=== PATIENT | female | born 1940 | race African-American/Black ===

== ENCOUNTER 2017-06-02 23:14 | Observation (INO) | payer OTHER ==
--- OUTSIDE RECORDS SUMMARY | 2017-06-02 23:17 | XMS REPORT | Clinical Summary ---
:1940 Author Organization [facility] Address [address] [place] [address] Phone Care Team Providers Name Role Phone Unavailable Primary Care Provider Unavailable Allergies Active Allergy Reactions Severity Noted Date Comments Lisinopril 04/15/2017 Penicillins 04/15/2017 Current Medications Prescription Sig. Disp. Refills Start Date End Date Status metFORMIN (GLUCOPHAGE) Take 1,000 mg by Active 1000 MG tablet mouth 2 (two) times daily with breakfast and dinner. ALPRAZolam (XANAX) 0.5 Take 0.5 mg by mouth Active MG tablet every night as needed for Anxiety. amLODIPine (NORVASC) 10 Take 10 mg by mouth Active MG tablet daily. metoprolol (LOPRESSOR) Take 25 mg by mouth. Active 25 MG tablet pantoprazole (PROTONIX) Take 40 mg by mouth Active 40 MG tablet daily. zolpidem (AMBIEN) 10 mg Take 10 mg by mouth Active tablet every night as needed for Insomnia. losartan (COZAAR) 100 MG Take 100 mg by mouth Active tablet daily. latanoprost (XALATAN) Place 1 drop into Active 0.005 % ophthalmic both eyes nightly. solution prednisoLONE acetate Place 1 drop into Active (PRED FORTE) 1 % the right eye 3 ophthalmic suspension (three) times daily. Active Problems Problem Noted Date Right upper quadrant abdominal pain 04/16/2017 Abdominal pain 04/15/2017 Encounters Date Type Specialty Care Team Description 04/17/2017 Procedure Pass Gastroenterology 04/15/[address] [facility] Internal Tony Cee Right upper - Encounter Medicine MD Gustavo quadrant 04/17/2017 Raquel Chester abdominal MD pain;Choledocholi Claireekunique Suárez, thiasis;Atypical Mamta Núñez MD chest pain after 06/01/2016 Social History Tobacco Use Types Packs/Day Years Used Date Never Assessed Sex Assigned at Date Recorded Not on file Last Filed Vital Signs Vital Sign Reading Time Taken Blood Pressure 166/77 04/17/2017 3:35 PM [employer] Pulse 53 04/17/2017 3:35 PM [employer] Temperature 37.1 C (98.8 F) 04/17/2017 3:35 PM [employer] Respiratory Rate 19 04/17/2017 3:35 PM [employer] Oxygen Saturation 100% 04/17/2017 3:35 PM [employer] Inhaled Oxygen Concentration - - Weight 62.8 kg (138 lb 8 oz) 04/15/2017 1:46 AM [employer] Height 162.6 cm (5' 4") 04/15/2017 1:46 AM [employer] Body Mass Index 23.77 04/15/2017 1:46 AM [employer] Plan of Treatment Not on file Results RHYTHM STRIP - SCAN (05/04/2017 3:21 PM)Only the most recent of2 resultswithin the time period is included.EKG-SCANNED (05/02/2017 1:40 PM)Only the most recent of2 resultswithin the time period is included.ECHOCARDIOGRAM REPORT - SCAN (04/17/2017 5:20 PM)2D Echo W/Doppler(CW/PW/Color) (04/17/2017 2:23 PM) Component Value Ref Range Ejection Fraction Specimen Performing Laboratory [facility] ECHO [facility] CPA Narrative Transthoracic Echocardiography Report (TTE) Demographics Patient NameBACKMAN,Date of Study 04/17/2017 SHEREEN Female Visit [id number] Room Number 902 Number Date of 2Referring Mamta Suárez MD Physician Age 77 year(s)Inflatable Buildings Laminator SHAUN Fernandez, RDCS,RVT,RDMS Binding Folder Machine Ana Maria De Oliveira, Elizabeth Fisher MD RDCSPhysician Procedure Type of Study TTE procedure:2DECHO W DOPPLER(CW/PW/COLOR) (Routine) Indications:Shortness of breath. Clinical History HGB 11.3 HCT 35.8 % DM, HTN Height: 64 inches Weight: 62.6 kg (138 lbs) BSA: 1.67 m^2 BMI: 23.69 kg/m^2 HR: 51 bpm BP: 164/75 mmHg Summary The left ventricle is chamber size (by vol index) is normal (female - LVED vol - 29-61ml/m2). No evidence of LV hypertrophy. All of the LV segments contract normally . Global LV systolic function normal . Estimated LVEF by qualitative assessment is normal (55-60%) . Normal diastolic function. The right ventricular chamber size and systolic function are within normal limits. Estimated peak systolic PA pressure is 20-25 mmHg . No pericardial effusion is visualized. Previous Study No prior exam available for comparison. Signature Findings Technical Quality: Technically adequate exam. Left Ventricle The left ventricle is chamber size (by vol index) is normal (female - LVED vol - 29-61ml/m2). No evidence of LV hypertrophy. All of the LV segments contract normally . Global LV systolic function normal . Estimated LVEF by qualitative assessment is normal (55-60%) . Normal diastolic function. Left AtriumLA size is normal (16-34 ml/m2) . Right VentricleThe right ventricular chamber size and systolic function are within normal limits. Right Atrium RA cavity size is normal . Aortic Valve Mild AoV cusp thickening. Mitral Valve Mild mitral annular calcification. Tricuspid ValveTV structure is normal. Mild tricuspid regurgitation. Estimated peak systolic PA pressure is 20-25 mmHg . Pulmonic Valve Normal PV structure and function by limited views and Doppler. AortaAortic root size (SInus of Valsalva diameter) is normal . PericardiumNo pericardial effusion is visualized. IVC/SVC/PA/PV/PleuralThe inferior vena cava is adequately visualized. The inferior vena cava size is normal . The estimated RA pressure by IVC dynamics 0-5mmHg . Chambers/Structures Left Atrium LA Volume: 51.4 mlLA Area: 16.41 cm^2 LA Vol. Index: 31 ml/m^2 Left Ventricle LVIDd: 4.13 cm LV Septum Diastolic: 1.11 cm LV PW Diastolic: 0.9 cm LVEDV Chowdhury's:76.04 ml LVEDVI: 46 ml/m^2 LVOT Diameter: 1.9 cm Aorta Ao Root S of Jane.: 2.92 cm Doppler/Quantitative Measurements Mitral Valve MV Peak E-Wave: 1 m/s MV Peak A-Wave: 0.93 m/s E/A Ratio: 1.07 Peak Gradient: 4 mmHg Deceleration Time: 236 msec MV Willem. Peak: Tissue Doppler E' Lateral Velocity: 0.09 m/s E/E': 11 Aortic Valve Peak Velocity: 1.4 m/s Mean Velocity: 0.88 m/s Peak Gradient: 7.81 mmHg Mean Gradient: 3.74 mmHg AV Area (continuity): 2.29 cm^2 AV VTI: 31.22 cm AV DVI: 0.81 LVOT Peak Velocity: 1.06 m/s Peak Gradient: 4.5 mmHg Mean Velocity: 0.67 m/s Mean Gradient: 2.13 mmHg LVOT Diameter: 1.9 cm LVOT VTI: 25.22 cm LVOT Area: 2.84 cm^2LVOT SV:71.47 ml LVOT CO: 3.64 l/min LVOT CI: 2.18 l/min/m^2 Tricuspid Valve TR Velocity: 2.22 m/s TR Gradient: 19.76 mmHg Procedure Note Interface, External Ris In - 04/17/2017 4:48 PM [employer] Transthoracic Echocardiography Report (TTE) Demographics Patient Name GRETCHEN, Date of Study 04/17/2017 SHEREEN Gender Female Visit Number [id number] Race Black Room Number 902 Number Date of 1940 Referring Mamta Kline MD Physician Age 77 year(s) Inflatable Buildings Laminator SHAUN Fernandez, RDCS,RVT,RDMS Binding Folder Machine Ana Maria De Oliveira, Interpreting Gaudencio Fisher MD RDCS Physician Procedure Type of Study TTE procedure:2DECHO W DOPPLER(CW/PW/COLOR) (Routine) Indications:Shortness of breath. Clinical History HGB 11.3 HCT 35.8 % DM, HTN Height: 64 inches Weight: 62.6 kg (138 lbs) BSA: 1.67 m^2 BMI: 23.69 kg/m^2 HR: 51 bpm BP: 164/75 mmHg Summary The left ventricle is chamber size (by vol index) is normal (female - LVED vol - 29-61ml/m2). No evidence of LV hypertrophy. All of the LV segments contract normally . Global LV systolic function normal . Estimated LVEF by qualitative assessment is normal (55-60%) . Normal diastolic function. The right ventricular chamber size and systolic function are within normal limits. Estimated peak systolic PA pressure is 20-25 mmHg . No pericardial effusion is visualized. Previous Study No prior exam available for comparison. Signature Findings Technical Quality: Technically adequate exam. Left Ventricle The left ventricle is chamber size (by vol index) is normal (female - LVED vol - 29-61ml/m2). No evidence of LV hypertrophy. All of the LV segments contract normally . Global LV systolic function normal . Estimated LVEF by qualitative assessment is normal (55-60%) . Normal diastolic function. Left Atrium LA size is normal (16-34 ml/m2) . Right Ventricle The right ventricular chamber size and systolic function are within normal limits. Right Atrium RA cavity size is normal . Aortic Valve Mild AoV cusp thickening. Mitral Valve Mild mitral annular calcification. Tricuspid Valve TV structure is normal. Mild tricuspid regurgitation. Estimated peak systolic PA pressure is 20-25 mmHg . Pulmonic Valve Normal PV structure and function by limited views and Doppler. Aorta Aortic root size (SInus of Valsalva diameter) is normal . Pericardium No pericardial effusion is visualized. IVC/SVC/PA/PV/Pleural The inferior vena cava is adequately visualized. The inferior vena cava size is normal . The estimated RA pressure by IVC dynamics 0-5mmHg . Chambers/Structures Left Atrium LA Volume: 51.4 ml LA Area: 16.41 cm^2 LA Vol. Index: 31 ml/m^2 Left Ventricle LVIDd: 4.13 cm LV Septum Diastolic: 1.11 cm LV PW Diastolic: 0.9 cm LVEDV Chowdhury's:76.04 ml LVEDVI: 46 ml/m^2 LVOT Diameter: 1.9 cm Aorta Ao Root S of Jane.: 2.92 cm Doppler/Quantitative Measurements Mitral Valve MV Peak E-Wave: 1 m/s MV Peak A-Wave: 0.93 m/s E/A Ratio: 1.07 Peak Gradient: 4 mmHg Deceleration Time: 236 msec MV Willem. Peak: Tissue Doppler E' Lateral Velocity: 0.09 m/s E/E': 11 Aortic Valve Peak Velocity: 1.4 m/s Mean Velocity: 0.88 m/s Peak Gradient: 7.81 mmHg Mean Gradient: 3.74 mmHg AV Area (continuity): 2.29 cm^2 AV VTI: 31.22 cm AV DVI: 0.81 LVOT Peak Velocity: 1.06 m/s Peak Gradient: 4.5 mmHg Mean Velocity: 0.67 m/s Mean Gradient: 2.13 mmHg LVOT Diameter: 1.9 cm LVOT VTI: 25.22 cm LVOT Area: 2.84 cm^2 LVOT SV:71.47 ml LVOT CO: 3.64 l/min LVOT CI: 2.18 l/min/m^2 Tricuspid Valve TR Velocity: 2.22 m/s TR Gradient: 19.76 mmHg POC-Glucose meter (04/17/2017 12:04 PM)Only the most recent of12 resultswithin the time period is included. Component Value Ref Range POC-Glucose Meter 253 (H)Comment: TESTED AT [address] 70 - 110 mg/[place] [address] Specimen Performing Laboratory Blood [facility] [address] [address] Manual Differential (04/17/2017 5:53 AM)Only the most recent of2 resultswithin the time period is included. Specimen Performing Laboratory Blood - Arm, [address] [address] CBC with platelet count + automated diff (04/17/2017 5:53 AM)Only the most recent of3 resultswithin the time period is included. Component Value Ref Range WBC 7.3 3.5 - 10.5 K/L RBC 3.94 3.93 - 5.22 M/L Hemoglobin 11.3 11.2 - 15.7 GM/DL Hematocrit 35.8 34.1 - 44.9 % MCV 90.9 79.4 - 94.8 fL MCH 28.7 25.6 - 32.2 pg MCHC 31.6 (L) 32.2 - 35.5 GM/DL RDW 13.4 11.7 - 14.4 % Platelets 268 150 - 450 K/CU MM MPV 10.0 9.4 - 12.3 fL nRBC 0 0 - 0 /100 WBC % Neutros 41 % % Lymphs 46 % % Monos 8 % % Eos 3 % % Baso 2 % # Neutros 2.99 1.56 - 6.13 K/L # Lymphs 3.34 1.18 - 3.74 K/L # Monos 0.57 (H) 0.24 - 0.36 K/L # Eos 0.22 0.04 - 0.36 K/L # Baso 0.11 (H) 0.01 - 0.08 K/L Immature Granulocytes-Relative 0 0 - 1 % Specimen Performing Laboratory Blood - Arm, [address] [address] CBC with platelet count + automated diff (04/17/2017 5:53 AM)Only the most recent of3 resultswithin the time period is included. Specimen Performing Laboratory Blood Narrative The following orders were created for panel order CBC with platelet count + automated diff. Procedure Abnormality Status --------- ------ CBC with platelet count ...[[id number]]AbnormalFinal result Manual Differential[[id number]] Fi nal result Please view results for these tests on the individual orders. Magnesium (04/17/2017 5:53 AM)Only the most recent of2 resultswithin the time period is included. Component Value Ref Range Magnesium 1.6 1.6 - 2.6 mg/dL Specimen Performing Laboratory Blood - Arm, [address] [address] Basic Metabolic Panel (04/17/2017 5:53 AM) Component Value Ref Range Sodium 140 136 - 145 meq/L Potassium 3.7 3.5 - 5.1 meq/L Chloride 109 (H) 98 - 107 meq/L CO2 23 22 - 29 meq/L BUN 12 7 - 21 mg/dL Creatinine 0.82 0.57 - 1.25 mg/dL Glucose 96 70 - 105 mg/dL Calcium 9.5 8.4 - 10.2 mg/dL EGFR 82Comment: ESTIMATED GFR IS NOT ACCURATE mL/min/1.73 sq m CREATININE CLEARANCE IN PREDICTING GLOMERULAR FILTRATION RATE. ESTIMATED GFR IS NOT APPLICABLE FOR DIALYSIS PATIENTS. Specimen Performing Laboratory Blood - Arm, [address] [address] Troponin I (04/16/2017 5:17 AM)Only the most recent of4 resultswithin the time period is included. Component Value Ref Range Troponin I 0.02 0.00 - 0.03 ng/mL Specimen Performing Laboratory Blood [address] [address] Narrative Troponin I (TnI) levels must be interpreted in the context of the presenting symptoms and the clinical findings. Elevated TnI levels indicate myocardial damage, but are not specific for ischemic heart disease. Elevated TnI levels are seen in patients with other cardiac conditions (including myocarditis and congestive heart failure), and slight TnI elevations occur in patients with other conditions, including sepsis, renal failure, acidosis, acute neurological disease, and persistent tachyarrhythmia. Gamma Glutamyl Transferase (GGT) (04/16/2017 5:17 AM)Only the most recent of2 resultswithin the time period is included. Component Value Ref Range GGT 305 (H) 9 - 64 U/L Specimen Performing Laboratory Blood [address] [address] Creatine Kinase (CK), Total and MB (04/16/2017 5:17 AM)Only the most recent of4 resultswithin the time period is included. Component Value Ref Range Total CK 143 29 - 200 U/L CK-MB 4.1 0.0 - 6.6 ng/mL MB Relative Index 2.9 % Specimen Performing Laboratory Blood [address] [address] Narrative CK-MB Reference Range: <6.7Normal 6.7-10.0Borderline >10.0 Abnormal Bilirubin, direct (04/16/2017 5:17 AM) Component Value Ref Range Bilirubin, Direct 0.2 0.1 - 0.5 mg/dL Specimen Performing Laboratory Blood [address] [address] Comprehensive metabolic panel (04/16/2017 5:17 AM)Only the most recent of2 resultswithin the time period is included. Component Value Ref Range Protein, Total 7.1 6.0 - 8.3 gm/dL Albumin 3.3 (L) 3.5 - 5.0 g/dL Alkaline Phosphatase 186 (H) 40 - 150 U/L Total Bilirubin <0.3 0.2 - 1.2 mg/dL Sodium 141 136 - 145 meq/L Potassium 3.6 3.5 - 5.1 meq/L Chloride 110 (H) 98 - 107 meq/L CO2 24 22 - 29 meq/L BUN 13 7 - 21 mg/dL Creatinine 0.82 0.57 - 1.25 mg/dL Glucose 83 70 - 105 mg/dL Calcium 9.3 8.4 - 10.2 mg/dL AST 30 5 - 34 U/L ALT 88 (H) 6 - 55 U/L EGFR 82Comment: ESTIMATED GFR IS NOT ACCURATE mL/min/1.73 sq m CREATININE CLEARANCE IN PREDICTING GLOMERULAR FILTRATION RATE. ESTIMATED GFR IS NOT APPLICABLE FOR DIALYSIS PATIENTS. Specimen Performing Laboratory [address] [address] MR abdomen without & with IV contrast (04/15/2017 11:10 PM) Specimen Performing Laboratory [facility] Narrative FINAL REPORT MRI OF THE ABDOMEN with MRCP CLINICAL HISTORY: Concern for pancreatic lesion seen on outside imaging TECHNIQUE: Multiplanar and multisequence MR images of the abdomen are obtained before and after intravenous contrast administration. Contrast is administered to evaluate the solid organs COMPARISON: Abdominal ultrasound from 04/15/2017 DISCUSSION: LIVER: No focal liver lesion. Main portal vein is patent. BILIARY: Mild ectasia of the common bile duct measuring up to 7 mm. No discrete filling defects are identified within the biliary tree. No racheal intrahepatic biliary ductal dilation. There are findings of prior cholecystectomy. Metallic susceptibility artifact is seen at the donovan hepatis and lateral to the pancreatic head. PANCREAS: No pancreatic ductal dilation. No definite solid pancreatic lesion within limitations of examination and artifacts. There is a 2.9 cm duodenal diverticulum adjacent to the pancreatic head. SPLEEN: No splenomegaly. ADRENALS: No nodule. KIDNEYS: Bilateral parapelvic cysts. No racheal hydronephrosis. Bilateral subcentimeter T2 hyperintense cysts are incompletely characterized. No definite solid renal lesion. PERITONEUM/RETROPERITONEUM: No free fluid. LYMPH NODES: No upper abdominal lymphadenopathy. VESSELS: Abdominal aorta is normal in caliber. BONES AND SOFT TISSUES: Degenerative changes in the lumbar spine. IMPRESSION: No specific findings of hepatobiliary or pancreatic malignancy. The common bile duct is mildly ectatic. No discrete filling defects are identified in the biliary tree. There is a small amount of metallic susceptibility artifact at the donovan hepatis and adjacent to the pancreatic head, likely from prior cholecystectomy, limiting evaluation. If there remains high clinical suspicion for pancreatic head lesion, a contrast-enhanced CT is recommended. Signed: Kaveh Steve MD Report Verified Date/Time:04/17/2017 12:17:51 Reading Location: [address] Body Reading Room Procedure Note Interface, External Ris In - 04/17/2017 12:20 PM [employer] FINAL REPORT MRI OF THE ABDOMEN with MRCP CLINICAL HISTORY: Concern for pancreatic lesion seen on outside imaging TECHNIQUE: Multiplanar and multisequence MR images of the abdomen are obtained before and after intravenous contrast administration. Contrast is administered to evaluate the solid organs COMPARISON: Abdominal ultrasound from 04/15/2017 DISCUSSION: LIVER: No focal liver lesion. Main portal vein is patent. BILIARY: Mild ectasia of the common bile duct measuring up to 7 mm. No discrete filling defects are identified within the biliary tree. No racheal intrahepatic biliary ductal dilation. There are findings of prior cholecystectomy. Metallic susceptibility artifact is seen at the donovan hepatis and lateral to the pancreatic head. PANCREAS: No pancreatic ductal dilation. No definite solid pancreatic lesion within limitations of examination and artifacts. There is a 2.9 cm duodenal diverticulum adjacent to the pancreatic head. SPLEEN: No splenomegaly. ADRENALS: No nodule. KIDNEYS: Bilateral parapelvic cysts. No racheal hydronephrosis. Bilateral subcentimeter T2 hyperintense cysts are incompletely characterized. No definite solid renal lesion. PERITONEUM/RETROPERITONEUM: No free fluid. LYMPH NODES: No upper abdominal lymphadenopathy. VESSELS: Abdominal aorta is normal in caliber. BONES AND SOFT TISSUES: Degenerative changes in the lumbar spine. IMPRESSION: No specific findings of hepatobiliary or pancreatic malignancy. The common bile duct is mildly ectatic. No discrete filling defects are identified in the biliary tree. There is a small amount of metallic susceptibility artifact at the donovan hepatis and adjacent to the pancreatic head, likely from prior cholecystectomy, limiting evaluation. If there remains high clinical suspicion for pancreatic head lesion, a contrast-enhanced CT is recommended. Signed: Kaveh Steve MD Report Verified Date/Time: 04/17/2017 12:17:51 Reading Location: [facility] [id number] CT Body Reading Room D-dimer (04/15/2017 4:29 PM) Component Value Ref Range D-Dimer, Quant 0.60 (H) <0.50 MG/L FEU Specimen Performing Laboratory Blood - Arm, [place] [address] Narrative Intended Use: The D-Dimer Assay can be used to aid in the diagnosis of Deep Vein Thrombosis (DVT) and Pulmonary Embolism Disease (PED). In patients with low pre-test probability, various studies concerning STA Liatest D-dimer test have reported that with a cutoff value of 0.50 MG/L FEU, the Negative Predictive Value (NPV) regarding the exclusion of thrombosis is within 95-100% range. B-type Natriuretic Factor (BNP) (04/15/2017 11:38 AM) Component Value Ref Range BNP 200 (H) 0 - 100 pg/mL Specimen Performing Laboratory Blood [address] [address] Carbohydrate antigen 19-9 (CA 19-9) (04/15/2017 10:07 AM) Component Value Ref Range CA 19-9 25 <34 U/mL Comment: This test was performed using the Siemens ([employer]) Chemiluminescent method. Values obtained from different assay methods cannot be used interchangeably. CA19-9 levels, regardless of value, should not be interpreted as absolute evidence of the presence or absence of disease. Specimen Performing Laboratory Blood [facility] [address] [place] [address] Narrative Performing Lab [facility] [address] [place] [address] Naomi Soto MD, PhD Carcinoembryonic Antigen (CEA) (04/15/2017 10:07 AM) Component Value Ref Range CEA, SERUM 2.5 0.0 - 5.0 ng/mL Specimen Performing Laboratory Blood [facility] [address] [place] [address] ECG 12 lead (04/15/2017 9:24 AM) Specimen Performing Laboratory GE MUSE Narrative Ventricular Rate 56 BPM Atrial Rate 56 BPM P-R Interval 158 ms QRS Duration 90 ms Q-T Interval 466 ms QTC Calculation(Bazett) 449 ms P Sheffield 67 degrees R Sheffield 36 degrees T Sheffield 42 degrees Sinus bradycardia Nonspecific ST and T wave abnormality Abnormal ECG No previous ECGs available Confirmed by Dayna SONI BASANT ([id number]) on 04/16/2017 8:23:52 AM Procedure Note Interface, External Ris In - 04/16/2017 8:24 AM [employer] Ventricular Rate 56 BPM Atrial Rate 56 BPM P-R Interval 158 ms QRS Duration 90 ms Q-T Interval 466 ms QTC Calculation(Bazett) 449 ms P Sheffield 67 degrees R Sheffield 36 degrees T Sheffield 42 degrees Sinus bradycardia Nonspecific ST and T wave abnormality Abnormal ECG No previous ECGs available Confirmed by Dayna SONI BASANT ([id number]) on 04/16/2017 8:23:52 AM US abdomen limited (04/15/2017 9:03 AM) Specimen Performing Laboratory GE RIS Narrative FINAL REPORT ULTRASOUND RIGHT UPPER QUADRANT OF THE ABDOMEN HISTORY: Abdominal pain, cholelithiasis, epigastric pain COMPARISON: None TECHNIQUE: Real-time ultrasound of the right upper quadrant of the abdomen was performed. FINDINGS: The liver is normal in size and echogenicity. Hepatic length is 12.4 cm. No mass lesion is visualized. The gallbladder is absent. The common bile duct is normal in caliber, measuring 4 mm. The main portal vein is normal in caliber, measuring 12mm. No pancreatic abnormality was visualized.No ascites or pleural effusion. The right kidney is normal in size, contour, and echogenicity. The right kidney measures 8.7 cm in length. Mild right hydronephrosis. No right renal mass. No shadowing calculi are visualized. No abnormalities are seen in the abdominal aorta, inferior vena cava, or hepatic veins. IMPRESSION: 1. Mild right hydronephrosis. Signed: Jenn Crocker MD Report Verified Date/Time:04/15/2017 10:11:28 Reading Location: [facility] [id number] Ortho Consult Reading Room Procedure Note Interface, External Ris In - 04/15/2017 10:13 AM [employer] FINAL REPORT ULTRASOUND RIGHT UPPER QUADRANT OF THE ABDOMEN HISTORY: Abdominal pain, cholelithiasis, epigastric pain COMPARISON: None TECHNIQUE: Real-time ultrasound of the right upper quadrant of the abdomen was performed. FINDINGS: The liver is normal in size and echogenicity. Hepatic length is 12.4 cm. No mass lesion is visualized. The gallbladder is absent. The common bile duct is normal in caliber, measuring 4 mm. The main portal vein is normal in caliber, measuring 12 mm. No pancreatic abnormality was visualized. No ascites or pleural effusion. The right kidney is normal in size, contour, and echogenicity. The right kidney measures 8.7 cm in length. Mild right hydronephrosis. No right renal mass. No shadowing calculi are visualized. No abnormalities are seen in the abdominal aorta, inferior vena cava, or hepatic veins. IMPRESSION: 1. Mild right hydronephrosis. Signed: Jenn Crocker MD Report Verified Date/Time: 04/15/2017 10:11:28 Reading Location: [facility] B1 [id number] Ortho Consult Reading Room Phosphorus (04/15/2017 5:31 AM) Component Value Ref Range Phosphorus 3.9 2.3 - 4.7 mg/dL Specimen Performing [place] [address] Lipase (04/15/2017 5:31 AM) Component Value Ref Range Lipase 29 8 - 78 U/L Specimen Performing Laboratory Blood [address] [address] Hemoglobin A1c (04/15/2017 5:31 AM) Component Value Ref Range Hemoglobin A1C 6.8 (H) 4.3 - 6.1 % Specimen Performing Laboratory Blood [address] [address] Lipid panel (04/15/2017 5:31 AM) Component Value Ref Range Triglycerides 128 mg/dL Cholesterol 162 mg/dL HDL 47 mg/dL LDL Calculated 89 mg/dL Specimen Performing Laboratory Blood [address] [address] Narrative Triglyceride Reference Range: Low Risk <150 [id number] High Risk 200-499 Very High Risk>=500 Cholesterol Reference Range: Low Risk <200 [id number] High Risk>240 HDL Cholesterol Reference Range: Low Risk >=60 High Risk <40 LDL Cholesterol Reference Range: Optimal<100 Near Bdqjlke810-289 Mnntzsaewz883-291 Mcez178-257 Very High >=190 after 06/01/2016
--- OUTSIDE RECORDS SUMMARY | 2017-06-02 23:18 | XMS REPORT ---
:1940 [facility] [address] [place] [address] Care Team Providers Name Role Phone TITUS BREWER Unavailable Unavailable Problems This patient has no known problems. Allergies, Adverse Reactions, Alerts This patient has no known allergies or adverse reactions. Medications This patient has no known medications. 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 Contrast is administered to evaluate the solid organs COMPARISON: Abdominal ultrasound from 04/15/2017 DISCUSSION: LIVER: No focal liver lesion. Main portal vein is patent.BILIARY: Mild ectasia of the common bile duct measuring up to 7 mm. No discrete filling defects are identified within the biliary tree. No racheal intrahepatic biliary ductal dilation. There are findings of prior cholecystectomy. Metallic susceptibility artifact is seen at the donovan hepatis and lateral to the pancreatic head.PANCREAS: No pancreatic ductal dilation. No definite solid pancreatic lesion within limitations of examination and artifacts. There is a 2.9 cm duodenal diverticulum adjacent to the pancreatic head.SPLEEN: No splenomegaly. ADRENALS: No nodule.KIDNEYS: Bilateral parapelvic cysts. No racheal hydronephrosis. Bilateral subcentimeter T2 hyperintense cysts are incompletely characterized. No definite solid renal lesion. PERITONEUM/RETROPERITONEUM: No free fluid.LYMPH NODES: No upper abdominal lymphadenopathy. VESSELS: Abdominal [...] contrast-enhanced CT is recommended. Signed: Kaveh Steve MDReport Verified Date/Time: 04/17/2017 12:17:51 Reading Location: [place] [id number] CT Body Reading Room -GLUCOSE METER 2017-04-17 12:08:00 Test Item Value Reference Range Comments POC-GLUCOSE METER (BEAKER) (test 253 mg/dL 70-110 TESTED AT [facility] [address] tlwf=6962) [facility] [address] CBC W/PLT COUNT & AUTO [id number] 12:08:00 Test Item Value Reference Range Comments WHITE BLOOD CELL COUNT (BEAKER) (test gnmy=002) 7.3 K/ L 3.5-10.5 RED BLOOD CELL COUNT (BEAKER) (test movf=106) 3.94 M/ L 3.93-5.22 HEMOGLOBIN (BEAKER) (test ntiu=794) 11.3 GM/DL 11.2-15.7 HEMATOCRIT (BEAKER) (test fops=418) 35.8 % 34.1-44.9 MEAN CORPUSCULAR VOLUME (BEAKER) (test rign=103) 90.9 fL 79.4-94.8 MEAN CORPUSCULAR HEMOGLOBIN (BEAKER) (test 28.7 pg 25.6-32.2 cbza=568) MEAN CORPUSCULAR HEMOGLOBIN CONC (BEAKER) (test 31.6 GM/DL 32.2-35.5 sapp=615) RED CELL DISTRIBUTION WIDTH (BEAKER) (test 13.4 % 11.7-14.4 erzn=754) PLATELET COUNT (BEAKER) (test kxsk=528) 268 K/CU MM 150-450 MEAN PLATELET VOLUME (BEAKER) (test dbvz=954) 10.0 fL 9.4-12.3 NUCLEATED RED BLOOD CELLS (BEAKER) (test 0 /100 WBC 0-0 cckm=046) NEUTROPHILS RELATIVE PERCENT (BEAKER) (test 41 % acdf=191) LYMPHOCYTES RELATIVE PERCENT (BEAKER) (test 46 % ahgl=680) MONOCYTES RELATIVE PERCENT (BEAKER) (test 8 % mewk=102) EOSINOPHILS RELATIVE PERCENT (BEAKER) (test 3 % cbff=577) BASOPHILS RELATIVE PERCENT (BEAKER) (test 2 % yzqq=267) NEUTROPHILS ABSOLUTE COUNT (BEAKER) (test 2.99 K/ L 1.56-6.13 hsjm=010) LYMPHOCYTES ABSOLUTE COUNT (BEAKER) (test 3.34 K/ L 1.18-3.74 najp=359) MONOCYTES ABSOLUTE COUNT (BEAKER) (test 0.57 K/ L 0.24-0.36 sbtw=366) EOSINOPHILS ABSOLUTE COUNT (BEAKER) (test 0.22 K/ L 0.04-0.36 jjff=621) BASOPHILS ABSOLUTE COUNT (BEAKER) (test 0.11 K/ L 0.01-0.08 nuov=478) IMMATURE GRANULOCYTES-RELATIVE PERCENT (BEAKER) 0 % 0-1 (test ylhh=1992) POCT-GLUCOSE [id number] 08:04:00 Test Item Value Reference Range Comments POC-GLUCOSE METER (BEAKER) 99 mg/dL 70-110 TESTED AT [facility] [address] (test mdji=6134) [facility] [address] [id number] 06:55:00 Test Item Value Reference Range Comments MAGNESIUM (BEAKER) (test iepx=378) 1.6 mg/dL 1.6-2.6 BASIC METABOLIC [id number] 06:55:00 Test Item Value Reference Range Comments SODIUM (BEAKER) (test 140 meq/L 136-145 bedf=906) POTASSIUM (BEAKER) (test 3.7 meq/L 3.5-5.1 xnvy=773) CHLORIDE (BEAKER) (test 109 meq/L 98-107 dfri=411) CO2 (BEAKER) (test 23 meq/L 22-29 ugfm=824) BLOOD UREA NITROGEN 12 mg/dL 7-21 (BEAKER) (test fxvj=488) CREATININE (BEAKER) (test 0.82 mg/dL 0.57-1.25 ekhs=658) GLUCOSE RANDOM (BEAKER) 96 mg/dL 70-105 (test qntf=522) CALCIUM (BEAKER) (test 9.5 mg/dL 8.4-10.2 ynuc=832) EGFR (BEAKER) (test 82 mL/min/1.73 sq m ESTIMATED GFR IS NOT vwdh=9637) ACCURATE CREATININE CLEARANCE IN PREDICTING GLOMERULAR FILTRATION RATE. ESTIMATED GFR IS NOT APPLICABLE FOR DIALYSIS PATIENTS. POCT-GLUCOSE [id number] 21:05:00 Test Item Value Reference Range Comments POC-GLUCOSE METER (BEAKER) 98 mg/dL 70-110 TESTED AT [address] (test ruig=6310) [place] [id number] POCT-GLUCOSE [id number] 17:04:00 Test Item Value Reference Range Comments POC-GLUCOSE METER (BEAKER) 89 mg/dL 70-110 TESTED AT [address] (test zsih=1087) [place] [id number] POCT-GLUCOSE [id number] 12:37:00 Test Item Value Reference Range Comments POC-GLUCOSE METER (BEAKER) 202 mg/dL 70-110 TESTED AT [address] (test icdu=6537) [place] [id number] CBC W/PLT COUNT & AUTO [id number] 09:44:00 Test Item Value Reference Range Comments WHITE BLOOD CELL COUNT (BEAKER) (test shhn=638) 7.1 K/ L 3.5-10.5 RED BLOOD CELL COUNT (BEAKER) (test mkpr=189) 3.76 M/ L 3.93-5.22 HEMOGLOBIN (BEAKER) (test urol=349) 11.0 GM/DL 11.2-15.7 HEMATOCRIT (BEAKER) (test rhug=101) 34.6 % 34.1-44.9 MEAN CORPUSCULAR VOLUME (BEAKER) (test sxvd=489) 92.0 fL 79.4-94.8 MEAN CORPUSCULAR HEMOGLOBIN (BEAKER) (test 29.3 pg 25.6-32.2 jgmd=061) MEAN CORPUSCULAR HEMOGLOBIN CONC (BEAKER) (test 31.8 GM/DL 32.2-35.5 zrul=705) RED CELL DISTRIBUTION WIDTH (BEAKER) (test 13.6 % 11.7-14.4 ynrd=850) PLATELET COUNT (BEAKER) (test zoqu=314) 252 K/CU MM 150-450 MEAN PLATELET VOLUME (BEAKER) (test ajcr=848) 9.9 fL 9.4-12.3 NUCLEATED RED BLOOD CELLS (BEAKER) (test 0 /100 WBC 0-0 nnuf=283) IMMATURE GRANULOCYTES-RELATIVE PERCENT (BEAKER) 0 % 0-1 (test qiym=8983) (MANUAL DIFFERENTIAL)2017-04-16 09:44:00 Test Item Value Reference Range Comments NEUTROPHILS - REL (DIFF) (BEAKER) (test khls=8143) 37 % LYMPHOCYTES - REL (DIFF) (BEAKER) (test zsyq=6451) 51 % MONOCYTES - REL (DIFF) (BEAKER) (test omsn=8350) 9 % EOSINOPHILS - REL (DIFF) (BEAKER) (test jcht=0640) 3 % BASOPHILS - REL (DIFF) (BEAKER) (test leuy=3981) 0 % NEUTROPHILS - ABS (DIFF) (BEAKER) (test vqqi=2171) 2.63 K/ L 1.80-8.00 LYMPHOCYTES - ABS (DIFF) (BEAKER) (test ymmd=7357) 3.62 K/ L 1.48-4.50 MONOCYTES - ABS (DIFF) (BEAKER) (test wkob=7005) 0.64 K/ L 0.00-1.30 EOSINOPHILS - ABS (DIFF) (BEAKER) (test ytzh=6623) 0.21 K/ L 0.00-0.50 BASOPHILS - ABS (DIFF) (BEAKER) (test efxn=1880) 0.00 K/ L 0.00-0.20 TOTAL COUNTED (BEAKER) (test cflt=6118) 100 WBC MORPHOLOGY (BEAKER) (test ezwq=687) Normal PLT MORPHOLOGY (BEAKER) (test kuly=391) Normal RBC MORPHOLOGY (BEAKER) (test cgpi=656) Normal CREATINE KINASE (CK), TOTAL AND [id number] 07:51:00 Test Item Value Reference Range Comments CREATINE KINASE TOTAL (BEAKER) (test miqd=746) 143 U/L 29-200 CREATINE KINASE-MB (BEAKER) (test hxmg=935) 4.1 ng/mL 0.0-6.6 CREATINE KINASE-MB INDEX (BEAKER) (test arqp=501) 2.9 % CK-MB Reference Range:<6.7 Normal6.7-10.0 Borderline>10.0 AbnormalTROPONIN [id number] 07:51:00 Test Item Value Reference Range Comments TROPONIN I (BEAKER) (test fztw=607) 0.02 ng/mL 0.00-0.03 Troponin I (TnI) levels must be interpreted [...] failure, acidosis, acute neurological disease, and persistent tachyarrhythmia.POCT-GLUCOSE [id number] 07:41:00 Test Item Value Reference Range Comments POC-GLUCOSE METER (BEAKER) 85 mg/dL 70-110 TESTED AT [facility] [address] (test thyz=8558) [facility] [address] GAMMA GLUTAMYL TRANSFERASE (GGT)2017-04-16 07:41:00 Test Item Value Reference Range Comments GAMMA GLUTAMYL TRANSFERASE (BEAKER) (test ejto=716) 305 U/L 9-64 BILIRUBIN, [id number] 07:41:00 Test Item Value Reference Range Comments BILIRUBIN DIRECT (BEAKER) (test wkve=824) 0.2 mg/dL 0.1-0.5 COMPREHENSIVE METABOLIC [id number] 07:41:00 Test Item Value Reference Range Comments TOTAL PROTEIN (BEAKER) 7.1 gm/dL 6.0-8.3 (test eqyt=991) ALBUMIN (BEAKER) (test 3.3 g/dL 3.5-5.0 uvdx=3865) ALKALINE PHOSPHATASE 186 U/L 40-150 (BEAKER) (test hxsi=981) BILIRUBIN TOTAL (BEAKER) < mg/dL 0.2-1.2 (test cemg=046) SODIUM (BEAKER) (test 141 meq/L 136-145 gmbw=694) POTASSIUM (BEAKER) (test 3.6 meq/L 3.5-5.1 wkcv=462) CHLORIDE (BEAKER) (test 110 meq/L 98-107 zmye=753) CO2 (BEAKER) (test 24 meq/L 22-29 pagc=990) BLOOD UREA NITROGEN 13 mg/dL 7-21 (BEAKER) (test ssdf=880) CREATININE (BEAKER) (test 0.82 mg/dL 0.57-1.25 krxu=496) GLUCOSE RANDOM (BEAKER) 83 mg/dL 70-105 (test itpz=113) CALCIUM (BEAKER) (test 9.3 mg/dL 8.4-10.2 xsin=573) AST (SGOT) (BEAKER) (test 30 U/L 5-34 vgjx=147) ALT (SGPT) (BEAKER) (test 88 U/L 6-55 jyxw=189) EGFR (BEAKER) (test 82 mL/min/1.73 sq m ESTIMATED GFR IS NOT pwxa=9698) ACCURATE CREATININE CLEARANCE IN PREDICTING GLOMERULAR FILTRATION RATE. ESTIMATED GFR IS NOT APPLICABLE FOR DIALYSIS PATIENTS. POCT-GLUCOSE [id number] 20:46:00 Test Item Value Reference Range Comments POC-GLUCOSE METER (BEAKER) 99 mg/dL 70-110 TESTED AT [address] (test bwvj=0855) [place] [address] POCT-GLUCOSE [id number] 17:37:00 Test Item Value Reference Range Comments POC-GLUCOSE METER (BEAKER) 143 mg/dL 70-110 TESTED AT [address] (test ctrx=2895) [place] [address] CREATINE KINASE (CK), TOTAL AND [id number] 17:27:00 Test Item Value Reference Range Comments CREATINE KINASE TOTAL (BEAKER) (test pukn=940) 196 U/L 29-200 CREATINE KINASE-MB (BEAKER) (test fxnr=635) 5.1 ng/mL 0.0-6.6 CREATINE KINASE-MB INDEX (BEAKER) (test zilo=595) 2.6 % CK-MB Reference Range:<6.7 Normal6.7-10.0 Borderline>10.0 AbnormalTROPONIN [id number] 17:27:00 Test Item Value Reference Range Comments TROPONIN I (BEAKER) (test jlqq=708) 0.02 ng/mL 0.00-0.03 Troponin I (TnI) levels must be interpreted [...] failure, acidosis, acute neurological disease, and persistent tachyarrhythmia.[id number] 16:54:00 Test Item Value Reference Range Comments D-DIMER QUANTITATIVE (BEAKER) (test lzjy=997) 0.60 MG/L FEU <0.50 Intended Use: The D-Dimer Assay can be used to aid in the diagnosis of Deep Vein Thrombosis (DVT) and Pulmonary Embolism Disease (PED).In patients with low pre-test probability, various studies concerning STA Liatest D-dimer test have reported that with a cutoff value of 0.50 MG/L FEU, the Negative Predictive Value (NPV) regarding the exclusion of thrombosis is within 95-100% range.POCT- GLUCOSE [id number] 14:54:00 Test Item Value Reference Range Comments POC-GLUCOSE METER (BEAKER) 113 mg/dL 70-110 TESTED AT [facility] [address] (test hxsa=0802) [facility] [address] CBC W/PLT COUNT & AUTO [id number] 13:06:00 Test Item Value Reference Range Comments WHITE BLOOD CELL COUNT (BEAKER) (test pmbe=599) 7.2 K/ L 3.5-10.5 RED BLOOD CELL COUNT (BEAKER) (test pfex=784) 3.92 M/ L 3.93-5.22 HEMOGLOBIN (BEAKER) (test kduk=584) 11.3 GM/DL 11.2-15.7 HEMATOCRIT (BEAKER) (test arhs=414) 35.6 % 34.1-44.9 MEAN CORPUSCULAR VOLUME (BEAKER) (test xqpx=270) 90.8 fL 79.4-94.8 MEAN CORPUSCULAR HEMOGLOBIN (BEAKER) (test 28.8 pg 25.6-32.2 nqzu=100) MEAN CORPUSCULAR HEMOGLOBIN CONC (BEAKER) (test 31.7 GM/DL 32.2-35.5 nsge=825) RED CELL DISTRIBUTION WIDTH (BEAKER) (test 13.8 % 11.7-14.4 qvwg=623) PLATELET COUNT (BEAKER) (test qmul=886) 254 K/CU MM 150-450 MEAN PLATELET VOLUME (BEAKER) (test yijc=618) 10.2 fL 9.4-12.3 NUCLEATED RED BLOOD CELLS (BEAKER) (test 0 /100 WBC 0-0 medl=219) NEUTROPHILS RELATIVE PERCENT (BEAKER) (test 37 % uthk=995) LYMPHOCYTES RELATIVE PERCENT (BEAKER) (test 50 % ryal=014) MONOCYTES RELATIVE PERCENT (BEAKER) (test 8 % lgee=620) EOSINOPHILS RELATIVE PERCENT (BEAKER) (test 4 % hofy=165) BASOPHILS RELATIVE PERCENT (BEAKER) (test 1 % rbew=841) NEUTROPHILS ABSOLUTE COUNT (BEAKER) (test 2.66 K/ L 1.56-6.13 mvrl=669) LYMPHOCYTES ABSOLUTE COUNT (BEAKER) (test 3.57 K/ L 1.18-3.74 jmpe=623) MONOCYTES ABSOLUTE COUNT (BEAKER) (test 0.55 K/ L 0.24-0.36 odwk=314) EOSINOPHILS ABSOLUTE COUNT (BEAKER) (test 0.26 K/ L 0.04-0.36 lcfq=168) BASOPHILS ABSOLUTE COUNT (BEAKER) (test 0.08 K/ L 0.01-0.08 lrgt=842) IMMATURE GRANULOCYTES-RELATIVE PERCENT (BEAKER) 0 % 0-1 (test kwkx=6386) B-TYPE NATRIURETIC FACTOR (BNP)2017-04-15 12:21:00 Test Item Value Reference Range Comments B-TYPE NATRIURETIC PEPTIDE (BEAKER) (test 200 pg/mL 0-100 drqy=819) GAMMA GLUTAMYL TRANSFERASE (GGT)2017-04-15 12:16:00 Test Item Value Reference Range Comments GAMMA GLUTAMYL TRANSFERASE (BEAKER) (test jfsg=156) 327 U/L 9-64 CARCINOEMBRYONIC ANTIGEN (CEA)2017-04-15 11:33:00 Test Item Value Reference Range Comments CARCINOEMBRYONIC ANTIGEN (BEAKER) (test eyco=958) 2.5 ng/mL 0.0-5.0 POCT-GLUCOSE [id number] 11:26:00 Test Item Value Reference Range Comments POC-GLUCOSE METER (BEAKER) 114 mg/dL 70-110 TESTED AT [facility] [address] (test akjv=9642) [facility] [address] CREATINE KINASE (CK), TOTAL AND [id number] 11:19:00 Test Item Value Reference Range Comments CREATINE KINASE TOTAL (BEAKER) (test kaey=261) 204 U/L 29-200 CREATINE KINASE-MB (BEAKER) (test bxie=335) 5.7 ng/mL 0.0-6.6 CREATINE KINASE-MB INDEX (JAKE) (test gjic=499) 2.8 % CK-MB Reference Range:<6.7 Normal6.7-10.0 Borderline>10.0 AbnormalTROPONIN [id number] 11:19:00 Test Item Value Reference Range Comments TROPONIN I (JAKE) (test ktfq=790) 0.02 ng/mL 0.00-0.03 Troponin I (TnI) levels must be interpreted [...] failure, acidosis, acute neurological disease, and persistent tachyarrhythmia.U/S, ABDOMINAL, [id number] 10:11: 00Abdomen limited area? Add comment if clarification is needed.->Right upper quadrantReason for exam:->Concern for choledocho at OSHFINAL REPORT ULTRASOUND RIGHT UPPER QUADRANT OF THE ABDOMEN HISTORY: Abdominal pain, cholelithiasis, epigastric pain COMPARISON: None TECHNIQUE: Real -time ultrasound of the right upper quadrant of [...] ascites or pleural effusion. The right kidney isnormal in size, contour, and echogenicity. The right kidney measures 8.7 cm in length. Mild right hydronephrosis. No right renal mass. No shadowing calculi are visualized. No abnormalities are seen in the abdominal aorta, inferior vena cava, or hepatic veins. IMPRESSION: 1. Mild right hydronephrosis. Signed: Jenn Crocker MDReport Verified Date/Time: 04/15/2017 10:11:28 Reading Location: [facility] [id number] Consult Reading Room Electronically signed by: JENN CROCKER MD on 2017 10:11 AMPOCT-GLUCOSE [id number] 10:00:00 Test Item Value Reference Range Comments POC-GLUCOSE METER (BEAKER) 107 mg/dL 70-110 TESTED AT [facility] [address] (test ffht=8424) [facility] [address] HEMOGLOBIN [id number] 08:15:00 Test Item Value Reference Range Comments HEMOGLOBIN A1C (BEAKER) (test sdfb=665) 6.8 % 4.3-6.1 [id number] 07:35:00 Test Item Value Reference Range Comments PHOSPHORUS (BEAKER) (test ekuh=353) 3.9 mg/dL 2.3-4.7 [id number] 07:35:00 Test Item Value Reference Range Comments MAGNESIUM (BEAKER) (test lgmu=571) 1.8 mg/dL 1.6-2.6 COMPREHENSIVE METABOLIC [id number] 07:35:00 Test Item Value Reference Range Comments TOTAL PROTEIN (BEAKER) 7.5 gm/dL 6.0-8.3 (test iwws=036) ALBUMIN (BEAKER) (test 3.5 g/dL 3.5-5.0 ydzz=2491) ALKALINE PHOSPHATASE 211 U/L 40-150 (BEAKER) (test uiqs=395) BILIRUBIN TOTAL (BEAKER) < mg/dL 0.2-1.2 (test axrp=924) SODIUM (BEAKER) (test 142 meq/L 136-145 ytxn=121) POTASSIUM (BEAKER) (test 3.6 meq/L 3.5-5.1 evrq=050) CHLORIDE (BEAKER) (test 110 meq/L 98-107 adin=471) CO2 (BEAKER) (test 22 meq/L 22-29 fatg=147) BLOOD UREA NITROGEN 12 mg/dL 7-21 (BEAKER) (test vajv=413) CREATININE (BEAKER) (test 0.84 mg/dL 0.57-1.25 cawj=273) GLUCOSE RANDOM (BEAKER) 107 mg/dL 70-105 (test mejt=202) CALCIUM (BEAKER) (test 9.4 mg/dL 8.4-10.2 eyrw=389) AST (SGOT) (BEAKER) (test 37 U/L 5-34 qlff=987) ALT (SGPT) (BEAKER) (test 119 U/L 6-55 seki=185) EGFR (BEAKER) (test 80 mL/min/1.73 sq m ESTIMATED GFR IS NOT ftfc=9099) ACCURATE CREATININE CLEARANCE IN PREDICTING GLOMERULAR FILTRATION RATE. ESTIMATED GFR IS NOT APPLICABLE FOR DIALYSIS PATIENTS. LIPID [id number] 07:35:00 Test Item Value Reference Range Comments TRIGLYCERIDES (BEAKER) (test rrpo=403) 128 mg/dL CHOLESTEROL (BEAKER) (test ioqa=590) 162 mg/dL HDL CHOLESTEROL (BEAKER) (test nifh=843) 47 mg/dL LDL CHOLESTEROL CALCULATED (BEAKER) (test 89 mg/dL xcfx=299) Triglyceride Reference Range: Low Risk <150 Borderline 150- 199 High Risk 200-499 Very High Risk >=500Cholesterol Reference Range: Low Risk <200 Borderline 200-239 High Risk > 240HDL Cholesterol Reference Range: Low Risk >=60 High Risk <40LDL Cholesterol Reference Range: Optimal <100 Near Optimal 100-129 Borderline 130-159 High 160-189 Very High >=190CREATINE KINASE (CK), TOTAL AND [id number] 07:35:00 Test Item Value Reference Range Comments CREATINE KINASE TOTAL (BEAKER) (test lufp=217) 216 U/L 29-200 CREATINE KINASE-MB (BEAKER) (test jecu=660) 6.0 ng/mL 0.0-6.6 CREATINE KINASE-MB INDEX (BEAKER) (test dkdm=038) 2.8 % CK-MB Reference Range:<6.7 Normal6.7-10.0 Borderline>10.0 [id number] 07:35:00 Test Item Value Reference Range Comments LIPASE (BEAKER) (test aioo=874) 29 U/L 8-78 TROPONIN [id number] 07:32:00 Test Item Value Reference Range Comments TROPONIN I (BEAKER) (test wirw=262) 0.01 ng/mL 0.00-0.03 Troponin I (TnI) levels must be interpreted [...] failure, acidosis, acute neurological disease, and persistent tachyarrhythmia.POCT-GLUCOSE [id number] 05:07:00 Test Item Value Reference Range Comments POC-GLUCOSE METER (JAKE) 113 mg/dL 70-110 TESTED AT [facility] [address] [facility] (test wkcr=7763) [place] [id number]
[2017-06-02] MEDS ORDERED: ASPIRIN 81 MG CHEWABLE TABLET ONE (23:59)
[2017-06-03] MEDS ORDERED: CARVEDILOL 6.25 MG TAB ONE
[2017-06-03] MEDS ORDERED: ENOXAPARIN 60 MG/0.6 ML SQ ONE
[2017-06-03] MEDS ORDERED: NA CHLORIDE 0.9% 1,000 ML ONE
--- NOTE | 2017-06-03 00:01 | ER ---
Nurse's Notes [facility] Name: Shereen Flores Age: 77 yrs Sex: Female : 1940 Arrival Date: 06/02/2017 Time: 23:24 Bed 5 Private MD: Diagnosis: Other chest pain;Type 2 diabetes mellitus;Essential (primary) hypertension;Hypomagnesemia Presentation: 06/02 23:15 Presenting complaint: Patient states: that since 0600 this am she has been having chest fc pain that radiates to neck along with shortness of breath. Denies any nausea or vomiting. Also having high bp which she took her prn Clonidine for. Transition of care: patient was not received from another setting of care. Onset of symptoms was June 02, 2017 at 06:00. Initial Sepsis Screen: Does the patient meet any 2 criteria? No. Patient's initial sepsis screen is negative. Does the patient have a suspected source of infection? No. Patient's initial sepsis screen is negative. Care prior to arrival: Medication(s) given: Clonidine 0.1 mg last at 1900. 23:15 Method Of Arrival: Wheelchair fc 23:15 Acuity: AVERY 2 fc Historical: - Allergies: 23:36 SHARON INHIBITORS; fc 23:36 PENICILLINS; fc 23:36 iodine; fc - Home Meds: 23:36 alprazolam 0.5 mg Oral tab nightly [Active]; clonidine HCl 0.1 mg Oral tab 1 tab tid fc prn high bp [Active]; losartan 50 mg oral tab 1 tab 2 times per day [Active]; amlodipine 10 mg tab 1 tab once daily [Active]; carvedilol 12.5 mg oral tab 1 tab 2 times per day [Active]; pantoprazole 40 mg Oral TbEC 1 tab once daily [Active]; aspirin 81 mg Oral TbEC 1 tab once daily [Active]; metformin 1,000 mg oral tab 1 tab 2 times per day [Active]; gabapentin 300 mg oral cap 1 cap 3 times per day [Active]; Ultracet 37.5-325 mg Oral tab 1 tabs q8hrs prn [Active]; - PMHx: 23:36 Diabetes - NIDDM; Hypertension; Glaucoma; GERD; fc - PSHx: 23:36 right eye; kidney stent; Cholecystectomy; fc - Immunization history:: Last tetanus immunization: unknown. - Social history:: Smoking status: Patient/guardian denies using tobacco. - Family history:: not pertinent. Screenin:32 Abuse screen: Denies threats or abuse. Nutritional screening: No deficits noted. Tuberculosis screening: No symptoms or risk factors identified. Fall Risk Fall in past 12 months (25 points). Secondary diagnosis (15 points) impaired mobility, No IV (0 pts). Ambulatory Aid- None/Bed Rest/Nurse Assist (0 pts). Gait- Weak (10 pts.). Mental Status- Overestimates/Forgets Limitations (15 pts.). Total Monroy Fall Scale indicates High Risk Score (45 or more points). Fall prevention measures have been instituted. Side Rails Up X 2 Placed Close to Nursing Station Frequent Obs/Assessments Occuring Family Present and informed to notify staff if the need to leave the bedside As available patient and family educated on Fall Prevention Program and Strategies. Assessment: 06/03 00:00 General: Appears in no apparent distress. Behavior is calm, cooperative, appropriate tl1 for age. Pain: Denies pain. Neuro: Level of Consciousness is awake, alert, obeys commands, Oriented to person, place, time, situation. Cardiovascular: Reports chest pain, Capillary refill < 3 seconds Rhythm is sinus bradycardia Chest pain quality is pressure, began 1 day ago chest pain resolved during assessment. Respiratory: Airway is patent Trachea midline Respiratory effort is even, unlabored, Breath sounds are clear bilaterally. GI: Abdomen is non-distended, Bowel sounds present X 4 quads. Abd is soft and non tender X 4 quads. : No signs and/or symptoms were reported regarding the genitourinary system. EENT: No signs and/or symptoms were reported regarding the EENT system. 02:35 Reassessment: Family at [phone] notified that pt was being admitted to room 413. 03:01 Reassessment: Patient and/or family updated on plan of care and expected duration. Pain tl1 level reassessed. Patient is alert, oriented x 3, equal unlabored respirations, skin warm/dry/pink. Patient denies pain at this time. Patient states feeling better. Patient states symptoms have improved. Vital Signs: 06/02 23:15 BP 201 / 86; Pulse 77; Resp 18; Temp 98(O); Pulse Ox 99% on R/A; Weight 65.77 kg (R); Height 5 ft. 4 in. (162.56 cm) (R); Pain 8/10; 23:45 BP 179 / 76; Pulse 61; Resp 18; Pulse Ox 100% on R/A; tl2 04 00:13 BP 146 / 81; Pulse 55; Resp 10; Pulse Ox 99% on R/A; tl2 02:25 BP 159 / 68; Pulse 52; Resp 17; Temp 98.1; Pulse Ox 98% on R/A; Pain 0/10; tl1 03:02 BP 147 / 67; Pulse 52; Resp 18; Temp 98.1; Pulse Ox 97% on R/A; Pain 0/10; tl1 06/02 23:15 Body Mass Index 24.89 (65.77 kg, 162.56 cm) ED Course: 06/02 23:15 Arm band placed on Patient placed in an exam room, on a stretcher. 23:24 Patient arrived in ED. tl2 23:30 Triage completed. 23:45 Emmanuel Chang MD is Attending Physician. [facility] 06/03 00:00 Genesis Gutiérrez MD is Hospitalizing Provider. [facility] 00:00 Patient has correct armband on for positive identification. Placed in gown. Bed in low tl1 position. Call light in reach. Side rails up X2. Adult w/ patient. Warm blanket given. Pillow given. 00:00 Initial lab(s) drawn, by me, sent to lab. Inserted 18 gauge 10 cm midline to right upper arm brachial vein on first attempt. Line with good blood return and flushes well. Blood collected. 00:24 X-ray completed. Portable x-ray completed in exam room. Patient tolerated procedure jw2 well. 02:24 No provider procedures requiring assistance completed. Patient admitted, IV remains in tl1 place. Patient maintains SpO2 saturation greater than 95% on room air. 02:25 Elizabeth Ruiz RN is Primary Nurse. tl1 Administered Medications: 00:10 Drug: NS 0.9% 1000 ml Route: IV; Rate: 75 ml/hr; Site: right upper arm; tl1 02:28 Follow up: IV Status: Infusion continued upon admission tl1 00:10 Drug: Aspirin 162 mg Route: PO; tl1 02:26 Follow up: Response: No adverse reaction; No change in condition tl1 00:10 Drug: Lovenox 60 mg Route: Sub-Q; Site: abdomen; tl1 02:26 Follow up: Response: No adverse reaction; No change in condition tl1 01:03 Not Given (Patient Refused): Tylenol 650 mg PO once tl2 01:03 Drug: Magnesium Sulfate 1 grams Route: IVPB; Infused Over: 1 hrs; Site: right upper arm;tl2 02:00 Follow up: IV Status: Completed infusion tl2 02:00 Not Given (Hemodynamic Parameters): Coreg 12.5 mg PO once; administer with food tl2 02:00 Not Given (Hemodynamic Parameters): Nitro-Bid Ointment 2 % 1 inches Transdermal once tl2 Outcome: 00:01 Decision to Hospitalize by Provider. joseline 03:01 Admitted to Tele accompanied by christine, via stretcher, with chart, Report called to Chris lehman DIAGRAMMER 03:01 Condition: stable 03:01 Instructed on the need for admit. 03:12 Patient left the ED. tl1 Signatures: Emmanuel Chang MD MD cha Chretien, Felicia, RN RN Elizabeth Watkins RN RN tl1 Jesenia Remy2 Kia Lomeli RN RN tl2
--- NOTE | 2017-06-03 00:01 | EDPHYS ---
Physician Documentation [facility] Name: Shereen Flores Age: 77 yrs Sex: Female : 1940 Arrival Date: 06/02/2017 Time: 23:24 Bed 5 Private MD: ED Physician Emmanuel Chang HPI: 06/02 23:56 This 77 yrs old Black Female presents to ER via Wheelchair with complaints of chest joseline pain. 23:56 The patient or guardian reports chest pain that is located primarily in the substernal joseline area. Onset: today. The pain radiates to Associated signs and symptoms: The patient has no apparent associated signs or symptoms. The chest pain is described as aching, squeezing. Duration: The patient or guardian reports multiple episodes, with no pattern. Modifying factors: The symptoms are alleviated by nothing. the symptoms are aggravated by nothing. Severity of pain: At its worst the pain was mild moderate in the emergency department the pain is unchanged. The patient has not experienced similar symptoms in the past. Historical: - Allergies: 23:36 SHARON INHIBITORS; fc 23:36 PENICILLINS; fc 23:36 iodine; fc - Home Meds: 23:36 alprazolam 0.5 mg Oral tab nightly [Active]; clonidine HCl 0.1 mg Oral tab 1 tab tid fc prn high bp [Active]; losartan 50 mg oral tab 1 tab 2 times per day [Active]; amlodipine 10 mg tab 1 tab once daily [Active]; carvedilol 12.5 mg oral tab 1 tab 2 times per day [Active]; pantoprazole 40 mg Oral TbEC 1 tab once daily [Active]; aspirin 81 mg Oral TbEC 1 tab once daily [Active]; metformin 1,000 mg oral tab 1 tab 2 times per day [Active]; gabapentin 300 mg oral cap 1 cap 3 times per day [Active]; Ultracet 37.5-325 mg Oral tab 1 tabs q8hrs prn [Active]; - PMHx: 23:36 Diabetes - NIDDM; Hypertension; Glaucoma; GERD; fc - PSHx: 23:36 right eye; kidney stent; Cholecystectomy; fc - Immunization history:: Last tetanus immunization: unknown. - Social history:: Smoking status: Patient/guardian denies using tobacco. - Family history:: not pertinent. ROS: 23:56 Constitutional: Negative for fever, chills, and weight loss, Eyes: Negative for injury, joseline pain, redness, and discharge, ENT: Negative for injury, pain, and discharge, Neck: Negative for injury, pain, and swelling, Respiratory: Negative for shortness of breath, cough, wheezing, and pleuritic chest pain, Abdomen/GI: Negative for abdominal pain, nausea, vomiting, diarrhea, and constipation, Back: Negative for injury and pain, : Negative for injury, bleeding, discharge, and swelling, MS/Extremity: Negative for injury and deformity, Skin: Negative for injury, rash, and discoloration, Neuro: Negative for headache, weakness, numbness, tingling, and seizure, Psych: Negative for depression, anxiety, suicide ideation, homicidal ideation, and hallucinations, Allergy/Immunology: Negative for hives, rash, and allergies, Endocrine: Negative for neck swelling, polydipsia, polyuria, polyphagia, and marked weight changes, Hematologic/Lymphatic: Negative for swollen nodes, abnormal bleeding, and unusual bruising. 23:56 Cardiovascular: Positive for chest pain, of the chest. Exam: 23:56 Constitutional: This is a well developed, well nourished patient who is awake, alert, joseline and in no acute distress. Head/Face: Normocephalic, atraumatic. Eyes: Pupils equal round and reactive to light, extra-ocular motions intact. Lids and lashes normal. Conjunctiva and sclera are non-icteric and not injected. Cornea within normal limits. Periorbital areas with no swelling, redness, or edema. ENT: Nares patent. No nasal discharge, no septal abnormalities noted. Tympanic membranes are normal and external auditory canals are clear. Oropharynx with no redness, swelling, or masses, exudates, or evidence of obstruction, uvula midline. Mucous membranes moist. Neck: Trachea midline, no thyromegaly or masses palpated, and no cervical lymphadenopathy. Supple, full range of motion without nuchal rigidity, or vertebral point tenderness. No Meningismus. Chest/axilla: Normal chest wall appearance and motion. Nontender with no deformity. No lesions are appreciated. Cardiovascular: Regular rate and rhythm with a normal S1 and S2. No gallops, murmurs, or rubs. Normal PMI, no JVD. No pulse deficits. Respiratory: Lungs have equal breath sounds bilaterally, clear to auscultation and percussion. No rales, rhonchi or wheezes noted. No increased work of breathing, no retractions or nasal flaring. Abdomen/GI: Soft, non-tender, with normal bowel sounds. No distension or tympany. No guarding or rebound. No evidence of tenderness throughout. Back: No spinal tenderness. No costovertebral tenderness. Full range of motion. Female : Normal external genitalia. Skin: Warm, dry with normal turgor. Normal color with no rashes, no lesions, and no evidence of cellulitis. MS/ Extremity: Pulses equal, no cyanosis. Neurovascular intact. Full, normal range of motion. Neuro: Awake and alert, GCS 15, oriented to person, place, time, and situation. Cranial nerves II-XII grossly intact. Motor strength 5/5 in all extremities. Sensory grossly intact. Cerebellar exam normal. Normal gait. Psych: Awake, alert, with orientation to person, place and time. Behavior, mood, and affect are within normal limits. 23:56 Musculoskeletal/extremity: DVT Exam: No signs of deep vein thrombosis. no pain, no swelling, no tenderness, negative Homans' sign noted on exam, no appreciated bluish discoloration, no erythema, no increased warmth. Vital Signs: 23:15 BP 201 / 86; Pulse 77; Resp 18; Temp 98(O); Pulse Ox 99% on R/A; Weight 65.77 kg (R); fc Height 5 ft. 4 in. (162.56 cm) (R); Pain 8/10; 23:45 BP 179 / 76; Pulse 61; Resp 18; Pulse Ox 100% on R/A; tl2 06/03 00:13 BP 146 / 81; Pulse 55; Resp 10; Pulse Ox 99% on R/A; tl2 02:25 BP 159 / 68; Pulse 52; Resp 17; Temp 98.1; Pulse Ox 98% on R/A; Pain 0/10; tl1 03:02 BP 147 / 67; Pulse 52; Resp 18; Temp 98.1; Pulse Ox 97% on R/A; Pain 0/10; tl1 06/02 23:15 Body Mass Index 24.89 (65.77 kg, 162.56 cm) [facility]: 06/02 23:45 Patient medically screened. joseline 06/03 00:02 Data reviewed: vital signs, nurses notes, lab test result(s), EKG, radiologic studies, joseline plain films. 06/02 23:55 Order name: Basic Metabolic Panel; Complete Time: 00:50 [facility] [place] 06/02 23:55 Order name: BNP; Complete Time: 00:47 [facility] [place] 06/02 23:55 Order name: CBC with Diff; Complete Time: 00:47 [facility] [place] 06/02 23:55 Order name: Ckmb; Complete Time: 00:50 [facility] [place] 06/02 23:55 Order name: CPK; Complete Time: 00:50 [facility] [place] 06/02 23:55 Order name: LFT's; Complete Time: 00:50 [facility] [place] 06/02 23:55 Order name: Magnesium; Complete Time: 00:50 [facility] [place] 06/02 23:55 Order name: PT-INR; Complete Time: 00:50 [facility] [place] 06/02 23:55 Order name: Ptt, Activated; Complete Time: 00:50 [facility] [place] 06/02 23:55 Order name: Troponin (emerg Dept Use Only); Complete Time: 00:47 [facility] [place] 06/02 23:55 Order name: XRAY Chest (1 view) [facility] [place] 06/02 23:55 Order name: Lipase; Complete Time: 00:50 [facility] [place] 06/02 23:58 Order name: Urine Dipstick--Ancillary (enter results); Complete Time: 00:47 em 06/02 23:55 Order name: EKG; Complete Time: 23:56 [facility] [place] 06/02 23:55 Order name: Cardiac monitoring; Complete Time: 00:15 [facility] [place] 06/02 23:55 Order name: EKG - Nurse/Tech; Complete Time: 00:15 [facility] [place] 06/02 23:55 Order name: IV Saline Lock; Complete Time: 00:15 [facility] [place] 06/02 23:55 Order name: Labs collected and sent; Complete Time: 00:23 [facility] [place] 06/02 23:55 Order name: O2 Per Protocol; Complete Time: 00:15 [facility] [place] 06/02 23:55 Order name: O2 Sat Monitoring; Complete Time: 00:15 [facility] [place] 06/02 23:55 Order name: Urine Dipstick-Ancillary (obtain specimen); Complete Time: 23:57 [facility] [place] 06/03 00:09 Order name: CONS Physician Consult EDMS Administered Medications: 00:10 Drug: NS 0.9% 1000 ml Route: IV; Rate: 75 ml/hr; Site: right upper arm; tl1 02:28 Follow up: IV Status: Infusion continued upon admission tl1 00:10 Drug: Aspirin 162 mg Route: PO; tl1 02:26 Follow up: Response: No adverse reaction; No change in condition tl1 00:10 Drug: Lovenox 60 mg Route: Sub-Q; Site: abdomen; tl1 02:26 Follow up: Response: No adverse reaction; No change in condition tl1 01:03 Not Given (Patient Refused): Tylenol 650 mg PO once tl2 01:03 Drug: Magnesium Sulfate 1 grams Route: IVPB; Infused Over: 1 hrs; Site: right upper arm;tl2 02:00 Follow up: IV Status: Completed infusion tl2 02:00 Not Given (Hemodynamic Parameters): Coreg 12.5 mg PO once; administer with food tl2 02:00 Not Given (Hemodynamic Parameters): Nitro-Bid Ointment 2 % 1 inches Transdermal once tl2 Disposition: 06/03/17 00:01 Hospitalization ordered by Genesis Gutiérrez for Observation. Preliminary diagnosis are Other chest pain, Type 2 diabetes mellitus, Essential (primary) hypertension, Hypomagnesemia. - Bed requested for Telemetry/MedSurg (observation). - Status is Observation. tl1 - Condition is Stable. - Problem is new. - Symptoms have improved. UTI on Admission? No Signatures: Dispatcher [employer] Gisell Nguyen, Emmanuel Pal RN, MD MD cha Chretien, Felicia, RN RN fc Lasagna, Tonya, RN RN tl1 Kia Lomeli RN RN tl2
[2017-06-03 00:25] LABS: Urine Blood TRACE (NEG); Urine Glucose NEGATIVE (NEG); Urine Specific Gravity 1.015 (1.005-1.030)
[2017-06-03 00:26] LABS: Urine Protein 2+ (NEG)
[2017-06-03 00:28] LABS: Absolute Lymphocytes (CBC) 3.9 K/uL (0.7-4.9); Absolute Monocytes 0.7 K/uL (0.1-1.3); Absolute Neutrophil 3.8 K/uL (1.8-8.0); Basophils % 1.4 % (0-1.3); Eosinophils % 2.8 % (0-4.4); Hematocrit 35.4 % (36.0-45.0); Lymphocytes % 44.1 % (15.3-44.8); MCH 29.5 pg (27.0-35.0); MCV 87.8 fL (80-100); MPV 8.2 fL (7.6-11.3); Monocytes % 7.8 % (3.3-12.3); RBC Red Blood Cell Count 4.04 M/uL (3.86-4.86)
[2017-06-03 00:38] LABS: Bicarbonate 25 mEq/L (21-31); Glucose Level 115 mg/dL (65-120); Lipase 17 U/L (22-51); Potassium 3.8 mEq/L (3.6-5.0); Sodium Level 135 mEq/L (135-145)
[2017-06-03 00:45] LABS: ALT/SGPT 17 IU/L (10-60); AST/SGOT 24 IU/L (10-42); Albumin 4.1 g/dL (3.2-5.5); Alkaline Phosphatase 83 IU/L (42-121); BUN Blood Urea Nitrogen 15 mg/dL (6-20); Bilirubin Direct < 0.1 mg/dL (0-0.2); Bilirubin Total 0.3 mg/dL (0.3-1.2); Creatine Phosphokinase 298 IU/L (22-269); Protein, Total 8.5 g/dL (6.0-8.3); Protime INR 1.07
[2017-06-03 00:46] LABS: CKMB Creatine Kinase MB 9.1 ng/ml (0.3-4.0)
[2017-06-03 00:50] LABS: Magnesium 1.1 mg/dL (1.8-2.5)
[2017-06-03] MEDS ORDERED: ACETAMINOPHEN 325 MG TABLET ONE (00:53)
[2017-06-03] MEDS ORDERED: MAGNESIUM SULFATE 1 gm IVPB 1 GM/100 ML BAG IV ONE ×2 (00:53→03:16)
[2017-06-03] MEDS ORDERED: ONDANSETRON 4 MG/2 ML VIAL IV PRN (03:17)
[2017-06-03] MEDS ORDERED: ACETAMINOPHEN 500 MG TAB PO PRN (03:17)
[2017-06-03] MEDS: NA CHLORIDE 0.9% 1,000 ML IV SCH ×3 (04:05→21:32)
[2017-06-03] MEDS ORDERED: HYDRALAZINE HCL 20 MG/ML VIAL IV PRN (04:36)
[2017-06-03 05:22] LABS: Magnesium 1.9 mg/dL (1.8-2.5); Potassium 3.5 mEq/L (3.6-5.0)
[2017-06-03] MEDS: TRAMADOL HCL 50 MG TAB PO PRN ×2 (05:24→21:31)
[2017-06-03 06:07] VITALS: BMI 24.0
[2017-06-03] MEDS ORDERED: NITROGLYCERIN 0.4 MG/TAB SL PRN (06:19)
[2017-06-03] MEDS ORDERED: ALPRAZOLAM 0.5 MG TABLET PO PRN (06:26)
--- NOTE | 2017-06-03 06:33 | P.HP ---
Certification for Inpatient Patient admitted to: Observation With expected LOS: <2 Midnights Practitioner: I am a practitioner with admitting privileges, knowledge of patient current condition, hospital course, and medical plan of care. Services: Services provided to patient in accordance with Admission requirements found in Title 42 Section 412.3 of the Code of Federal Regulations Patient History Date of Service: 06/03/17 Reason for admission: chest pain History of Present Illness: Ms Flores is a 77 years old woman with history of DM II, HTN, paroxysmal A.Fib , who came to ED complaining of chest pain. She describe the pain as tightness sensation on substeranl area, without raidation, intensity 9/10. She denied nausea or vomiting, no diaphoresis or SOB. She has never had this kind of pain before. Initial EKG showed nonspecific ST-T abnormalities, troponin I negative. Once the patient was transferred to the floor, she start complaining of chest pain again. Her BP was elevated 180's/90's, and new EKG showed ST depression on anterolateral leads. Allergies lisinopril Allergy (Severe, Verified 04/18/17 23:41) Anaphylaxis iron Allergy (Intermediate, Verified 04/18/17 23:41) Anaphylaxis Penicillins Allergy (Intermediate, Verified 04/18/17 23:41) Anaphylaxis SHARON Inhibitors Allergy (Verified 06/03/17 04:13) Unknown iodine Allergy (Verified 06/03/17 04:13) Unknown Home Medications: Aspirin [Aspirin EC 81 MG] 1 tab PO DAILY 01/02/14 Metformin HCl [Glucophage] 1,000 mg PO BID PRN 01/02/14 Pantoprazole Sodium [Protonix] 40 mg PO DAILY 01/02/14 Zolpidem Tartrate [Ambien*] 10 mg PO BEDTIME PRN 01/02/14 Docusate Sodium [Stool Softener] 100 mg PO BID PRN 06/29/16 Alprazolam [Xanax*] 0.5 mg PO BEDTIME PRN 04/09/17 Amlodipine [Norvasc*] 10 mg PO DAILY 04/09/17 Latanoprost Ophth [Xalatan 0.005%*] 1 drops RIGHT EYE BEDTIME 04/18/17 Clonidine HCl [Catapres*] 0.1 mg PO TID PRN #30 tab 04/19/17 Carvedilol [Carvedilol] 12.5 mg PO BID 06/03/17 Gabapentin [Neurontin] 300 mg PO TID 06/03/17 Losartan Potassium 100 mg PO BID 06/03/17 Tramadol HCl/Acetaminophen [Ultracet Tablet] 37.5 mg PO Q8H PRN 06/03/17 - Past Medical/Surgical History Has patient received pneumonia vaccine in the past: Yes Diabetic: Yes -: Diabetes mellitus type 2 -: Hypertension -: History DVT -: Glaucoma/cataract -: GERD -: Paroxysmally atrial fibrillation -: PVD -: History of stent to the kidney -: Depression with anxiety -: Renal stent -: Ureter Surgery to remove scar tissue -: Hysterectomy Psychosocial/ Personal History: The patient lives by herself. She is a . She has 8 children. - Family History Father -: Lung disease, Diabetes, Kidney disease Notes: smoker Mother History Unknown: Yes -: Heart disease, Hypertension, GI disease, Stroke - Social History Smoking Status: Former smoker Alcohol use: No CD- Drugs: No Caffeine use: Yes Place of Residence: Home Review of Systems 10-point ROS is otherwise unremarkable Physical Examination - Vital Signs Temperature: 97.4 F Blood Pressure: 180/80 Pulse: 75 Respirations: 15 Pulse Ox (%): 99 - Physical Exam General: Alert, In no apparent distress HEENT: Atraumatic, PERRLA, Mucous membr. moist/pink, EOMI, Sclerae nonicteric Neck: Supple, 2+ carotid pulse no bruit, No LAD, Without JVD or thyroid abnormality Respiratory: Clear to auscultation bilaterally, Normal air movement Cardiovascular: Regular rate/rhythm, Normal S1 S2 Gastrointestinal: Normal bowel sounds, No tenderness Musculoskeletal: No tenderness Integumentary: No rashes Neurological: Normal speech, Normal strength at 5/5 x4 extr, Normal tone, Normal affect Lymphatics: No axilla or inguinal lymphadenopathy - Studies Laboratory Data (last 24 hrs) 06/02/17 23:59: PT 12.6 H, INR 1.07, APTT 29.4 06/02/17 23:59: WBC 8.7, Hgb 11.9 L, Hct 35.4 L, Plt Count 295 06/02/17 23:59: B-Natriuretic Peptide 103 H 06/02/17 23:59: Sodium 135, Potassium 3.8, BUN 15, Creatinine 0.92, Glucose 115 , Magnesium 1.1 L* D, Total Bilirubin 0.3, AST 24, ALT 17, Alkaline Phosphatase 83, Lipase 17 L Assessment and Plan - Problems (Diagnosis) (1) Chest pain Onset Date: 04/10/17 Current Visit: No Status: Acute Qualifiers: Chest pain type: unspecified Qualified Code(s): R07.9 - Chest pain, unspecified (2) Hypomagnesemia Onset Date: 04/10/17 Current Visit: No Status: Acute (3) Diabetes mellitus Onset Date: 04/10/17 Current Visit: No Status: Chronic Qualifiers: Diabetes mellitus type: type 2 Diabetes mellitus terminal worker insulin use: without fpc use Diabetes mellitus complication status: with other specified complication Qualified Code(s): E11.69 - Type 2 diabetes mellitus with other specified complication (4) HTN (hypertension) Onset Date: 04/10/17 Current Visit: No Status: Chronic Qualifiers: Hypertension type: essential hypertension Qualified Code(s): I10 - Essential (primary) hypertension (5) History of atrial fibrillation Current Visit: No Status: Chronic - Plan The patient will be admitted to the hospital due to chest pain. She has ST depression on anterolateral leads, troponin I negative. Will order beta cesar , ASA, full anticoagulation, statins. Consult Cardiology team. ECHO in AM. - Advance Directives Does patient have a Living Will: No Does patient have a Durable POA for Healthcare: No - Code Status/Comfort Care Code Status Assessed: Yes Code Status: Full Code
[2017-06-03] MEDS ORDERED: KETOROLAC 30 MG/ML INJ IV ONE (06:44)
[2017-06-03] MEDS ORDERED: D50W 25 GM/50 ML SYRINGE IV PRN (07:12)
[2017-06-03] MEDS ORDERED: GLUCAGON 1 MG/VIAL IM PRN (07:12)
--- NOTE | 2017-06-03 07:15 | EKG ---
Test Date: 2017-06-02 Test Time: 23:27:46 Professional Bondsman: ELKIN MEASUREMENT RESULTS: Intervals: Rate: 77 [place]: 146 QRSD: 86 QT: 408 QTc: 461 [place]: P: 73 [place]: 146 QRS: 40 T: 56 INTERPRETIVE STATEMENTS: Normal sinus rhythm Septal infarct, age undetermined Abnormal ECG Compared to ECG 04/18/2017 20:49:39 Myocardial infarct finding now present Sinus bradycardia no longer present ST (T wave) deviation no longer present Electronically Signed On 06-03-17 07:14:46 CDT by Gustavo Lee
[2017-06-03] MEDS: INSULIN -REGULAR HUMAN 50 UNIT/0.5 ML ML SQ SCH ×4 (07:30→21:00)
--- NOTE | 2017-06-03 08:39 | RAD REPORT ---
EXAM DESCRIPTION: Natalie Single View06/03/2017 12:25 am CLINICAL HISTORY: Chest pain COMPARISON: April 2014 are FINDINGS: The lungs appear clear of acute infiltrate. The heart is normal size. Aorta is tortuous/e ctatic IMPRESSION: No acute abnormalities displayed
[2017-06-03] MEDS ORDERED: POTASSIUM 25 MEQ EFFERV TAB PO ONE (09:00)
[2017-06-03] MEDS ORDERED: LOSARTAN POTASSIUM 50 MG TABLET PO SCH (09:00)
[2017-06-03] MEDS ORDERED: ENOXAPARIN 40 MG/0.4 ML SQ SCH (09:00)
[2017-06-03] MEDS ORDERED: ENOXAPARIN 80 MG/0.8 ML SQ SCH (09:00)
[2017-06-03] MEDS: CARVEDILOL 12.5 MG TAB PO SCH ×2 (10:04→21:00)
[2017-06-03] MEDS: VALSARTAN 160 MG TAB PO SCH (10:04)
[2017-06-03] MEDS: ASPIRIN EC 81 MG TAB PO SCH (10:04)
[2017-06-03] MEDS: AMLODIPINE 10 MG TAB PO SCH (10:05)
[2017-06-03] MEDS: ENOXAPARIN 40 MG/0.4 ML SQ SCH (10:05)
--- NOTE | 2017-06-03 12:43 | CON ---
Chief Complaint: Chest pain and hypertension. History Of Present Illness: Ms. Flores is 77. She has had diabetes and hypertension for many years . This is her third hospitalization for chest pain in the last several months. The pain is in centr al chest. She has had nuclear stress test and echos that are normal. She of course has numerous ris k factors. OK is ruled out by enzymes. Her EKG is not normal, but it does not show an injury patter n. It shows what is possibly an old septal infarct. The patient is allergic to lisinopril, iron, pe nicillin, SHARON inhibitors, iodine. She had an injection of hydralazine and she thinks that it is what caused her to start having chest pain. Medications: Outpatient medications have been metformin, aspirin, Protonix, zolpidem, docusate, alpr azolam, amlodipine, latanoprost, clonidine, gabapentin, Coreg, tramadol, and losartan 100 b.i.d. Physical Examination: General: She is alert, oriented, pleasant. She appears to be anxious but not in respiratory or hemo dynamic distress. Lungs: Clear. Heart exam: Reveals a regular rate and rhythm. There is a 1/6 ho losystolic murmur. Abdomen: Soft. No bruit. Extremities: Palpable distal pulses mildly diminished. Electrocardiogram shows sinus rhythm with possible septal OK. Laboratory Data: Reveals a creatinine of 0.92, magnesium 1.1. She has an HDL cholesterol of 70. Regarding her chest pain, I have recommended that we do a cardiac cath to make sure we are not dealin g with ischemic heart disease. We Can't be rule this out based on what we have. I think it is an im portant question for her, so even though she is allergic to iodine, I have recommended we do it on Mo nd. We will pretreat her with a steroid between now and then. We should be able to get her blood pressure better using amlodipine, low doses of beta blockers and much stronger angiotensin receptor b lockers and losartan are likely to be useful. Losartan is notoriously weak drug, even doubling the d ose beyond what is recommended does not seem to bring blood pressure down very much, so we use medici maty such as valsartan, amlodipine and Cardura to bring her blood pressure down. YVON/MISSAEL Voice ID: [id number] Report ID: [id number]
[2017-06-03] MEDS: ALPRAZOLAM 0.5 MG TABLET PO PRN (13:11)
[2017-06-03] MEDS: ATORVASTATIN 80 MG TAB PO SCH (21:30)
[2017-06-04] MEDS: ALPRAZOLAM 0.5 MG TABLET PO PRN ×3 (00:22→21:56)
[2017-06-04] MEDS ORDERED: AMLODIPINE 5 MG TAB PO ONE (02:15)
[2017-06-04] MEDS: NA CHLORIDE 0.9% 1,000 ML IV SCH ×2 (06:43→09:17)
[2017-06-04 06:47] LABS: Potassium 3.9 mEq/L (3.6-5.0)
[2017-06-04] MEDS: INSULIN -REGULAR HUMAN 50 UNIT/0.5 ML ML SQ SCH ×4 (07:30→20:54)
[2017-06-04] MEDS: ASPIRIN EC 81 MG TAB PO SCH (09:16)
[2017-06-04] MEDS: ENOXAPARIN 40 MG/0.4 ML SQ SCH (09:16)
[2017-06-04] MEDS: TRAMADOL HCL 50 MG TAB PO PRN (09:17)
[2017-06-04] MEDS: VALSARTAN 160 MG TAB PO SCH (09:17)
[2017-06-04] MEDS: CARVEDILOL 12.5 MG TAB PO SCH ×2 (09:17→20:52)
[2017-06-04] MEDS: AMLODIPINE 10 MG TAB PO SCH (09:18)
--- NOTE | 2017-06-04 12:05 | EKG ---
Test Date: 2017-06-03 Test Time: 04:54:54 Auto Painter: RT-O MEASUREMENT RESULTS: Intervals: Rate: 89 IN: 144 QRSD: 98 QT: 390 QTc: 474 [place]: P: 69 IN: 144 QRS: 33 T: 55 INTERPRETIVE STATEMENTS: Normal sinus rhythm Left ventricular hypertrophy with repolarization abnormality Abnormal ECG Compared to ECG 06/02/2017 23:27:46 Left ventricular hypertrophy now present Early repolarization now present Myocardial infarct finding no longer present Electronically Signed On 06-04-17 12:04:33 CDT by Gustavo Lee
[2017-06-04] MEDS ORDERED: HOME MED 1 EA UNK (Metformin Hcl [Glucophage] 1,000 MG) PO PRN (12:30)
[2017-06-04] MEDS ORDERED: ZOLPIDEM TARTRATE 10 MG TABLET PO PRN (12:30)
[2017-06-04] MEDS ORDERED: DOCUSATE NA 100 MG CAP PO PRN (12:30)
[2017-06-04] MEDS ORDERED: TRAMADOL 37.5mg/APAP 325mg PER TAB PO PRN (12:30)
[2017-06-04] MEDS: GABAPENTIN 300 MG CAP PO SCH ×2 (14:40→20:53)
--- NOTE | 2017-06-04 15:04 | PN ---
Ms. Flores seems to be feeling better. She still has chest pain. Enzymes are normal. EKG not sugg estive of recent or acute CO. Her symptoms remain suggestive of angina. I have recommended a cardia c cath and possible stent to her for diagnostic purposes and if we see a lesion, she can have a stent at the same time. The patient seems to understand the procedure, its potential benefits, indication s, risks, and agrees to proceed. We will plan on doing that on June 05, 2017. EYAL Voice ID: [id number] Report ID: [id number]
[2017-06-04] MEDS ORDERED: METFORMIN HCL 500 MG TAB PO SCH (17:00)
--- NOTE | 2017-06-04 17:28 | PN ---
Subjective: Currently, the patient sitting on the side of the bed. She have chest tightness on the left side. There is no shortness of breath. No cough. No phlegm. No fever or chills overnight. Appetite is good. Physical Examination: Vital Signs: Blood pressure 150/72, pulse nl respiratory rate 18, and temperature 97.6. General: She is fully alert, oriented x3. Does not look in any distress. HEENT: Atraumatic, normocephalic. PERRLA. Oral mucosa is moist. Neck: Supple. No JVD. No carotid bruits. Chest: Clear to auscultation. Good air entry. Heart: Regular rate and rhythm. S1, S2 normal. No gallop or murmur. Abdomen: Soft, nontender. No masses. No hepatosplenomegaly. Positive bowel sounds. Extremities: No clubbing, cyanosis, or edema. No calf tenderness. Neurologic: Grossly intact. Laboratory Data: Labs today showed BMP normal except for GFR of 73, glucose in the nl relatively nl ranger. Cardiac enzymes were negative. Assessment And Plan: 1. Chest pain. Rule out myocardial infarction. Cardiac enzymes were negative. Dr. Lee has seen the patient and she will have a cardiac cath on Monday morning. In the mean time, we will continue the patient on Norvasc, statin, Coreg, p.r.n. nitroglycerin, and Diovan. I will start her on DVT prophylaxis with Lovenox. 2. Hypertension. We will control with amlodipine, Coreg, and Diovan. 3. History of anxiety. Continue p.r.n. Xanax. 4. Constipation. We will continue Colace. 5. Diabetes. We will resume the patient on metformin and insulin sliding scale. Metformin should be held tomorrow as the patient going to get cardiac cath. 6. Anxiety. The patient is on Xanax. MT/ELIUL Voice ID: [id number] Report ID: [id number] MTDD
[2017-06-04] MEDS: ATORVASTATIN 80 MG TAB PO SCH (20:53)
[2017-06-04] MEDS ORDERED: POTASSIUM 25 MEQ EFFERV TAB PO ONE (21:00)
[2017-06-05 05:43] LABS: Absolute Monocytes 0.5 K/uL (0.1-1.3); Absolute Neutrophil 1.8 K/uL (1.8-8.0); Basophils % 1.2 % (0-1.3); Eosinophils % 4.8 % (0-4.4); Hematocrit 32.6 % (36.0-45.0); Lymphocytes % 52.7 % (15.3-44.8); MCV 88.3 fL (80-100); MPV 8.3 fL (7.6-11.3); Monocytes % 9.7 % (3.3-12.3)
[2017-06-05 05:51] LABS: Albumin 3.4 g/dL (3.2-5.5); Bilirubin Total 0.4 mg/dL (0.3-1.2); Protein, Total 7.1 g/dL (6.0-8.3)
[2017-06-05] MEDS ORDERED: NA CHLORIDE 0.9% 1,000 ML ONE (06:01)
[2017-06-05] MEDS: VALSARTAN 160 MG TAB PO SCH (06:07)
[2017-06-05] MEDS: AMLODIPINE 10 MG TAB PO SCH (06:08)
[2017-06-05] MEDS: CARVEDILOL 12.5 MG TAB PO SCH (06:08)
[2017-06-05] MEDS: NA CHLORIDE 0.9% 1,000 ML IV SCH (06:09)
[2017-06-05 06:45] LABS: Blood Morphology Comment NOT SEEN (NOT SEEN); Platelet Estimate ADEQ
[2017-06-05] MEDS ORDERED: PANTOPRAZOLE 40MG TABLET PO SCH (07:30)
[2017-06-05] MEDS: INSULIN -REGULAR HUMAN 50 UNIT/0.5 ML ML SQ SCH ×2 (07:30→11:13)
[2017-06-05] MEDS ORDERED: ATROPINE SULF 1 MG/10 ML SYR IV ONE (08:49)
[2017-06-05] MEDS ORDERED: NICARDIPINE HCL 25 MG/10 ML IV ONE (08:50)
[2017-06-05] MEDS ORDERED: NA CHLORIDE 0.9% 0 ML ONE (08:50)
[2017-06-05] MEDS ORDERED: HEPARIN 5000 UNIT/ML 1 ML VIAL ONE (08:50)
[2017-06-05] MEDS ORDERED: MIDAZOLAM HCL 2 MG/2 ML INJ ONE (08:51)
[2017-06-05] MEDS ORDERED: FENTANYL CITR 100 MCG/2 ML ONE (08:51)
[2017-06-05] MEDS: GABAPENTIN 300 MG CAP PO SCH ×2 (09:00→13:57)
[2017-06-05] MEDS ORDERED: ASPIRIN EC 81 MG TAB PO SCH (09:00)
[2017-06-05] MEDS ORDERED: ENOXAPARIN 40 MG/0.4 ML SQ SCH (09:00)
[2017-06-05] MEDS ORDERED: METHYLPREDNISOLONE 125 MG INJ ONE (09:32)
[2017-06-05] MEDS ORDERED: LIDOCAINE 1% 20 ML MDV ONE (10:34)
[2017-06-05] MEDS ORDERED: HEPA 1000U/500MLS 2,000 UNIT/1,000 ML BAG IV ONE (10:34)
[2017-06-05 12:21] VITALS: O2SAT 98
[2017-06-05 12:48] VITALS: BP 153/60; TEMP 97.3
[2017-06-05] MEDS: ALPRAZOLAM 0.5 MG TABLET PO PRN (14:35)
--- NOTE | 2017-06-05 18:07 | P.DS ---
Admission Date: 06/03/17 Discharge Date: 06/05/17 Disposition: ROUTINE DISCHARGE Discharge Condition: GOOD Reason for Admission: chest pain Consultations: Cardiology Procedures: Cardiac Cath - refer to the report for the results. No stents placed Brief History of Present Illness: Ms Flores is a 77 years old woman with history of DM II, HTN, paroxysmal A.Fib , who came to ED complaining of chest pain. She describe the pain as tightness sensation on substeranl area, without raidation, intensity 9/10. She denied nausea or vomiting, no diaphoresis or SOB. She has never had this kind of pain before. Initial EKG showed nonspecific ST-T abnormalities, troponin I negative. Once the patient was transferred to the floor, she start complaining of chest pain again. Her BP was elevated 180's/90's, and new EKG showed ST depression on anterolateral leads. Hospital Course: Overall during the hospital stay patient remained stable The patient was admitted to the hospital for chest pain, rule out ACS. Cardiology was consulted who recommended the patient get a cardiac catheterization done here in the hospital. Cardiac catheterization was done here in the hospital and patient was found to have 100% occlusion in the small vessel. No stent was required patient tolerated procedure well overall. Patient then was discharged home with new medications. Patient was asked to stop taking the clonidine and was restarted on valsartan at home. Patient was also asked to stop taking her losartan at home as well. Patient was to follow up with cardiology outpatient in about 1 week post discharge and was to continue taking her aspirin Plavix and Lipitor at home. Patient was also asked to follow up with her primary care provider. Vital Signs/Physical Exam: Temp Pulse Resp BP Pulse Ox 97.3 F 64 16 153/60 H 95 06/05/17 12:32 06/05/17 12:32 06/05/17 12:32 06/05/17 12:32 06/05/17 08:00 General: Alert, In no apparent distress HEENT: Atraumatic, PERRLA, EOMI Neck: Supple, JVD not distended Respiratory: Clear to auscultation bilaterally, Normal air movement Cardiovascular: Regular rate/rhythm, Normal S1 S2 Gastrointestinal: Normal bowel sounds, No tenderness Musculoskeletal: No tenderness Integumentary: No rashes Neurological: Normal speech, Normal tone, Normal affect Lymphatics: No axilla or inguinal lymphadenopathy Laboratory Data at Discharge: WBC 5.7 K/uL (4.3-10.9) D 06/05/17 04:55 Hgb 10.7 g/dL (12.0-15.0) L 06/05/17 04:55 Hct 32.6 % (36.0-45.0) L 06/05/17 04:55 Plt Count 250 K/uL (152-406) 06/05/17 04:55 PT 12.6 SECONDS (9.5-12.5) H 06/02/17 23:59 INR 1.07 06/02/17 23:59 APTT 29.4 SECONDS (24.3-36.9) 06/02/17 23:59 Sodium 143 mEq/L (135-145) 06/05/17 04:55 Potassium 4.0 mEq/L (3.6-5.0) 06/05/17 04:55 BUN 16 mg/dL (6-20) 06/05/17 04:55 Creatinine 0.83 mg/dL (0.44-1.00) 06/05/17 04:55 Glucose 92 mg/dL (65-120) 06/05/17 04:55 Magnesium 1.9 mg/dL (1.8-2.5) D 06/03/17 04:00 Total Bilirubin 0.4 mg/dL (0.3-1.2) 06/05/17 04:55 AST 24 IU/L (10-42) 06/05/17 04:55 ALT 17 IU/L (10-60) 06/05/17 04:55 Alkaline Phosphatase 78 IU/L (42-121) 06/05/17 04:55 Troponin I < 0.03 ng/mL (<0.03) 06/03/17 19:19 B-Natriuretic Peptide 103 pg/ml (<=100) H 06/02/17 23:59 Triglycerides 132 mg/dL (35-160) 06/03/17 03:58 Cholesterol 189 mg/dL (<200) 06/03/17 03:58 HDL Cholesterol 70 mg/dL (29-89) 06/03/17 03:58 Cholesterol/HDL Ratio 2.70 06/03/17 03:58 Lipase 17 U/L (22-51) L 06/02/17 23:59 Home Medications: Aspirin [Aspirin EC 81 MG] 1 tab PO DAILY 01/02/14 Metformin HCl [Glucophage] 1,000 mg PO BID PRN 01/02/14 Pantoprazole Sodium [Protonix] 40 mg PO DAILY 01/02/14 Zolpidem Tartrate [Ambien*] 10 mg PO BEDTIME PRN 01/02/14 Docusate Sodium [Stool Softener] 100 mg PO BID PRN 06/29/16 Alprazolam [Xanax*] 0.5 mg PO BEDTIME PRN 04/09/17 Amlodipine [Norvasc*] 10 mg PO DAILY 04/09/17 Latanoprost Ophth [Xalatan 0.005%*] 1 drops RIGHT EYE BEDTIME 04/18/17 Carvedilol 12.5 mg PO BID 06/03/17 Gabapentin [Neurontin*] 300 mg PO TID 06/03/17 Tramadol HCl/Acetaminophen [Ultracet Tablet] 37.5 mg PO Q8H PRN 06/03/17 Atorvastatin Calcium [Lipitor] 80 mg PO BEDTIME #30 tab 06/05/17 Valsartan [Diovan*] 320 mg PO DAILY #60 tab 06/05/17 New Medications: Atorvastatin Calcium [Lipitor] 80 mg PO BEDTIME #30 tab Valsartan [Diovan*] 320 mg PO DAILY #60 tab Patient Discharge Instructions: Please f/u with Dr Lee in the office in 1 to 2 weeks post discharge. New medication. Valsartan. Atorvastain. Stop Taking. Clonidine. You Had a heart Cath done here in the hospital. For records please medical record Diet: Regular Activity: Ad jose miguel Followup: Sharath Pate MD [Primary Care Provider] - Gustavo Lee MD [ACTIVE - CAN ADMIT] - 1 Week (call to schedule an appointment)
--- NOTE | 2017-06-05 20:36 | OP ---
Surgeon: Gustavo Lee MD Procedures Performed: Ms. Flores had a left heart catheterization, coronary left ventricular angiog jose. 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 Her right coronary, obtuse marginal, LAD, and left main are free of any significant st enosis. The occlusion appears to be old, and there was NADIYA grade 2 collateral flow that go to this occluded branch via right coronary circumflex and LAD. Her ejection fraction is normal. Left ventri cular end-diastolic pressure 14, and the recommendation is for medical therapy for angina and hyperte nsion. Procedure In Detail: The patient was brought to the cardiac soap slabber in a fasting state sedated with Versed and fentanyl. She received pretreatment for iodine allergy with 100 mg of Solu-Medrol. We u sed the right radial approach. Lidocaine 1% was used to anesthetize the skin over the right radial a rtery. The artery was entered using a 21-gauge needle a 0.021 inch diameter. Guidewire was used to cannulate the artery. We then used a modified Seldinger technique to place a 6-Welsh radial sheath. It was flushed and we gave a radial cocktail consisting of nicardipine, heparin, and nitroglycerin. We used a TIG catheter and a Glidewire with a short radius J-tip and fluoroscopy to guide the matthew ter tip into the ascending aorta. We were able to guide the catheter into the left coronary, right c oronary, and left ventricle without difficulty. After pictures were taken, decision was made for med ical therapy. The catheter was removed over a J-wire. The sheath was flushed and the arteriotomy cl osed using a TR band. No complications from the procedure. Estimated Blood Loss: 5 cc. Manufacturing Tech: Shabana Davey. YVON/MISSAEL Voice ID: [id number] Report ID: [id number]
[2017-06-05] MEDS ORDERED: CARVEDILOL 25 MG TAB PO SCH (21:00)
== END 2017-06-05 16:14 | disposition home or self-care (01) ==
LOC: ER 23:14 → ERHOLD 06-03 00:04 → 4TH 06-03 02:23
PROVIDERS: ADMIT Internal Medicine; ATTEND Internal Medicine
PROC: 4A023N7 Measurement of Cardiac Sampling and Pressure, Left Heart, Percutaneous Approach (ICD-10-PCS; principal; 2017-06-05)
PROC: B201YZZ Plain Radiography of Multiple Coronary Arteries using Other Contrast (ICD-10-PCS; 2017-06-05)
PROC: B205YZZ Plain Radiography of Left Heart using Other Contrast (ICD-10-PCS; 2017-06-05)
DX: R07.9 Chest pain, unspecified (principal); I25.10 Atherosclerotic heart disease of native coronary artery without angina pectoris; I25.82 Chronic total occlusion of coronary artery; I10 Essential (primary) hypertension; K59.00 Constipation, unspecified; F41.9 Anxiety disorder, unspecified; E11.9 Type 2 diabetes mellitus without complications; I48.0 Paroxysmal atrial fibrillation; E83.42 Hypomagnesemia; Z88.0 Allergy status to penicillin; Z87.891 Personal history of nicotine dependence; Z86.718 Personal history of other venous thrombosis and embolism
CPT/HCPCS: 36415 ×3; 71045; 80048 ×2; 80053; 80061; 80076; 81003; 82550; 82553; 82962 ×11; 83690; 83735 ×2; 83880; 84132; 84484 ×4; 85025 ×2; 85610; 85730; 93005 ×2; 93458; 96361; 96365; 96372; 99285; C1893; G0378 ×2; J0360; J1644; J1650 ×3; J2250; J2930; J3010; J3475 ×2; J7030 ×5; J0583

== ENCOUNTER 2017-07-09 23:18 | Inpatient (IN) | payer OTHER ==
--- OUTSIDE RECORDS SUMMARY | 2017-07-09 23:22 | XMS REPORT | Clinical Summary ---
:1940 Author Organization [facility] Address [address] [place] [address] Phone Care Team Providers Name Role Phone [...] Team Description 04/17/2017 Procedure Pass Gastroenterology 04/15/2017 [facility] Internal Tony Cee Right upper - Encounter Medicine MD Gustavo quadrant 04/17/2017 Raquel Chester abdominal MD pain;Choledocholi Claireekunique Suárez, thiasis;Atypical Mamta Núñez MD chest pain after 07/08/2016 Social History Tobacco Use Types Packs/Day Years Used Date Never Assessed Sex Assigned at Date Recorded Not on file Last Filed Vital Signs Vital Sign Reading Time Taken Blood Pressure 166/77 04/17/2017 3:35 PM [facility] [employer] [facility] [facility] Pulse 53 04/17/2017 3:35 PM [employer] Temperature 37.1 C (98.8 F) 04/17/2017 3:35 PM [employer] Respiratory Rate 19 04/17/2017 3:35 PM [employer] Oxygen Saturation 100% 04/17/2017 3:35 PM [employer] Inhaled Oxygen Concentration - - Weight 62.8 kg (138 lb 8 oz) 04/15/2017 1:46 AM [employer] Height 162.6 cm (5' 4") 04/15/2017 1:46 AM [employer] Body Mass Index 23.77 04/15/2017 1:46 AM [facility] [facility] Plan of Treatment Not on file Results RHYTHM STRIP - SCAN (05/04/2017 3:21 PM)Only the most recent of2 resultswithin the time period is included.EKG-SCANNED (05/02/2017 1:40 PM)Only the most recent of2 resultswithin the time period is included.ECHOCARDIOGRAM REPORT - SCAN (04/17/2017 5:20 PM)2D Echo W/Doppler(CW/PW/Color) (04/17/2017 2:23 PM) Component Value Ref Range Ejection Fraction Specimen Performing Laboratory [facility] ECHO HEART[facility] CPA Narrative Transthoracic Echocardiography Report (TTE) Demographics Patient NameBACKMAN,Date of Study 04/17/2017 SHEREEN Female Visit [id number] Room Number 902 Number Date of 2Referring Mamta Suárez MD Physician Age 77 year(s)Burning 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 SHAUN Fernandez, RDCS,RVT,RDMS Community Facilitator Ana Maria De Oliveira, Elizabeth Fisher MD [...] External Ris In - 04/17/2017 4:48 PM [employer] Transthoracic Echocardiography Report (TTE) Demographics Patient Name GRETCHEN, Date of Study 04/17/2017 SHEREEN Gender Female Visit Number [id number] Race Black Room Number 902 Number Date of 1940 Referring Mamta Kline MD Physician Age 77 year(s) 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 Specimen Performing Laboratory Blood - Arm, [address] [address] CBC with platelet count + automated diff [...] % Specimen Performing Laboratory Blood - Arm, [address] [address] CBC with platelet count + automated diff (04/17/2017 5:53 AM)Only the most recent of3 resultswithin the time period is included. Specimen Performing Laboratory Blood Narrative The following orders were created for panel order CBC with platelet count + automated diff. Procedure Abnormality Status --------- ------ CBC with platelet count ...[[id number]]AbnormalFinal result Manual Differential[[id number]] Fi nal result Please view results for these tests on the individual orders. Magnesium (04/17/2017 5:53 AM)Only the most recent of2 resultswithin the time period is included. Component Value Ref Range Magnesium 1.6 1.6 - 2.6 mg/dL Specimen Performing Laboratory Blood - Arm, [address] [address] Basic Metabolic Panel (04/17/2017 5:53 AM) Component [...] PATIENTS. Specimen Performing Laboratory Blood - Arm, [address] [address] Troponin I (04/16/2017 5:17 AM)Only the most recent of4 resultswithin the time period is included. Component Value Ref Range Troponin I 0.02 0.00 - 0.03 ng/mL Specimen Performing Laboratory Blood [address] [address] Narrative Troponin I (TnI) levels must be [...] - 64 U/L Specimen Performing Laboratory Blood [address] [address] Creatine Kinase (CK), Total and MB (04/16/2017 5:17 AM)Only the most recent of4 resultswithin the time period is included. Component Value Ref Range Total CK 143 29 - 200 U/L CK-MB 4.1 0.0 - 6.6 ng/mL MB Relative Index 2.9 % Specimen Performing Laboratory Blood [address] [address] Narrative CK-MB Reference Range: <6.7Normal 6.7-10.0Borderline >10.0 Abnormal Bilirubin, direct (04/16/2017 5:17 AM) Component Value Ref Range Bilirubin, Direct 0.2 0.1 - 0.5 mg/dL Specimen Performing Laboratory Blood [address] [address] Comprehensive metabolic panel (04/16/2017 5:17 AM)Only the [...] FOR DIALYSIS PATIENTS. Specimen Performing Laboratory Blood [address] [address] MR abdomen without & with IV contrast (04/15/2017 11:10 PM) Specimen Performing Laboratory [facility] RIS Narrative FINAL REPORT MRI OF THE ABDOMEN [...] MD Report Verified Date/Time:04/17/2017 12:17:51 Reading Location: [facility] B1 C013Y CT Body Reading Room Procedure Note Interface, External Ris In - 04/17/2017 12:20 PM LEAN S[employer]MA BLACK BELT FINAL REPORT MRI OF THE ABDOMEN with [...] Report Verified Date/Time: 04/17/2017 12:17:51 Reading Location: [facility] C013Y CT Body Reading Room D-dimer (04/15/2017 4:29 PM) Component Value Ref Range D-Dimer, Quant 0.60 (H) <0.50 MG/L FEU Specimen Performing Laboratory Blood - Arm, Left [address] [address] Narrative Intended Use: The D-Dimer Assay can [...] - 100 pg/mL Specimen Performing Laboratory Blood [address] [address] Carbohydrate antigen 19-9 (CA 19-9) (04/15/2017 10:07 AM) Component Value Ref Range CA 19-9 25 <34 U/mL Comment: This test was performed using the Siemens (ShelfFlip) Chemiluminescent method. Values obtained from different assay methods cannot be used interchangeably. CA19-9 levels, regardless of value, should not be interpreted as absolute evidence of the presence or absence of disease. Specimen Performing Laboratory Blood [facility] [address] [place] [address] Narrative Performing Lab E[facility] [address] [place] [address] Naomi Soto MD, PhD Carcinoembryonic Antigen (CEA) (04/15/2017 10:07 AM) Component Value Ref Range CEA, SERUM 2.5 0.0 - 5.0 ng/mL Specimen Performing Laboratory Blood [facility] [address] [address] ECG 12 lead (04/15/2017 9:24 AM) Specimen Performing Laboratory [facility] Narrative Ventricular Rate 56 BPM Atrial Rate 56 BPM P-R Interval 158 ms QRS Duration 90 ms Q-T Interval 466 ms QTC Calculation(Bazett) 449 ms P Brigantine 67 degrees R Brigantine 36 degrees T Brigantine 42 degrees Sinus bradycardia Nonspecific ST and T wave abnormality Abnormal ECG No previous ECGs available Confirmed by Dayna SONI BASANT ([id number]) on 04/16/2017 8:23:52 AM Procedure Note Interface, External Ris In - 04/16/2017 8:24 AM LEAN S[employer]MA BLACK BELT Ventricular Rate 56 BPM Atrial Rate 56 BPM P-R Interval 158 ms QRS Duration 90 ms Q-T Interval 466 ms QTC Calculation(Bazett) 449 ms P Brigantine 67 degrees R Brigantine 36 degrees T Brigantine 42 degrees Sinus bradycardia Nonspecific ST and T wave abnormality Abnormal ECG No previous ECGs available Confirmed by Dayna SONI BASANT ([id number]) on 04/16/2017 8:23:52 AM US abdomen limited (04/15/2017 9:03 AM) Specimen Performing Laboratory [employer] Narrative FINAL REPORT ULTRASOUND RIGHT UPPER QUADRANT [...] MD Report Verified Date/Time:04/15/2017 10:11:28 Reading Location: [address] Ortho Consult Reading Room Procedure Note Interface, External Ris In - 04/15/2017 10:13 AM LE[employer]MA BLACK BELT FINAL REPORT ULTRASOUND RIGHT UPPER QUADRANT OF [...] Report Verified Date/Time: 04/15/2017 10:11:28 Reading Location: [facility] C013X Ortho Consult Reading Room Phosphorus (04/15/2017 5:31 AM) Component Value Ref Range Phosphorus 3.9 2.3 - 4.7 mg/dL Specimen Performing Laboratory Blood [facility] [address] [address] Lipase (04/15/2017 5:31 AM) Component Value Ref Range Lipase 29 8 - 78 U/L Specimen Performing Laboratory Blood [address] [address] Hemoglobin A1c (04/15/2017 5:31 AM) Component Value Ref Range Hemoglobin A1C 6.8 (H) 4.3 - 6.1 % Specimen Performing Laboratory Blood [address] [address] Lipid panel (04/15/2017 5:31 AM) Component Value Ref Range Triglycerides 128 mg/dL Cholesterol 162 mg/dL HDL 47 mg/dL LDL Calculated 89 mg/dL Specimen Performing Laboratory Blood [address] [address] Narrative Triglyceride Reference Range: Low Risk <150 [id number] High Risk 200-499 Very High Risk>=500 Cholesterol Reference Range: Low Risk <200 [id number] High Risk>240 HDL Cholesterol Reference Range: Low Risk >=60 High Risk <40 LDL Cholesterol Reference Range: Optimal<100 Near [id number] [id number] Wfig101-175 Very High >=190 after 07/08/2016
--- OUTSIDE RECORDS SUMMARY | 2017-07-09 23:22 | XMS REPORT ---
:1940 [facility] Address [address] [place] [address] Care Team Providers Name Role Phone KERRY BREWER Unavailable Unavailable Problems This patient has no known problems. Allergies, Adverse Reactions, Alerts This patient has no known allergies or adverse reactions. Medications This patient has no known medications. Results Test Description Test Time Test Comments Text Results Atomic Results Result Comments MR, ABDOMEN, 2017-04-17 MRI with contrast AND FINAL REPORT PATIENT ID: WITH 12:17:00 MRCP for evaluation of [id number] MRI OF THE ABDOMEN biliary system; concern [...] MDReport Verified Date/Time: 04/17/2017 12:17:51 Reading Location: [place] [id number] CT Body Reading Room -GLUCOSE METER 2017-04-17 12:08:00 Test Item Value Reference Range Comments POC-GLUCOSE METER (BEAKER) (test 253 mg/dL 70-110 TESTED AT [facility] [address] xbza=2605) [facility] [address] CBC W/PLT COUNT & AUTO [id number] 12:08:00 Test Item Value Reference Range Comments WHITE BLOOD CELL COUNT (BEAKER) (test imdz=187) 7.3 K/ L 3.5-10.5 RED BLOOD CELL COUNT (BEAKER) (test rcuy=579) 3.94 M/ L 3.93-5.22 HEMOGLOBIN (BEAKER) (test wlah=886) 11.3 GM/DL 11.2-15.7 HEMATOCRIT (BEAKER) (test gbek=933) 35.8 % 34.1-44.9 MEAN CORPUSCULAR VOLUME (BEAKER) (test jmht=723) 90.9 fL 79.4-94.8 MEAN CORPUSCULAR HEMOGLOBIN (BEAKER) (test 28.7 pg 25.6-32.2 wgff=167) MEAN CORPUSCULAR HEMOGLOBIN CONC (BEAKER) (test 31.6 GM/DL 32.2-35.5 mchv=036) RED CELL DISTRIBUTION WIDTH (BEAKER) (test 13.4 % 11.7-14.4 sudd=435) PLATELET COUNT (BEAKER) (test mslm=552) 268 K/CU MM 150-450 MEAN PLATELET VOLUME (BEAKER) (test hvie=489) 10.0 fL 9.4-12.3 NUCLEATED RED BLOOD CELLS (BEAKER) (test 0 /100 WBC 0-0 vvww=200) NEUTROPHILS RELATIVE PERCENT (BEAKER) (test 41 % mgsa=721) LYMPHOCYTES RELATIVE PERCENT (BEAKER) (test 46 % cqvh=139) MONOCYTES RELATIVE PERCENT (BEAKER) (test 8 % tuee=310) EOSINOPHILS RELATIVE PERCENT (BEAKER) (test 3 % bmyp=243) BASOPHILS RELATIVE PERCENT (BEAKER) (test 2 % cpwp=457) NEUTROPHILS ABSOLUTE COUNT (BEAKER) (test 2.99 K/ L 1.56-6.13 yffr=356) LYMPHOCYTES ABSOLUTE COUNT (BEAKER) (test 3.34 K/ L 1.18-3.74 yowa=037) MONOCYTES ABSOLUTE COUNT (BEAKER) (test 0.57 K/ L 0.24-0.36 odvr=747) EOSINOPHILS ABSOLUTE COUNT (BEAKER) (test 0.22 K/ L 0.04-0.36 zhgj=974) BASOPHILS ABSOLUTE COUNT (BEAKER) (test 0.11 K/ L 0.01-0.08 yykt=263) IMMATURE GRANULOCYTES-RELATIVE PERCENT (BEAKER) 0 % 0-1 (test zngu=6849) POCT-GLUCOSE [id number] 08:04:00 Test Item Value Reference Range Comments POC-GLUCOSE METER (BEAKER) 99 mg/dL 70-110 TESTED AT [facility] [address] (test kkjl=5400) [facility] [address] [id number] 06:55:00 Test Item Value Reference Range Comments MAGNESIUM (BEAKER) (test iuhq=092) 1.6 mg/dL 1.6-2.6 BASIC METABOLIC [id number] 06:55:00 Test Item Value Reference Range Comments SODIUM (BEAKER) (test 140 meq/L 136-145 iqab=338) POTASSIUM (BEAKER) (test 3.7 meq/L 3.5-5.1 ahkn=719) CHLORIDE (BEAKER) (test 109 meq/L 98-107 lhxm=599) CO2 (BEAKER) (test 23 meq/L 22-29 zius=526) BLOOD UREA NITROGEN 12 mg/dL 7-21 (BEAKER) (test wzga=172) CREATININE (BEAKER) (test 0.82 mg/dL 0.57-1.25 mjfb=584) GLUCOSE RANDOM (BEAKER) 96 mg/dL 70-105 (test vppo=530) CALCIUM (BEAKER) (test 9.5 mg/dL 8.4-10.2 unez=709) EGFR (BEAKER) (test 82 mL/min/1.73 sq m ESTIMATED GFR IS NOT fbcv=1616) ACCURATE CREATININE CLEARANCE IN PREDICTING GLOMERULAR FILTRATION RATE. ESTIMATED GFR IS NOT APPLICABLE FOR DIALYSIS PATIENTS. POCT-GLUCOSE [id number] 21:05:00 Test Item Value Reference Range Comments POC-GLUCOSE METER (BEAKER) 98 mg/dL 70-110 TESTED AT [address] (test ptlw=8383) [place] [id number] POCT-GLUCOSE [id number] 17:04:00 Test Item Value Reference Range Comments POC-GLUCOSE METER (BEAKER) 89 mg/dL 70-110 TESTED AT [address] (test svji=9364) [place] [id number] POCT-GLUCOSE [id number] 12:37:00 Test Item Value Reference Range Comments POC-GLUCOSE METER (BEAKER) 202 mg/dL 70-110 TESTED AT [address] (test husg=4229) [place] [address] CBC W/PLT COUNT & AUTO [id number] 09:44:00 Test Item Value Reference Range Comments WHITE BLOOD CELL COUNT (BEAKER) (test kkay=148) 7.1 K/ L 3.5-10.5 RED BLOOD CELL COUNT (BEAKER) (test ngnl=173) 3.76 M/ L 3.93-5.22 HEMOGLOBIN (BEAKER) (test reuo=018) 11.0 GM/DL 11.2-15.7 HEMATOCRIT (BEAKER) (test xjon=201) 34.6 % 34.1-44.9 MEAN CORPUSCULAR VOLUME (BEAKER) (test qyri=153) 92.0 fL 79.4-94.8 MEAN CORPUSCULAR HEMOGLOBIN (BEAKER) (test 29.3 pg 25.6-32.2 dnhh=502) MEAN CORPUSCULAR HEMOGLOBIN CONC (BEAKER) (test 31.8 GM/DL 32.2-35.5 nwko=109) RED CELL DISTRIBUTION WIDTH (BEAKER) (test 13.6 % 11.7-14.4 bdvk=828) PLATELET COUNT (BEAKER) (test nbvm=232) 252 K/CU MM 150-450 MEAN PLATELET VOLUME (BEAKER) (test kqmv=760) 9.9 fL 9.4-12.3 NUCLEATED RED BLOOD CELLS (BEAKER) (test 0 /100 WBC 0-0 xdns=265) IMMATURE GRANULOCYTES-RELATIVE PERCENT (BEAKER) 0 % 0-1 (test ylpa=9807) (MANUAL DIFFERENTIAL)2017-04-16 09:44:00 Test Item Value Reference Range Comments NEUTROPHILS - REL (DIFF) (BEAKER) (test ahff=7522) 37 % LYMPHOCYTES - REL (DIFF) (BEAKER) (test mskm=5992) 51 % MONOCYTES - REL (DIFF) (BEAKER) (test eclj=3608) 9 % EOSINOPHILS - REL (DIFF) (BEAKER) (test hhfh=0489) 3 % BASOPHILS - REL (DIFF) (BEAKER) (test pvhb=1074) 0 % NEUTROPHILS - ABS (DIFF) (BEAKER) (test kjwe=2787) 2.63 K/ L 1.80-8.00 LYMPHOCYTES - ABS (DIFF) (BEAKER) (test dvtm=8367) 3.62 K/ L 1.48-4.50 MONOCYTES - ABS (DIFF) (BEAKER) (test xuyu=7455) 0.64 K/ L 0.00-1.30 EOSINOPHILS - ABS (DIFF) (BEAKER) (test ctdv=9775) 0.21 K/ L 0.00-0.50 BASOPHILS - ABS (DIFF) (BEAKER) (test cyhk=2315) 0.00 K/ L 0.00-0.20 TOTAL COUNTED (BEAKER) (test otwh=1401) 100 WBC MORPHOLOGY (BEAKER) (test bybr=412) Normal PLT MORPHOLOGY (BEAKER) (test ehyd=748) Normal RBC MORPHOLOGY (BEAKER) (test raaf=895) Normal CREATINE KINASE (CK), TOTAL AND [id number] 07:51:00 Test Item Value Reference Range Comments CREATINE KINASE TOTAL (BEAKER) (test zoyg=724) 143 U/L 29-200 CREATINE KINASE-MB (BEAKER) (test rkvi=706) 4.1 ng/mL 0.0-6.6 CREATINE KINASE-MB INDEX (BEAKER) (test dzhu=166) 2.9 % CK-MB Reference Range:<6.7 Normal6.7-10.0 Borderline>10.0 AbnormalTROPONIN [id number] 07:51:00 Test Item Value Reference Range Comments TROPONIN I (BEAKER) (test uwrq=199) 0.02 ng/mL 0.00-0.03 Troponin I (TnI) levels [...] acidosis, acute neurological disease, and persistent tachyarrhythmia.POCT-GLUCOSE [id number] 07:41:00 Test Item Value Reference Range Comments POC-GLUCOSE METER (BEAKER) 85 mg/dL 70-110 TESTED AT [facility] [address] (test cqek=7010) [facility] [address] GAMMA GLUTAMYL TRANSFERASE (GGT)2017-04-16 07:41:00 Test Item Value Reference Range Comments GAMMA GLUTAMYL TRANSFERASE (BEAKER) (test sskk=411) 305 U/L 9-64 BILIRUBIN, [id number] 07:41:00 Test Item Value Reference Range Comments BILIRUBIN DIRECT (BEAKER) (test omve=771) 0.2 mg/dL 0.1-0.5 COMPREHENSIVE METABOLIC [id number] 07:41:00 Test Item Value Reference Range Comments TOTAL PROTEIN (BEAKER) 7.1 gm/dL 6.0-8.3 (test wtsi=063) ALBUMIN (BEAKER) (test 3.3 g/dL 3.5-5.0 xheg=4132) ALKALINE PHOSPHATASE 186 U/L 40-150 (BEAKER) (test joce=623) BILIRUBIN TOTAL (BEAKER) < mg/dL 0.2-1.2 (test vbmm=717) SODIUM (BEAKER) (test 141 meq/L 136-145 kizz=258) POTASSIUM (BEAKER) (test 3.6 meq/L 3.5-5.1 etzb=918) CHLORIDE (BEAKER) (test 110 meq/L 98-107 qqrt=514) CO2 (BEAKER) (test 24 meq/L 22-29 sqvx=187) BLOOD UREA NITROGEN 13 mg/dL 7-21 (BEAKER) (test gbpw=983) CREATININE (BEAKER) (test 0.82 mg/dL 0.57-1.25 suri=415) GLUCOSE RANDOM (BEAKER) 83 mg/dL 70-105 (test tncx=955) CALCIUM (BEAKER) (test 9.3 mg/dL 8.4-10.2 trfw=248) AST (SGOT) (BEAKER) (test 30 U/L 5-34 zcuv=169) ALT (SGPT) (BEAKER) (test 88 U/L 6-55 sixo=615) EGFR (BEAKER) (test 82 mL/min/1.73 sq m ESTIMATED GFR IS NOT drcg=4692) ACCURATE CREATININE CLEARANCE IN PREDICTING GLOMERULAR FILTRATION RATE. ESTIMATED GFR IS NOT APPLICABLE FOR DIALYSIS PATIENTS. POCT-GLUCOSE [id number] 20:46:00 Test Item Value Reference Range Comments POC-GLUCOSE METER (BEAKER) 99 mg/dL 70-110 TESTED AT [address] (test fmlr=5588) [place] [address] POCT-GLUCOSE [id number] 17:37:00 Test Item Value Reference Range Comments POC-GLUCOSE METER (BEAKER) 143 mg/dL 70-110 TESTED AT [address] (test eyvt=6287) [place] [address] CREATINE KINASE (CK), TOTAL AND [id number] 17:27:00 Test Item Value Reference Range Comments CREATINE KINASE TOTAL (BEAKER) (test dyma=800) 196 U/L 29-200 CREATINE KINASE-MB (BEAKER) (test dguq=887) 5.1 ng/mL 0.0-6.6 CREATINE KINASE-MB INDEX (BEAKER) (test vceb=240) 2.6 % CK-MB Reference Range:<6.7 Normal6.7-10.0 Borderline>10.0 AbnormalTROPONIN [id number] 17:27:00 Test Item Value Reference Range Comments TROPONIN I (BEAKER) (test pgyn=054) 0.02 ng/mL 0.00-0.03 Troponin I (TnI) levels [...] failure, acidosis, acute neurological disease, and persistent tachyarrhythmia.[id number] 16:54:00 Test Item Value Reference Range Comments D-DIMER QUANTITATIVE (BEAKER) (test vhji=738) 0.60 MG/L FEU <0.50 Intended Use: The [...] of thrombosis is within 95-100% range.POCT- GLUCOSE [id number] 14:54:00 Test Item Value Reference Range Comments POC-GLUCOSE METER (BEAKER) 113 mg/dL 70-110 TESTED AT [facility] [address] (test enwd=0458) [facility] [address] CBC W/PLT COUNT & AUTO [id number] 13:06:00 Test Item Value Reference Range Comments WHITE BLOOD CELL COUNT (BEAKER) (test efob=255) 7.2 K/ L 3.5-10.5 RED BLOOD CELL COUNT (BEAKER) (test rmqk=198) 3.92 M/ L 3.93-5.22 HEMOGLOBIN (BEAKER) (test oohv=825) 11.3 GM/DL 11.2-15.7 HEMATOCRIT (BEAKER) (test uklj=842) 35.6 % 34.1-44.9 MEAN CORPUSCULAR VOLUME (BEAKER) (test jgsa=349) 90.8 fL 79.4-94.8 MEAN CORPUSCULAR HEMOGLOBIN (BEAKER) (test 28.8 pg 25.6-32.2 njpo=548) MEAN CORPUSCULAR HEMOGLOBIN CONC (BEAKER) (test 31.7 GM/DL 32.2-35.5 yyyz=827) RED CELL DISTRIBUTION WIDTH (BEAKER) (test 13.8 % 11.7-14.4 wsws=673) PLATELET COUNT (BEAKER) (test eacr=988) 254 K/CU MM 150-450 MEAN PLATELET VOLUME (BEAKER) (test zbhz=971) 10.2 fL 9.4-12.3 NUCLEATED RED BLOOD CELLS (BEAKER) (test 0 /100 WBC 0-0 zpom=166) NEUTROPHILS RELATIVE PERCENT (BEAKER) (test 37 % znma=096) LYMPHOCYTES RELATIVE PERCENT (BEAKER) (test 50 % cnaw=505) MONOCYTES RELATIVE PERCENT (BEAKER) (test 8 % azgk=844) EOSINOPHILS RELATIVE PERCENT (BEAKER) (test 4 % rmyd=243) BASOPHILS RELATIVE PERCENT (BEAKER) (test 1 % ngic=468) NEUTROPHILS ABSOLUTE COUNT (BEAKER) (test 2.66 K/ L 1.56-6.13 srfv=752) LYMPHOCYTES ABSOLUTE COUNT (BEAKER) (test 3.57 K/ L 1.18-3.74 bsin=558) MONOCYTES ABSOLUTE COUNT (BEAKER) (test 0.55 K/ L 0.24-0.36 tjdv=385) EOSINOPHILS ABSOLUTE COUNT (BEAKER) (test 0.26 K/ L 0.04-0.36 dcpf=124) BASOPHILS ABSOLUTE COUNT (BEAKER) (test 0.08 K/ L 0.01-0.08 ibqc=270) IMMATURE GRANULOCYTES-RELATIVE PERCENT (BEAKER) 0 % 0-1 (test fyum=8599) B-TYPE NATRIURETIC FACTOR (BNP)2017-04-15 12:21:00 Test Item Value Reference Range Comments B-TYPE NATRIURETIC PEPTIDE (BEAKER) (test 200 pg/mL 0-100 iyli=526) GAMMA GLUTAMYL TRANSFERASE (GGT)2017-04-15 12:16:00 Test Item Value Reference Range Comments GAMMA GLUTAMYL TRANSFERASE (BEAKER) (test qvzx=972) 327 U/L 9-64 CARCINOEMBRYONIC ANTIGEN (CEA)2017-04-15 11:33:00 Test Item Value Reference Range Comments CARCINOEMBRYONIC ANTIGEN (BEAKER) (test glrb=521) 2.5 ng/mL 0.0-5.0 POCT-GLUCOSE [id number] 11:26:00 Test Item Value Reference Range Comments POC-GLUCOSE METER (BEAKER) 114 mg/dL 70-110 TESTED AT [facility] [address] (test ktzi=6756) [facility] [address] CREATINE KINASE (CK), TOTAL AND [id number] 11:19:00 Test Item Value Reference Range Comments CREATINE KINASE TOTAL (BEAKER) (test htik=873) 204 U/L 29-200 CREATINE KINASE-MB (BEAKER) (test ajfl=865) 5.7 ng/mL 0.0-6.6 CREATINE KINASE-MB INDEX (JAKE) (test miyc=006) 2.8 % CK-MB Reference Range:<6.7 Normal6.7-10.0 Borderline>10.0 AbnormalTROPONIN [id number] 11:19:00 Test Item Value Reference Range Comments TROPONIN I (JAKE) (test kwcb=912) 0.02 ng/mL 0.00-0.03 Troponin I (TnI) levels [...] acute neurological disease, and persistent tachyarrhythmia.U/S, ABDOMINAL, [id number] 10:11: 00Abdomen limited area? Add comment if [...] MDReport Verified Date/Time: 04/15/2017 10:11:28 Reading Location: [address] Reading Room Electronically signed by: JENN CROCKER MD on 2017 10:11 AMPOCT-GLUCOSE [id number] 10:00:00 Test Item Value Reference Range Comments POC-GLUCOSE METER (BEAKER) 107 mg/dL 70-110 TESTED AT [facility] [address] (test deax=5870) [facility] [address] HEMOGLOBIN [id number] 08:15:00 Test Item Value Reference Range Comments HEMOGLOBIN A1C (BEAKER) (test srdb=163) 6.8 % 4.3-6.1 [id number] 07:35:00 Test Item Value Reference Range Comments PHOSPHORUS (BEAKER) (test ujwl=192) 3.9 mg/dL 2.3-4.7 [id number] 07:35:00 Test Item Value Reference Range Comments MAGNESIUM (BEAKER) (test blra=168) 1.8 mg/dL 1.6-2.6 COMPREHENSIVE METABOLIC [id number] 07:35:00 Test Item Value Reference Range Comments TOTAL PROTEIN (BEAKER) 7.5 gm/dL 6.0-8.3 (test orfj=454) ALBUMIN (BEAKER) (test 3.5 g/dL 3.5-5.0 vibx=1173) ALKALINE PHOSPHATASE 211 U/L 40-150 (BEAKER) (test jacg=367) BILIRUBIN TOTAL (BEAKER) < mg/dL 0.2-1.2 (test wngx=862) SODIUM (BEAKER) (test 142 meq/L 136-145 jqiy=006) POTASSIUM (BEAKER) (test 3.6 meq/L 3.5-5.1 fbuq=344) CHLORIDE (BEAKER) (test 110 meq/L 98-107 lnkb=298) CO2 (BEAKER) (test 22 meq/L 22-29 jlrx=425) BLOOD UREA NITROGEN 12 mg/dL 7-21 (BEAKER) (test ozkh=459) CREATININE (BEAKER) (test 0.84 mg/dL 0.57-1.25 lztu=690) GLUCOSE RANDOM (BEAKER) 107 mg/dL 70-105 (test wfvp=946) CALCIUM (BEAKER) (test 9.4 mg/dL 8.4-10.2 tenu=299) AST (SGOT) (BEAKER) (test 37 U/L 5-34 odcz=793) ALT (SGPT) (BEAKER) (test 119 U/L 6-55 tmbk=358) EGFR (BEAKER) (test 80 mL/min/1.73 sq m ESTIMATED GFR IS NOT pzec=0234) ACCURATE CREATININE CLEARANCE IN PREDICTING GLOMERULAR FILTRATION RATE. ESTIMATED GFR IS NOT APPLICABLE FOR DIALYSIS PATIENTS. LIPID [id number] 07:35:00 Test Item Value Reference Range Comments TRIGLYCERIDES (BEAKER) (test gftl=703) 128 mg/dL CHOLESTEROL (BEAKER) (test ieha=685) 162 mg/dL HDL CHOLESTEROL (BEAKER) (test hbxw=692) 47 mg/dL LDL CHOLESTEROL CALCULATED (BEAKER) (test 89 mg/dL rppv=038) Triglyceride Reference Range: Low Risk <150 Borderline 150- 199 High Risk 200-499 Very High Risk >=500Cholesterol Reference Range: Low Risk <200 Borderline 200-239 High Risk > 240HDL Cholesterol Reference Range: Low Risk >=60 High Risk <40LDL Cholesterol Reference Range: Optimal <100 Near Optimal 100-129 Borderline 130-159 High 160-189 Very High >=190CREATINE KINASE (CK), TOTAL AND [id number] 07:35:00 Test Item Value Reference Range Comments CREATINE KINASE TOTAL (BEAKER) (test ffhm=066) 216 U/L 29-200 CREATINE KINASE-MB (BEAKER) (test axfe=253) 6.0 ng/mL 0.0-6.6 CREATINE KINASE-MB INDEX (BEAKER) (test ytcr=737) 2.8 % CK-MB Reference Range:<6.7 Normal6.7-10.0 Borderline>10.0 [id number] 07:35:00 Test Item Value Reference Range Comments LIPASE (BEAKER) (test gzmw=738) 29 U/L 8-78 TROPONIN [id number] 07:32:00 Test Item Value Reference Range Comments TROPONIN I (BEAKER) (test dssg=158) 0.01 ng/mL 0.00-0.03 Troponin I (TnI) levels [...] acidosis, acute neurological disease, and persistent tachyarrhythmia.POCT-GLUCOSE [id number] 05:07:00 Test Item Value Reference Range Comments POC-GLUCOSE METER (JAKE) 113 mg/dL 70-110 TESTED AT [facility] [address] (test diju=4315) [facility] [address]
[2017-07-10] MEDS ORDERED: ASPIRIN 81 MG CHEWABLE TABLET ONE (00:21)
[2017-07-10] MEDS ORDERED: ONDANSETRON 4 MG/2 ML VIAL ONE (00:21)
[2017-07-10] MEDS ORDERED: NITROGLYCERIN 0.4 MG/TAB SL ONE (00:21)
[2017-07-10] MEDS ORDERED: ACETAMINOPHEN 500 MG TAB ONE (00:21)
[2017-07-10] MEDS ORDERED: FAMOTIDINE 20 MG/2 ML VIAL IV ONE (00:22)
[2017-07-10 00:47] LABS: Urine Blood 1+ (NEG); Urine Glucose NEGATIVE (NEG); Urine Protein 2+ (NEG)
[2017-07-10 00:53] LABS: Absolute Lymphocytes (CBC) 2.9 K/uL (0.7-4.9); Absolute Monocytes 0.5 K/uL (0.1-1.3); Basophils % 1.1 % (0-1.3); Eosinophils % 3.8 % (0-4.4); Hematocrit 35.8 % (36.0-45.0); Lymphocytes % 37.3 % (15.3-44.8); MCH 28.7 pg (27.0-35.0); MCV 85.4 fL (80-100); MPV 8.1 fL (7.6-11.3); Monocytes % 6.6 % (3.3-12.3)
[2017-07-10 01:01] LABS: Protime INR 1.13
[2017-07-10 01:11] LABS: Bicarbonate 24 mEq/L (21-31); Glucose Level 142 mg/dL (65-120); Lipase 33 U/L (22-51); Sodium Level 121 mEq/L (135-145)
[2017-07-10 01:18] LABS: ALT/SGPT 26 IU/L (10-60); AST/SGOT 40 IU/L (10-42); Albumin 4.6 g/dL (3.2-5.5); Alkaline Phosphatase 85 IU/L (42-121); BUN Blood Urea Nitrogen 31 mg/dL (6-20); Bilirubin Direct < 0.1 mg/dL (0-0.2); Bilirubin Total 0.7 mg/dL (0.3-1.2); Creatine Phosphokinase 646 IU/L (22-269); Magnesium 1.6 mg/dL (1.8-2.5); Protein, Total 8.5 g/dL (6.0-8.3)
--- NOTE | 2017-07-10 04:38 | ER ---
Nurse's Notes [facility] Name: Shereen Flores Age: 77 yrs Sex: Female : 1940 Arrival Date: 07/09/2017 Time: 23:20 Bed 25 Private MD: Sharath Pate E Diagnosis: Acute Chest Pain;Acute Vomiting Presentation: 07/09 23:56 Presenting complaint: Patient states: Pt. comes from home c/o elevated blood pressure, rk2 cp. Onset around 1900 tonight. Nausea and vomiting. Transition of care: patient was not received from another setting of care. Onset of symptoms was July 09, 2017. Risk Assessment: Do you want to hurt yourself or someone else? Patient reports no desire to harm self or others. Initial Sepsis Screen: Does the patient meet any 2 criteria? No. Patient's initial sepsis screen is negative. Does the patient have a suspected source of infection? No. Patient's initial sepsis screen is negative. Care prior to arrival: None. 23:56 Method Of Arrival: Wheelchair [facility] 23:56 Acuity: AVERY 3 rk2 Triage Assessment: 07/10 00:01 General: Appears uncomfortable, well groomed, well developed, well nourished, Behavior rk2 is calm, cooperative. Pain: Complains of pain in chest. Neuro: Level of Consciousness is alert, obeys commands, Oriented to person, place, time, situation. Cardiovascular: Rhythm is sinus rhythm. Respiratory: Airway is patent Respiratory effort is even, unlabored, Respiratory pattern is regular, symmetrical. GI: Reports nausea, vomiting. Derm: Skin is pink, warm \T\ dry. Historical: - Allergies: 07/09 23:59 SHARON INHIBITORS; rk2 23:59 PENICILLINS; rk2 23:59 Iodine; rk2 - Home Meds: 07/10 03:18 aspirin 81 mg Oral TbEC 1 tab once daily [Active]; carvedilol oral [Active]; Xanax 0.5 rk2 mg Oral tab [Active]; metformin Oral [Active]; carvedilol oral [Active]; metoprolol tartrate Oral [Active]; - PMHx: 07/09 23:59 Hypertension; Diabetes - NIDDM; GERD; Glaucoma; rk2 - Immunization history:: Flu vaccine status is unknown. - Social history:: Smoking status: . - Ebola Screening: : Patient negative for fever greater than or equal to 101.5 degrees Fahrenheit, and additional compatible Ebola Virus Disease symptoms. - Family history:: not pertinent. - Hospitalizations: : No recent hospitalization is reported. Screenin/28 00:00 Abuse screen: Denies threats or abuse. Nutritional screening: No deficits noted. rk2 Tuberculosis screening: No symptoms or risk factors identified. Fall Risk IV access (20 points). Assessment: :22 GI: Reports nausea, vomiting. rk2 01:22 Reassessment: Patient appears in no apparent distress at this time. No changes from rk2 previously documented assessment. Patient and/or family updated on plan of care and expected duration. Pain level reassessed. Family \T\ bedside... no needs voiced \T\ this time. 03:00 Reassessment: Patient is alert, oriented x 3, equal unlabored respirations, skin bb warm/dry/pink. pt resting quietly, IV site intact with no erythema or edema noted awaiting room assignment. 04:10 Reassessment: Patient is alert, oriented x 3, equal unlabored respirations, skin bb warm/dry/pink. pt resting quietly states she is feeling a little nervous and she takes Xanax at home notified Dr Islas new order received pt medicated see APR. Pt assisted to bathroom, linens changed and pt given warm blankets and a pillow. Awaiting room assignment. 06:02 Reassessment: Patient and/or family updated on plan of care and expected duration. Pain bb level reassessed. pt appears to be sleeping, eyes closed, resp unlabored, IV site intact, patent, with fluids infusing report called to Elana RUIZ for bed 228. Vital Signs: 00:00 BP 197 / 85; Pulse 67; Resp 16; Temp 98.2(O); Pulse Ox 99% ; rk2 00:42 BP 121 / 69; Pulse 59; Resp 17; Pulse Ox 99% ; Pain 6/10; rk2 01:30 BP 130 / 62; Pulse 56; Resp 17; Pulse Ox 100% on R/A; rk2 02:00 BP 147 / 82; Pulse 57; Resp 17; Pulse Ox 100% on R/A; rk2 04:05 BP 164 / 67; Pulse 59; Resp 18 S; Temp 97.7(O); Pulse Ox 100% on R/A; bb 06:06 BP 128 / 57; Pulse 51; Resp 16; Pulse Ox 97% on R/A; bb ED Course: 07/09 23:20 Patient arrived in ED. al2 23:20 Sharath Pate MD is Private Physician. al2 23:38 Sarah Hobson RN is Primary Nurse. rk2 23:38 Sharath Islas MD is Attending Physician. wa 23:58 Triage completed. rk2 07/10 00:00 Patient has correct armband on for positive identification. Bed in low position. Call rk2 light in reach. Adult w/ patient. compliance monitor on. Pulse ox on. 00:00 Inserted saline lock: 20 gauge in left forearm, using aseptic technique. rk2 00:17 XRAY Chest (1 view) Sent. rk2 00:22 X-ray completed. Portable x-ray completed in exam room. Patient tolerated procedure kp1 well. 00:30 Initial lab(s) drawn, by me, sent to lab. bb 00:41 XRAY Chest (1 view) In Process Unspecified. EDMS 01:23 Arm band placed on. rk2 04:36 Debi Finney MD is Hospitalizing Provider. wa 04:49 No provider procedures requiring assistance completed. Patient admitted, IV remains in bb place. Administered Medications: 00:30 Drug: Zofran 4 mg Route: IVP; Site: left forearm; rk2 01:21 Follow up: Response: No adverse reaction rk2 00:30 Drug: Pepcid 20 mg Route: IVP; Site: left forearm; rk2 01:21 Follow up: Response: No adverse reaction rk2 00:30 Drug: Nitroglycerin 0.4 mg Route: Sublingual; rk2 01:21 Follow up: Response: No adverse reaction rk2 00:30 Not Given (Patient Refused): Tylenol 1000 mg PO once rk2 00:31 Not Given (Pt. already took asa 325 mg + 81mg today): Aspirin 162 mg PO once rk2 04:42 Drug: XANax Tablet 0.5 mg Route: PO; bb 06:09 Follow up: Response: Marked relief of symptoms bb 04:53 Drug: Magnesium Sulfate 2 grams Route: IVPB; Infused Over: 2 hrs; Site: left forearm; bb 06:09 Follow up: IV Status: Infusion continued upon admission; IV Intake: 50ml bb Intake: 06:09 IV: 50ml; Total: 50ml. bb Outcome: 04:37 Decision to Hospitalize by Provider. bibiana 04:50 Instructed on the need for admit. bb 06:03 Admitted to Tele accompanied by tech, via stretcher, room 228, with chart, Report bb called to Elana RUIZ 06:03 Condition: stable 06:08 Patient left the ED. bb Signatures: Dispatcher [employer] EDDalia Ellison, RN RN Mica Man kp1 Sharath Islas MD MD wa Love, Sarah Junior, RN RN rk2
--- NOTE | 2017-07-10 04:38 | EDPHYS ---
Physician Documentation [facility] Name: Shereen Flores Age: 77 yrs Sex: Female : 1940 Arrival Date: 07/09/2017 Time: 23:20 Bed 25 Private MD: Sharath Pate E ED Physician Sharath Islas HPI: 07/10 05:58 This 77 yrs old Black Female presents to ER via Wheelchair with complaints of High wa Blood Pressure, Vomiting. 05:58 The patient has elevated blood pressure and discovered this at home, with a home wa device. Onset: The symptoms/episode began/occurred today. Modifying factors: The symptoms are aggravated by none. , The symptoms are alleviated by none. Associated signs and symptoms: Pertinent positives: chest pain, vomiting. Severity of symptoms: At its worst the blood pressure was see nursing dcumentation, in the emergency department the blood pressure is unchanged. The patient has experienced similar episodes in the past. The patient has not recently seen a physician. admits to lower chest pressure. denies SOB. denies cough, fever, chills or diarrhea. Historical: - Allergies: 07/09 23:59 SHARON INHIBITORS; rk2 23:59 PENICILLINS; rk2 23:59 Iodine; rk2 - Home Meds: 07/10 03:18 aspirin 81 mg Oral TbEC 1 tab once daily [Active]; carvedilol oral [Active]; Xanax 0.5 rk2 mg Oral tab [Active]; metformin Oral [Active]; carvedilol oral [Active]; metoprolol tartrate Oral [Active]; - PMHx: 07/09 23:59 Hypertension; Diabetes - NIDDM; GERD; Glaucoma; rk2 - Immunization history:: Flu vaccine status is unknown. - Social history:: Smoking status: . - Ebola Screening: : Patient negative for fever greater than or equal to 101.5 degrees Fahrenheit, and additional compatible Ebola Virus Disease symptoms. - Family history:: not pertinent. - Hospitalizations: : No recent hospitalization is reported. ROS: 07/10 06:02 Constitutional: Negative for fever, chills, and weight loss, Eyes: Negative for injury, wa pain, redness, and discharge, ENT: Negative for injury, pain, and discharge, Neck: Negative for injury, pain, and swelling, Back: Negative for injury and pain, : Negative for injury, bleeding, discharge, and swelling, MS/Extremity: Negative for injury and deformity, Skin: Negative for injury, rash, and discoloration, Neuro: Negative for headache, weakness, numbness, tingling, and seizure, Psych: Negative for depression, anxiety, suicide ideation, homicidal ideation, and hallucinations. Cardiovascular: Positive for chest pain, Negative for edema, orthopnea, palpitations, paroxysmal nocturnal dyspnea. Respiratory: Negative for cough, shortness of breath. Abdomen/GI: Positive for nausea, vomiting, Negative for diarrhea. 06:03 All other systems are negative. wa Exam: 06:03 Constitutional: This is a well developed, well nourished patient who is awake, alert, wa and in no acute distress. Head/Face: Normocephalic, atraumatic. Eyes: Pupils equal round and reactive to light, extra-ocular motions intact. Lids and lashes normal. Conjunctiva and sclera are non-icteric and not injected. Cornea within normal limits. Periorbital areas with no swelling, redness, or edema. ENT: Nares patent. No nasal discharge, no septal abnormalities noted. Tympanic membranes are normal and external auditory canals are clear. Oropharynx with no redness, swelling, or masses, exudates, or evidence of obstruction, uvula midline. Mucous membranes moist. Neck: Trachea midline, no thyromegaly or masses palpated, and no cervical lymphadenopathy. Supple, full range of motion without nuchal rigidity, or vertebral point tenderness. No Meningismus. Cardiovascular: Regular rate and rhythm with a normal S1 and S2. No gallops, murmurs, or rubs. Normal PMI, no JVD. No pulse deficits. Respiratory: Lungs have equal breath sounds bilaterally, clear to auscultation and percussion. No rales, rhonchi or wheezes noted. No increased work of breathing, no retractions or nasal flaring. Back: No spinal tenderness. No costovertebral tenderness. Full range of motion. Skin: Warm, dry with normal turgor. Normal color with no rashes, no lesions, and no evidence of cellulitis. MS/ Extremity: Pulses equal, no cyanosis. Neurovascular intact. Full, normal range of motion. Neuro: Awake and alert, GCS 15, oriented to person, place, time, and situation. Cranial nerves II-XII grossly intact. Motor strength 5/5 in all extremities. Sensory grossly intact. Cerebellar exam normal. Normal gait. Psych: Awake, alert, with orientation to person, place and time. Behavior, mood, and affect are within normal limits. 06:03 Abdomen/GI: Inspection: abdomen appears normal, Bowel sounds: normal, in all quadrants, Palpation: abdomen is soft and non-tender, in all quadrants. Vital Signs: 00:00 BP 197 / 85; Pulse 67; Resp 16; Temp 98.2(O); Pulse Ox 99% ; rk2 00:42 BP 121 / 69; Pulse 59; Resp 17; Pulse Ox 99% ; Pain 6/10; rk2 01:30 BP 130 / 62; Pulse 56; Resp 17; Pulse Ox 100% on R/A; rk2 02:00 BP 147 / 82; Pulse 57; Resp 17; Pulse Ox 100% on R/A; rk2 04:05 BP 164 / 67; Pulse 59; Resp 18 S; Temp 97.7(O); Pulse Ox 100% on R/A; bb 06:06 BP 128 / 57; Pulse 51; Resp 16; Pulse Ox 97% on R/A; bb MDM: 07/09 23:38 Patient medically screened. mo 07/10 06:04 Differential diagnosis: check GI/cardiac work up and reassess. r/o ACS. Data reviewed: mo vital signs, nurses notes, lab test result(s), EKG. Test interpretation: by ED physician or midlevel provider: EKG: HR 63. no acute ischemic changes. labs noted for hyponatremia. elevated glucose, elevated BUN/Cr. . Response to treatment: the patient's symptoms have markedly improved after treatment. ED course: spoke with and admitted pt to Dr. Finney. 07/10 00:06 Order name: Basic Metabolic Panel; Complete Time: 03: mo 07/10 04:18 Interpretation: CRE 1.23. mo 07/10 00:06 Order name: BNP; Complete Time: : mo 07/10 00:06 Order name: CBC with Diff; Complete Time: : mo 07/10 00:06 Order name: CPK; Complete Time: : mo 07/10 00:06 Order name: LFT's; Complete Time: 03: mo 07/10 00:06 Order name: Magnesium; Complete Time: 03:54 mo 07/10 00:06 Order name: PT-INR; Complete Time: 03:54 mo 07/10 00:06 Order name: Troponin (emerg Dept Use Only); Complete Time: 03:54 mo 07/10 00:06 Order name: XRAY Chest (1 view) mo 07/10 00:06 Order name: Lipase; Complete Time: 04:18 mo 07/10 00:20 Order name: Urine Dipstick--Ancillary (enter results); Complete Time: 03:53 [facility] 07/10 00:06 Order name: EKG; Complete Time: 00:06 mo 07/10 00:06 Order name: Cardiac monitoring; Complete Time: 00:17 mo 07/10 00:06 Order name: EKG - Nurse/Tech; Complete Time: 00:17 mo 07/10 00:06 Order name: IV Saline Lock; Complete Time: 00:17 mo 07/10 00:06 Order name: Labs collected and sent; Complete Time: 00:41 mo 07/10 00:06 Order name: O2 Per Protocol; Complete Time: 00:17 mo 07/10 00:06 Order name: O2 Sat Monitoring; Complete Time: 00:17 mo 07/10 00:06 Order name: Urine Dipstick-Ancillary (obtain specimen); Complete Time: 00:18 mo Administered Medications: 00:30 Drug: Zofran 4 mg Route: IVP; Site: left forearm; rk2 01:21 Follow up: Response: No adverse reaction rk2 00:30 Drug: Pepcid 20 mg Route: IVP; Site: left forearm; rk2 01:21 Follow up: Response: No adverse reaction rk2 00:30 Drug: Nitroglycerin 0.4 mg Route: Sublingual; rk2 01:21 Follow up: Response: No adverse reaction rk2 00:30 Not Given (Patient Refused): Tylenol 1000 mg PO once rk2 00:31 Not Given (Pt. already took asa 325 mg + 81mg today): Aspirin 162 mg PO once rk2 04:42 Drug: XANax Tablet 0.5 mg Route: PO; bb 06:09 Follow up: Response: Marked relief of symptoms bb 04:53 Drug: Magnesium Sulfate 2 grams Route: IVPB; Infused Over: 2 hrs; Site: left forearm; bb 06:09 Follow up: IV Status: Infusion continued upon admission; IV Intake: 50ml bb Disposition: 07/10/17 04:37 Hospitalization ordered by Debi Finney for Inpatient Admission. Preliminary diagnosis are Acute Chest Pain, Acute Vomiting. - Bed requested for Telemetry/MedSurg (Inpatient). - Status is Inpatient Admission. bb - Condition is Stable. - Problem is new. - Symptoms have improved. UTI on Admission? No Signatures: Dispatcher [employer] EDMS Aminata Echavarria RN RN mw Ballard, Brenda, RN RN bb Appiah, William, MD MD wa Kidder, Rhonda, RN RN rk2 Corrections: (The following items were deleted from the chart) 04:51 04:37 Hospitalization Ordered by Debi Finney MD for Inpatient Admission. Preliminary diagnosis is Acute Chest Pain; Acute Vomiting. Bed requested for Telemetry/MedSurg (Inpatient). Status is Inpatient Admission. Condition is Stable. Problem is new. Symptoms have improved. UTI on Admission? No. mo 06:08 04:51 07/10/2017 04:37 Hospitalization Ordered by Debi Finney MD for Inpatient bb Admission. Preliminary diagnosis is Acute Chest Pain; Acute Vomiting. Bed requested for Telemetry/MedSurg (Inpatient). Status is Inpatient Admission. Condition is Stable. Problem is new. Symptoms have improved. UTI on Admission? No.
[2017-07-10] MEDS ORDERED: ALPRAZOLAM 0.5 MG TABLET ONE (04:44)
[2017-07-10] MEDS ORDERED: Magnesium Sulfate 2gm IVPB 2 G/50 ML BAG IV ONE ×2 (04:58→11:50)
[2017-07-10] MEDS ORDERED: ZOLPIDEM TARTRATE 5 MG TABLET PO PRN (05:48)
[2017-07-10] MEDS ORDERED: ALPRAZOLAM 0.5 MG TABLET PO PRN (05:48)
[2017-07-10] MEDS: NA CHLORIDE 0.9% 1,000 ML IV SCH ×2 (06:26→18:38)
--- NOTE | 2017-07-10 08:26 | P.HP ---
Certification for Inpatient Patient admitted to: Observation With expected LOS: <2 Midnights Patient will require the following post-hospital care: None Practitioner: I am a practitioner with admitting privileges, knowledge of patient current condition, hospital course, and medical plan of care. Services: Services provided to patient in accordance with Admission requirements found in Title 42 Section 412.3 of the Code of Federal Regulations Patient History Date of Service: 07/10/17 Reason for admission: Chest pain; nausea and vomiting; vertigo History of Present Illness: Patient is a 77-year-old female who was admitted to the hospital with intractable nausea and vomiting and hypertension. This resolved in the emergency room; however, patient was having chest pain. When I went to speak in to patient she states that the pain was near the xiphoid process. She has had some intractable nausea and vomiting. She recently had a cardiac catheterization with complete occlusion of the left circumflex but her other Coronary arteries were normal. She is also complaining of her to go. She is having a hard time keeping her eyes open as the room is spinning. 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 She will need normal saline and she is hyponatremia. During her last admission her sodium was normal. I am not really sure what has resulted in her hyponatremia,as she does not have any diuretics that she is taking nor any other medicines that stand out. Will review her diagnostic studies and see if she has a pulmonary pathology. At this time she will be admitted to the hospital for workup of her hyponatremia as well as her vertigo and her nausea and vomiting. Allergies lisinopril Allergy (Severe, Verified 04/18/17 23:41) Anaphylaxis iron Allergy (Intermediate, Verified 04/18/17 23:41) Anaphylaxis Penicillins Allergy (Intermediate, Verified 04/18/17 23:41) Anaphylaxis SHARON Inhibitors Allergy (Verified 06/03/17 04:13) Unknown iodine Allergy (Verified 06/03/17 04:13) Unknown hydralazine [From Apresoline] Adverse Reaction (Verified 06/03/17 10:10) Shortness of breath Home Medications: Aspirin [Aspirin EC 81 MG] 1 tab PO DAILY 01/02/14 Metformin HCl [Glucophage] 1,000 mg PO BID PRN 01/02/14 Pantoprazole Sodium [Protonix] 40 mg PO DAILY 01/02/14 Zolpidem Tartrate [Ambien*] 10 mg PO BEDTIME PRN 01/02/14 Docusate Sodium [Stool Softener] 100 mg PO BID PRN 06/29/16 Alprazolam [Xanax*] 0.5 mg PO BEDTIME PRN 04/09/17 Amlodipine [Norvasc*] 10 mg PO DAILY 04/09/17 Latanoprost Ophth [Xalatan 0.005%*] 1 drops RIGHT EYE BEDTIME 04/18/17 Carvedilol 12.5 mg PO BID 06/03/17 Gabapentin [Neurontin*] 300 mg PO TID 06/03/17 Tramadol HCl/Acetaminophen [Ultracet Tablet] 37.5 mg PO Q8H PRN 06/03/17 Atorvastatin Calcium [Lipitor] 80 mg PO BEDTIME #30 tab 06/05/17 Valsartan [Diovan*] 320 mg PO DAILY #60 tab 06/05/17 - Past Medical/Surgical History Diabetic: Yes -: Diabetes mellitus type 2 -: Hypertension -: History DVT -: Glaucoma/cataract -: GERD -: Paroxysmally atrial fibrillation -: PVD -: History of stent to the kidney -: Depression with anxiety -: Renal stent -: Ureter Surgery to remove scar tissue -: Hysterectomy Psychosocial/ Personal History: The patient lives by herself. She is a . She has 8 children. - Family History Father Medical History: Lung disease, Diabetes, Kidney disease Notes: smoker Mother Medical History: Heart disease, Hypertension, GI disease, Stroke - Social History Smoking Status: Former smoker Alcohol use: No CD- Drugs: No Caffeine use: Yes Review of Systems 10-point ROS is otherwise unremarkable Physical Examination - Vital Signs Temperature: 96.9 F Blood Pressure: 163/72 Pulse: 57 Respirations: 16 Pulse Ox (%): 99 - Physical Exam General: Alert, In no apparent distress, Oriented x3 HEENT: Atraumatic, PERRLA, Mucous membr. moist/pink, EOMI, Sclerae nonicteric Neck: Supple, 2+ carotid pulse no bruit, No LAD, Without JVD or thyroid abnormality Respiratory: Clear to auscultation bilaterally, Normal air movement Cardiovascular: Regular rate/rhythm, Normal S1 S2, Systolic murmur Gastrointestinal: Normal bowel sounds, Soft and benign, Non-distended, No tenderness Musculoskeletal: No clubbing, No swelling, No tenderness Integumentary: No rashes Neurological: Normal speech, Normal tone, Sensation intact, Cranial nerves 3-12 intact, Normal affect, Abnormal gait, Abnormal strength Lymphatics: No axilla or inguinal lymphadenopathy - Studies Laboratory Data (last 24 hrs) 07/10/17 00:30: PT 13.3 H, INR 1.13 07/10/17 00:30: WBC 7.8, Hgb 12.0, Hct 35.8 L, Plt Count 284 07/10/17 00:30: B-Natriuretic Peptide 84 07/10/17 00:30: Sodium 121 L, Potassium 4.0, BUN 31 H, Creatinine 1.23 H, Glucose 142 H, Magnesium 1.6 L, Total Bilirubin 0.7, AST 40, ALT 26, Alkaline Phosphatase 85, Lipase 33 Assessment & Plan - Problems (Diagnosis) (1) Vertigo Current Visit: Yes Status: Acute (2) Chest pain, rule out acute myocardial infarction Current Visit: Yes Status: Acute (3) Atrial fibrillation with rapid ventricular response Onset Date: 06/29/16 Current Visit: No Status: Acute (4) Hyponatremia Onset Date: 04/10/17 Current Visit: No Status: Acute (5) Syncope Onset Date: 01/02/14 Current Visit: No Status: Acute (6) Diabetes mellitus Onset Date: 04/10/17 Current Visit: No Status: Chronic Qualifiers: Diabetes mellitus type: type 2 Diabetes mellitus group home insulin use: without group home use Diabetes mellitus complication status: with other specified complication Qualified Code(s): E11.69 - Type 2 diabetes mellitus with other specified complication (7) HTN (hypertension) Onset Date: 04/10/17 Current Visit: No Status: Chronic Qualifiers: Hypertension type: essential hypertension Qualified Code(s): I10 - Essential (primary) hypertension (8) History of atrial fibrillation Current Visit: No Status: Chronic (9) Acute kidney injury Current Visit: Yes Status: Acute - Plan Plan: 1. Gentle hydration 2. Fractional excretion of sodium 3. Renal ultrasound and monitor renal function after hydration 4. Antivert as well as MRI of the brain 5. Anti emetics 6. Strict blood pressure and blood sugar control 7. GI and DVT prophylaxis Discharge Plan: Home Plan to discharge in: Greater than 2 days - Advance Directives Does patient have a Living Will: No Does patient have a Durable POA for Healthcare: No - Code Status/Comfort Care Code Status Assessed: Yes Code Status: Full Code Critical Care: No Time Spent Managing PTS Care (In Minutes): 50
--- NOTE | 2017-07-10 08:59 | RAD REPORT ---
EXAM DESCRIPTION: RAD - Chest Single View - 07/10/2017 12:40 am CLINICAL HISTORY: Chest pain COMPARISON: May 2017 TECHNIQUE: AP portable chest image was obtained 0022 hours . FINDINGS: Lungs are clear. Heart and vasculature are normal. No measurable pleural effusion and no p neumothorax. No acute bony abnormality seen. No acute aortic findings suspected. IMPRESSION: No acute cardiopulmonary process. No significant interval change.
[2017-07-10] MEDS ORDERED: MECLIZINE HCL 12.5 MG TAB PO SCH (09:00)
[2017-07-10] MEDS: VALSARTAN 160 MG TAB PO SCH (09:39)
[2017-07-10] MEDS: GABAPENTIN 100 MG CAP PO SCH ×3 (09:40→20:56)
[2017-07-10] MEDS: ASPIRIN EC 81 MG TAB PO SCH (09:40)
[2017-07-10] MEDS: PANTOPRAZOLE 40MG TABLET PO SCH (09:40)
[2017-07-10] MEDS: CARVEDILOL 12.5 MG TAB PO SCH ×2 (09:41→20:57)
[2017-07-10 10:38] LABS: Absolute Lymphocytes (CBC) 2.3 K/uL (0.7-4.9); Absolute Monocytes 0.4 K/uL (0.1-1.3); Absolute Neutrophil 2.2 K/uL (1.8-8.0); Basophils % 1.1 % (0-1.3); Eosinophils % 3.2 % (0-4.4); Hematocrit 29.2 % (36.0-45.0); Lymphocytes % 44.9 % (15.3-44.8); MCH 28.8 pg (27.0-35.0); MCV 86.5 fL (80-100); MPV 8.2 fL (7.6-11.3); Monocytes % 8.3 % (3.3-12.3); RBC Red Blood Cell Count 3.37 M/uL (3.86-4.86)
[2017-07-10] MEDS: CEFTRIAXONE/SWI 1gm 1 GM/10 ML SYR IV SCH (10:51)
[2017-07-10 11:02] LABS: Albumin 2.9 g/dL (3.2-5.5); Bilirubin Total 0.6 mg/dL (0.3-1.2); Phosphorus 2.9 mg/dL (2.5-4.3); Protein, Total 5.8 g/dL (6.0-8.3)
[2017-07-10 11:15] LABS: Potassium 2.7 mEq/L (3.6-5.0)
[2017-07-10 11:16] LABS: Magnesium 1.4 mg/dL (1.8-2.5)
[2017-07-10] MEDS: CALCITROL 0.25 MCG CAP PO SCH (12:15)
--- NOTE | 2017-07-10 12:45 | EKG ---
Test Date: 2017-07-09 Test Time: 23:49:31 Monorail Crane Operator: ELKIN MEASUREMENT RESULTS: Intervals: Rate: 63 NM: 168 QRSD: 96 QT: 434 QTc: 444 Ewell: P: 76 NM: 168 QRS: 46 T: 47 INTERPRETIVE STATEMENTS: Normal sinus rhythm Normal ECG Compared to ECG 06/03/2017 04:54:54 Left ventricular hypertrophy no longer present Early repolarization no longer present Electronically Signed On 07-10-17 12:43:33 CDT by Beto Solis
[2017-07-10 12:47] VITALS: BMI 24.3
[2017-07-10] MEDS: KCL 20 MEQ/100 mL IVPB 20 MEQ/100 ML BAG IV SCH ×2 (13:08→14:15)
--- NOTE | 2017-07-10 13:20 | PN ---
Date of Progress Note: 07/10/2017 Subjective: The patient is seen and examined. Chart reviewed and case discussed with RN. The patie nt states she still feels not back to her usual. Denies any specific pain. Review of Systems: Negative except as above. Medications: Reviewed. Objective: Vital Signs: Temperature 96.9, heart rate 57, blood pressure 163/72, respirations 16, O2 99% on room air. General: Awake, alert, oriented x3, elderly female, ill-appearing, somewhat frail. CV: S1 and S2. No murmurs. Peripheral pulses present. Respiratory: Moving air well bilaterally. No wheezing. No stridor. No use of accessory muscles. Gastrointestinal: Abdomen is soft, nontender, nondistended. Positive bowel sounds. Extremities: No clubbing, cyanosis, or edema. Neurologic: Nonfocal. Laboratory Data: Labs pending. Sodium 121, creatinine 1.23. CK is 646. Troponin less than 0.03. Assessment And Plan: A 77-year-old female with: 1.Vertigo. We will continue with Antivert. Continue PT and IV hydration. 2.Chest pain, rule out acute coronary syndrome. Cardiac enzymes negative x1. No further chest pain . No changes on the EKG. 3.Atrial fibrillation with rapid ventricular response, now controlled ventricular rate. 4.Hyponatremia. We will continue to monitor. Continue IV fluids. 5.Near syncopal episode. 6.Diabetes mellitus type 2 with a long-term use of insulin. We will continue with sliding scale ins ulin. Check Accu-Cheks. 7.Essential hypertension, stable. We will resume home medications. 8.Acute kidney injury. Continue with IV fluid hydration. 9.Possible urinary tract infection, acute cystitis with hematuria. We will obtain urine culture. Alyssa saavedra will start her on Rocephin. MRI of brain and renal ultrasound are pending. 10.Gastrointestinal and deep venous thrombosis prophylaxis with proton pump inhibitor and we will ad alanna Lovenox. SA/MODL Voice ID: [id number] Report ID: [id number]
--- NOTE | 2017-07-10 13:35 | CON ---
Date of Consultation: 07/10/2017 The patient was admitted on 07/10/[address] Ornelas's service. I saw the patient on 07/10/2017. Reason For Consultation: Chest pain. History Of Present Illness: Ms. Godinez is a 77-year-old black woman. She was recently in the [facility]. Dr. Gustavo Lee performed a left heart catheterization on her. She was found to have a total occlusion of the distal posterolateral branch of her circumflex artery. Her RCA, OM, LAD, and left m ain were normal. Her blockage appeared to be old with a NADIYA 2 grade flow in the distal posterolater al branch. Medical therapy was recommended for her coronary artery disease. No intervention was don e. She came in basically with nausea, vomiting, high blood pressure, mid epigastric chest pain, and no shortness of breath. Denied any cough, fever, or chills. Denied any diarrhea. Apparently, she i s known to have what sounds like an umbilical hernia and maybe a hiatal hernia. She denied any palpi tations. Denied any syncope. Denied any diaphoresis. By the time, we saw her, all her cardiac enzy mes were negative. Allergies: MS. GODINEZ IS ALLERGIC TO SHARON INHIBITORS, PENICILLIN, AND IODINE. Past Medical History: Includes coronary artery disease as described above, hypertension, anxiety, di abetes, gastroesophageal reflux disease, and glaucoma. Medications: Aspirin, carvedilol, metformin, metoprolol, and Xanax. Review of Systems: Negative. Social History: Negative. Family History: Negative. Physical Examination: Vital Signs: Her blood pressure was 160/70 when she came in. Laboratory Data: Her creatinine was 1.23. Hemoglobin was 9.7. Potassium was 2.7. Her calcium was 6.9. Her magnesium was 1.4. CPK was 348 with a negative MB, negative troponin, and negative BNP. E KG was normal. Chest x-ray was normal. Impression And Plan: Noncardiac chest pain, most likely secondary to gastroesophageal reflux disease , hiatal hernia, or an abdominal process. Her catheterization recently showed a subtotal occlusion o f the posterolateral branch off the circumflex. This is definitely not enough to explain her symptom s. Ms. Godinez may have been dehydrated. She has multiple electrolyte abnormalities including low p otassium and low magnesium, all of which need to be corrected. Her blood pressure is well controlled . I will continue her present regimen. No further cardiac workup is indicated at this point. I cindy l discuss the case further with Dr. Ornelas. SHAUN/MISSAEL Voice ID: [id number] Report ID: [id number]
[2017-07-10] MEDS: ENOXAPARIN 30 MG/0.3 ML SQ SCH (16:20)
--- NOTE | 2017-07-10 18:47 | RAD REPORT ---
EXAM DESCRIPTION: US - Renal Ultrasound-Complete - 07/10/2017 6:24 pm CLINICAL HISTORY: . Abdominal pain COMPARISON: March 2017 FINDINGS: The right kidney measures 9 cm with a normal echotexture. The left kidney measures 9 cm with a normal echotexture. Mild to moderate bilateral hydronephrosis is without significant change from the prior CAT scan IMPRESSION: Mild to moderate bilateral hydronephrosis without significant change from March 2017
[2017-07-10 19:51] LABS: Urine Appearance CLEAR; Urine Bilirubin NEGATIVE (NEG); Urine Blood NEGATIVE (NEG); Urine Color YELLOW; Urine Glucose NEGATIVE (NEG); Urine Protein NEGATIVE (NEG); Urine Specific Gravity <=1.005 (1.005-1.030); Urine Urobilinogen 0.2 mg/dL (0.2-1.0); Urine pH 6.5 (5.0-7.0)
[2017-07-10 19:57] LABS: Urine Microscopic Reflex ORDER UMIC
[2017-07-10 20:33] LABS: Urine Bacteria <20 /HPF (<20); Urine Culture Reflex Order NOT NEEDED; Urine RBC <5 /HPF (NONE SEEN)
[2017-07-10] MEDS: LATANOPROST 0.005% 2.5ML OPTH OPTH SCH (20:55)
[2017-07-10] MEDS: TRAMADOL HCL 50 MG TAB PO PRN (20:56)
[2017-07-10] MEDS: ATORVASTATIN 80 MG TAB PO SCH (20:57)
[2017-07-10 21:14] LABS: Magnesium 2.4 mg/dL (1.8-2.5); Potassium 4.4 mEq/L (3.6-5.0)
[2017-07-11 06:21] LABS: Absolute Lymphocytes (CBC) 3.5 K/uL (0.7-4.9); Absolute Monocytes 0.6 K/uL (0.1-1.3); Absolute Neutrophil 2.2 K/uL (1.8-8.0); Basophils % 1.2 % (0-1.3); Eosinophils % 2.9 % (0-4.4); Lymphocytes % 53.4 % (15.3-44.8); MCH 28.4 pg (27.0-35.0); MCV 86.7 fL (80-100); MPV 8.6 fL (7.6-11.3); Monocytes % 9.8 % (3.3-12.3); RBC Red Blood Cell Count 3.92 M/uL (3.86-4.86)
[2017-07-11] MEDS: NA CHLORIDE 0.9% 1,000 ML IV SCH (06:38)
[2017-07-11 06:41] LABS: Albumin 3.5 g/dL (3.2-5.5); Bilirubin Total 0.2 mg/dL (0.3-1.2); Potassium 4.3 mEq/L (3.6-5.0); Protein, Total 7.2 g/dL (6.0-8.3)
[2017-07-11] MEDS: CARVEDILOL 12.5 MG TAB PO SCH ×2 (10:08→20:52)
[2017-07-11] MEDS: GABAPENTIN 100 MG CAP PO SCH ×3 (10:08→20:27)
[2017-07-11] MEDS: CALCITROL 0.25 MCG CAP PO SCH (10:08)
[2017-07-11] MEDS: ASPIRIN EC 81 MG TAB PO SCH (10:08)
[2017-07-11] MEDS: TRAMADOL HCL 50 MG TAB PO PRN (10:09)
[2017-07-11] MEDS: PANTOPRAZOLE 40MG TABLET PO SCH (10:09)
[2017-07-11] MEDS: VALSARTAN 160 MG TAB PO SCH (10:09)
[2017-07-11] MEDS: CEFTRIAXONE/SWI 1gm 1 GM/10 ML SYR IV SCH (10:10)
[2017-07-11] MEDS: ALPRAZOLAM 0.5 MG TABLET PO PRN ×2 (10:56→20:13)
[2017-07-11] MEDS: ENOXAPARIN 30 MG/0.3 ML SQ SCH (17:45)
--- NOTE | 2017-07-11 18:08 | PN ---
Date of Progress Note: 07/11/2017 Subjective: The patient seen and examined, chart reviewed, and case discussed with RN and Dr. aJxson manriquez. The patient states her chest pain is better, likely having atypical chest pain; however, states t hat she is still not feeling back to her usual self. Review of Systems: Negative except as above. Medications: Reviewed. Physical Examination: Vital Signs: Temperature 97.9, heart rate 58, blood pressure 142/63, respirations 18, O2 99% on room air. General: Awake, alert, oriented x3. Some mild distress. Elderly female, ill appearing. CV: S1, S2. Regular rate and rhythm. No murmurs. Respiratory: Moving air well bilaterally. No wheezing. Gastrointestinal: Abdomen is soft, nontender, nondistended. Positive bowel sounds. Extremities: No clubbing, cyanosis, edema. Neurologic: Nonfocal. Laboratory Data: Sodium 134, potassium 4.3, chloride 104, CO2 24, BUN 22, creatinine 1.08, glucose 9 7, calcium 9.2, albumin 3.5. WBC 6.6, H and H 11.1, 34, platelets 245. Urine culture pending. Assessment And Plan: A 77-year-old female with: 1.Vertigo, improved. We will continue PT and IV fluid hydration. 2.Atypical chest pain. Acute coronary syndrome ruled out. Appreciate Dr. Solis's input. No furt her workup required. The patient did have recent cardiac catheterization, showed subtotal occlusion of the posterior lateral branch off the circumflex, may be related to GI. We will initiate PPI thera py. 3.Atrial fibrillation with rapid ventricular response. Now sinus rhythm. Continue home medications . 4.Hyponatremia, improving. Continue IV fluids. Monitor sodium level. 5.Near syncopal episode, MRI of the brain. 6.Diabetes mellitus type 2 with long-term use of insulin with hyperglycemia. We will continue slidi ng scale insulin and Accu-Cheks. 7.Essential hypertension. Resume home medications. 8.Acute kidney injury. Continue IV fluids. Creatinine is improving. 9.Possible urinary tract infection, acute cystitis with hematuria, urine culture pending. Currently on Rocephin. 10.Gastrointestinal and deep venous thrombosis prophylaxis with PPI and Lovenox renally dosed. Plan: Reconcile home medications. Monitor urine culture. Obtain PT evaluation likely discharge in next 24-48 hours. May need to be set up with home PT. CARMELA Voice ID: [id number] Report ID: [id number]
[2017-07-11] MEDS: cloNIDine HCl 0.1 MG TAB PO PRN (20:09)
[2017-07-11] MEDS: ATORVASTATIN 80 MG TAB PO SCH (20:26)
[2017-07-11] MEDS: LATANOPROST 0.005% 2.5ML OPTH OPTH SCH (22:00)
[2017-07-12] MEDS: NA CHLORIDE 0.9% 1,000 ML IV SCH ×2 (00:55→10:32)
[2017-07-12 03:11] VITALS: O2SAT 100
[2017-07-12 05:55] LABS: Absolute Lymphocytes (CBC) 3.1 K/uL (0.7-4.9); Absolute Monocytes 0.6 K/uL (0.1-1.3); Absolute Neutrophil 2.3 K/uL (1.8-8.0); Basophils % 1.2 % (0-1.3); Eosinophils % 3.6 % (0-4.4); Lymphocytes % 49.3 % (15.3-44.8); MCH 28.7 pg (27.0-35.0); MCV 87.1 fL (80-100); MPV 8.2 fL (7.6-11.3); Monocytes % 9.2 % (3.3-12.3); RBC Red Blood Cell Count 3.78 M/uL (3.86-4.86)
[2017-07-12 06:23] LABS: Albumin 3.3 g/dL (3.2-5.5); Bilirubin Total 0.2 mg/dL (0.3-1.2); Potassium 4.3 mEq/L (3.6-5.0); Protein, Total 6.5 g/dL (6.0-8.3)
[2017-07-12] MEDS: GABAPENTIN 100 MG CAP PO SCH ×2 (09:00→13:41)
[2017-07-12] MEDS ORDERED: AMLODIPINE 10 MG TAB PO SCH (09:00)
[2017-07-12] MEDS ORDERED: hydroCHLOROthiazide 25 MG TAB PO SCH (09:00)
[2017-07-12] MEDS: CARVEDILOL 12.5 MG TAB PO SCH (09:24)
[2017-07-12] MEDS: PANTOPRAZOLE 40MG TABLET PO SCH (09:24)
[2017-07-12] MEDS: ASPIRIN EC 81 MG TAB PO SCH (09:24)
[2017-07-12] MEDS: VALSARTAN 160 MG TAB PO SCH (09:24)
[2017-07-12] MEDS: TRAMADOL HCL 50 MG TAB PO PRN (09:25)
[2017-07-12] MEDS: ALPRAZOLAM 0.5 MG TABLET PO PRN (09:25)
[2017-07-12] MEDS: CALCITROL 0.25 MCG CAP PO SCH (09:25)
[2017-07-12] MEDS: CEFTRIAXONE/SWI 1gm 1 GM/10 ML SYR IV SCH (09:25)
--- NOTE | 2017-07-12 10:25 | EKG ---
Test Date: 2017-07-11 Test Time: 19:59:18 Emergency Department Physician: RT MEASUREMENT RESULTS: Intervals: Rate: 71 [place]: 158 QRSD: 98 QT: 412 QTc: 447 Coram: P: 77 OH: 158 QRS: 33 T: 66 INTERPRETIVE STATEMENTS: Normal sinus rhythm Normal ECG Compared to ECG 07/09/2017 23:49:31 No significant changes Electronically Signed On 07-12-17 10:25:09 CDT by Gustavo Lee
[2017-07-12] MEDS ORDERED: HYDRALAZINE HCL 20 MG/ML VIAL IV PRN (10:27)
[2017-07-12] MEDS ORDERED: DOCUSATE NA 100 MG CAP PO SCH (15:00)
[2017-07-12] MEDS: ENOXAPARIN 30 MG/0.3 ML SQ SCH (16:11)
[2017-07-12] MEDS: cloNIDine HCl 0.1 MG TAB PO PRN (16:40)
[2017-07-12 18:06] VITALS: BP 185/79; TEMP 96.8
--- NOTE | 2017-07-13 04:47 | DS ---
Date of Discharge: 07/12/2017 Consultants: Beto Solis M.D., with Cardiology. Admitting Diagnoses: 1. Vertigo. 2. Chest pain. 3. Atrial fibrillation with rapid ventricular response. 4. Hyponatremia. 5. Syncopal episode. 6. Diabetes mellitus type 2 with long-term use of insulin, with hyperglycemia. 7. Essential hypertension. 8. Acute kidney injury. Discharge Diagnoses: 1. Vertigo, resolved. 2. Atypical chest pain, acute coronary syndrome ruled out. No intervention by Cardiology. 3. Atrial fibrillation with rapid ventricular response, now in sinus rhythm. 4. Hyponatremia, improved. 5. Near-syncopal episode. 6. Diabetes mellitus type 2 with long-term use of insulin, with hyperglycemia. 7. Essential hypertension, stable. 8. Acute kidney injury, with creatinine improving. 9. Acute cystitis with hematuria, treated with Rocephin. Hospital Course: The patient is a 77-year-old female with multiple comorbid conditions, comes in with intractable nausea, vomiting, and uncontrolled blood pressure. The patient was having some associated chest pain. The patient recently had cardiac catheterization with subtotal occlusion of the left circumflex. The patient was started on chest pain guidelines. ACS was ruled out. Troponin levels were negative. The patient was seen by Cardiology, Dr. Solis, who did not recommend any cardiac intervention at this time. The patient did have acute kidney injury with creatinine that normalized with IV fluids. She had some electrolyte abnormalities which were corrected including potassium, calcium, and magnesium. The patient's nausea improved. Her vertical resolved. Her sodium level was corrected. The patient was found to have UTI and some leukocyte esterase. However, urine culture showed mixed jasmyn. The patient was treated with Rocephin. The patient otherwise did well. She did not have any further vertigo. Chest pain resolved. Her blood pressure, however, did require some p.r.n. medications for improvement. The patient was then cleared for discharge and was ambulating well with Physical Therapy who recommended home PT which was set up with home health care. The patient was discharged in a stable condition. Activity: Fall precautions. Diet: Heart healthy. Medications: As per medication reconciliation list. Followup: Follow up with PCP in 2 to 3 days. Follow up with lens inspector, Dr. Solis, in 2 weeks. Return to ER for worsening condition. Time Spent: Total time spent discharging the patient was 41 minutes. Discharge Physical Examination: General: Awake, alert, oriented x3. No acute distress. CV: S1, S2. No murmurs. Respiratory: Moving air well bilaterally. No wheezing. Abdomen: Soft, nontender, and nondistended. Positive bowel sounds. Extremities: No clubbing, cyanosis, or edema. Neurologic: Nonfocal. SA/MODL Voice ID: [id number] Report ID: [id number] [facility]
== END 2017-07-12 17:50 | disposition home or self-care (01) | DRG 313 ==
LOC: ER 23:18 → ERHOLD 07-10 05:01 → 2ND 07-10 05:55
PROVIDERS: ADMIT Hospitalist; ATTEND Hospitalist
DX: R07.89 Other chest pain (principal); E87.1 Hypo-osmolality and hyponatremia; N17.9 Acute kidney failure, unspecified; N30.01 Acute cystitis with hematuria; R42 Dizziness and giddiness; I48.91 Unspecified atrial fibrillation; R55 Syncope and collapse; E11.65 Type 2 diabetes mellitus with hyperglycemia; I10 Essential (primary) hypertension; Z88.0 Allergy status to penicillin; Z79.4 Long term (current) use of insulin
CPT/HCPCS: 36415; 71045; 76770; 80048; 80053; 80076; 81003; 81015; 82550; 82962; 83690; 83735; 83880; 83930; 83935; 84100; 84132; 84300; 84484; 85025; 85610; 87086; 87088; 93005; 96365; 96375; 97163; 99285; J0360; J0696; J1650; J2405; J3475; J7030

== ENCOUNTER 2017-07-16 23:36 | Emergency (ER) | payer OTHER ==
--- OUTSIDE RECORDS SUMMARY | 2017-07-16 23:38 | XMS REPORT | Clinical Summary ---
:1940 Author Organization [facility] Address [address] [place] [address] Phone Care Team Providers Name Role Phone [...] Team Description 04/17/2017 Procedure Pass Gastroenterology 04/15/2017 [facility] Internal Tony Cee Right upper - Encounter Medicine MD Gustavo quadrant 04/17/2017 Raquel Chester abdominal MD pain;Choledocholi Claireekunique Suárez, thiasis;Atypical Mamta Núñez MD chest pain after 07/15/2016 Social History Tobacco Use Types Packs/Day Years Used Date Never Assessed Sex Assigned at Date Recorded Not on file Last Filed Vital Signs Vital Sign Reading Time Taken Blood Pressure 166/77 04/17/2017 3:35 PM OUTPATIENT FACILITY PHYSICAL THERAPIST Pulse 53 04/17/2017 3:35 PM OUTPATIENT FACILITY PHYSICAL THERAPIST Temperature 37.1 C (98.8 F) 04/17/2017 3:35 PM OUTPATIENT FACILITY PHYSICAL THERAPIST Respiratory Rate 19 04/17/2017 3:35 PM OUTPATIENT FACILITY PHYSICAL THERAPIST Oxygen Saturation 100% 04/17/2017 3:35 PM OUTPATIENT FACILITY PHYSICAL THERAPIST Inhaled Oxygen Concentration - - Weight 62.8 kg (138 lb 8 oz) 04/15/2017 1:46 AM OUTPATIENT FACILITY PHYSICAL THERAPIST Height 162.6 cm (5' 4") 04/15/2017 1:46 AM OUTPATIENT FACILITY PHYSICAL THERAPIST Body Mass Index 23.77 04/15/2017 1:46 AM OUTPATIENT FACILITY PHYSICAL THERAPIST Plan of Treatment Not on file Results RHYTHM STRIP - SCAN (05/04/2017 3:21 PM)Only the most recent of2 resultswithin the time period is included.EKG-SCANNED (05/02/2017 1:40 PM)Only the most recent of2 resultswithin the time period is included.ECHOCARDIOGRAM REPORT - SCAN (04/17/2017 5:20 PM)2D Echo W/Doppler(CW/PW/Color) (04/17/2017 2:23 PM) Component Value Ref Range Ejection Fraction Specimen Performing Laboratory [facility] ECHO [facility]ART[facility] CPA Narrative Transthoracic Echocardiography Report (TTE) Demographics Patient NameBACKMAN,Date of Study 04/17/2017 SHEREEN Female Visit [id number] Room Number 902 Number Date of 2Referring Mamta Suárez MD Physician Age 77 year(s)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 SHAUN Fernandez, RDCS,RVT,RDMS Seo Specialist Ana Maria De Oliveira, Elizabeth Fisher MD [...] External Ris In - 04/17/2017 4:48 PM OUTPATIENT FACILITY PHYSICAL THERAPIST Transthoracic Echocardiography Report (TTE) Demographics Patient Name GRETCHEN, Date of Study 04/17/2017 SHEREEN Gender Female Visit Number [id number] Race Black Room Number 902 Number Date of 1940 Referring Mamta Kline MD Physician Age 77 year(s) 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 Specimen Performing Laboratory Blood - Arm, [address] [address] CBC with platelet count + automated diff [...] % Specimen Performing Laboratory Blood - Arm, [address] [address] CBC with platelet count + automated diff (04/17/2017 5:53 AM)Only the most recent of3 resultswithin the time period is included. Specimen Performing Laboratory Blood Narrative The following orders were created for panel order CBC with platelet count + automated diff. Procedure Abnormality Status --------- ------ CBC with platelet count ...[[id number]]AbnormalFinal result Manual Differential[[id number]] Fi nal result Please view results for these tests on the individual orders. Magnesium (04/17/2017 5:53 AM)Only the most recent of2 resultswithin the time period is included. Component Value Ref Range Magnesium 1.6 1.6 - 2.6 mg/dL Specimen Performing Laboratory Blood - Arm, [address] [address] Basic Metabolic Panel (04/17/2017 5:53 AM) Component [...] PATIENTS. Specimen Performing Laboratory Blood - Arm, [address] [address] Troponin I (04/16/2017 5:17 AM)Only the most recent of4 resultswithin the time period is included. Component Value Ref Range Troponin I 0.02 0.00 - 0.03 ng/mL Specimen Performing Laboratory Blood [address] [address] Narrative Troponin I (TnI) levels must be [...] - 64 U/L Specimen Performing Laboratory Blood [address] [address] Creatine Kinase (CK), Total and MB (04/16/2017 5:17 AM)Only the most recent of4 resultswithin the time period is included. Component Value Ref Range Total CK 143 29 - 200 U/L CK-MB 4.1 0.0 - 6.6 ng/mL MB Relative Index 2.9 % Specimen Performing Laboratory Blood [address] [address] Narrative CK-MB Reference Range: <6.7Normal 6.7-10.0Borderline >10.0 Abnormal Bilirubin, direct (04/16/2017 5:17 AM) Component Value Ref Range Bilirubin, Direct 0.2 0.1 - 0.5 mg/dL Specimen Performing Laboratory Blood [address] [address] Comprehensive metabolic panel (04/16/2017 5:17 AM)Only the [...] FOR DIALYSIS PATIENTS. Specimen Performing Laboratory Blood [address] [address] MR abdomen without & with IV contrast (04/15/2017 11:10 PM) Specimen Performing Laboratory [facility] RIS Narrative FINAL REPORT MRI OF THE [...] External Ris In - 04/17/2017 12:20 PM OUTPATIENT FACILITY PHYSICAL THERAPIST FINAL REPORT MRI OF THE ABDOMEN with [...] Report Verified Date/Time: 04/17/2017 12:17:51 Reading Location: [facility] C013Y CT Body Reading Room D-dimer (04/15/2017 4:29 PM) Component Value Ref Range D-Dimer, Quant 0.60 (H) <0.50 MG/L FEU Specimen Performing Laboratory Blood - Arm, Left [address] [address] Narrative Intended Use: The D-Dimer Assay can [...] - 100 pg/mL Specimen Performing Laboratory Blood [address] [address] Carbohydrate antigen 19-9 (CA 19-9) (04/15/2017 10:07 AM) Component Value Ref Range CA 19-9 25 <34 U/mL Comment: This test was performed using the Siemens (Mamba) Chemiluminescent method. Values obtained from different assay methods cannot be used interchangeably. CA19-9 levels, regardless of value, should not be interpreted as absolute evidence of the presence or absence of disease. Specimen Performing Laboratory Blood [facility] [address] [place] [address] Narrative Performing Lab [facility] [address] [place] [address] Naomi Soto MD, PhD Carcinoembryonic Antigen (CEA) (04/15/2017 10:07 AM) Component Value Ref Range CEA, SERUM 2.5 0.0 - 5.0 ng/mL Specimen Performing Laboratory Blood [facility] [address] [address] ECG 12 lead (04/15/2017 9:24 AM) Specimen Performing Laboratory [facility] MUSE Narrative Ventricular Rate 56 BPM Atrial Rate 56 BPM P-R Interval 158 ms QRS Duration 90 ms Q-T Interval 466 ms QTC Calculation(Bazett) 449 ms P Brandon 67 degrees R Brandon 36 degrees T Brandon 42 degrees Sinus bradycardia Nonspecific ST and T wave abnormality Abnormal ECG No previous ECGs available Confirmed by Dayna SONI BASANT ([id number]) on 04/16/2017 8:23:52 AM Procedure Note Interface, External Ris In - 04/16/2017 8:24 AM OUTPATIENT FACILITY PHYSICAL THERAPIST Ventricular Rate 56 BPM Atrial Rate 56 BPM P-R Interval 158 ms QRS Duration 90 ms Q-T Interval 466 ms QTC Calculation(Bazett) 449 ms P Brandon 67 degrees R Brandon 36 degrees T Brandon 42 degrees Sinus bradycardia Nonspecific ST and T wave abnormality Abnormal ECG No previous ECGs available Confirmed by Dayna SONI BASANT ([id number]) on 04/16/2017 8:23:52 AM US abdomen limited (04/15/2017 9:03 AM) Specimen Performing Laboratory [facility] Narrative FINAL REPORT ULTRASOUND RIGHT UPPER QUADRANT [...] MD Report Verified Date/Time:04/15/2017 10:11:28 Reading Location: [address] Ortho Consult Reading Room Procedure Note Interface, External Ris In - 04/15/2017 10:13 AM OUTPATIENT FACILITY PHYSICAL THERAPIST FINAL REPORT ULTRASOUND RIGHT UPPER QUADRANT OF [...] Report Verified Date/Time: 04/15/2017 10:11:28 Reading Location: [facility] C013X Ortho Consult Reading Room Phosphorus (04/15/2017 5:31 AM) Component Value Ref Range Phosphorus 3.9 2.3 - 4.7 mg/dL Specimen Performing Laboratory Blood [facility] [address] [address] Lipase (04/15/2017 5:31 AM) Component Value Ref Range Lipase 29 8 - 78 U/L Specimen Performing Laboratory Blood [address] [address] Hemoglobin A1c (04/15/2017 5:31 AM) Component Value Ref Range Hemoglobin A1C 6.8 (H) 4.3 - 6.1 % Specimen Performing Laboratory Blood [address] [address] Lipid panel (04/15/2017 5:31 AM) Component Value Ref Range Triglycerides 128 mg/dL Cholesterol 162 mg/dL HDL 47 mg/dL LDL Calculated 89 mg/dL Specimen Performing Laboratory Blood [address] [address] Narrative Triglyceride Reference Range: Low Risk <150 [id number] High Risk 200-499 Very High Risk>=500 Cholesterol Reference Range: Low Risk <200 [id number] High Risk>240 HDL Cholesterol Reference Range: Low Risk >=60 High Risk <40 LDL Cholesterol Reference Range: Optimal<100 Near [id number] [id number] Very High >=190 after 07/15/2016
--- OUTSIDE RECORDS SUMMARY | 2017-07-16 23:38 | XMS REPORT ---
:1940 [facility] Address [address] [place] [address] Care Team Providers Name Role Phone KERRY [...] ID: WITH 12:17:00 MRCP for evaluation of [id number] MRI OF THE ABDOMEN biliary system; concern [...] MDReport Verified Date/Time: 04/17/2017 12:17:51 Reading Location: [place] [id number] CT Body Reading Room -GLUCOSE METER 2017-04-17 12:08:00 Test Item Value Reference Range Comments POC-GLUCOSE METER (BEAKER) (test 253 mg/dL 70-110 TESTED AT [facility] [address] [facility] flnc=6699) [facility] [address] CBC W/PLT COUNT & AUTO [id number] 12:08:00 Test Item Value Reference Range Comments WHITE BLOOD CELL COUNT (BEAKER) (test iiyd=608) 7.3 K/ L 3.5-10.5 RED BLOOD CELL COUNT (BEAKER) (test creg=169) 3.94 M/ L 3.93-5.22 HEMOGLOBIN (BEAKER) (test qccb=672) 11.3 GM/DL 11.2-15.7 HEMATOCRIT (BEAKER) (test mfxp=254) 35.8 % 34.1-44.9 MEAN CORPUSCULAR VOLUME (BEAKER) (test ylkc=392) 90.9 fL 79.4-94.8 MEAN CORPUSCULAR HEMOGLOBIN (BEAKER) (test 28.7 pg 25.6-32.2 suci=672) MEAN CORPUSCULAR HEMOGLOBIN CONC (BEAKER) (test 31.6 GM/DL 32.2-35.5 yvub=172) RED CELL DISTRIBUTION WIDTH (BEAKER) (test 13.4 % 11.7-14.4 dmwo=445) PLATELET COUNT (BEAKER) (test kszy=763) 268 K/CU MM 150-450 MEAN PLATELET VOLUME (BEAKER) (test gzkt=946) 10.0 fL 9.4-12.3 NUCLEATED RED BLOOD CELLS (BEAKER) (test 0 /100 WBC 0-0 nbhb=624) NEUTROPHILS RELATIVE PERCENT (BEAKER) (test 41 % yeao=037) LYMPHOCYTES RELATIVE PERCENT (BEAKER) (test 46 % cleu=879) MONOCYTES RELATIVE PERCENT (BEAKER) (test 8 % gmpk=179) EOSINOPHILS RELATIVE PERCENT (BEAKER) (test 3 % mdoh=978) BASOPHILS RELATIVE PERCENT (BEAKER) (test 2 % kose=581) NEUTROPHILS ABSOLUTE COUNT (BEAKER) (test 2.99 K/ L 1.56-6.13 scuc=102) LYMPHOCYTES ABSOLUTE COUNT (BEAKER) (test 3.34 K/ L 1.18-3.74 zbwl=191) MONOCYTES ABSOLUTE COUNT (BEAKER) (test 0.57 K/ L 0.24-0.36 yskt=291) EOSINOPHILS ABSOLUTE COUNT (BEAKER) (test 0.22 K/ L 0.04-0.36 vyzy=636) BASOPHILS ABSOLUTE COUNT (BEAKER) (test 0.11 K/ L 0.01-0.08 kzhi=953) IMMATURE GRANULOCYTES-RELATIVE PERCENT (BEAKER) 0 % 0-1 (test zmqm=8825) POCT-GLUCOSE [id number] 08:04:00 Test Item Value Reference Range Comments POC-GLUCOSE METER (BEAKER) 99 mg/dL 70-110 TESTED AT [facility] [address] [facility] (test uxak=2031) [facility] [address] [id number] 06:55:00 Test Item Value Reference Range Comments MAGNESIUM (BEAKER) (test clmx=536) 1.6 mg/dL 1.6-2.6 BASIC METABOLIC [id number] 06:55:00 Test Item Value Reference Range Comments SODIUM (BEAKER) (test 140 meq/L 136-145 sukk=361) POTASSIUM (BEAKER) (test 3.7 meq/L 3.5-5.1 dszb=594) CHLORIDE (BEAKER) (test 109 meq/L 98-107 fkrd=250) CO2 (BEAKER) (test 23 meq/L 22-29 iyji=494) BLOOD UREA NITROGEN 12 mg/dL 7-21 (BEAKER) (test uklh=055) CREATININE (BEAKER) (test 0.82 mg/dL 0.57-1.25 egou=010) GLUCOSE RANDOM (BEAKER) 96 mg/dL 70-105 (test ugeo=418) CALCIUM (BEAKER) (test 9.5 mg/dL 8.4-10.2 rzxb=688) EGFR (BEAKER) (test 82 mL/min/1.73 sq m ESTIMATED GFR IS NOT exfv=3794) ACCURATE CREATININE CLEARANCE IN PREDICTING GLOMERULAR FILTRATION RATE. ESTIMATED GFR IS NOT APPLICABLE FOR DIALYSIS PATIENTS. POCT-GLUCOSE [id number] 21:05:00 Test Item Value Reference Range Comments POC-GLUCOSE METER (BEAKER) 98 mg/dL 70-110 TESTED AT [address] (test snok=0450) [place] [id number] POCT-GLUCOSE [id number] 17:04:00 Test Item Value Reference Range Comments POC-GLUCOSE METER (BEAKER) 89 mg/dL 70-110 TESTED AT [address] (test tcft=7236) [place] [id number] POCT-GLUCOSE [id number] 12:37:00 Test Item Value Reference Range Comments POC-GLUCOSE METER (BEAKER) 202 mg/dL 70-110 TESTED AT [address] (test phyr=7530) [place] [id number] CBC W/PLT COUNT & AUTO [id number] 09:44:00 Test Item Value Reference Range Comments WHITE BLOOD CELL COUNT (BEAKER) (test rcin=126) 7.1 K/ L 3.5-10.5 RED BLOOD CELL COUNT (BEAKER) (test hyup=954) 3.76 M/ L 3.93-5.22 HEMOGLOBIN (BEAKER) (test kjpc=317) 11.0 GM/DL 11.2-15.7 HEMATOCRIT (BEAKER) (test yapb=055) 34.6 % 34.1-44.9 MEAN CORPUSCULAR VOLUME (BEAKER) (test jobo=986) 92.0 fL 79.4-94.8 MEAN CORPUSCULAR HEMOGLOBIN (BEAKER) (test 29.3 pg 25.6-32.2 xdcb=035) MEAN CORPUSCULAR HEMOGLOBIN CONC (BEAKER) (test 31.8 GM/DL 32.2-35.5 bkah=939) RED CELL DISTRIBUTION WIDTH (BEAKER) (test 13.6 % 11.7-14.4 fqsg=179) PLATELET COUNT (BEAKER) (test gyxv=553) 252 K/CU MM 150-450 MEAN PLATELET VOLUME (BEAKER) (test bcbz=924) 9.9 fL 9.4-12.3 NUCLEATED RED BLOOD CELLS (BEAKER) (test 0 /100 WBC 0-0 lfle=378) IMMATURE GRANULOCYTES-RELATIVE PERCENT (BEAKER) 0 % 0-1 (test lsdq=3063) (MANUAL DIFFERENTIAL)2017-04-16 09:44:00 Test Item Value Reference Range Comments NEUTROPHILS - REL (DIFF) (BEAKER) (test utua=0630) 37 % LYMPHOCYTES - REL (DIFF) (BEAKER) (test fghg=9372) 51 % MONOCYTES - REL (DIFF) (BEAKER) (test cfhr=8851) 9 % EOSINOPHILS - REL (DIFF) (BEAKER) (test qisu=5579) 3 % BASOPHILS - REL (DIFF) (BEAKER) (test kuzi=9742) 0 % NEUTROPHILS - ABS (DIFF) (BEAKER) (test rkol=7907) 2.63 K/ L 1.80-8.00 LYMPHOCYTES - ABS (DIFF) (BEAKER) (test amyx=1182) 3.62 K/ L 1.48-4.50 MONOCYTES - ABS (DIFF) (BEAKER) (test zpfd=5415) 0.64 K/ L 0.00-1.30 EOSINOPHILS - ABS (DIFF) (BEAKER) (test khlo=4011) 0.21 K/ L 0.00-0.50 BASOPHILS - ABS (DIFF) (BEAKER) (test pchi=3642) 0.00 K/ L 0.00-0.20 TOTAL COUNTED (BEAKER) (test kjkp=7126) 100 WBC MORPHOLOGY (BEAKER) (test yfzn=839) Normal PLT MORPHOLOGY (BEAKER) (test hoho=888) Normal RBC MORPHOLOGY (BEAKER) (test jmks=756) Normal CREATINE KINASE (CK), TOTAL AND [id number] 07:51:00 Test Item Value Reference Range Comments CREATINE KINASE TOTAL (BEAKER) (test azyn=410) 143 U/L 29-200 CREATINE KINASE-MB (BEAKER) (test tinx=827) 4.1 ng/mL 0.0-6.6 CREATINE KINASE-MB INDEX (BEAKER) (test fbbw=261) 2.9 % CK-MB Reference Range:<6.7 Normal6.7-10.0 Borderline>10.0 AbnormalTROPONIN [id number] 07:51:00 Test Item Value Reference Range Comments TROPONIN I (BEAKER) (test mqbl=269) 0.02 ng/mL 0.00-0.03 Troponin I (TnI) levels [...] acidosis, acute neurological disease, and persistent tachyarrhythmia.POCT-GLUCOSE [id number] 07:41:00 Test Item Value Reference Range Comments POC-GLUCOSE METER (BEAKER) 85 mg/dL 70-110 TESTED AT [facility] [address] [facility] (test pdra=7773) [facility] [address] GAMMA GLUTAMYL TRANSFERASE (GGT)2017-04-16 07:41:00 Test Item Value Reference Range Comments GAMMA GLUTAMYL TRANSFERASE (BEAKER) (test gopj=724) 305 U/L 9-64 BILIRUBIN, [id number] 07:41:00 Test Item Value Reference Range Comments BILIRUBIN DIRECT (BEAKER) (test mvys=805) 0.2 mg/dL 0.1-0.5 COMPREHENSIVE METABOLIC [id number] 07:41:00 Test Item Value Reference Range Comments TOTAL PROTEIN (BEAKER) 7.1 gm/dL 6.0-8.3 (test cibf=307) ALBUMIN (BEAKER) (test 3.3 g/dL 3.5-5.0 tkwy=0987) ALKALINE PHOSPHATASE 186 U/L 40-150 (BEAKER) (test chhy=327) BILIRUBIN TOTAL (BEAKER) < mg/dL 0.2-1.2 (test rqkn=601) SODIUM (BEAKER) (test 141 meq/L 136-145 brgw=860) POTASSIUM (BEAKER) (test 3.6 meq/L 3.5-5.1 cchb=184) CHLORIDE (BEAKER) (test 110 meq/L 98-107 vxfj=683) CO2 (BEAKER) (test 24 meq/L 22-29 jkbk=630) BLOOD UREA NITROGEN 13 mg/dL 7-21 (BEAKER) (test vshk=120) CREATININE (BEAKER) (test 0.82 mg/dL 0.57-1.25 qouq=647) GLUCOSE RANDOM (BEAKER) 83 mg/dL 70-105 (test ahca=389) CALCIUM (BEAKER) (test 9.3 mg/dL 8.4-10.2 tygs=794) AST (SGOT) (BEAKER) (test 30 U/L 5-34 vowx=987) ALT (SGPT) (BEAKER) (test 88 U/L 6-55 czkd=615) EGFR (BEAKER) (test 82 mL/min/1.73 sq m ESTIMATED GFR IS NOT pqym=8720) ACCURATE CREATININE CLEARANCE IN PREDICTING GLOMERULAR FILTRATION RATE. ESTIMATED GFR IS NOT APPLICABLE FOR DIALYSIS PATIENTS. POCT-GLUCOSE [id number] 20:46:00 Test Item Value Reference Range Comments POC-GLUCOSE METER (BEAKER) 99 mg/dL 70-110 TESTED AT [address] (test ciio=4004) [place] [address] POCT-GLUCOSE [id number] 17:37:00 Test Item Value Reference Range Comments POC-GLUCOSE METER (BEAKER) 143 mg/dL 70-110 TESTED AT [address] (test inza=9265) [place] [address] CREATINE KINASE (CK), TOTAL AND [id number] 17:27:00 Test Item Value Reference Range Comments CREATINE KINASE TOTAL (BEAKER) (test mnru=672) 196 U/L 29-200 CREATINE KINASE-MB (BEAKER) (test hbjg=531) 5.1 ng/mL 0.0-6.6 CREATINE KINASE-MB INDEX (BEAKER) (test oxyb=124) 2.6 % CK-MB Reference Range:<6.7 Normal6.7-10.0 Borderline>10.0 AbnormalTROPONIN [id number] 17:27:00 Test Item Value Reference Range Comments TROPONIN I (BEAKER) (test xbtc=839) 0.02 ng/mL 0.00-0.03 Troponin I (TnI) levels [...] failure, acidosis, acute neurological disease, and persistent tachyarrhythmia.[id number] 16:54:00 Test Item Value Reference Range Comments D-DIMER QUANTITATIVE (BEAKER) (test sxrd=299) 0.60 MG/L FEU <0.50 Intended Use: The [...] of thrombosis is within 95-100% range.POCT- GLUCOSE [id number] 14:54:00 Test Item Value Reference Range Comments POC-GLUCOSE METER (BEAKER) 113 mg/dL 70-110 TESTED AT [facility] [address] [facility] (test rfef=2301) [facility] [address] CBC W/PLT COUNT & AUTO [id number] 13:06:00 Test Item Value Reference Range Comments WHITE BLOOD CELL COUNT (BEAKER) (test tafp=067) 7.2 K/ L 3.5-10.5 RED BLOOD CELL COUNT (BEAKER) (test kgey=669) 3.92 M/ L 3.93-5.22 HEMOGLOBIN (BEAKER) (test qhom=493) 11.3 GM/DL 11.2-15.7 HEMATOCRIT (BEAKER) (test mltk=652) 35.6 % 34.1-44.9 MEAN CORPUSCULAR VOLUME (BEAKER) (test lfqe=481) 90.8 fL 79.4-94.8 MEAN CORPUSCULAR HEMOGLOBIN (BEAKER) (test 28.8 pg 25.6-32.2 fbpw=657) MEAN CORPUSCULAR HEMOGLOBIN CONC (BEAKER) (test 31.7 GM/DL 32.2-35.5 xncv=958) RED CELL DISTRIBUTION WIDTH (BEAKER) (test 13.8 % 11.7-14.4 xbrj=973) PLATELET COUNT (BEAKER) (test ejsg=142) 254 K/CU MM 150-450 MEAN PLATELET VOLUME (BEAKER) (test eqli=102) 10.2 fL 9.4-12.3 NUCLEATED RED BLOOD CELLS (BEAKER) (test 0 /100 WBC 0-0 gnvq=045) NEUTROPHILS RELATIVE PERCENT (BEAKER) (test 37 % qedf=576) LYMPHOCYTES RELATIVE PERCENT (BEAKER) (test 50 % hnrz=258) MONOCYTES RELATIVE PERCENT (BEAKER) (test 8 % nxso=204) EOSINOPHILS RELATIVE PERCENT (BEAKER) (test 4 % yxbr=053) BASOPHILS RELATIVE PERCENT (BEAKER) (test 1 % iphc=114) NEUTROPHILS ABSOLUTE COUNT (BEAKER) (test 2.66 K/ L 1.56-6.13 wvaj=494) LYMPHOCYTES ABSOLUTE COUNT (BEAKER) (test 3.57 K/ L 1.18-3.74 vtsm=210) MONOCYTES ABSOLUTE COUNT (BEAKER) (test 0.55 K/ L 0.24-0.36 xfji=665) EOSINOPHILS ABSOLUTE COUNT (BEAKER) (test 0.26 K/ L 0.04-0.36 bmbq=324) BASOPHILS ABSOLUTE COUNT (BEAKER) (test 0.08 K/ L 0.01-0.08 pejh=753) IMMATURE GRANULOCYTES-RELATIVE PERCENT (BEAKER) 0 % 0-1 (test czqv=7033) B-TYPE NATRIURETIC FACTOR (BNP)2017-04-15 12:21:00 Test Item Value Reference Range Comments B-TYPE NATRIURETIC PEPTIDE (BEAKER) (test 200 pg/mL 0-100 tstp=671) GAMMA GLUTAMYL TRANSFERASE (GGT)2017-04-15 12:16:00 Test Item Value Reference Range Comments GAMMA GLUTAMYL TRANSFERASE (BEAKER) (test kymi=990) 327 U/L 9-64 CARCINOEMBRYONIC ANTIGEN (CEA)2017-04-15 11:33:00 Test Item Value Reference Range Comments CARCINOEMBRYONIC ANTIGEN (BEAKER) (test ziwp=569) 2.5 ng/mL 0.0-5.0 POCT-GLUCOSE [id number] 11:26:00 Test Item Value Reference Range Comments POC-GLUCOSE METER (BEAKER) 114 mg/dL 70-110 TESTED AT [facility] [address] [facility] (test ujxk=0225) [facility] [address] CREATINE KINASE (CK), TOTAL AND [id number] 11:19:00 Test Item Value Reference Range Comments CREATINE KINASE TOTAL (BEAKER) (test kmnj=734) 204 U/L 29-200 CREATINE KINASE-MB (BEAKER) (test ibin=461) 5.7 ng/mL 0.0-6.6 CREATINE KINASE-MB INDEX (JAKE) (test cmjn=092) 2.8 % CK-MB Reference Range:<6.7 Normal6.7-10.0 Borderline>10.0 AbnormalTROPONIN [id number] 11:19:00 Test Item Value Reference Range Comments TROPONIN I (JAKE) (test fwei=257) 0.02 ng/mL 0.00-0.03 Troponin I (TnI) levels [...] acute neurological disease, and persistent tachyarrhythmia.U/S, ABDOMINAL, [id number] 10:11: 00Abdomen limited area? Add comment if [...] MDReport Verified Date/Time: 04/15/2017 10:11:28 Reading Location: [address] Reading Room Electronically signed by: JENN CROCKER MD on 2017 10:11 AMPOCT-GLUCOSE [id number] 10:00:00 Test Item Value Reference Range Comments POC-GLUCOSE METER (BEAKER) 107 mg/dL 70-110 TESTED AT [facility] [address] (test tkpi=2523) [facility] [address] HEMOGLOBIN [id number] 08:15:00 Test Item Value Reference Range Comments HEMOGLOBIN A1C (BEAKER) (test cxxv=912) 6.8 % 4.3-6.1 [id number] 07:35:00 Test Item Value Reference Range Comments PHOSPHORUS (BEAKER) (test icsu=504) 3.9 mg/dL 2.3-4.7 [id number] 07:35:00 Test Item Value Reference Range Comments MAGNESIUM (BEAKER) (test rjtm=930) 1.8 mg/dL 1.6-2.6 COMPREHENSIVE METABOLIC [id number] 07:35:00 Test Item Value Reference Range Comments TOTAL PROTEIN (BEAKER) 7.5 gm/dL 6.0-8.3 (test pyrx=988) ALBUMIN (BEAKER) (test 3.5 g/dL 3.5-5.0 sdfd=7955) ALKALINE PHOSPHATASE 211 U/L 40-150 (BEAKER) (test dwhg=608) BILIRUBIN TOTAL (BEAKER) < mg/dL 0.2-1.2 (test jdoe=456) SODIUM (BEAKER) (test 142 meq/L 136-145 wisa=531) POTASSIUM (BEAKER) (test 3.6 meq/L 3.5-5.1 yels=872) CHLORIDE (BEAKER) (test 110 meq/L 98-107 zdds=575) CO2 (BEAKER) (test 22 meq/L 22-29 znin=154) BLOOD UREA NITROGEN 12 mg/dL 7-21 (BEAKER) (test tvie=236) CREATININE (BEAKER) (test 0.84 mg/dL 0.57-1.25 vwuk=940) GLUCOSE RANDOM (BEAKER) 107 mg/dL 70-105 (test lwwz=765) CALCIUM (BEAKER) (test 9.4 mg/dL 8.4-10.2 xtcq=059) AST (SGOT) (BEAKER) (test 37 U/L 5-34 zfdo=863) ALT (SGPT) (BEAKER) (test 119 U/L 6-55 spub=208) EGFR (BEAKER) (test 80 mL/min/1.73 sq m ESTIMATED GFR IS NOT czcv=3450) ACCURATE CREATININE CLEARANCE IN PREDICTING GLOMERULAR FILTRATION RATE. ESTIMATED GFR IS NOT APPLICABLE FOR DIALYSIS PATIENTS. LIPID [id number] 07:35:00 Test Item Value Reference Range Comments TRIGLYCERIDES (BEAKER) (test gjxi=801) 128 mg/dL CHOLESTEROL (BEAKER) (test tysh=102) 162 mg/dL HDL CHOLESTEROL (BEAKER) (test jhjx=108) 47 mg/dL LDL CHOLESTEROL CALCULATED (BEAKER) (test 89 mg/dL ijwf=446) Triglyceride Reference Range: Low Risk <150 Borderline 150- 199 High Risk 200-499 Very High Risk >=500Cholesterol Reference Range: Low Risk <200 Borderline 200-239 High Risk > 240HDL Cholesterol Reference Range: Low Risk >=60 High Risk <40LDL Cholesterol Reference Range: Optimal <100 Near Optimal 100-129 Borderline 130-159 High 160-189 Very High >=190CREATINE KINASE (CK), TOTAL AND [id number] 07:35:00 Test Item Value Reference Range Comments CREATINE KINASE TOTAL (BEAKER) (test uruv=666) 216 U/L 29-200 CREATINE KINASE-MB (BEAKER) (test hqmb=166) 6.0 ng/mL 0.0-6.6 CREATINE KINASE-MB INDEX (BEAKER) (test hgng=304) 2.8 % CK-MB Reference Range:<6.7 Normal6.7-10.0 Borderline>10.0 [id number] 07:35:00 Test Item Value Reference Range Comments LIPASE (BEAKER) (test uhys=087) 29 U/L 8-78 TROPONIN [id number] 07:32:00 Test Item Value Reference Range Comments TROPONIN I (BEAKER) (test tdnb=974) 0.01 ng/mL 0.00-0.03 Troponin I (TnI) levels [...] acidosis, acute neurological disease, and persistent tachyarrhythmia.POCT-GLUCOSE [id number] 05:07:00 Test Item Value Reference Range Comments POC-GLUCOSE METER (JAKE) 113 mg/dL 70-110 TESTED AT [facility] [address] [facility] (test lqjr=0454) [facility] [address]
[2017-07-17] MEDS ORDERED: cloNIDine HCl 0.1 MG TAB ONE (00:34)
[2017-07-17] MEDS ORDERED: HYDRALAZINE HCL 20 MG/ML VIAL ONE (00:34)
[2017-07-17 00:41] LABS: Protime INR 1.07
[2017-07-17 01:03] LABS: Absolute Monocytes 0.7 K/uL (0.1-1.3); Absolute Neutrophil 3.1 K/uL (1.8-8.0); Basophils % 1.2 % (0-1.3); Eosinophils % 3.9 % (0-4.4); Lymphocytes % 48.3 % (15.3-44.8); MCH 28.6 pg (27.0-35.0); MCV 88.1 fL (80-100); MPV 8.9 fL (7.6-11.3); Monocytes % 8.9 % (3.3-12.3); RBC Red Blood Cell Count 3.97 M/uL (3.86-4.86)
[2017-07-17 01:05] LABS: Bicarbonate 25 mEq/L (21-31); Glucose Level 130 mg/dL (65-120); Potassium 3.9 mEq/L (3.6-5.0); Sodium Level 134 mEq/L (135-145)
[2017-07-17 01:07] LABS: CKMB Creatine Kinase MB 5.8 ng/ml (0.3-4.0)
[2017-07-17 01:23] LABS: ALT/SGPT 177 IU/L (10-60); AST/SGOT 81 IU/L (10-42); Alkaline Phosphatase 193 IU/L (42-121); BUN Blood Urea Nitrogen 31 mg/dL (6-20); Bilirubin Direct < 0.1 mg/dL (0-0.2); Bilirubin Total 0.3 mg/dL (0.3-1.2); Creatine Phosphokinase 200 IU/L (22-269); Magnesium 1.9 mg/dL (1.8-2.5); Protein, Total 7.9 g/dL (6.0-8.3)
--- NOTE | 2017-07-17 01:57 | ER ---
Nurse's Notes [facility] Name: Shreeen Flores Age: 77 yrs Sex: Female : 1940 Arrival Date: 07/16/2017 Time: 23:37 Bed 6 Private MD: Sharath Pate E Diagnosis: Hypertensive heart disease Presentation: 07/16 23:49 Presenting complaint: Patient states: Chest tightness and pressure that started about ao 1830. Patient report being discharge from the hospital yesterday. Patient negative for nausea and vomiting. Transition of care: patient was not received from another setting of care. Onset of symptoms was July 16, 2017 at 18:30. Risk Assessment: Do you want to hurt yourself or someone else? Patient reports no desire to harm self or others. Initial Sepsis Screen: Does the patient meet any 2 criteria? No. Patient's initial sepsis screen is negative. Does the patient have a suspected source of infection? No. Patient's initial sepsis screen is negative. Care prior to arrival: None. 23:49 Method Of Arrival: Wheelchair ao 23:49 Acuity: AVERY 3 ao Historical: - Allergies: 23:52 SHARON INHIBITORS; ao 23:52 Iodine; ao 23:52 PENICILLINS; ao 07/17 00:55 HYDRALAZINE; tl3 00:55 iron; tl3 00:55 Lisinopril; tl3 - Home Meds: 07/16 23:52 aspirin 81 mg Oral TbEC 1 tab once daily [Active]; carvedilol Oral [Active]; carvedilol ao Oral [Active]; Metformin Oral [Active]; Metoprolol Tartrate Oral [Active]; Xanax 0.5 mg Oral tab [Active]; - PMHx: 23:52 Diabetes - NIDDM; GERD; Glaucoma; Hypertension; ao - PSHx: 23:52 None; ao - Immunization history:: Adult Immunizations up to date. - Social history:: Smoking status: Patient/guardian denies using tobacco, Patient/guardian denies using alcohol, street drugs. - Ebola Screening: : Patient negative for fever greater than or equal to 101.5 degrees Fahrenheit, and additional compatible Ebola Virus Disease symptoms Patient denies exposure to infectious person Patient denies travel to an Ebola-affected area in the 21 days before illness onset. Screenin:53 Abuse screen: Denies threats or abuse. Denies injuries from another. Nutritional ao screening: No deficits noted. Tuberculosis screening: No symptoms or risk factors identified. Fall Risk None identified. Assessment: 07/17 00:00 General: Appears in no apparent distress. slender, well groomed, well developed, well tl3 nourished, Behavior is calm, cooperative, appropriate for age. Pain: Denies pain. Neuro: No deficits noted. Level of Consciousness is awake, alert, obeys commands, Oriented to person, place, time, situation, Appropriate for age. Cardiovascular: No deficits noted. Heart tones S1 S2 present Patient's skin is warm and dry. Respiratory: Airway is patent Respiratory effort is even, unlabored, Respiratory pattern is regular, symmetrical, Breath sounds are clear bilaterally. GI: No deficits noted. No signs and/or symptoms were reported involving the gastrointestinal system. : No deficits noted. No signs and/or symptoms were reported regarding the genitourinary system. EENT: No deficits noted. No signs and/or symptoms were reported regarding the EENT system. Derm: No deficits noted. No signs and/or symptoms reported regarding the dermatologic system. Musculoskeletal: No deficits noted. No signs and/or symptoms reported regarding the musculoskeletal system. 00:44 Reassessment: attempted ultra sound IV placement, pt did not tolerate procedure well tl3 blood drawn and sent to lab, but IV was DC'd due to pt complaints of pain. 01:25 Reassessment: Patient appears in no apparent distress at this time. Patient and/or ao family updated on plan of care and expected duration. Pain level reassessed. Patient is alert, oriented x 3, equal unlabored respirations, skin warm/dry/pink. 02:13 Pain: Pain does not radiate. Pain began suddenly. ao Vital Signs: 07/16 23:51 BP 193 / 90; Pulse 61; Resp 16; Temp 98.0(O); Pulse Ox 99% on R/A; Weight 72.57 kg (R); ao Height 5 ft. 4 in. (162.56 cm) (R); Pain 6/10; 07/17 00:00 BP 182 / 73; Pulse 55; Resp 16; Temp 98.7; Pulse Ox 98% ; tl3 01:24 BP 147 / 64; Pulse 50; Resp 13; Pulse Ox 100% ; Pain 0/10; ao 01:44 BP 143 / 70; Pulse 44; Resp 19; Pulse Ox 99% ; ao 02:13 BP 134 / 58; Pulse 53; Resp 14; Pulse Ox 100% on R/A; Pain 0/10; ao 0603 23:51 Body Mass Index 27.46 (72.57 kg, 162.56 cm) ao ED Course: 07/16 23:37 Patient arrived in ED. am2 23:37 Sharath Pate MD is Private Physician. am2 23:47 Yusuf Wagner MD is Attending Physician. tw4 23:51 Triage completed. ao 23:53 Arm band placed on right wrist. Patient placed in an exam room, on a stretcher, on ao surveillance system monitor, on pulse oximetry. 23:53 Patient maintains SpO2 saturation greater than 95% on room air. ao 06/04 00:00 Patient has correct armband on for positive identification. Bed in low position. Call tl3 light in reach. Side rails up X2. Adult w/ patient. compliance monitor on. Pulse ox on. NIBP on. Warm blanket given. 00:00 No provider procedures requiring assistance completed. Missed attempt(s): 24 gauge in tl3 left forearm. Bleeding controlled, band aid applied, catheter tip intact. IV discontinued, intact, bleeding controlled, No redness/swelling at site. Pressure dressing applied. 00:07 XRAY Chest (1 view) In Process Unspecified. EDMS 00:20 Inserted saline lock: 20 gauge in right antecubital area, using aseptic technique. ao ,using aseptic technique. Guided ultrasound IV. Patient didn't tolerated well and IV was pulled out Blood collected. 00:26 Rebeca Duong, SARA is Primary Nurse. tl3 01:55 Sharath Pate MD is Referral Physician. tw4 Administered Medications: 00:47 Not Given (Patient Refused): hydrALAZINE 10 mg IV at bolus once tl3 00:48 Drug: cloNIDine 0.1 mg Route: PO; tl3 00:48 Follow up: Response: No adverse reaction tl3 Outcome: 01:57 Discharge ordered by . tw4 02:12 Discharged to home via wheelchair. ao 02:12 Condition: stable 02:12 Discharge instructions given to patient, Instructed on discharge instructions, follow up and referral plans. the need for admit, Demonstrated understanding of instructions, follow-up care, medications. 02:13 Patient left the ED. ao Signatures: Dispatcher [employer] Sohail Whitley, RN RN ao Liliane Kulkarni am2 Yusuf Wagner MD MD tw4 Rebeca Duong RN RN tl3 Corrections: (The following items were deleted from the chart) 07/16 23:52 23:49 Acuity: AVERY 2 ao ao
--- NOTE | 2017-07-17 01:57 | EDPHYS ---
Physician Documentation [facility] Name: Shereen Flores Age: 77 yrs Sex: Female : 1940 Arrival Date: 07/16/2017 Time: 23:37 Bed 6 Private MD: Sharath Pate E ED Physician Yusuf Wagner HPI: 07/17 00:46 This 77 yrs old Black Female presents to ER via Wheelchair with complaints of Chest tw4 Pain. 00:46 This 77 yrs old Black Female presents to ER via Wheelchair with complaints of high tw4 blood pressure. 00:46 The patient has elevated blood pressure and discovered this at home. Onset: The tw4 symptoms/episode began/occurred today. Modifying factors: The symptoms are aggravated by activity, The symptoms are alleviated by remaining still. Severity of symptoms: At its worst the blood pressure was moderate, in the emergency department the blood pressure is unchanged. Pertinent positives: chest pain, Pertinent negatives: dizziness, headache, dyspnea, The patient has not experienced similar symptoms in the past. Historical: - Allergies: 07/16 23:52 SHARON INHIBITORS; ao 23:52 Iodine; ao 23:52 PENICILLINS; ao 07/17 00:55 HYDRALAZINE; tl3 00:55 iron; tl3 00:55 Lisinopril; tl3 - Home Meds: 07/16 23:52 aspirin 81 mg Oral TbEC 1 tab once daily [Active]; carvedilol Oral [Active]; carvedilol ao Oral [Active]; Metformin Oral [Active]; Metoprolol Tartrate Oral [Active]; Xanax 0.5 mg Oral tab [Active]; - PMHx: 23:52 Diabetes - NIDDM; GERD; Glaucoma; Hypertension; ao - PSHx: 23:52 None; ao - Immunization history:: Adult Immunizations up to date. - Social history:: Smoking status: Patient/guardian denies using tobacco, Patient/guardian denies using alcohol, street drugs. - Ebola Screening: : Patient negative for fever greater than or equal to 101.5 degrees Fahrenheit, and additional compatible Ebola Virus Disease symptoms Patient denies exposure to infectious person Patient denies travel to an Ebola-affected area in the 21 days before illness onset. ROS: 07/17 00:46 Constitutional: Negative for fever, chills, and weight loss, Cardiovascular: Negative tw4 for chest pain, palpitations, and edema, Respiratory: Negative for shortness of breath, cough, wheezing, and pleuritic chest pain, Abdomen/GI: Negative for abdominal pain, nausea, vomiting, diarrhea, and constipation, Back: Negative for injury and pain, Skin: Negative for injury, rash, and discoloration, Neuro: Negative for headache, weakness, numbness, tingling, and seizure. Exam: 00:50 Constitutional: This is a well developed, well nourished patient who is awake, alert, tw4 and in no acute distress. Head/Face: Normocephalic, atraumatic. Eyes: Pupils equal round and reactive to light, extra-ocular motions intact. Lids and lashes normal. Conjunctiva and sclera are non-icteric and not injected. Cornea within normal limits. Periorbital areas with no swelling, redness, or edema. Chest/axilla: Normal chest wall appearance and motion. Nontender with no deformity. No lesions are appreciated. Cardiovascular: Regular rate and rhythm with a normal S1 and S2. No gallops, murmurs, or rubs. Normal PMI, no JVD. No pulse deficits. Respiratory: Lungs have equal breath sounds bilaterally, clear to auscultation and percussion. No rales, rhonchi or wheezes noted. No increased work of breathing, no retractions or nasal flaring. Abdomen/GI: Soft, non-tender, with normal bowel sounds. No distension or tympany. No guarding or rebound. No evidence of tenderness throughout. Back: No spinal tenderness. No costovertebral tenderness. Full range of motion. MS/ Extremity: Pulses equal, no cyanosis. Neurovascular intact. Full, normal range of motion. Neuro: Awake and alert, GCS 15, oriented to person, place, time, and situation. Cranial nerves II-XII grossly intact. Motor strength 5/5 in all extremities. Sensory grossly intact. Cerebellar exam normal. Normal gait. Vital Signs: 07/16 23:51 BP 193 / 90; Pulse 61; Resp 16; Temp 98.0(O); Pulse Ox 99% on R/A; Weight 72.57 kg (R); ao Height 5 ft. 4 in. (162.56 cm) (R); Pain 6/10; 07/17 00:00 BP 182 / 73; Pulse 55; Resp 16; Temp 98.7; Pulse Ox 98% ; tl3 01:24 BP 147 / 64; Pulse 50; Resp 13; Pulse Ox 100% ; Pain 0/10; ao 01:44 BP 143 / 70; Pulse 44; Resp 19; Pulse Ox 99% ; ao 02:13 BP 134 / 58; Pulse 53; Resp 14; Pulse Ox 100% on R/A; Pain 0/10; ao 07/16 23:51 Body Mass Index 27.46 (72.57 kg, 162.56 cm) ao MDM: 07/16 23:48 Patient medically screened. tw07/17 00:49 Differential diagnosis: hypertensive crisis, Malignant HTN. Data reviewed: vital signs, tw4 nurses notes. Counseling: I had a detailed discussion with the patient and/or guardian regarding: the historical points, exam findings, and any diagnostic results supporting the discharge/admit diagnosis. Special discussion: I discussed with the patient/guardian in detail that at this point there is no indication for admission to the hospital. It is understood, however, that if the symptoms persist or worsen the patient needs to return immediately for re-evaluation. 07/16 23:48 Order name: Basic Metabolic Panel [facility] 07/16 23:48 Order name: BNP 07/16 23:48 Order name: CBC with Diff 07/16 23:48 Order name: Ckmb 07/16 23:48 Order name: CPK 07/16 23:48 Order name: LFT's 07/16 23:48 Order name: Magnesium 07/16 23:48 Order name: PT-INR 07/16 23:48 Order name: Ptt, Activated 07/16 23:48 Order name: Troponin (emerg Dept Use Only) [facility] 07/16 23:48 Order name: XRAY Chest (1 view) 07/16 23:48 Order name: Basic Metabolic Panel [facility] 07/16 23:48 Order name: EKG; Complete Time: 23:48 07/16 23:48 Order name: Cardiac monitoring; Complete Time: 01:16 tw 07/16 23:48 Order name: EKG - Nurse/Tech; Complete Time: 01:16 07/16 23:48 Order name: Labs collected and sent; Complete Time: 01:16 4 07/16 23:48 Order name: O2 Per Protocol; Complete Time: :16 tw4 07/16 23:48 Order name: O2 Sat Monitoring; Complete Time: tw4 Administered Medications: 00:47 Not Given (Patient Refused): hydrALAZINE 10 mg IV at bolus once tl3 00:48 Drug: cloNIDine 0.1 mg Route: PO; tl3 00:48 Follow up: Response: No adverse reaction tl3 Disposition: 07/17/17 01:57 Discharged to Home. Impression: Hypertensive heart disease. - Condition is Stable. - Discharge Instructions: Hypertension. - Medication Reconciliation Form, Thank You Letter, Antibiotic Education, Prescription Opioid Use form. - Follow up: Sharath Pate MD; When: As needed; Reason: Recheck today's complaints, Continuance of care, Re-evaluation by your physician. - Problem is an ongoing problem. - Symptoms have improved. Signatures: Dispatcher [employer] Sohail Whitley, RN RN Yusuf Felton MD MD tw4 Rebeca Duong RN RN tl3 Corrections: (The following items were deleted from the chart) 02:12 07/16 23:48 IV Saline Lock ordered. 4 ao 07/17 02:12 07/16 23:48 Urine Dipstick-Ancillary ordered. [facility] ao 07/17 02:13 01:57 07/17/2017 01:57 Discharged to Home. Impression: Hypertensive heart disease. ao Condition is Stable. Forms are Medication Reconciliation Form, Thank You Letter, Antibiotic Education, Prescription Opioid Use. Follow up: Sharath Pate; When: As needed; Reason: Recheck today's complaints, Continuance of care, Re-evaluation by your physician. Problem is an ongoing problem. Symptoms have improved. tw4
[2017-07-17 02:20] VITALS: TEMP 98.7
[2017-07-17 02:23] VITALS: BP 134/58; O2SAT 100
--- NOTE | 2017-07-17 07:36 | EKG ---
Test Date: 2017-07-16 Test Time: 23:50:19 [employer]iter: BETY MEASUREMENT RESULTS: Intervals: Rate: 59 MN: 160 QRSD: 94 QT: 430 QTc: 425 [place]: P: 71 MN: 160 QRS: 29 T: 50 INTERPRETIVE STATEMENTS: Sinus bradycardia Otherwise normal ECG Compared to ECG 07/11/2017 19:59:18 Sinus rhythm no longer present Electronically Signed On 07-17-17 07:35:42 CDT by Gustavo Lee
--- NOTE | 2017-07-17 07:53 | RAD REPORT ---
EXAM DESCRIPTION: RAD - Chest Single View - 07/17/2017 12:10 am CLINICAL HISTORY: Chest tightness and pressure COMPARISON: July 10 TECHNIQUE: AP portable chest image was obtained 2357 hours . FINDINGS: No focal lung parenchymal process. Lung markings are similar to comparison. No failure or volume overload. Heart and vasculature are normal. No measurable pleural effusion and no pneumothorax . No gross bony abnormality seen. No acute aortic findings suspected. IMPRESSION: No acute cardiopulmonary process. No significant change from comparison.
== END 2017-07-17 02:13 | disposition home or self-care (01) ==
LOC: ER 23:36
DX: I11.9 Hypertensive heart disease without heart failure (principal); E11.9 Type 2 diabetes mellitus without complications; K21.9 Gastro-esophageal reflux disease without esophagitis; Z88.0 Allergy status to penicillin; Z88.8 Allergy status to other drugs, medicaments and biological substances
CPT/HCPCS: 36415; 71045; 80048; 80076; 82550; 82553; 83735; 83880; 84484; 85025; 85610; 85730; 93005; 99285; J0360

== ENCOUNTER 2018-01-05 03:02 | Emergency (ER) | payer OTHER ==
--- OUTSIDE RECORDS SUMMARY | 2018-01-05 03:04 | XMS REPORT | Clinical Summary ---
:1940 Author Organization [facility] Address [address] [place] [address] Care Team Providers Name Role Phone Unavailable Primary Care Provider Unavailable Allergies Active Allergy Reactions Severity Noted Date Comments Lisinopril 04/15/2017 Penicillins 04/15/2017 Medications Medication Sig Dispensed Refills Start Date End Date Status metFORMIN (GLUCOPHAGE) Take 1,000 mg by 0 Active 1000 MG tablet mouth 2 (two) times daily with breakfast and dinner. ALPRAZolam (XANAX) 0.5 Take 0.5 mg by 0 Active MG tablet mouth every night as needed for Anxiety. amLODIPine (NORVASC) Take 10 mg by 0 Active 10 MG tablet mouth daily. metoprolol (LOPRESSOR) Take 25 mg by 0 Active 25 MG tablet mouth. pantoprazole Take 40 mg by 0 Active (PROTONIX) 40 MG mouth daily. tablet zolpidem (AMBIEN) 10 Take 10 mg by 0 Active mg tablet mouth every night as needed for Insomnia. losartan (COZAAR) 100 Take 100 mg by 0 Active MG tablet mouth daily. latanoprost (XALATAN) Place 1 drop into 0 Active 0.005 % ophthalmic both eyes nightly. solution prednisoLONE acetate Place 1 drop into 0 Active (PRED FORTE) 1 % the right eye 3 ophthalmic suspension (three) times daily. Active Problems Problem Noted Date Right upper quadrant abdominal pain 04/16/2017 Abdominal pain 04/15/2017 Encounters Date Type Specialty Care Team Description 04/15/2017 - Hospital General Internal Tony Cee Right upper quadrant abdominal pain; 04/17/2017 Encounter Medicine MD Gustavo Choledocholithiasis; Nemo, Raquel Lillian, Atypical chest pain MD Georges Suárez, Mamta Núñez MD after 01/04/2017 Social History Tobacco Use Types Packs/Day Years Used Date Never Assessed Sex Assigned at Date Recorded Not on file Job Start Date Occupation Industry Not on file Not on file Not on file Travel History Travel Start Travel End No recent travel history available. Last Filed Vital Signs Vital Sign Reading Time Taken Blood Pressure 166/77 04/17/2017 3:35 PM [employer] Pulse 53 04/17/2017 3:35 PM [employer] Temperature 37.1 C (98.8 F) 04/17/2017 3:35 PM [employer] Respiratory Rate 19 04/17/2017 3:35 PM [employer] Oxygen Saturation 100% 04/17/2017 3:35 PM [employer] Inhaled Oxygen Concentration - - Weight 62.8 kg (138 lb 8 oz) 04/15/2017 1:46 AM [employer] Height 162.6 cm (5' 4") 04/15/2017 1:46 AM [employer] Body Mass Index 23.77 04/15/2017 1:46 AM [employer] Plan of Treatment Not on file Procedures Procedure Name Priority Date/Time Associated Comments Diagnosis RHYTHM STRIP - SCAN 05/04/2017 3:21 PM CDT REPORT OF PROCEDURE - 05/02/2017 1:40 ENDOSCOPY SCAN PM CDT REPORT OF PROCEDURE - 04/19/2017 10:10 ENDOSCOPY SCAN AM [employer] RHYTHM STRIP - SCAN 04/19/2017 10:10 AM [employer] ECHOCARDIOGRAM REPORT - 04/17/2017 5:20 SCAN PM [employer] 2D ECHO W/ DOPPLER LU 04/17/2017 2:23 Results for this (CW/PW/COLOR) PM [employer] procedure are in the results section. POCT-GLUCOSE METER Routine 04/17/2017 12:04 Results for this PM [employer] procedure are in the results section. POCT-GLUCOSE METER Routine 04/17/2017 6:53 Results for this AM [employer] procedure are in the results section. (MANUAL DIFFERENTIAL) Routine 04/17/2017 5:53 AM [employer] CBC W/PLT COUNT & AUTO Routine 04/17/2017 5:53 Results for this DIFFERENTIAL AM [employer] procedure are in the results section. MAGNESIUM Routine 04/17/2017 5:53 Results for this AM [employer] procedure are in the results section. BASIC METABOLIC PANEL Routine 04/17/2017 5:53 Results for this (7) AM [employer] procedure are in the results section. CBC W/PLT COUNT & AUTO Routine 04/17/2017 5:53 Results for this DIFFERENTIAL AM [employer] procedure are in the results section. POCT-GLUCOSE METER Routine 04/16/2017 9:03 Results for this PM [employer] procedure are in the results section. POCT-GLUCOSE METER Routine 04/16/2017 4:43 Results for this PM [employer] procedure are in the results section. POCT-GLUCOSE METER Routine 04/16/2017 12:19 Results for this PM [employer] procedure are in the results section. POCT-GLUCOSE METER Routine 04/16/2017 7:37 Results for this AM [employer] procedure are in the results section. (MANUAL DIFFERENTIAL) Routine 04/16/2017 5:17 Results for this AM [employer] procedure are in the results section. CBC W/PLT COUNT & AUTO Routine 04/16/2017 5:17 Results for this DIFFERENTIAL AM [employer] procedure are in the results section. BILIRUBIN, DIRECT Routine 04/16/2017 5:17 Results for this AM [employer] procedure are in the results section. COMPREHENSIVE METABOLIC Routine 04/16/2017 5:17 Results for this PANEL AM [employer] procedure are in the results section. GAMMA GLUTAMYL Routine 04/16/2017 5:17 Results for this TRANSFERASE (GGT) AM [employer] procedure are in the results section. CBC W/PLT COUNT & AUTO Routine 04/16/2017 5:17 Results for this DIFFERENTIAL AM [employer] procedure are in the results section. CREATINE KINASE (CK), Routine 04/16/2017 5:17 Results for this TOTAL AND MB AM [employer] procedure are in the results section. TROPONIN I Routine 04/16/2017 5:17 Results for this AM [employer] procedure are in the results section. MR ABDOMEN WITH/WITHOUT Routine 04/15/2017 11:10 Results for this IV CONTRAST PM [employer] procedure are in the results section. POCT-GLUCOSE METER Routine 04/15/2017 8:15 Results for this PM [employer] procedure are in the results section. POCT-GLUCOSE METER Routine 04/15/2017 5:26 Results for this PM [employer] procedure are in the results section. D-DIMER STAT 04/15/2017 4:29 Results for this PM [employer] procedure are in the results section. CREATINE KINASE (CK), Routine 04/15/2017 4:29 Results for this TOTAL AND MB PM [employer] procedure are in the results section. TROPONIN I Routine 04/15/2017 4:29 Results for this PM [employer] procedure are in the results section. POCT-GLUCOSE METER Routine 04/15/2017 2:28 Results for this PM [employer] procedure are in the results section. GAMMA GLUTAMYL STAT 04/15/2017 11:38 Results for this TRANSFERASE (GGT) AM [employer] procedure are in the results section. B-TYPE NATRIURETIC Routine 04/15/2017 11:38 Results for this FACTOR (BNP) AM [employer] procedure are in the results section. POCT-GLUCOSE METER Routine 04/15/2017 11:24 Results for this AM [employer] procedure are in the results section. CARBOHYDRATE ANTIGEN Routine 04/15/2017 10:07 Results for this 19-9 (CA 19-9) AM [employer] procedure are in the results section. CARCINOEMBRYONIC ANTIGEN Routine 04/15/2017 10:07 Results for this (CEA) AM [employer] procedure are in the results section. CREATINE KINASE (CK), Routine 04/15/2017 10:07 Results for this TOTAL AND MB AM [employer] procedure are in the results section. TROPONIN I Routine 04/15/2017 10:07 Results for this AM [employer] procedure are in the results section. POCT-GLUCOSE METER Routine 04/15/2017 9:58 Results for this AM [employer] procedure are in the results section. ECG 12-LEAD Routine 04/15/2017 9:24 Results for this AM [employer] procedure are in the results section. US ABDOMEN LIMITED Routine 04/15/2017 9:03 Results for this AM [employer] procedure are in the results section. CBC W/PLT COUNT & AUTO Routine 04/15/2017 5:31 Results for this DIFFERENTIAL AM [employer] procedure are in the results section. CREATINE KINASE (CK), Routine 04/15/2017 5:31 Results for this TOTAL AND MB AM [employer] procedure are in the results section. TROPONIN I Routine 04/15/2017 5:31 Results for this AM [employer] procedure are in the results section. LIPID PANEL Routine 04/15/2017 5:31 Results for this AM [employer] procedure are in the results section. HEMOGLOBIN A1C Routine 04/15/2017 5:31 Results for this AM [employer] procedure are in the results section. PHOSPHORUS Routine 04/15/2017 5:31 Results for this AM [employer] procedure are in the results section. MAGNESIUM Routine 04/15/2017 5:31 Results for this AM [employer] procedure are in the results section. LIPASE Routine 04/15/2017 5:31 Results for this AM [employer] procedure are in the results section. CBC W/PLT COUNT & AUTO Routine 04/15/2017 5:31 Results for this DIFFERENTIAL AM [employer] procedure are in the results section. COMPREHENSIVE METABOLIC Routine 04/15/2017 5:31 Results for this PANEL AM [employer] procedure are in the results section. POCT-GLUCOSE METER Routine 04/15/2017 5:03 Results for this AM [employer] procedure are in the results section. after 01/04/2017 Results RHYTHM STRIP - SCAN (05/04/2017 3:21 PM CDT)Only the most recent of2 resultswithin the time period is included. Narrative Performed At EKG-SCANNED (05/02/2017 1:40 PM CDT)Only the most recent of2 resultswithin the time period is included. Narrative Performed At ECHOCARDIOGRAM REPORT - SCAN (04/17/2017 5:20 PM [employer]) Narrative Performed At 2D Echo W/Doppler(CW/PW/Color) (04/17/2017 2:23 PM [employer]) Ejection Fraction [facility] MKCK[facility] Narrative Performed At Transthoracic Echocardiography Report (TTE) [facility] BullGuardCKESS[facility] Demographics Patient NameBACKMAN,Date of Study 04/17/2017 SHEREEN Female Visit [id number] Black Room Number 902 Number Date of 2Referring Mamta Kline MD Physician Age 77 year(s)Ruby Engineer SHAUN Fernandez, RDCS,RVT,RDMS [employer] Supervisor Elizabeth Sanders MD RDCSPhysician Procedure Type of Study TTE [...] - 29-61ml/m2). No evidence of LV hypertrophy. Al l of the LV segments contract normally . Gl obal LV systolic function normal . Es timated LVEF by qualitative assessment is normal (5 5-60%) . No rmal diastolic function. Left AtriumLA size is normal (16-34 ml/m2) . Right VentricleThe right ventricular chamber size and systolic fu nction are within normal limits. Right Atrium RA cavity size is normal . Aortic Valve Mild AoV cusp thickening. Mitral Valve Mild mitral annular calcification. Tricuspid ValveTV structure is normal. Mi ld tricuspid regurgitation. Es timated peak systolic PA pressure is 20-25 mmHg . Pulmonic Valve Normal PV structure and function by limited views an d Doppler. AortaAortic root size (SInus of Valsalva diameter) is no rmal . PericardiumNo pericardial effusion is visualized. IVC/SVC/PA/PV/PleuralThe inferior vena cava is adequately visualized. Th e inferior vena cava size is normal . Th e estimated RA pressure by IVC dynamics 0-5mmHg [...] External Ris In - 04/17/2017 4:48 PM [employer] Transthoracic Echocardiography Report (TTE) Demographics Patient Name GRETCHEN, Date of Study 04/17/2017 SHEREEN Gender Female Visit Number [id number] Race Black Room Number 902 Number Date of 1940 Referring Mamta Kline MD Physician Age 77 year(s) Ruby Engineer SHAUN Fernandez, RDCS,RVT,RDMS [employer] Installation Supervisor Ana Maria De Oliveira, Interpreting Gaudencio Fisher [...] Velocity: 2.22 m/s TR Gradient: 19.76 mmHg Performing Organization Address City/[facility]/Zipcode Phone Number [facility] MKCKESSON [facility] POC-Glucose meter (04/17/2017 12:04 PM [employer])Only the most recent of12 resultswithin the time period is included. POC-Glucose Meter 253 (H)Comment: TESTED AT 70 - 110 mg/dL [facility] [address] [facility] [address] Specimen Blood Performing Organization Address City/[facility]/Zipcode Phone Number [address] [address] [phone] CENTER Manual Differential (04/17/2017 5:53 AM [employer])Only the most recent of2 resultswithin the time period is included. Specimen Blood Performing Organization Address City/State/Zipcode Phone Number [facility] [address] [place] [address] CENTER CBC with platelet count + automated diff (04/17/2017 5:53 AM [employer])Only the most recent of3 resultswithin the time period is included. WBC 7.3 3.5 - 10.5 K/L [facility] RBC 3.94 3.93 - 5.22 M/L [facility] Hemoglobin 11.3 11.2 - 15.7 GM/DL [facility] Hematocrit 35.8 34.1 - 44.9 % [facility] MCV 90.9 79.4 - 94.8 fL [facility] MCH 28.7 25.6 - 32.2 pg [facility] MCHC 31.6 (L) 32.2 - 35.5 GM/DL [facility] RDW 13.4 11.7 - 14.4 % [facility] Platelets 268 150 - 450 K/CU MM [facility] MPV 10.0 9.4 - 12.3 fL [facility] nRBC 0 0 - 0 /100 WBC [facility] % Neutros 41 % [facility] % Lymphs 46 % [facility] % Monos 8 % [facility] % Eos 3 % [facility] % Baso 2 % [facility] # Neutros 2.99 1.56 - 6.13 K/L [facility] # Lymphs 3.34 1.18 - 3.74 K/L [facility] # Monos 0.57 (H) 0.24 - 0.36 K/L [facility] # Eos 0.22 0.04 - 0.36 K/L [facility] # Baso 0.11 (H) 0.01 - 0.08 K/L [facility] Immature Granulocytes-Relative 0 0 - 1 % [facility] Specimen Blood - Arm, Left Performing Organization Address City/[facility] Phone Number [address] [address] CENTER Magnesium (04/17/2017 5:53 AM [employer])Only the most recent of2 resultswithin the time period is included. Magnesium 1.6 1.6 - 2.6 mg/dL [facility] Specimen Blood - Arm, Left Performing Organization Address [facility] Phone Number [address] [address] [place] Basic Metabolic Panel (04/17/2017 5:53 AM [employer]) Sodium 140 136 - 145 meq/L [facility] Potassium 3.7 3.5 - 5.1 meq/L [facility] Chloride 109 (H) 98 - 107 meq/L [facility] CO2 23 22 - 29 meq/L [facility] BUN 12 7 - 21 mg/dL [facility] Creatinine 0.82 0.57 - 1.25 mg/dL [facility] Glucose 96 70 - 105 mg/dL [facility] Calcium 9.5 8.4 - 10.2 mg/dL [facility] EGFR 82Comment: ESTIMATED GFR IS mL/min/1.73 sq m [facility] NOT ACCURATE [facility] CLEARANCE IN PREDICTING GLOMERULAR FILTRATION RATE. ESTIMATED GFR IS NOT APPLICABLE FOR DIALYSIS PATIENTS. Specimen Blood - Arm, Left Performing Organization Address [facility] Phone Number [facility] [address] [address] CENTER Troponin I (04/16/2017 5:17 AM [employer])Only the most recent of4 resultswithin the time period is included. Troponin I 0.02 0.00 - 0.03 ng/mL [facility] Specimen Blood Narrative Performed At [facility] Troponin I (TnI) levels must be interpreted [...] acidosis, acute neurological disease, and persistent tachyarrhythmia. Performing Organization Address [facility] Phone Number [address] [address] [place] Gamma Glutamyl Transferase (GGT) (04/16/2017 5:17 AM [employer])Only the most recent of2 resultswithin the time period is included. GGT 305 (H) 9 - 64 U/L [facility] Specimen Blood Performing Organization Address [facility] Phone Number [address] [address] [phone] [place] Creatine Kinase (CK), Total and MB (04/16/2017 5:17 AM [employer])Only the most recent of4 resultswithin the time period is included. Total CK 143 29 - 200 U/L [facility] CK-MB 4.1 0.0 - 6.6 ng/mL [facility] MB Relative Index 2.9 % [facility] Specimen Blood Narrative Performed At CK-MB Reference Range: [facility] <6.7Normal 6.7-10.0Borderline >10.0 Abnormal Performing Organization Address [facility] Phone Number [facility] [address] [address] [place] Bilirubin, direct (04/16/2017 5:17 AM [employer]) Bilirubin, Direct 0.2 0.1 - 0.5 mg/dL [facility] Specimen Blood Performing Organization Address City/State/Zipcode Phone Number [address] [address] [phone] [place] Comprehensive metabolic panel (04/16/2017 5:17 AM [employer])Only the most recent of2 resultswithin the time period is included. Protein, Total 7.1 6.0 - 8.3 gm/dL [facility] Albumin 3.3 (L) 3.5 - 5.0 g/dL [facility] Alkaline Phosphatase 186 (H) 40 - 150 U/L [facility] Total Bilirubin <0.3 0.2 - 1.2 mg/dL [facility] Sodium 141 136 - 145 meq/L [facility] Potassium 3.6 3.5 - 5.1 meq/L [facility] Chloride 110 (H) 98 - 107 meq/L [facility] CO2 24 22 - 29 meq/L [facility] BUN 13 7 - 21 mg/dL [facility] Creatinine 0.82 0.57 - 1.25 mg/dL [facility] Glucose 83 70 - 105 mg/dL [facility] Calcium 9.3 8.4 - 10.2 mg/dL [facility] AST 30 5 - 34 U/L [facility] ALT 88 (H) 6 - 55 U/L [facility] EGFR 82Comment: ESTIMATED GFR mL/min/1.73 sq m [facility] IS NOT ACCURATE [facility] CREATININE CLEARANCE IN PREDICTING GLOMERULAR FILTRATION RATE. ESTIMATED GFR IS NOT APPLICABLE FOR DIALYSIS PATIENTS. Specimen Blood Performing Organization Address City/State/Zipcode Phone Number [facility] [address] [place] [address] CENTER MR abdomen without & with IV contrast (04/15/2017 11:10 PM [employer] HEL[employer]) Narrative Performed At FINAL REPORT [facility] MRI OF THE ABDOMEN with MRCP CLINICAL [...] MD Report Verified Date/Time:04/17/2017 12:17:51 Reading Location: [facility] B1 C013Y CT Body Reading Room Procedure Note Interface, External Ris In - 04/17/2017 12:20 PM [employer] FINAL REPORT MRI OF THE ABDOMEN with [...] Report Verified Date/Time: 04/17/2017 12:17:51 Reading Location: [facility] B1 C013Y CT Body Reading Room Performing Organization Address City/State/Zipcode Phone Number [facility] D-dimer (04/15/2017 4:29 PM [employer] HEL[employer]) D-Dimer, Quant 0.60 (H) <0.50 MG/L FEU [facility] Specimen Blood - Arm, Left Narrative Performed At [facility] Intended Use: The D-Dimer Assay can be used to aid in the diagnosis of Deep Vein Thrombosis (DVT) and Pulmonary Embolism Disease (PED). In patients with low pre-test probability, various studies concerning STA Liatest D-dimer test have reported that with a cutoff value of 0.50 MG/L FEU, the Negative Predictive Value (NPV) regarding the exclusion of thrombosis is within 95-100% range. Performing Organization Address [facility] Phone Number [address] [address] [place] B-type Natriuretic Factor (BNP) (04/15/2017 11:38 AM [employer]ATION HELPER) BNP 200 (H) 0 - 100 pg/mL [facility] Specimen Blood Performing Organization Address [facility] Phone Number [address] [address] [place] Carbohydrate antigen 19-9 (CA 19-9) (04/15/2017 10:07 AM [employer] HEL[employer]) CA 19-9 25 <34 U/mL [facility] Comment: This test was performed using the Siemens ([employer]) Chemiluminescent method. Values obtained from different assay methods cannot be used interchangeably. CA19-9 levels, regardless of value, should not be interpreted as absolute evidence of the presence or absence of disease. Specimen Blood Narrative Performed At Performing Lab [facility] [address] [address] Naomi Soto MD, PhD Performing Organization Address [facility] Number [place] [address] [place] [address] Carcinoembryonic Antigen (CEA) (04/15/2017 10:07 AM G[employer] HEL[employer]) CEA, SERUM 2.5 0.0 - 5.0 ng/mL [facility] Specimen Blood Performing Organization Address [facility] Phone Number [address] [phone] CENTER ECG 12 lead (04/15/2017 9:24 AM G[employer] HEL[employer]) Narrative Performed At Ventricular Rate 56 BPM GE MUSE Atrial Rate 56 BPM P-R Interval 158 ms QRS Duration 90 ms Q-T Interval 466 ms QTC Calculation(Bazett) 449 ms P Del[place] 67 degrees R Delmar 36 degrees T Delmar 42 degrees Sinus bradycardia Nonspecific ST and T wave abnormality Abnormal ECG No previous ECGs available Confirmed by Dayna SONI BASANT ([id number]) on 04/16/2017 8:23:52 AM Procedure Note Interface, External Ris In - 04/16/2017 8:24 AM [employer] HELPER Ventricular Rate 56 BPM Atrial Rate 56 BPM P-R Interval 158 ms QRS Duration 90 ms Q-T Interval 466 ms QTC Calculation(Bazett) 449 ms P Del[place] 67 degrees R Del[place] 36 degrees T [place] 42 degrees Sinus bradycardia Nonspecific ST and T wave abnormality Abnormal ECG No previous ECGs available Confirmed by Dayna SONI BASANT ([id number]) on 04/16/2017 8:23:52 AM Performing Organization Address City/State/Zipcode Phone Number [facility] abdomen limited (04/15/2017 9:03 AM G[employer]ATION HELPER) Narrative Performed At FINAL REPORT [facility] ULTRASOUND RIGHT UPPER QUADRANT OF THE ABDOMEN [...] MD Report Verified Date/Time:04/15/2017 10:11:28 Reading Location: [facility] C013X [facility] Consult Reading Room Procedure Note Interface, External Ris In - 04/15/2017 10:13 AM [employer]ING [employer]ATION HELPER FINAL REPORT ULTRASOUND RIGHT UPPER QUADRANT OF [...] Report Verified Date/Time: 04/15/2017 10:11:28 Reading Location: [address] Ortho Consult Reading Room Performing Organization Address [facility] Phone Number [facility] Phosphorus (04/15/2017 5:31 AM G[employer]ING [employer]ATION HELPER) Phosphorus 3.9 2.3 - 4.7 mg/dL [facility] Specimen Blood Performing Organization Address [facility] Phone Number [address] [address] [place] Lipase (04/15/2017 5:31 AM G[employer]ATION HELPER) Lipase 29 8 - 78 U/L [facility] Specimen Blood Performing Organization Address [facility] Phone Number [address] [address] [phone] CENTER Hemoglobin A1c (04/15/2017 5:31 AM G[employer]ATION HELPER) Hemoglobin A1C 6.8 (H) 4.3 - 6.1 % [facility] Specimen Blood Performing Organization Address [facility] Phone Number [address] [address] CENTER Lipid panel (04/15/2017 5:31 AM G[employer]ATION HELPER) Triglycerides 128 mg/dL [facility] Cholesterol 162 mg/dL [facility] HDL 47 mg/dL [facility] LDL Calculated 89 mg/dL [facility] Specimen Blood Narrative Performed At [facility] Triglyceride Reference Range: Low Risk <150 Cgmizxxnyi881-637 High Risk 200-499 Very High Risk>=500 Cholesterol Reference Range: Low Risk <200 Majiatxgtj459-570 High Risk>240 HDL Cholesterol Reference Range: Low Risk >=60 High Risk <40 LDL Cholesterol Reference Range: Optimal<100 Near Kubaevb473-036 Agyfuiyyob275-437 Dhlk673-092 Very High >=190 Performing Organization Address City/State/Zipcode Phone Number [facility] [address] [place], [place] [id number] CENTER after 01/04/2017 Insurance Payer Benefit Plan / Group Subscriber ID Type Phone Address MEDICARE MEDICARE A B xxxxxxxxxx Medicare MEDICAID [place] xxxxxxxxx Medicaid Advance Directives For more information, please contact:[address] [phone] Code Status Date Activated Date Inactivated Comments Full Code 04/15/2017 2:43 AM 04/17/2017 10:06 PM This code status was determined by: Patient
--- OUTSIDE RECORDS SUMMARY | 2018-01-05 03:05 | XMS REPORT ---
:1940 [facility] Address [address] [place] [address] Care Team Providers Name Role Phone KERRY [...] ID: WITH 12:17:00 MRCP for evaluation of [id number] MRI OF THE ABDOMEN biliary system; concern [...] MDReport Verified Date/Time: 04/17/2017 12:17:51 Reading Location: [place] [id number] CT Body Reading Room -GLUCOSE METER 2017-04-17 12:08:00 Test Item Value Reference Range Comments POC-GLUCOSE METER (BEAKER) (test 253 mg/dL 70-110 TESTED AT [facility] [address] [facility] zvsg=0024) [facility] [address] CBC W/PLT COUNT & AUTO [id number] 12:08:00 Test Item Value Reference Range Comments WHITE BLOOD CELL COUNT (BEAKER) (test yxhg=640) 7.3 K/ L 3.5-10.5 RED BLOOD CELL COUNT (BEAKER) (test gvgk=624) 3.94 M/ L 3.93-5.22 HEMOGLOBIN (BEAKER) (test meoj=336) 11.3 GM/DL 11.2-15.7 HEMATOCRIT (BEAKER) (test bkvk=159) 35.8 % 34.1-44.9 MEAN CORPUSCULAR VOLUME (BEAKER) (test yral=482) 90.9 fL 79.4-94.8 MEAN CORPUSCULAR HEMOGLOBIN (BEAKER) (test 28.7 pg 25.6-32.2 zejf=011) MEAN CORPUSCULAR HEMOGLOBIN CONC (BEAKER) (test 31.6 GM/DL 32.2-35.5 zaax=920) RED CELL DISTRIBUTION WIDTH (BEAKER) (test 13.4 % 11.7-14.4 culy=694) PLATELET COUNT (BEAKER) (test nqpm=599) 268 K/CU MM 150-450 MEAN PLATELET VOLUME (BEAKER) (test uvwk=899) 10.0 fL 9.4-12.3 NUCLEATED RED BLOOD CELLS (BEAKER) (test 0 /100 WBC 0-0 tubw=490) NEUTROPHILS RELATIVE PERCENT (BEAKER) (test 41 % ryae=228) LYMPHOCYTES RELATIVE PERCENT (BEAKER) (test 46 % artg=951) MONOCYTES RELATIVE PERCENT (BEAKER) (test 8 % wuxt=591) EOSINOPHILS RELATIVE PERCENT (BEAKER) (test 3 % sruj=267) BASOPHILS RELATIVE PERCENT (BEAKER) (test 2 % pull=583) NEUTROPHILS ABSOLUTE COUNT (BEAKER) (test 2.99 K/ L 1.56-6.13 uqmk=815) LYMPHOCYTES ABSOLUTE COUNT (BEAKER) (test 3.34 K/ L 1.18-3.74 mgcf=786) MONOCYTES ABSOLUTE COUNT (BEAKER) (test 0.57 K/ L 0.24-0.36 boyq=914) EOSINOPHILS ABSOLUTE COUNT (BEAKER) (test 0.22 K/ L 0.04-0.36 bmpm=853) BASOPHILS ABSOLUTE COUNT (BEAKER) (test 0.11 K/ L 0.01-0.08 rjun=481) IMMATURE GRANULOCYTES-RELATIVE PERCENT (BEAKER) 0 % 0-1 (test jrqo=4404) POCT-GLUCOSE [id number] 08:04:00 Test Item Value Reference Range Comments POC-GLUCOSE METER (BEAKER) 99 mg/dL 70-110 TESTED AT [facility] [address] [facility] (test jazl=6694) [facility] [address] [id number] 06:55:00 Test Item Value Reference Range Comments MAGNESIUM (BEAKER) (test nstn=104) 1.6 mg/dL 1.6-2.6 BASIC METABOLIC [id number] 06:55:00 Test Item Value Reference Range Comments SODIUM (BEAKER) (test 140 meq/L 136-145 zoao=803) POTASSIUM (BEAKER) (test 3.7 meq/L 3.5-5.1 ljou=430) CHLORIDE (BEAKER) (test 109 meq/L 98-107 xojd=097) CO2 (BEAKER) (test 23 meq/L 22-29 gqzy=389) BLOOD UREA NITROGEN 12 mg/dL 7-21 (BEAKER) (test wafh=788) CREATININE (BEAKER) (test 0.82 mg/dL 0.57-1.25 gdzl=308) GLUCOSE RANDOM (BEAKER) 96 mg/dL 70-105 (test jzoa=502) CALCIUM (BEAKER) (test 9.5 mg/dL 8.4-10.2 tiqp=805) EGFR (BEAKER) (test 82 mL/min/1.73 sq m ESTIMATED GFR IS NOT tqyw=7556) ACCURATE CREATININE CLEARANCE IN PREDICTING GLOMERULAR FILTRATION RATE. ESTIMATED GFR IS NOT APPLICABLE FOR DIALYSIS PATIENTS. POCT-GLUCOSE [id number] 21:05:00 Test Item Value Reference Range Comments POC-GLUCOSE METER (BEAKER) 98 mg/dL 70-110 TESTED AT [address] (test sttt=1225) [place] [id number] POCT-GLUCOSE [id number] 17:04:00 Test Item Value Reference Range Comments POC-GLUCOSE METER (BEAKER) 89 mg/dL 70-110 TESTED AT [address] (test pgrn=4145) [place] [id number] POCT-GLUCOSE [id number] 12:37:00 Test Item Value Reference Range Comments POC-GLUCOSE METER (BEAKER) 202 mg/dL 70-110 TESTED AT [address] (test yqph=2425) [place] [id number] CBC W/PLT COUNT & AUTO [id number] 09:44:00 Test Item Value Reference Range Comments WHITE BLOOD CELL COUNT (BEAKER) (test ammp=062) 7.1 K/ L 3.5-10.5 RED BLOOD CELL COUNT (BEAKER) (test unck=150) 3.76 M/ L 3.93-5.22 HEMOGLOBIN (BEAKER) (test uhyd=946) 11.0 GM/DL 11.2-15.7 HEMATOCRIT (BEAKER) (test gwzz=422) 34.6 % 34.1-44.9 MEAN CORPUSCULAR VOLUME (BEAKER) (test besl=855) 92.0 fL 79.4-94.8 MEAN CORPUSCULAR HEMOGLOBIN (BEAKER) (test 29.3 pg 25.6-32.2 nzun=592) MEAN CORPUSCULAR HEMOGLOBIN CONC (BEAKER) (test 31.8 GM/DL 32.2-35.5 ozdj=853) RED CELL DISTRIBUTION WIDTH (BEAKER) (test 13.6 % 11.7-14.4 zlgv=512) PLATELET COUNT (BEAKER) (test baae=731) 252 K/CU MM 150-450 MEAN PLATELET VOLUME (BEAKER) (test mvqs=933) 9.9 fL 9.4-12.3 NUCLEATED RED BLOOD CELLS (BEAKER) (test 0 /100 WBC 0-0 izpd=922) IMMATURE GRANULOCYTES-RELATIVE PERCENT (BEAKER) 0 % 0-1 (test pdjs=1351) (MANUAL DIFFERENTIAL)2017-04-16 09:44:00 Test Item Value Reference Range Comments NEUTROPHILS - REL (DIFF) (BEAKER) (test vyvg=4386) 37 % LYMPHOCYTES - REL (DIFF) (BEAKER) (test kasg=2779) 51 % MONOCYTES - REL (DIFF) (BEAKER) (test jquo=6167) 9 % EOSINOPHILS - REL (DIFF) (BEAKER) (test wvau=2270) 3 % BASOPHILS - REL (DIFF) (BEAKER) (test quxd=8740) 0 % NEUTROPHILS - ABS (DIFF) (BEAKER) (test lwsm=0232) 2.63 K/ L 1.80-8.00 LYMPHOCYTES - ABS (DIFF) (BEAKER) (test kgii=7629) 3.62 K/ L 1.48-4.50 MONOCYTES - ABS (DIFF) (BEAKER) (test gvrg=0170) 0.64 K/ L 0.00-1.30 EOSINOPHILS - ABS (DIFF) (BEAKER) (test wrif=9720) 0.21 K/ L 0.00-0.50 BASOPHILS - ABS (DIFF) (BEAKER) (test giko=7677) 0.00 K/ L 0.00-0.20 TOTAL COUNTED (BEAKER) (test vuig=3320) 100 WBC MORPHOLOGY (BEAKER) (test jhst=938) Normal PLT MORPHOLOGY (BEAKER) (test lpeh=455) Normal RBC MORPHOLOGY (BEAKER) (test wyqc=667) Normal CREATINE KINASE (CK), TOTAL AND [id number] 07:51:00 Test Item Value Reference Range Comments CREATINE KINASE TOTAL (BEAKER) (test fdaa=878) 143 U/L 29-200 CREATINE KINASE-MB (BEAKER) (test hvzk=580) 4.1 ng/mL 0.0-6.6 CREATINE KINASE-MB INDEX (BEAKER) (test gnem=660) 2.9 % CK-MB Reference Range:<6.7 Normal6.7-10.0 Borderline>10.0 AbnormalTROPONIN [id number] 07:51:00 Test Item Value Reference Range Comments TROPONIN I (BEAKER) (test jfag=869) 0.02 ng/mL 0.00-0.03 Troponin I (TnI) levels [...] acidosis, acute neurological disease, and persistent tachyarrhythmia.POCT-GLUCOSE [id number] 07:41:00 Test Item Value Reference Range Comments POC-GLUCOSE METER (BEAKER) 85 mg/dL 70-110 TESTED AT [facility] [address] [facility] (test lvhj=3505) [facility] [address] GAMMA GLUTAMYL TRANSFERASE (GGT)2017-04-16 07:41:00 Test Item Value Reference Range Comments GAMMA GLUTAMYL TRANSFERASE (BEAKER) (test qwnv=376) 305 U/L 9-64 BILIRUBIN, [id number] 07:41:00 Test Item Value Reference Range Comments BILIRUBIN DIRECT (BEAKER) (test scuo=314) 0.2 mg/dL 0.1-0.5 COMPREHENSIVE METABOLIC [id number] 07:41:00 Test Item Value Reference Range Comments TOTAL PROTEIN (BEAKER) 7.1 gm/dL 6.0-8.3 (test lhrm=562) ALBUMIN (BEAKER) (test 3.3 g/dL 3.5-5.0 abnv=1025) ALKALINE PHOSPHATASE 186 U/L 40-150 (BEAKER) (test witc=878) BILIRUBIN TOTAL (BEAKER) < mg/dL 0.2-1.2 (test vufc=329) SODIUM (BEAKER) (test 141 meq/L 136-145 xjip=768) POTASSIUM (BEAKER) (test 3.6 meq/L 3.5-5.1 ikct=632) CHLORIDE (BEAKER) (test 110 meq/L 98-107 gvqq=698) CO2 (BEAKER) (test 24 meq/L 22-29 nhsd=861) BLOOD UREA NITROGEN 13 mg/dL 7-21 (BEAKER) (test qxma=335) CREATININE (BEAKER) (test 0.82 mg/dL 0.57-1.25 vzbw=051) GLUCOSE RANDOM (BEAKER) 83 mg/dL 70-105 (test guno=558) CALCIUM (BEAKER) (test 9.3 mg/dL 8.4-10.2 cbwk=356) AST (SGOT) (BEAKER) (test 30 U/L 5-34 lgaa=463) ALT (SGPT) (BEAKER) (test 88 U/L 6-55 yyhv=919) EGFR (BEAKER) (test 82 mL/min/1.73 sq m ESTIMATED GFR IS NOT tasq=3912) ACCURATE CREATININE CLEARANCE IN PREDICTING GLOMERULAR FILTRATION RATE. ESTIMATED GFR IS NOT APPLICABLE FOR DIALYSIS PATIENTS. POCT-GLUCOSE [id number] 20:46:00 Test Item Value Reference Range Comments POC-GLUCOSE METER (BEAKER) 99 mg/dL 70-110 TESTED AT [address] (test oqab=4349) [place] [address] POCT-GLUCOSE [id number] 17:37:00 Test Item Value Reference Range Comments POC-GLUCOSE METER (BEAKER) 143 mg/dL 70-110 TESTED AT [address] (test begf=1793) [place] [address] CREATINE KINASE (CK), TOTAL AND [id number] 17:27:00 Test Item Value Reference Range Comments CREATINE KINASE TOTAL (BEAKER) (test udhb=010) 196 U/L 29-200 CREATINE KINASE-MB (BEAKER) (test gpid=828) 5.1 ng/mL 0.0-6.6 CREATINE KINASE-MB INDEX (BEAKER) (test wcio=345) 2.6 % CK-MB Reference Range:<6.7 Normal6.7-10.0 Borderline>10.0 AbnormalTROPONIN [id number] 17:27:00 Test Item Value Reference Range Comments TROPONIN I (BEAKER) (test ndsq=481) 0.02 ng/mL 0.00-0.03 Troponin I (TnI) levels [...] failure, acidosis, acute neurological disease, and persistent tachyarrhythmia.[id number] 16:54:00 Test Item Value Reference Range Comments D-DIMER QUANTITATIVE (BEAKER) (test olei=120) 0.60 MG/L FEU <0.50 Intended Use: The [...] of thrombosis is within 95-100% range.POCT- GLUCOSE [id number] 14:54:00 Test Item Value Reference Range Comments POC-GLUCOSE METER (BEAKER) 113 mg/dL 70-110 TESTED AT [facility] [address] [facility] (test ukmh=7299) [facility] [address] CBC W/PLT COUNT & AUTO [id number] 13:06:00 Test Item Value Reference Range Comments WHITE BLOOD CELL COUNT (BEAKER) (test rhte=099) 7.2 K/ L 3.5-10.5 RED BLOOD CELL COUNT (BEAKER) (test qxxy=526) 3.92 M/ L 3.93-5.22 HEMOGLOBIN (BEAKER) (test adei=365) 11.3 GM/DL 11.2-15.7 HEMATOCRIT (BEAKER) (test ojid=234) 35.6 % 34.1-44.9 MEAN CORPUSCULAR VOLUME (BEAKER) (test rjmk=816) 90.8 fL 79.4-94.8 MEAN CORPUSCULAR HEMOGLOBIN (BEAKER) (test 28.8 pg 25.6-32.2 lwgx=047) MEAN CORPUSCULAR HEMOGLOBIN CONC (BEAKER) (test 31.7 GM/DL 32.2-35.5 xvyf=407) RED CELL DISTRIBUTION WIDTH (BEAKER) (test 13.8 % 11.7-14.4 aiev=448) PLATELET COUNT (BEAKER) (test emvq=231) 254 K/CU MM 150-450 MEAN PLATELET VOLUME (BEAKER) (test nrsk=749) 10.2 fL 9.4-12.3 NUCLEATED RED BLOOD CELLS (BEAKER) (test 0 /100 WBC 0-0 ofvu=192) NEUTROPHILS RELATIVE PERCENT (BEAKER) (test 37 % yfor=245) LYMPHOCYTES RELATIVE PERCENT (BEAKER) (test 50 % tpia=427) MONOCYTES RELATIVE PERCENT (BEAKER) (test 8 % ahin=047) EOSINOPHILS RELATIVE PERCENT (BEAKER) (test 4 % tyqv=045) BASOPHILS RELATIVE PERCENT (BEAKER) (test 1 % piqh=216) NEUTROPHILS ABSOLUTE COUNT (BEAKER) (test 2.66 K/ L 1.56-6.13 tqoh=259) LYMPHOCYTES ABSOLUTE COUNT (BEAKER) (test 3.57 K/ L 1.18-3.74 zgux=598) MONOCYTES ABSOLUTE COUNT (BEAKER) (test 0.55 K/ L 0.24-0.36 sqjx=661) EOSINOPHILS ABSOLUTE COUNT (BEAKER) (test 0.26 K/ L 0.04-0.36 lrdz=746) BASOPHILS ABSOLUTE COUNT (BEAKER) (test 0.08 K/ L 0.01-0.08 ykvd=535) IMMATURE GRANULOCYTES-RELATIVE PERCENT (BEAKER) 0 % 0-1 (test ohqj=7318) B-TYPE NATRIURETIC FACTOR (BNP)2017-04-15 12:21:00 Test Item Value Reference Range Comments B-TYPE NATRIURETIC PEPTIDE (BEAKER) (test 200 pg/mL 0-100 vyug=245) GAMMA GLUTAMYL TRANSFERASE (GGT)2017-04-15 12:16:00 Test Item Value Reference Range Comments GAMMA GLUTAMYL TRANSFERASE (BEAKER) (test ombf=554) 327 U/L 9-64 CARCINOEMBRYONIC ANTIGEN (CEA)2017-04-15 11:33:00 Test Item Value Reference Range Comments CARCINOEMBRYONIC ANTIGEN (BEAKER) (test uohq=869) 2.5 ng/mL 0.0-5.0 POCT-GLUCOSE [id number] 11:26:00 Test Item Value Reference Range Comments POC-GLUCOSE METER (BEAKER) 114 mg/dL 70-110 TESTED AT [facility] [address] [facility] (test mhpx=0670) [facility] [address] CREATINE KINASE (CK), TOTAL AND [id number] 11:19:00 Test Item Value Reference Range Comments CREATINE KINASE TOTAL (BEAKER) (test ssig=441) 204 U/L 29-200 CREATINE KINASE-MB (BEAKER) (test xcii=552) 5.7 ng/mL 0.0-6.6 CREATINE KINASE-MB INDEX (JAKE) (test peho=742) 2.8 % CK-MB Reference Range:<6.7 Normal6.7-10.0 Borderline>10.0 AbnormalTROPONIN [id number] 11:19:00 Test Item Value Reference Range Comments TROPONIN I (JAKE) (test odqj=652) 0.02 ng/mL 0.00-0.03 Troponin I (TnI) levels [...] acute neurological disease, and persistent tachyarrhythmia.U/S, ABDOMINAL, [id number] 10:11: 00Abdomen limited area? Add comment if [...] MDReport Verified Date/Time: 04/15/2017 10:11:28 Reading Location: [address] Reading Room Electronically signed by: JENN CROCKER MD on 2017 10:11 AMPOCT-GLUCOSE [id number] 10:00:00 Test Item Value Reference Range Comments POC-GLUCOSE METER (BEAKER) 107 mg/dL 70-110 TESTED AT [facility] [address] (test dpry=4422) [facility] [address] HEMOGLOBIN [id number] 08:15:00 Test Item Value Reference Range Comments HEMOGLOBIN A1C (BEAKER) (test ksgr=180) 6.8 % 4.3-6.1 [id number] 07:35:00 Test Item Value Reference Range Comments PHOSPHORUS (BEAKER) (test uuqx=567) 3.9 mg/dL 2.3-4.7 [id number] 07:35:00 Test Item Value Reference Range Comments MAGNESIUM (BEAKER) (test rpot=053) 1.8 mg/dL 1.6-2.6 COMPREHENSIVE METABOLIC [id number] 07:35:00 Test Item Value Reference Range Comments TOTAL PROTEIN (BEAKER) 7.5 gm/dL 6.0-8.3 (test xpvp=378) ALBUMIN (BEAKER) (test 3.5 g/dL 3.5-5.0 krca=8093) ALKALINE PHOSPHATASE 211 U/L 40-150 (BEAKER) (test sfhz=023) BILIRUBIN TOTAL (BEAKER) < mg/dL 0.2-1.2 (test jood=823) SODIUM (BEAKER) (test 142 meq/L 136-145 uupl=216) POTASSIUM (BEAKER) (test 3.6 meq/L 3.5-5.1 zhwe=083) CHLORIDE (BEAKER) (test 110 meq/L 98-107 qffe=830) CO2 (BEAKER) (test 22 meq/L 22-29 okwf=563) BLOOD UREA NITROGEN 12 mg/dL 7-21 (BEAKER) (test xqba=010) CREATININE (BEAKER) (test 0.84 mg/dL 0.57-1.25 ejxa=313) GLUCOSE RANDOM (BEAKER) 107 mg/dL 70-105 (test hibc=186) CALCIUM (BEAKER) (test 9.4 mg/dL 8.4-10.2 nikg=054) AST (SGOT) (BEAKER) (test 37 U/L 5-34 sjwb=464) ALT (SGPT) (BEAKER) (test 119 U/L 6-55 xhzd=001) EGFR (BEAKER) (test 80 mL/min/1.73 sq m ESTIMATED GFR IS NOT cujz=5888) ACCURATE CREATININE CLEARANCE IN PREDICTING GLOMERULAR FILTRATION RATE. ESTIMATED GFR IS NOT APPLICABLE FOR DIALYSIS PATIENTS. LIPID [id number] 07:35:00 Test Item Value Reference Range Comments TRIGLYCERIDES (BEAKER) (test ysbu=596) 128 mg/dL CHOLESTEROL (BEAKER) (test adws=240) 162 mg/dL HDL CHOLESTEROL (BEAKER) (test uamp=639) 47 mg/dL LDL CHOLESTEROL CALCULATED (BEAKER) (test 89 mg/dL dlid=361) Triglyceride Reference Range: Low Risk <150 Borderline 150- 199 High Risk 200-499 Very High Risk >=500Cholesterol Reference Range: Low Risk <200 Borderline 200-239 High Risk > 240HDL Cholesterol Reference Range: Low Risk >=60 High Risk <40LDL Cholesterol Reference Range: Optimal <100 Near Optimal 100-129 Borderline 130-159 High 160-189 Very High >=190CREATINE KINASE (CK), TOTAL AND [id number] 07:35:00 Test Item Value Reference Range Comments CREATINE KINASE TOTAL (BEAKER) (test krnn=470) 216 U/L 29-200 CREATINE KINASE-MB (BEAKER) (test oxvd=474) 6.0 ng/mL 0.0-6.6 CREATINE KINASE-MB INDEX (BEAKER) (test muui=691) 2.8 % CK-MB Reference Range:<6.7 Normal6.7-10.0 Borderline>10.0 [id number] 07:35:00 Test Item Value Reference Range Comments LIPASE (BEAKER) (test lhvn=190) 29 U/L 8-78 TROPONIN [id number] 07:32:00 Test Item Value Reference Range Comments TROPONIN I (BEAKER) (test hqys=002) 0.01 ng/mL 0.00-0.03 Troponin I (TnI) levels [...] acidosis, acute neurological disease, and persistent tachyarrhythmia.POCT-GLUCOSE [id number] 05:07:00 Test Item Value Reference Range Comments POC-GLUCOSE METER (JAKE) 113 mg/dL 70-110 TESTED AT [facility] [address] [facility] (test rijs=4989) [facility] [address]
--- NOTE | 2018-01-05 03:56 | ER ---
Nurse's Notes [facility] Name: Shereen Flores Age: 77 yrs Sex: Female : 1940 Arrival Date: 01/05/2018 Time: 03:06 Bed 13 Private MD: Sharath Pate E Diagnosis: Dehydration Presentation: 01/05 03:11 Presenting complaint: Patient states: feeling of lightheadedness last night just before cc3 she goes to sleep, blood sugar was checked at home with a reading of HIGH. Transition of care: patient was not received from another setting of care. Onset of symptoms was January 04, 2018. Risk Assessment: Do you want to hurt yourself or someone else? Patient reports no desire to harm self or others. Initial Sepsis Screen: Does the patient meet any 2 criteria? No. Patient's initial sepsis screen is negative. Does the patient have a suspected source of infection? No. Patient's initial sepsis screen is negative. Care prior to arrival: None. 03:11 Method Of Arrival: Ambulatory cc3 03:11 Acuity: AVERY 3 cc3 Triage Assessment: 03:11 General: Appears in no apparent distress. comfortable, Behavior is calm, cooperative, cc3 appropriate for age. Pain: Denies pain. EENT: No signs and/or symptoms were reported regarding the EENT system. Neuro: Level of Consciousness is awake, alert, obeys commands, Oriented to person, place, time, situation, Appropriate for age. Cardiovascular: Denies chest pain. Respiratory: Airway is patent Respiratory effort is even, unlabored, Respiratory pattern is regular, symmetrical. GI: Abdomen is round non-distended. : No signs and/or symptoms were reported regarding the genitourinary system. Derm: No signs and/or symptoms reported regarding the dermatologic system. Musculoskeletal: Circulation, motion, and sensation intact. Range of motion: intact in all extremities. Historical: - Allergies: 03:11 SHARON INHIBITORS; cc3 03:11 HYDRALAZINE; cc3 03:11 Iodine; cc3 03:11 iron; cc3 03:11 Lisinopril; cc3 03:11 PENICILLINS; cc3 - Home Meds: 03:11 aspirin 81 mg Oral TbEC 1 tab once daily [Active]; carvedilol Oral [Active]; carvedilol cc3 Oral [Active]; Metformin Oral [Active]; Metoprolol Tartrate Oral [Active]; Xanax 0.5 mg Oral tab [Active]; - PMHx: 03:11 Diabetes - NIDDM; GERD; Glaucoma; Hypertension; cc3 - Immunization history:: Adult Immunizations unknown. - Social history:: Smoking status: unknown. - Ebola Screening: : No symptoms or risks identified at this time. - Family history:: not pertinent. - Hospitalizations: : No recent hospitalization is reported. Screenin:11 Abuse screen: Denies threats or abuse. Denies injuries from another. Nutritional cc3 screening: No deficits noted. Tuberculosis screening: No symptoms or risk factors identified. Fall Risk Ambulatory Aid- None/Bed Rest/Nurse Assist (0 pts). Gait- Normal/Bed Rest/Wheelchair (0 pts) Mental Status- Oriented to own ability (0 pts). Assessment: 03:11 General: see triage assessment. cc3 04:00 Reassessment: Patient appears in no apparent distress at this time. Patient and/or cc3 family updated on plan of care and expected duration. Pain level reassessed. Patient is alert, oriented x 3, equal unlabored respirations, skin warm/dry/pink. Dr. Koch discharged the patient home no prescription given. No IV cannula in situ. Patient left ER vitally stable and ambulatory with her daughter. Vital Signs: 03:11 BP 172 / 78; Pulse 73; Resp 19 S; Temp 98.3(O); Pulse Ox 98% on R/A; Weight 63.05 kg cc3 (R); Height 5 ft. 3 in. (160.02 cm) (R); 03:11 Body Mass Index 24.62 (63.05 kg, 160.02 cm) cc3 ED Course: 03:06 Patient arrived in ED. es 03:07 Sharath Pate MD is Private Physician. es 03:11 Chris Koch MD is Attending Physician. rn 03:11 Carline Plunkett is Primary Nurse. cc3 03:11 Arm band placed on left wrist. cc3 03:11 Patient has correct armband on for positive identification. Bed in low position. Call cc3 light in reach. Side rails up X 1. court recording monitor on. Pulse ox on. NIBP on. 03:20 Triage completed. cc3 04:00 No provider procedures requiring assistance completed. Patient did not have IV access cc3 during this emergency room visit. Administered Medications: No medications were administered Point of Care Testing: Blood Glucose: 03:26 Blood Glucose: 97 mg/dL; cc3 Ranges: Outcome: 03:54 Discharge ordered by . rn 04:00 Discharged to home ambulatory, with family. cc3 04:00 Condition: stable 04:00 Discharge instructions given to patient, family, Instructed on discharge instructions, follow up and referral plans. Demonstrated understanding of instructions, follow-up care. 04:07 Patient left the ED. cc3 Signatures: Elizabeth Kelsey Roman, MD MD rn Cordel, Charlene cc3 Corrections: (The following items were deleted from the chart) 03:31 03:11 BP 172 / 78; Pulse 73bpm; Resp 19bpm; Spontaneous; Pulse Ox 98% RA; Temp 98.3F cc3 Oral; cc3
--- NOTE | 2018-01-05 03:56 | EDPHYS ---
Physician Documentation [facility] Name: Shereen Flores Age: 77 yrs Sex: Female : 1940 Arrival Date: 01/05/2018 Time: 03:06 Bed 13 Private MD: Sharath Pate E ED Physician Chris Koch HPI: 01/05 03:50 This 77 yrs old Black Female presents to ER via Ambulatory with complaints of High rn Blood Sugar. 03:50 The patient or guardian reports hyperglycemia. Onset: The symptoms/episode rn began/occurred today. Associated signs and symptoms: Pertinent positives:. The patient has not experienced similar symptoms in the past. Reports woke up today feeling generalized weakness, checked blood sugar to be safe, machine read "high", so came in for eval. Denies headache/chest pain/abd pain/vomiting/diarrhea. Recently finished z pack for cough and no longer coughing. No fever. Takes metformin, is compliant, and has never had her machine read high before. . Historical: - Allergies: 03:11 SHARON INHIBITORS; cc3 03:11 HYDRALAZINE; cc3 03:11 Iodine; cc3 03:11 iron; cc3 03:11 Lisinopril; cc3 03:11 PENICILLINS; cc3 - Home Meds: 03:11 aspirin 81 mg Oral TbEC 1 tab once daily [Active]; carvedilol Oral [Active]; carvedilol cc3 Oral [Active]; Metformin Oral [Active]; Metoprolol Tartrate Oral [Active]; Xanax 0.5 mg Oral tab [Active]; - PMHx: 03:11 Diabetes - NIDDM; GERD; Glaucoma; Hypertension; cc3 - Immunization history:: Adult Immunizations unknown. - Social history:: Smoking status: unknown. - Ebola Screening: : No symptoms or risks identified at this time. - Family history:: not pertinent. - Hospitalizations: : No recent hospitalization is reported. ROS: 03:50 Constitutional: Negative for fever, chills, and weight loss, Eyes: Negative for injury, rn pain, redness, and discharge, Neck: Negative for injury, pain, and swelling, Cardiovascular: Negative for chest pain, palpitations, and edema, Respiratory: Negative for shortness of breath, cough, wheezing, and pleuritic chest pain, Abdomen/GI: Negative for abdominal pain, nausea, vomiting, diarrhea, and constipation, Back: Negative for injury and pain, : Negative for injury, bleeding, discharge, and swelling, MS/Extremity: Negative for injury and deformity, Skin: Negative for injury, rash, and discoloration, Neuro: Negative for headache, numbness, tingling, and seizure. Exam: 03:50 Constitutional: This is a well developed, well nourished patient who is awake, alert, rn and in no acute distress. Head/Face: Normocephalic, atraumatic. Eyes: Pupils equal round and reactive to light, extra-ocular motions intact. Lids and lashes normal. Conjunctiva and sclera are non-icteric and not injected. Cornea within normal limits. Periorbital areas with no swelling, redness, or edema. ENT: dry MM Cardiovascular: Regular rate and rhythm with a normal S1 and S2. No pulse deficits. Respiratory: Lungs have equal breath sounds bilaterally, clear to auscultation. No increased work of breathing, no retractions or nasal flaring. Abdomen/GI: Soft, non-tender MS/ Extremity: Pulses equal, no cyanosis. Neurovascular intact. Full, normal range of motion. Equal circumference. Neuro: Awake and alert, GCS 15, oriented to person, place, time, and situation. Cranial nerves II-XII grossly intact. Motor strength 5/5 in all extremities. Sensory grossly intact. Cerebellar exam normal. Normal gait. Vital Signs: 03:11 BP 172 / 78; Pulse 73; Resp 19 S; Temp 98.3(O); Pulse Ox 98% on R/A; Weight 63.05 kg cc3 (R); Height 5 ft. 3 in. (160.02 cm) (R); 03:11 Body Mass Index 24.62 (63.05 kg, 160.02 cm) cc3 MDM: 03:11 Patient medically screened. rn 03:50 Differential diagnosis: hyperglycemia, machine malfunction. Data reviewed: vital signs, rn nurses notes, lab test result(s), finger stick glucose, and as a result, I will discharge patient. Counseling: I had a detailed discussion with the patient and/or guardian regarding: the historical points, exam findings, and any diagnostic results supporting the discharge/admit diagnosis, lab results, the need for outpatient follow up, to return to the emergency department if symptoms worsen or persist or if there are any questions or concerns that arise at home. Special discussion: I discussed with the patient/guardian in detail that at this point there is no indication for admission to the hospital. It is understood, however, that if the symptoms persist or worsen the patient needs to return immediately for re-evaluation. ED course: GLucose normal here, likely machine malfunction. Urine clean, will dc home with instructions to f/u with pcp for glucose management, and either fix or replace glucometer, only on oral meds, no insulin.. 01/05 03:44 Order name: Urine Dipstick--Ancillary (enter results) [id number] 01/05 03:24 Order name: Glucose Level; Complete Time: 03:28 rn 01/05 03:24 Order name: Urine Dipstick-Ancillary (obtain specimen); Complete Time: 03:43 rn Administered Medications: No medications were administered Point of Care Testing: Blood Glucose: 03:26 Blood Glucose: 97 mg/dL; cc3 Ranges: Critical Glucose Levels:Adult <50 mg/dl or >400 mg/dl <40 mg/dl or >180 mg/dl Disposition: 01/05/18 03:54 Discharged to Home. Impression: Dehydration. - Condition is Stable. - Discharge Instructions: Dehydration, Adult, Form - Daily Diabetes Record, Diabetes and Exercise, Diabetes Mellitus and Food, Diabetes and Standards of Medical Care. - Medication Reconciliation Form, Thank You Letter, Antibiotic Education, Prescription Opioid Use form. - Follow up: Private Physician; When: As needed; Reason: Recheck today's complaints, Re-evaluation by your physician. - Problem is new. - Symptoms have improved. Signatures: Dispatcher [employer] EDChris Cagle MD MD rn Cordel, Charlene cc3 Corrections: (The following items were deleted from the chart) 04:07 03:54 01/05/2018 03:54 Discharged to Home. Impression: Dehydration. Condition is cc3 Stable. Forms are Medication Reconciliation Form, Thank You Letter, Antibiotic Education, Prescription Opioid Use. Follow up: Private Physician; When: As needed; Reason: Recheck today's complaints, Re-evaluation by your physician. Problem is new. Symptoms have improved. rn
[2018-01-05] MEDS ORDERED: TETANUS & DIPHTHERIA TOX,ADULT 0.5 ML VIAL ONE (04:14)
[2018-01-05 04:33] VITALS: BP 172/78; TEMP 98.3; O2SAT 98
[2018-01-05 04:47] LABS: Urine Blood NEGATIVE (NEG); Urine Glucose NEGATIVE (NEG); Urine Protein NEGATIVE (NEG); Urine pH 6.5 (5.0-7.0)
== END 2018-01-05 04:07 | disposition home or self-care (01) ==
LOC: ER 03:02
DX: E86.0 Dehydration (principal); I10 Essential (primary) hypertension; E11.9 Type 2 diabetes mellitus without complications; Z23 Encounter for immunization; Z79.82 Long term (current) use of aspirin; Z88.0 Allergy status to penicillin; Z88.8 Allergy status to other drugs, medicaments and biological substances; Z91.048 Other nonmedicinal substance allergy status
CPT/HCPCS: 81003; 82962; 90714; 99284

== ENCOUNTER 2018-03-24 20:32 | Emergency (ER) | payer OTHER ==
--- OUTSIDE RECORDS SUMMARY | 2018-03-24 20:36 | XMS REPORT | Clinical Summary ---
:1940 Author Organization [facility] Address [address] [place] [address] Care Team Providers Name Role Phone Unavailable [...] MD Georges Suárez, Mamta Núñez MD after 03/23/2017 Social History Tobacco Use Types Packs/Day Years Used Date Never Assessed Sex Assigned at Date Recorded Not on file Job Start Date Occupation Industry Not on file Not on file Not on file Travel History Travel Start Travel End No recent travel history available. Last Filed Vital Signs Vital Sign Reading Time Taken Blood Pressure 166/77 04/17/2017 3:35 PM [facility] Pulse 53 04/17/2017 3:35 PM [facility] Temperature 37.1 C (98.8 F) 04/17/2017 3:35 PM [facility] Respiratory Rate 19 04/17/2017 3:35 PM [facility] Oxygen Saturation 100% 04/17/2017 3:35 PM [facility] Inhaled Oxygen Concentration - - Weight 62.8 kg (138 lb 8 oz) 04/15/2017 1:46 AM [facility] Height 162.6 cm (5' 4") 04/15/2017 1:46 AM [facility] Body Mass Index 23.77 04/15/2017 1:46 AM [facility] Plan of Treatment Not on file Procedures Procedure Name Priority Date/Time Associated Comments Diagnosis RHYTHM STRIP - SCAN 05/04/2017 3:21 PM CDT REPORT OF PROCEDURE - 05/02/2017 1:40 ENDOSCOPY SCAN PM CDT REPORT OF PROCEDURE - 04/19/2017 10:10 ENDOSCOPY SCAN AM [facility] RHYTHM STRIP - SCAN 04/19/2017 10:10 AM [facility] ECHOCARDIOGRAM REPORT - 04/17/2017 5:20 SCAN PM [facility] 2D ECHO W/ DOPPLER LU 04/17/2017 2:23 Results for this (CW/PW/COLOR) PM [facility] procedure are in the results section. POCT-GLUCOSE METER Routine 04/17/2017 12:04 Results for this PM [facility] procedure are in the results section. POCT-GLUCOSE METER Routine 04/17/2017 6:53 Results for this AM [facility] procedure are in the results section. (MANUAL DIFFERENTIAL) Routine 04/17/2017 5:53 AM [facility] CBC W/PLT COUNT & AUTO Routine 04/17/2017 5:53 Results for this DIFFERENTIAL AM [facility] procedure are in the results section. MAGNESIUM Routine 04/17/2017 5:53 Results for this AM [facility] procedure are in the results section. BASIC METABOLIC PANEL Routine 04/17/2017 5:53 Results for this (7) AM [facility] procedure are in the results section. CBC W/PLT COUNT & AUTO Routine 04/17/2017 5:53 Results for this DIFFERENTIAL AM [facility] procedure are in the results section. POCT-GLUCOSE METER Routine 04/16/2017 9:03 Results for this PM [facility] procedure are in the results section. POCT-GLUCOSE METER Routine 04/16/2017 4:43 Results for this PM [facility] procedure are in the results section. POCT-GLUCOSE METER Routine 04/16/2017 12:19 Results for this PM [facility] procedure are in the results section. POCT-GLUCOSE METER Routine 04/16/2017 7:37 Results for this AM [facility] procedure are in the results section. (MANUAL DIFFERENTIAL) Routine 04/16/2017 5:17 Results for this AM [facility] procedure are in the results section. CBC W/PLT COUNT & AUTO Routine 04/16/2017 5:17 Results for this DIFFERENTIAL AM [facility] procedure are in the results section. BILIRUBIN, DIRECT Routine 04/16/2017 5:17 Results for this AM [facility] procedure are in the results section. COMPREHENSIVE METABOLIC Routine 04/16/2017 5:17 Results for this PANEL AM [facility] procedure are in the results section. GAMMA GLUTAMYL Routine 04/16/2017 5:17 Results for this TRANSFERASE (GGT) AM [facility] procedure are in the results section. CBC W/PLT COUNT & AUTO Routine 04/16/2017 5:17 Results for this DIFFERENTIAL AM [facility] procedure are in the results section. CREATINE KINASE (CK), Routine 04/16/2017 5:17 Results for this TOTAL AND MB AM [facility] procedure are in the results section. TROPONIN I Routine 04/16/2017 5:17 Results for this AM [facility] procedure are in the results section. MR ABDOMEN WITH/WITHOUT Routine 04/15/2017 11:10 Results for this IV CONTRAST PM [facility] procedure are in the results section. POCT-GLUCOSE METER Routine 04/15/2017 8:15 Results for this PM [facility] procedure are in the results section. POCT-GLUCOSE METER Routine 04/15/2017 5:26 Results for this PM [facility] procedure are in the results section. D-DIMER STAT 04/15/2017 4:29 Results for this PM [facility] procedure are in the results section. CREATINE KINASE (CK), Routine 04/15/2017 4:29 Results for this TOTAL AND MB PM [facility] procedure are in the results section. TROPONIN I Routine 04/15/2017 4:29 Results for this PM [facility] procedure are in the results section. POCT-GLUCOSE METER Routine 04/15/2017 2:28 Results for this PM [facility] procedure are in the results section. GAMMA GLUTAMYL STAT 04/15/2017 11:38 Results for this TRANSFERASE (GGT) AM [facility] procedure are in the results section. B-TYPE NATRIURETIC Routine 04/15/2017 11:38 Results for this FACTOR (BNP) AM [facility] procedure are in the results section. POCT-GLUCOSE METER Routine 04/15/2017 11:24 Results for this AM [facility] procedure are in the results section. CARBOHYDRATE ANTIGEN Routine 04/15/2017 10:07 Results for this 19-9 (CA 19-9) AM [facility] procedure are in the results section. CARCINOEMBRYONIC ANTIGEN Routine 04/15/2017 10:07 Results for this (CEA) AM [facility] procedure are in the results section. CREATINE KINASE (CK), Routine 04/15/2017 10:07 Results for this TOTAL AND MB AM [facility] procedure are in the results section. TROPONIN I Routine 04/15/2017 10:07 Results for this AM [facility] procedure are in the results section. POCT-GLUCOSE METER Routine 04/15/2017 9:58 Results for this AM [facility] procedure are in the results section. ECG 12-LEAD Routine 04/15/2017 9:24 Results for this AM [facility] procedure are in the results section. US ABDOMEN LIMITED Routine 04/15/2017 9:03 Results for this AM [facility] procedure are in the results section. CBC W/PLT COUNT & AUTO Routine 04/15/2017 5:31 Results for this DIFFERENTIAL AM [facility] procedure are in the results section. CREATINE KINASE (CK), Routine 04/15/2017 5:31 Results for this TOTAL AND MB AM [facility] procedure are in the results section. TROPONIN I Routine 04/15/2017 5:31 Results for this AM [facility] procedure are in the results section. LIPID PANEL Routine 04/15/2017 5:31 Results for this AM [facility] procedure are in the results section. HEMOGLOBIN A1C Routine 04/15/2017 5:31 Results for this AM [facility] procedure are in the results section. PHOSPHORUS Routine 04/15/2017 5:31 Results for this AM [facility] procedure are in the results section. MAGNESIUM Routine 04/15/2017 5:31 Results for this AM [facility] procedure are in the results section. LIPASE Routine 04/15/2017 5:31 Results for this AM [facility] procedure are in the results section. CBC W/PLT COUNT & AUTO Routine 04/15/2017 5:31 Results for this DIFFERENTIAL AM [facility] procedure are in the results section. COMPREHENSIVE METABOLIC Routine 04/15/2017 5:31 Results for this PANEL AM [facility] procedure are in the results section. POCT-GLUCOSE METER Routine 04/15/2017 5:03 Results for this AM [facility] procedure are in the results section. after 03/23/2017 Results RHYTHM STRIP - SCAN (05/04/2017 3:21 PM CDT)Only the most recent of2 resultswithin the time period is included. Narrative Performed At EKG-SCANNED (05/02/2017 1:40 PM CDT)Only the most recent of2 resultswithin the time period is included. Narrative Performed At ECHOCARDIOGRAM REPORT - SCAN (04/17/2017 5:20 PM [facility]) Narrative Performed At 2D Echo W/Doppler(CW/PW/Color) (04/17/2017 2:23 PM [facility]) Ejection Fraction [facility]ART[facility] MKCKESSON [facility] Narrative Performed At Transthoracic Echocardiography Report (TTE) [facility]ART[facility] Tweetwall[facility]ESSON [facility] Demographics Patient NameBACKMAN,Date of Study 04/17/2017 SHEREEN Female Visit [id number] Room Number [id number] Number Date of 2Referring Mamta Kline MD Physician Age 77 year(s)Loss Control Manager SHAUN Fernandez, RDCS,RVT,RDMS Senior Reactor Operator Elizabeth Sanders MD RDCSPhysician Procedure Type of [...] External Ris In - 04/17/2017 4:48 PM [facility] Transthoracic Echocardiography Report (TTE) Demographics Patient Name GRETCHEN, Date of Study 04/17/2017 SHEREEN Gender Female Visit Number [id number] Race Black Room Number 902 Number Date of 1940 Referring Mamta Kline MD Physician Age 77 year(s) Loss Control Manager SHAUN Fernandez, RDCS,RVT,RDMS Senior Reactor Operator Ana Maria De Oliveira, Interpreting Gaudencio Fisher [...] TR Gradient: 19.76 mmHg Performing Organization Address City/[facility]/Zipcode Phone Number [facility]ART[facility] MKCKESSON [facility]ACS POC-Glucose meter (04/17/2017 12:04 PM [facility])Only the most recent of12 resultswithin the time period is included. POC-Glucose Meter 253 (H)Comment: TESTED AT 70 - 110 mg/dL [facility] [address] [facility] [id number] Specimen Blood Performing Organization Address City/[facility]/Zipcode Phone Number [address] [address] [phone] CENTER Manual Differential (04/17/2017 5:53 AM [facility])Only the most recent of2 resultswithin the time period is included. Specimen Blood Performing Organization Address City/State/Zipcode Phone Number [facility] [address] [place] [address] [phone] CENTER CBC with platelet count + automated diff (04/17/2017 5:53 AM [facility])Only the most recent of3 resultswithin the time period is included. WBC 7.3 3.5 - 10.5 K/L [facility] RBC 3.94 3.93 - 5.22 M/L [facility] Hemoglobin 11.3 11.2 - 15.7 GM/DL [facility] Hematocrit 35.8 34.1 - 44.9 % [facility] MCV 90.9 79.4 - 94.8 fL [facility] MCH 28.7 25.6 - 32.2 pg [facility] MCHC 31.6 (L) 32.2 - 35.5 GM/DL [facility] RDW 13.4 11.7 - 14.4 % [facility] Platelets 268 150 - 450 K/CU MM [facility] MPV 10.0 9.4 - 12.3 fL [facility] nRBC 0 0 - 0 /100 WBC [facility] % Neutros 41 % [facility] % Lymphs 46 % [facility] % Monos 8 % [facility] % Eos 3 % [facility] % Baso 2 % [facility] # Neutros 2.99 1.56 - 6.13 K/L [facility] # Lymphs 3.34 1.18 - 3.74 K/L [facility] # Monos 0.57 (H) 0.24 - 0.36 K/L [facility] # Eos 0.22 0.04 - 0.36 K/L [facility] # Baso 0.11 (H) 0.01 - 0.08 K/L [facility] Immature Granulocytes-Relative 0 0 - 1 % [facility] Specimen Blood - Arm, Left Performing Organization Address City/[facility] Phone Number [address] [address] [phone] CENTER Magnesium (04/17/2017 5:53 AM [facility])Only the most recent of2 resultswithin the time period is included. Magnesium 1.6 1.6 - 2.6 mg/dL [facility] Specimen Blood - Arm, Left Performing Organization Address [facility] Phone Number [address] [address] [place] Basic Metabolic Panel (04/17/2017 5:53 AM [facility]) Sodium 140 136 - 145 meq/L [facility] Potassium 3.7 3.5 - 5.1 meq/L [facility] Chloride 109 (H) 98 - 107 meq/L [facility] CO2 23 22 - 29 meq/L [facility] BUN 12 7 - 21 mg/dL [facility] Creatinine 0.82 0.57 - 1.25 mg/dL [facility] Glucose 96 70 - 105 mg/dL [facility] Calcium 9.5 8.4 - 10.2 mg/dL [facility] EGFR 82Comment: ESTIMATED GFR IS mL/min/1.73 sq m [facility] NOT ACCURATE [facility] CLEARANCE IN PREDICTING GLOMERULAR FILTRATION RATE. ESTIMATED GFR IS NOT APPLICABLE FOR DIALYSIS PATIENTS. Specimen Blood - Arm, Left Performing Organization Address [facility] Phone Number [facility] [address] [address] CENTER Troponin I (04/16/2017 5:17 AM [facility])Only the most recent of4 resultswithin the time period is included. Troponin I 0.02 0.00 - 0.03 ng/mL [facility] Specimen Blood Narrative Performed At [facility] Troponin I (TnI) levels must be interpreted [...] disease, and persistent tachyarrhythmia. Performing Organization Address [facility] Phone Number [address] [address] [place] Gamma Glutamyl Transferase (GGT) (04/16/2017 5:17 AM [facility])Only the most recent of2 resultswithin the time period is included. GGT 305 (H) 9 - 64 U/L [facility] Specimen Blood Performing Organization Address [facility] Phone Number [address] [address] [place] Creatine Kinase (CK), Total and MB (04/16/2017 5:17 AM [facility])Only the most recent of4 resultswithin the time period is included. Total CK 143 29 - 200 U/L [facility] CK-MB 4.1 0.0 - 6.6 ng/mL [facility] MB Relative Index 2.9 % [facility] Specimen Blood Narrative Performed At CK-MB Reference Range: [facility] <6.7Normal 6.7-10.0Borderline >10.0 Abnormal Performing Organization Address [facility] Phone Number [facility] [address] [address] [place] Bilirubin, direct (04/16/2017 5:17 AM [facility]) Bilirubin, Direct 0.2 0.1 - 0.5 mg/dL [facility] Specimen Blood Performing Organization Address City/State/Zipcode Phone Number [address] [address] [place] Comprehensive metabolic panel (04/16/2017 5:17 AM [facility])Only the most recent of2 resultswithin the time period is included. Protein, Total 7.1 6.0 - 8.3 gm/dL [facility] Albumin 3.3 (L) 3.5 - 5.0 g/dL [facility] Alkaline Phosphatase 186 (H) 40 - 150 U/L [facility] Total Bilirubin <0.3 0.2 - 1.2 mg/dL [facility] Sodium 141 136 - 145 meq/L [facility] Potassium 3.6 3.5 - 5.1 meq/L [facility] Chloride 110 (H) 98 - 107 meq/L [facility] CO2 24 22 - 29 meq/L [facility] BUN 13 7 - 21 mg/dL [facility] Creatinine 0.82 0.57 - 1.25 mg/dL [facility] Glucose 83 70 - 105 mg/dL [facility] Calcium 9.3 8.4 - 10.2 mg/dL [facility] AST 30 5 - 34 U/L [facility] ALT 88 (H) 6 - 55 U/L [facility] EGFR 82Comment: ESTIMATED GFR mL/min/1.73 sq m [facility] IS NOT ACCURATE [facility] CREATININE CLEARANCE IN PREDICTING GLOMERULAR FILTRATION RATE. ESTIMATED GFR IS NOT APPLICABLE FOR DIALYSIS PATIENTS. Specimen Blood Performing Organization Address City/State/Zipcode Phone Number [facility] [address] [place] [address] CENTER MR abdomen without & with IV contrast (04/15/2017 11:10 PM [facility]) Narrative Performed At FINAL REPORT [facility] MRI OF THE ABDOMEN with MRCP CLINICAL [...] MD Report Verified Date/Time:04/17/2017 12:17:51 Reading Location: [facility] B1 C013Y CT Body Reading Room Procedure Note Interface, External Ris In - 04/17/2017 12:20 PM [facility] FINAL REPORT MRI OF THE ABDOMEN with [...] Report Verified Date/Time: 04/17/2017 12:17:51 Reading Location: [facility] B1 C013Y CT Body Reading Room Performing Organization Address City/State/Zipcode Phone Number [facility] D-dimer (04/15/2017 4:29 PM [facility]) D-Dimer, Quant 0.60 (H) <0.50 MG/L FEU [facility] Specimen Blood - Arm, Left Narrative Performed At [facility] Intended Use: The D-Dimer Assay can be [...] is within 95-100% range. Performing Organization Address [facility] Phone Number [address] [address] [phone] [place] B-type Natriuretic Factor (BNP) (04/15/2017 11:38 AM [facility]) BNP 200 (H) 0 - 100 pg/mL [facility] Specimen Blood Performing Organization Address [facility] Phone Number [address] [address] [place] Carbohydrate antigen 19-9 (CA 19-9) (04/15/2017 10:07 AM [facility]) CA 19-9 25 <34 U/mL [facility] Comment: This test was performed using the Siemens (DealCircle) Chemiluminescent method. Values obtained from different assay methods cannot be used interchangeably. CA19-9 levels, regardless of value, should not be interpreted as absolute evidence of the presence or absence of disease. Specimen Blood Narrative Performed At Performing Lab [facility] [address] [address] Naomi Soto MD, PhD Performing Organization Address [facility] Number [facility] [address] [place] [address] Carcinoembryonic Antigen (CEA) (04/15/2017 10:07 AM [facility]) CEA, SERUM 2.5 0.0 - 5.0 ng/mL [facility] Specimen Blood Performing Organization Address [facility] Phone Number [address] [phone] CENTER ECG 12 lead (04/15/2017 9:24 AM [facility]) Narrative Performed At Ventricular Rate 56 BPM GE MUSE Atrial Rate 56 BPM P-R Interval 158 ms QRS Duration 90 ms Q-T Interval 466 ms QTC Calculation(Bazett) 449 ms P [place] 67 degrees R [place] 36 degrees T [place] 42 degrees Sinus bradycardia Nonspecific ST and T wave abnormality Abnormal ECG No previous ECGs available Confirmed by Dayna SONI BASANT ([id number]) on 04/16/2017 8:23:52 AM Procedure Note Interface, External Ris In - 04/16/2017 8:24 AM [facility] Ventricular Rate 56 BPM Atrial Rate 56 BPM P-R Interval 158 ms QRS Duration 90 ms Q-T Interval 466 ms QTC Calculation(Bazett) 449 ms P [place] 67 degrees R [place] 36 degrees T [place] 42 degrees Sinus bradycardia Nonspecific ST and T wave abnormality Abnormal ECG No previous ECGs available Confirmed by Dayna SONI BASANT ([id number]) on 04/16/2017 8:23:52 AM Performing Organization Address City/State/Zipcode Phone Number [facility] abdomen limited (04/15/2017 9:03 AM [facility]) Narrative Performed At FINAL REPORT [facility] ULTRASOUND RIGHT UPPER QUADRANT OF THE ABDOMEN [...] MD Report Verified Date/Time:04/15/2017 10:11:28 Reading Location: [facility] C013X [facility] Consult Reading Room Procedure Note Interface, External Ris In - 04/15/2017 10:13 AM [facility] FINAL REPORT ULTRASOUND RIGHT UPPER QUADRANT OF [...] Report Verified Date/Time: 04/15/2017 10:11:28 Reading Location: [address] Ortho Consult Reading Room Performing Organization Address [facility] Phone Number [facility] Phosphorus (04/15/2017 5:31 AM MEDICAL [facility]LECTIONS) Phosphorus 3.9 2.3 - 4.7 mg/dL [facility] Specimen Blood Performing Organization Address [facility] Phone Number [address] [address] [place] Lipase (04/15/2017 5:31 AM MEDICAL [facility]LECTIONS) Lipase 29 8 - 78 U/L [facility] Specimen Blood Performing Organization Address [facility] Phone Number [address] [address] CENTER Hemoglobin A1c (04/15/2017 5:31 AM [facility]LE[facility]) Hemoglobin A1C 6.8 (H) 4.3 - 6.1 % [facility] Specimen Blood Performing Organization Address [facility] Phone Number [address] [address] CENTER Lipid panel (04/15/2017 5:31 AM [facility]) Triglycerides 128 mg/dL [facility] Cholesterol 162 mg/dL [facility] HDL 47 mg/dL [facility] LDL Calculated 89 mg/dL [facility] Specimen Blood Narrative Performed At [facility] Triglyceride Reference Range: Low Risk <150 [id number] High Risk 200-499 Very High Risk>=500 Cholesterol Reference Range: Low Risk <200 [id number] High Risk>240 HDL Cholesterol Reference Range: Low Risk >=60 High Risk <40 LDL Cholesterol Reference Range: Optimal<100 Near [id number] Very High >=190 Performing Organization Address City/State/Zipcode Phone Number [facility] [address] [place], [place] [phone] CENTER after 03/23/2017 Insurance Payer Benefit Plan / Group Subscriber ID Type Phone Address MEDICARE MEDICARE A B xxxxxxxxxx Medicare MEDICAID [place] xxxxxxxxx Medicaid Advance Directives For more information, please contact:[address] [phone] Code Status Date Activated Date Inactivated Comments Full Code 04/15/2017 2:43 AM 04/17/2017 10:06 PM This code status was determined by: Patient
--- OUTSIDE RECORDS SUMMARY | 2018-03-24 20:37 | XMS REPORT ---
:1940 [facility] Address [address] [place] [address] Care Team Providers Name Role Phone KERRY [...] ID: WITH 12:17:00 MRCP for evaluation of [id number] MRI OF THE ABDOMEN biliary system; concern [...] MDReport Verified Date/Time: 04/17/2017 12:17:51 Reading Location: [place] [id number] CT Body Reading Room -GLUCOSE METER 2017-04-17 12:08:00 Test Item Value Reference Range Comments POC-GLUCOSE METER (BEAKER) (test 253 mg/dL 70-110 TESTED AT [facility] [address] [facility] ntjv=[id number]) [facility] [address] CBC W/PLT COUNT & AUTO [id number] 12:08:00 Test Item Value Reference Range Comments WHITE BLOOD CELL COUNT (BEAKER) (test esad=001) 7.3 K/ L 3.5-10.5 RED BLOOD CELL COUNT (BEAKER) (test bhfa=914) 3.94 M/ L 3.93-5.22 HEMOGLOBIN (BEAKER) (test gmwb=072) 11.3 GM/DL 11.2-15.7 HEMATOCRIT (BEAKER) (test ksdc=343) 35.8 % 34.1-44.9 MEAN CORPUSCULAR VOLUME (BEAKER) (test upvw=971) 90.9 fL 79.4-94.8 MEAN CORPUSCULAR HEMOGLOBIN (BEAKER) (test 28.7 pg 25.6-32.2 veoi=541) MEAN CORPUSCULAR HEMOGLOBIN CONC (BEAKER) (test 31.6 GM/DL 32.2-35.5 bojs=844) RED CELL DISTRIBUTION WIDTH (BEAKER) (test 13.4 % 11.7-14.4 jcsw=692) PLATELET COUNT (BEAKER) (test tufi=017) 268 K/CU MM 150-450 MEAN PLATELET VOLUME (BEAKER) (test tabt=600) 10.0 fL 9.4-12.3 NUCLEATED RED BLOOD CELLS (BEAKER) (test 0 /100 WBC 0-0 zxmb=499) NEUTROPHILS RELATIVE PERCENT (BEAKER) (test 41 % pnmg=931) LYMPHOCYTES RELATIVE PERCENT (BEAKER) (test 46 % nxwr=691) MONOCYTES RELATIVE PERCENT (BEAKER) (test 8 % joum=227) EOSINOPHILS RELATIVE PERCENT (BEAKER) (test 3 % chfy=859) BASOPHILS RELATIVE PERCENT (BEAKER) (test 2 % dcvn=893) NEUTROPHILS ABSOLUTE COUNT (BEAKER) (test 2.99 K/ L 1.56-6.13 aroq=052) LYMPHOCYTES ABSOLUTE COUNT (BEAKER) (test 3.34 K/ L 1.18-3.74 uydn=025) MONOCYTES ABSOLUTE COUNT (BEAKER) (test 0.57 K/ L 0.24-0.36 kvnu=018) EOSINOPHILS ABSOLUTE COUNT (BEAKER) (test 0.22 K/ L 0.04-0.36 olzw=844) BASOPHILS ABSOLUTE COUNT (BEAKER) (test 0.11 K/ L 0.01-0.08 szlt=158) IMMATURE GRANULOCYTES-RELATIVE PERCENT (BEAKER) 0 % 0-1 (test ulgq=3944) POCT-GLUCOSE [id number] 08:04:00 Test Item Value Reference Range Comments POC-GLUCOSE METER (BEAKER) 99 mg/dL 70-110 TESTED AT [facility] [address] [facility] (test zplc=7638) [facility] [address] [id number] 06:55:00 Test Item Value Reference Range Comments MAGNESIUM (BEAKER) (test nkfj=607) 1.6 mg/dL 1.6-2.6 BASIC METABOLIC [id number] 06:55:00 Test Item Value Reference Range Comments SODIUM (BEAKER) (test 140 meq/L 136-145 fkkl=491) POTASSIUM (BEAKER) (test 3.7 meq/L 3.5-5.1 hauc=740) CHLORIDE (BEAKER) (test 109 meq/L 98-107 gtvn=274) CO2 (BEAKER) (test 23 meq/L 22-29 ruin=183) BLOOD UREA NITROGEN 12 mg/dL 7-21 (BEAKER) (test pkys=326) CREATININE (BEAKER) (test 0.82 mg/dL 0.57-1.25 nwlt=474) GLUCOSE RANDOM (BEAKER) 96 mg/dL 70-105 (test owny=182) CALCIUM (BEAKER) (test 9.5 mg/dL 8.4-10.2 vkzc=554) EGFR (BEAKER) (test 82 mL/min/1.73 sq m ESTIMATED GFR IS NOT duwl=2677) ACCURATE CREATININE CLEARANCE IN PREDICTING GLOMERULAR FILTRATION RATE. ESTIMATED GFR IS NOT APPLICABLE FOR DIALYSIS PATIENTS. POCT-GLUCOSE [id number] 21:05:00 Test Item Value Reference Range Comments POC-GLUCOSE METER (BEAKER) 98 mg/dL 70-110 TESTED AT [address] (test emom=7701) [place] [id number] POCT-GLUCOSE [id number] 17:04:00 Test Item Value Reference Range Comments POC-GLUCOSE METER (BEAKER) 89 mg/dL 70-110 TESTED AT [address] (test mmhw=8928) [place] [id number] POCT-GLUCOSE [id number] 12:37:00 Test Item Value Reference Range Comments POC-GLUCOSE METER (BEAKER) 202 mg/dL 70-110 TESTED AT [address] (test vtak=1302) [place] [id number] CBC W/PLT COUNT & AUTO [id number] 09:44:00 Test Item Value Reference Range Comments WHITE BLOOD CELL COUNT (BEAKER) (test jfxn=019) 7.1 K/ L 3.5-10.5 RED BLOOD CELL COUNT (BEAKER) (test wkec=434) 3.76 M/ L 3.93-5.22 HEMOGLOBIN (BEAKER) (test clts=059) 11.0 GM/DL 11.2-15.7 HEMATOCRIT (BEAKER) (test sbey=300) 34.6 % 34.1-44.9 MEAN CORPUSCULAR VOLUME (BEAKER) (test dbsm=399) 92.0 fL 79.4-94.8 MEAN CORPUSCULAR HEMOGLOBIN (BEAKER) (test 29.3 pg 25.6-32.2 vawp=068) MEAN CORPUSCULAR HEMOGLOBIN CONC (BEAKER) (test 31.8 GM/DL 32.2-35.5 kxvm=034) RED CELL DISTRIBUTION WIDTH (BEAKER) (test 13.6 % 11.7-14.4 imda=975) PLATELET COUNT (BEAKER) (test kjsc=941) 252 K/CU MM 150-450 MEAN PLATELET VOLUME (BEAKER) (test rkyc=538) 9.9 fL 9.4-12.3 NUCLEATED RED BLOOD CELLS (BEAKER) (test 0 /100 WBC 0-0 fxuj=478) IMMATURE GRANULOCYTES-RELATIVE PERCENT (BEAKER) 0 % 0-1 (test mlgs=3292) (MANUAL DIFFERENTIAL)2017-04-16 09:44:00 Test Item Value Reference Range Comments NEUTROPHILS - REL (DIFF) (BEAKER) (test lbox=5236) 37 % LYMPHOCYTES - REL (DIFF) (BEAKER) (test dmzu=5604) 51 % MONOCYTES - REL (DIFF) (BEAKER) (test unbs=8531) 9 % EOSINOPHILS - REL (DIFF) (BEAKER) (test ubsj=2480) 3 % BASOPHILS - REL (DIFF) (BEAKER) (test oten=3798) 0 % NEUTROPHILS - ABS (DIFF) (BEAKER) (test ylwt=0171) 2.63 K/ L 1.80-8.00 LYMPHOCYTES - ABS (DIFF) (BEAKER) (test oqku=9954) 3.62 K/ L 1.48-4.50 MONOCYTES - ABS (DIFF) (BEAKER) (test nzyc=3574) 0.64 K/ L 0.00-1.30 EOSINOPHILS - ABS (DIFF) (BEAKER) (test oyjv=4836) 0.21 K/ L 0.00-0.50 BASOPHILS - ABS (DIFF) (BEAKER) (test guti=4196) 0.00 K/ L 0.00-0.20 TOTAL COUNTED (BEAKER) (test kvgu=0730) 100 WBC MORPHOLOGY (BEAKER) (test bckz=810) Normal PLT MORPHOLOGY (BEAKER) (test qjuq=610) Normal RBC MORPHOLOGY (BEAKER) (test uzie=836) Normal CREATINE KINASE (CK), TOTAL AND [id number] 07:51:00 Test Item Value Reference Range Comments CREATINE KINASE TOTAL (BEAKER) (test ychr=998) 143 U/L 29-200 CREATINE KINASE-MB (BEAKER) (test ckql=899) 4.1 ng/mL 0.0-6.6 CREATINE KINASE-MB INDEX (BEAKER) (test xdpf=720) 2.9 % CK-MB Reference Range:<6.7 Normal6.7-10.0 Borderline>10.0 AbnormalTROPONIN [id number] 07:51:00 Test Item Value Reference Range Comments TROPONIN I (BEAKER) (test xoui=407) 0.02 ng/mL 0.00-0.03 Troponin I (TnI) levels [...] acidosis, acute neurological disease, and persistent tachyarrhythmia.POCT-GLUCOSE [id number] 07:41:00 Test Item Value Reference Range Comments POC-GLUCOSE METER (BEAKER) 85 mg/dL 70-110 TESTED AT [facility] [address] [facility] (test mkhy=5548) [place] [address] GAMMA GLUTAMYL TRANSFERASE (GGT)2017-04-16 07:41:00 Test Item Value Reference Range Comments GAMMA GLUTAMYL TRANSFERASE (BEAKER) (test gczy=127) 305 U/L 9-64 BILIRUBIN, [id number] 07:41:00 Test Item Value Reference Range Comments BILIRUBIN DIRECT (BEAKER) (test kehs=298) 0.2 mg/dL 0.1-0.5 COMPREHENSIVE METABOLIC [id number] 07:41:00 Test Item Value Reference Range Comments TOTAL PROTEIN (BEAKER) 7.1 gm/dL 6.0-8.3 (test wozw=951) ALBUMIN (BEAKER) (test 3.3 g/dL 3.5-5.0 tjmg=6520) ALKALINE PHOSPHATASE 186 U/L 40-150 (BEAKER) (test arkt=663) BILIRUBIN TOTAL (BEAKER) < mg/dL 0.2-1.2 (test kndt=871) SODIUM (BEAKER) (test 141 meq/L 136-145 xank=845) POTASSIUM (BEAKER) (test 3.6 meq/L 3.5-5.1 sezj=069) CHLORIDE (BEAKER) (test 110 meq/L 98-107 tgqu=945) CO2 (BEAKER) (test 24 meq/L 22-29 kkaj=291) BLOOD UREA NITROGEN 13 mg/dL 7-21 (BEAKER) (test rilg=321) CREATININE (BEAKER) (test 0.82 mg/dL 0.57-1.25 xbxx=706) GLUCOSE RANDOM (BEAKER) 83 mg/dL 70-105 (test xtdw=320) CALCIUM (BEAKER) (test 9.3 mg/dL 8.4-10.2 eckb=153) AST (SGOT) (BEAKER) (test 30 U/L 5-34 czjz=948) ALT (SGPT) (BEAKER) (test 88 U/L 6-55 dvoc=776) EGFR (BEAKER) (test 82 mL/min/1.73 sq m ESTIMATED GFR IS NOT osug=0232) ACCURATE CREATININE CLEARANCE IN PREDICTING GLOMERULAR FILTRATION RATE. ESTIMATED GFR IS NOT APPLICABLE FOR DIALYSIS PATIENTS. POCT-GLUCOSE [id number] 20:46:00 Test Item Value Reference Range Comments POC-GLUCOSE METER (BEAKER) 99 mg/dL 70-110 TESTED AT [address] (test fjlv=9883) [place] [address] POCT-GLUCOSE [id number] 17:37:00 Test Item Value Reference Range Comments POC-GLUCOSE METER (BEAKER) 143 mg/dL 70-110 TESTED AT [address] (test lqsu=5897) [place] [address] CREATINE KINASE (CK), TOTAL AND [id number] 17:27:00 Test Item Value Reference Range Comments CREATINE KINASE TOTAL (BEAKER) (test khtn=825) 196 U/L 29-200 CREATINE KINASE-MB (BEAKER) (test eqbi=621) 5.1 ng/mL 0.0-6.6 CREATINE KINASE-MB INDEX (BEAKER) (test cypv=502) 2.6 % CK-MB Reference Range:<6.7 Normal6.7-10.0 Borderline>10.0 AbnormalTROPONIN [id number] 17:27:00 Test Item Value Reference Range Comments TROPONIN I (BEAKER) (test aobu=857) 0.02 ng/mL 0.00-0.03 Troponin I (TnI) levels [...] failure, acidosis, acute neurological disease, and persistent tachyarrhythmia.[id number] 16:54:00 Test Item Value Reference Range Comments D-DIMER QUANTITATIVE (BEAKER) (test intg=503) 0.60 MG/L FEU <0.50 Intended Use: The [...] of thrombosis is within 95-100% range.POCT- GLUCOSE [id number] 14:54:00 Test Item Value Reference Range Comments POC-GLUCOSE METER (BEAKER) 113 mg/dL 70-110 TESTED AT [facility] [address] [facility] (test kwlm=8976) [facility] [address] CBC W/PLT COUNT & AUTO [id number] 13:06:00 Test Item Value Reference Range Comments WHITE BLOOD CELL COUNT (BEAKER) (test diop=506) 7.2 K/ L 3.5-10.5 RED BLOOD CELL COUNT (BEAKER) (test ofci=010) 3.92 M/ L 3.93-5.22 HEMOGLOBIN (BEAKER) (test mkgh=841) 11.3 GM/DL 11.2-15.7 HEMATOCRIT (BEAKER) (test lspk=541) 35.6 % 34.1-44.9 MEAN CORPUSCULAR VOLUME (BEAKER) (test swhb=666) 90.8 fL 79.4-94.8 MEAN CORPUSCULAR HEMOGLOBIN (BEAKER) (test 28.8 pg 25.6-32.2 roqv=597) MEAN CORPUSCULAR HEMOGLOBIN CONC (BEAKER) (test 31.7 GM/DL 32.2-35.5 hsvq=819) RED CELL DISTRIBUTION WIDTH (BEAKER) (test 13.8 % 11.7-14.4 odun=733) PLATELET COUNT (BEAKER) (test eaft=924) 254 K/CU MM 150-450 MEAN PLATELET VOLUME (BEAKER) (test sngo=990) 10.2 fL 9.4-12.3 NUCLEATED RED BLOOD CELLS (BEAKER) (test 0 /100 WBC 0-0 asqx=914) NEUTROPHILS RELATIVE PERCENT (BEAKER) (test 37 % cofa=650) LYMPHOCYTES RELATIVE PERCENT (BEAKER) (test 50 % gusg=739) MONOCYTES RELATIVE PERCENT (BEAKER) (test 8 % zegi=313) EOSINOPHILS RELATIVE PERCENT (BEAKER) (test 4 % jjec=135) BASOPHILS RELATIVE PERCENT (BEAKER) (test 1 % baqo=009) NEUTROPHILS ABSOLUTE COUNT (BEAKER) (test 2.66 K/ L 1.56-6.13 wjbk=162) LYMPHOCYTES ABSOLUTE COUNT (BEAKER) (test 3.57 K/ L 1.18-3.74 bari=069) MONOCYTES ABSOLUTE COUNT (BEAKER) (test 0.55 K/ L 0.24-0.36 kngv=802) EOSINOPHILS ABSOLUTE COUNT (BEAKER) (test 0.26 K/ L 0.04-0.36 zdii=506) BASOPHILS ABSOLUTE COUNT (BEAKER) (test 0.08 K/ L 0.01-0.08 uumo=213) IMMATURE GRANULOCYTES-RELATIVE PERCENT (BEAKER) 0 % 0-1 (test qflk=1607) B-TYPE NATRIURETIC FACTOR (BNP)2017-04-15 12:21:00 Test Item Value Reference Range Comments B-TYPE NATRIURETIC PEPTIDE (BEAKER) (test 200 pg/mL 0-100 ovpt=428) GAMMA GLUTAMYL TRANSFERASE (GGT)2017-04-15 12:16:00 Test Item Value Reference Range Comments GAMMA GLUTAMYL TRANSFERASE (BEAKER) (test srpb=577) 327 U/L 9-64 CARCINOEMBRYONIC ANTIGEN (CEA)2017-04-15 11:33:00 Test Item Value Reference Range Comments CARCINOEMBRYONIC ANTIGEN (BEAKER) (test dpfl=827) 2.5 ng/mL 0.0-5.0 POCT-GLUCOSE [id number] 11:26:00 Test Item Value Reference Range Comments POC-GLUCOSE METER (BEAKER) 114 mg/dL 70-110 TESTED AT [facility] [address] [facility] (test rrmo=5240) [place] [address] CREATINE KINASE (CK), TOTAL AND [id number] 11:19:00 Test Item Value Reference Range Comments CREATINE KINASE TOTAL (BEAKER) (test floj=592) 204 U/L 29-200 CREATINE KINASE-MB (BEAKER) (test zlix=398) 5.7 ng/mL 0.0-6.6 CREATINE KINASE-MB INDEX (JAKE) (test kxka=661) 2.8 % CK-MB Reference Range:<6.7 Normal6.7-10.0 Borderline>10.0 AbnormalTROPONIN [id number] 11:19:00 Test Item Value Reference Range Comments TROPONIN I (JAKE) (test xapn=651) 0.02 ng/mL 0.00-0.03 Troponin I (TnI) levels [...] acute neurological disease, and persistent tachyarrhythmia.U/S, ABDOMINAL, [id number] 10:11: 00Abdomen limited area? Add comment if [...] Verified Date/Time: 04/15/2017 10:11:28 Reading Location: [address] Reading Room Electronically signed by: JENN CROCKER MD on 2017 10:11 AMPOCT-GLUCOSE [id number] 10:00:00 Test Item Value Reference Range Comments POC-GLUCOSE METER (BEAKER) 107 mg/dL 70-110 TESTED AT [facility] [address] (test nzmg=5765) [place] [address] HEMOGLOBIN [id number] 08:15:00 Test Item Value Reference Range Comments HEMOGLOBIN A1C (BEAKER) (test jlcj=309) 6.8 % 4.3-6.1 [id number] 07:35:00 Test Item Value Reference Range Comments PHOSPHORUS (BEAKER) (test fymk=762) 3.9 mg/dL 2.3-4.7 [id number] 07:35:00 Test Item Value Reference Range Comments MAGNESIUM (BEAKER) (test wzyt=624) 1.8 mg/dL 1.6-2.6 COMPREHENSIVE METABOLIC [id number] 07:35:00 Test Item Value Reference Range Comments TOTAL PROTEIN (BEAKER) 7.5 gm/dL 6.0-8.3 (test qesr=985) ALBUMIN (BEAKER) (test 3.5 g/dL 3.5-5.0 dbuf=5777) ALKALINE PHOSPHATASE 211 U/L 40-150 (BEAKER) (test gppr=974) BILIRUBIN TOTAL (BEAKER) < mg/dL 0.2-1.2 (test cisr=800) SODIUM (BEAKER) (test 142 meq/L 136-145 uyjo=632) POTASSIUM (BEAKER) (test 3.6 meq/L 3.5-5.1 cdqz=945) CHLORIDE (BEAKER) (test 110 meq/L 98-107 sfsb=850) CO2 (BEAKER) (test 22 meq/L 22-29 kzmp=442) BLOOD UREA NITROGEN 12 mg/dL 7-21 (BEAKER) (test txva=851) CREATININE (BEAKER) (test 0.84 mg/dL 0.57-1.25 ijnj=262) GLUCOSE RANDOM (BEAKER) 107 mg/dL 70-105 (test lpxl=481) CALCIUM (BEAKER) (test 9.4 mg/dL 8.4-10.2 qlke=108) AST (SGOT) (BEAKER) (test 37 U/L 5-34 nzuh=818) ALT (SGPT) (BEAKER) (test 119 U/L 6-55 wval=398) EGFR (BEAKER) (test 80 mL/min/1.73 sq m ESTIMATED GFR IS NOT njfl=1239) ACCURATE CREATININE CLEARANCE IN PREDICTING GLOMERULAR FILTRATION RATE. ESTIMATED GFR IS NOT APPLICABLE FOR DIALYSIS PATIENTS. LIPID [id number] 07:35:00 Test Item Value Reference Range Comments TRIGLYCERIDES (BEAKER) (test okym=267) 128 mg/dL CHOLESTEROL (BEAKER) (test uqqw=037) 162 mg/dL HDL CHOLESTEROL (BEAKER) (test eygf=312) 47 mg/dL LDL CHOLESTEROL CALCULATED (BEAKER) (test 89 mg/dL bfni=059) Triglyceride Reference Range: Low Risk <150 Borderline 150- 199 High Risk 200-499 Very High Risk >=500Cholesterol Reference Range: Low Risk <200 Borderline 200-239 High Risk > 240HDL Cholesterol Reference Range: Low Risk >=60 High Risk <40LDL Cholesterol Reference Range: Optimal <100 Near Optimal 100-129 Borderline 130-159 High 160-189 Very High >=190CREATINE KINASE (CK), TOTAL AND [id number] 07:35:00 Test Item Value Reference Range Comments CREATINE KINASE TOTAL (BEAKER) (test zpes=129) 216 U/L 29-200 CREATINE KINASE-MB (BEAKER) (test yyje=358) 6.0 ng/mL 0.0-6.6 CREATINE KINASE-MB INDEX (BEAKER) (test ezbh=247) 2.8 % CK-MB Reference Range:<6.7 Normal6.7-10.0 Borderline>10.0 [id number] 07:35:00 Test Item Value Reference Range Comments LIPASE (BEAKER) (test xujr=349) 29 U/L 8-78 TROPONIN [id number] 07:32:00 Test Item Value Reference Range Comments TROPONIN I (BEAKER) (test egtn=913) 0.01 ng/mL 0.00-0.03 Troponin I (TnI) levels [...] acidosis, acute neurological disease, and persistent tachyarrhythmia.POCT-GLUCOSE [id number] 05:07:00 Test Item Value Reference Range Comments POC-GLUCOSE METER (JAKE) 113 mg/dL 70-110 TESTED AT [facility] [address] [facility] (test eqiv=4036) [place] [address]
[2018-03-24 21:54] LABS: Absolute Monocytes 0.6 K/uL (0.1-1.3); Absolute Neutrophil 3.4 K/uL (1.8-8.0); Basophils % 1.3 % (0-1.3); Eosinophils % 3.3 % (0-4.4); Hematocrit 32.1 % (36.0-45.0); Lymphocytes % 40.6 % (15.3-44.8); MPV 8.5 fL (7.6-11.3); Monocytes % 8.7 % (3.3-12.3); RBC Red Blood Cell Count 3.74 M/uL (3.86-4.86)
[2018-03-24] MEDS ORDERED: HYDROCODONE/APAP 7.5/325 MG TAB ONE (22:02)
[2018-03-24 22:03] LABS: Potassium 4.3 mmol/L (3.5-5.1)
[2018-03-24 22:06] LABS: Urine Blood NEGATIVE (NEG); Urine Glucose NEGATIVE (NEG); Urine Protein NEGATIVE (NEG); Urine Specific Gravity 1.005 (1.005-1.030); Urine pH 5.5 (5.0-7.0)
[2018-03-24 22:22] LABS: Urine Bacteria 20-50 /HPF (<20); Urine Culture Reflex Order NOT NEEDED; Urine RBC NONE SEEN /HPF (NONE SEEN)
[2018-03-24 23:21] LABS: Barbiturates NEGATIVE (NEGATIVE); Benzodiazepines NEGATIVE (NEGATIVE); Cocaine NEGATIVE (NEGATIVE); METHAMPHETAM NEGATIVE (NEGATIVE); Methadone NEGATIVE (NEGATIVE); Opiates NEGATIVE (NEGATIVE); Phencyclidine NEGATIVE (NEGATIVE); THC Cannibis NEGATIVE (NEGATIVE)
[2018-03-24 23:28] LABS: Magnesium 1.8 mg/dL (1.8-2.4)
[2018-03-24 23:56] LABS: ALT/SGPT 15 U/L (12-78); AST/SGOT 22 U/L (15-37); Albumin 3.7 g/dL (3.4-5.0); Alkaline Phosphatase 110 U/L (45-117); Bilirubin Direct < 0.1 mg/dL (0-0.2); Bilirubin Total 0.2 mg/dL (0.2-1.0); Protein, Total 8.1 g/dL (6.4-8.2)
--- NOTE | 2018-03-25 00:24 | ER ---
Nurse's Notes [facility] Name: Shereen Flores Age: 78 yrs Sex: Female : 1940 Arrival Date: 03/24/2018 Time: 20:34 Bed 24 Private MD: Sharath Pate E Diagnosis: Left flank pain. Urinary tract infection. Marked bilateral hydronephrosis. Chronic renal disease Presentation: 03/24 20:40 Presenting complaint: Patient states: For 2 days I have been having left flank/back la1 pain. Pt denies V/D. Transition of care: patient was not received from another setting of care. Onset of symptoms was March 24, 2018. Risk Assessment: Do you want to hurt yourself or someone else? Patient reports no desire to harm self or others. Initial Sepsis Screen: Does the patient meet any 2 criteria? No. Patient's initial sepsis screen is negative. Does the patient have a suspected source of infection? No. Patient's initial sepsis screen is negative. Care prior to arrival: None. 20:40 Method Of Arrival: Ambulatory la1 20:40 Acuity: AVERY 3 la1 Historical: - Allergies: 20:40 SHARON INHIBITORS; la1 20:40 HYDRALAZINE; la1 20:40 Iodine; la1 20:40 iron; la1 20:40 Lisinopril; la1 20:40 PENICILLINS; la1 - Home Meds: 20:52 aspirin 81 mg Oral TbEC 1 tab once daily [Active]; carvedilol Oral [Active]; Metformin rv Oral [Active]; Metoprolol Tartrate Oral [Active]; Xanax 0.5 mg Oral tab [Active]; - PMHx: 20:40 Diabetes - NIDDM; GERD; Glaucoma; Hypertension; la1 - PSHx: 20:52 Unable to obtain; rv - Immunization history:: Adult Immunizations up to date. - Social history:: Smoking status: Patient/guardian denies using tobacco. - Ebola Screening: : No symptoms or risks identified at this time. Screenin:50 Abuse screen: Denies threats or abuse. Denies injuries from another. Nutritional rv screening: No deficits noted. Tuberculosis screening: No symptoms or risk factors identified. Fall Risk None identified. Assessment: 20:50 General: Appears in no apparent distress. comfortable, Behavior is calm, cooperative. rv Pain: Complains of pain in FLANK. Neuro: Level of Consciousness is awake, alert, obeys commands, Oriented to person, place, time, situation. Cardiovascular: Capillary refill < 3 seconds. Respiratory: Airway is patent. GI: No signs and/or symptoms were reported involving the gastrointestinal system. : No signs and/or symptoms were reported regarding the genitourinary system. EENT: No signs and/or symptoms were reported regarding the EENT system. Derm: Skin is intact. Musculoskeletal: No signs and/or symptoms reported regarding the musculoskeletal system. 23:44 Reassessment: Patient appears in no apparent distress at this time. Patient and/or rv family updated on plan of care and expected duration. Pain level reassessed. Patient is alert, oriented x 3, equal unlabored respirations, skin warm/dry/pink. pain is decreased. 03/25 00:14 Reassessment: DR BOSS WENT INSIDE AND TALKED TO PATIENT, HE DISCUSSED LAB RESULTS AND rv RADIOLOGY REPORTS. PATIENT IS AWARE OF HER CONDITION AND CASE AND WAS ADVISED TO SEE A KIDNEY SPECIALIST AFTER DISCHARGE. Vital Signs: 02 20:41 Pulse 59; Resp 18; Temp 97.5; Pulse Ox 99% on R/A; Weight 63.05 kg; Height 5 ft. 4 in. la1 (162.56 cm); 20:42 BP 171 / 73; la1 21:00 BP 133 / 66; Pulse 54; Resp 16 S; Pulse Ox 99% on R/A; rv 23:36 BP 141 / 71; Pulse 58; Resp 18 S; Pulse Ox 99% on R/A; rv 20:41 Body Mass Index 23.86 (63.05 kg, 162.56 cm) la1 ED Course: 20:34 Patient arrived in ED. es 20:34 Sharath Pate MD is Private Physician. es 20:40 Triage completed. la1 20:40 Arm band placed on left wrist. la1 20:52 Patient has correct armband on for positive identification. Placed in gown. Bed in low rv position. Call light in reach. Side rails up X 1. Pulse ox on. NIBP on. 21:24 Isaac Boss MD is Attending Physician. pkl 22:16 Urine Culture Sent. rv 22:21 CT completed. Patient tolerated procedure well. Patient moved to CT via stretcher. Patient moved back from CT. 22:57 CT Stone Protocol In Process Unspecified. EDMS 02 00:32 No provider procedures requiring assistance completed. Patient did not have IV access rv during this emergency room visit. Administered Medications: 03/24 21:45 Drug: [place] (7.5 mg-325 mg) 1 tabs Route: PO; rv 02 00:15 Follow up: Response: Pain is decreased rv 00:32 Drug: Cipro 500 mg Route: PO; rv 00:32 Follow up: Response: Medication administered at discharge. rv Outcome: 00:23 Discharge ordered by . pkl 00:33 Discharged to home ambulatory. rv 00:33 Condition: good 00:33 Discharge instructions given to patient, Instructed on discharge instructions, follow up and referral plans. medication usage, Demonstrated understanding of instructions, follow-up care, medications, Prescriptions given X 1. 00:34 Patient left the ED. rv Signatures: Dispatcher [employer] EDMS Isaac Boss MD MD pkElizabeth Lance Ervin eh Attema, Lee, RN RN laJasson Chatman, SARA RN rv Corrections: (The following items were deleted from the chart) 03/24 22:16 22:16 UA MICROSCOPIC+U.LAB.BRZ drawn and sent. rv EDMS
--- NOTE | 2018-03-25 00:25 | EDPHYS ---
Physician Documentation [facility] Name: Shereen Flores Age: 78 yrs Sex: Female : 1940 Arrival Date: 03/24/2018 Time: 20:34 Bed 24 Private MD: Sharath Pate E ED Physician Isaac Reyes HPI: 03/24 21:58 This 78 yrs old Black Female presents to ER via Ambulatory with complaints of Flank pkl Pain, Back Pain. 21:58 The patient complains of pain in the left flank. The pain does not radiate. Onset: The pkl symptoms/episode began/occurred 2 day(s) ago. Associated signs and symptoms: The patient has no apparent associated signs or symptoms. Historical: - Allergies: 20:40 SHARON INHIBITORS; la1 20:40 HYDRALAZINE; la1 20:40 Iodine; la1 20:40 iron; la1 20:40 Lisinopril; la1 20:40 PENICILLINS; la1 - Home Meds: 20:52 aspirin 81 mg Oral TbEC 1 tab once daily [Active]; carvedilol Oral [Active]; Metformin rv Oral [Active]; Metoprolol Tartrate Oral [Active]; Xanax 0.5 mg Oral tab [Active]; - PMHx: 20:40 Diabetes - NIDDM; GERD; Glaucoma; Hypertension; la1 - PSHx: 20:52 Unable to obtain; rv - Immunization history:: Adult Immunizations up to date. - Social history:: Smoking status: Patient/guardian denies using tobacco. - Ebola Screening: : No symptoms or risks identified at this time. ROS: 21:58 Eyes: Negative for injury, pain, redness, and discharge, ENT: Negative for injury, pkl pain, and discharge, Neck: Negative for injury, pain, and swelling, Cardiovascular: Negative for chest pain, palpitations, and edema, Respiratory: Negative for shortness of breath, cough, wheezing, and pleuritic chest pain, Abdomen/GI: Negative for abdominal pain, nausea, vomiting, diarrhea, and constipation. 21:58 Back: Positive for flank pain, on the left. 21:58 : Negative for urinary symptoms. 21:58 MS/extremity: Negative for acute changes. 21:58 Skin: Negative for rash. 21:58 Neuro: Negative for altered mental status. Exam: 21:58 Head/Face: Normocephalic, atraumatic. Eyes: Pupils equal round and reactive to light, pkl extra-ocular motions intact. Lids and lashes normal. Conjunctiva and sclera are non-icteric and not injected. Cornea within normal limits. Periorbital areas with no swelling, redness, or edema. ENT: Nares patent. No nasal discharge, no septal abnormalities noted. Tympanic membranes are normal and external auditory canals are clear. Oropharynx with no redness, swelling, or masses, exudates, or evidence of obstruction, uvula midline. Mucous membranes moist. Neck: Trachea midline, no thyromegaly or masses palpated, and no cervical lymphadenopathy. Supple, full range of motion without nuchal rigidity, or vertebral point tenderness. No Meningismus. Chest/axilla: Normal chest wall appearance and motion. Nontender with no deformity. No lesions are appreciated. Cardiovascular: Regular rate and rhythm with a normal S1 and S2. No gallops, murmurs, or rubs. Normal PMI, no JVD. No pulse deficits. Respiratory: Lungs have equal breath sounds bilaterally, clear to auscultation and percussion. No rales, rhonchi or wheezes noted. No increased work of breathing, no retractions or nasal flaring. Abdomen/GI: Soft, non-tender, with normal bowel sounds. No distension or tympany. No guarding or rebound. No evidence of tenderness throughout. Back: No spinal tenderness. No costovertebral tenderness. Full range of motion. Skin: Warm, dry with normal turgor. Normal color with no rashes, no lesions, and no evidence of cellulitis. MS/ Extremity: Pulses equal, no cyanosis. Neurovascular intact. Full, normal range of motion. Neuro: Awake and alert, GCS 15, oriented to person, place, time, and situation. Cranial nerves II-XII grossly intact. Motor strength 5/5 in all extremities. Sensory grossly intact. Cerebellar exam normal. Normal gait. Vital Signs: 20:41 Pulse 59; Resp 18; Temp 97.5; Pulse Ox 99% on R/A; Weight 63.05 kg; Height 5 ft. 4 in. la1 (162.56 cm); 20:42 BP 171 / 73; la1 21:00 BP 133 / 66; Pulse 54; Resp 16 S; Pulse Ox 99% on R/A; rv 23:36 BP 141 / 71; Pulse 58; Resp 18 S; Pulse Ox 99% on R/A; rv 20:41 Body Mass Index 23.86 (63.05 kg, 162.56 cm) la1 MDM: 22:56 Patient medically screened. snw 03/25 00:16 Data reviewed: vital signs, nurses notes, lab test result(s), radiologic studies, CT pkl scan. ED course: Patient feeling better. Discussed lab. and CT Scan results with patient. Advised to follow up with her Urologist ( at [facility] ) in a few days. Patient understood instructions.. 03/24 21:29 Order name: CBC with Diff; Complete Time: 23:08 pkl 03/24 21:29 Order name: Chem 7; Complete Time: 23:39 pkl 03/24 22:00 Order name: Urine Drug Screen; Complete Time: 23:26 ag4 03/24 22:00 Order name: Urine Dipstick--Ancillary (enter results); Complete Time: 23:08 ag4 03/24 22:00 Order name: Urine Microscopic Only; Complete Time: 23:08 rv 03/24 22:00 Order name: Urine Culture rv 03/24 21:56 Order name: CT Stone Protocol pkl 03/24 23:22 Order name: Magnesium; Complete Time: 23:39 EDMS 03/24 23:22 Order name: Lipase; Complete Time: 23:39 EDMS 03/24 23:40 Order name: LFT's; Complete Time: 00:08 fc Administered Medications: 03/24 21:45 Drug: Herculaneum (7.5 mg-325 mg) 1 tabs Route: PO; rv 03/25 00:15 Follow up: Response: Pain is decreased rv 00:32 Drug: Cipro 500 mg Route: PO; rv 00:32 Follow up: Response: Medication administered at discharge. rv Disposition: 03/25/18 00:23 Discharged to Home. Impression: Left flank pain. Urinary tract infection. Marked bilateral hydronephrosis. Chronic renal disease. - Condition is Stable. - Prescriptions for Cipro 250 mg Oral Tablet - take 1 tablet by ORAL route every 12 hours; 14 tablet. Tylenol- Codeine #3 300-30 mg Oral Tablet - take 1 tablet by ORAL route every 8 hours As needed; 20 tablet. - Medication Reconciliation Form, Thank You Letter, Antibiotic Education, Prescription Opioid Use form. - Follow up: Private Physician; When: 2 - 3 days; Reason: Re-evaluation by your physician. - Problem is new. - Symptoms have improved. Signatures: Dispatcher [employer] [facility] Isaac Reyes MD MD pkl Tonya Khanna, DESIGN QUALITY ENGINEER-C DESIGN QUALITY ENGINEER-[employer] Sharma RN RN la1 Jasson Drake RN RN rv Corrections: (The following items were deleted from the chart) 03/24 22:16 22:01 UA MICROSCOPIC+U.LAB.BRZ ordered. [facility] 03/25 00:34 00:23 03/25/2018 00:23 Discharged to Home. Impression: Left flank pain. Urinary tract rv infection. Marked bilateral hydronephrosis. Chronic renal disease. Condition is Stable. Forms are Medication Reconciliation Form, Thank You Letter, Antibiotic Education, Prescription Opioid Use. Follow up: Private Physician; When: 2 - 3 days; Reason: Re-evaluation by your physician. Problem is new. Symptoms have improved. pkl
[2018-03-25] MEDS ORDERED: CIPROFLOXACIN HCL 500 MG TAB ONE (00:30)
[2018-03-25 00:44] VITALS: TEMP 97.5; O2SAT 99
[2018-03-25 00:48] VITALS: BP 141/71
--- NOTE | 2018-03-26 15:23 | RAD REPORT ---
EXAM DESCRIPTION: CT - Stone Protocol - 03/25/2018 1:57 am CLINICAL HISTORY: The patient is 78 years old and is Female; left flank pain. COMPARISON: CT abdomen and pelvis without contrast dated April 09, 2017 (report not available) TECHNIQUE: Axial computed tomography images of the abdomen and pelvis without intravenous contrast. Sagittal and coronal reformatted images were created and reviewed. This CT exam was performed using one or more o f the following dose reduction techniques: Automated exposure control, adjustment of the mA and/or kV according to patient size, and/or use of iterative reconstruction technique. FINDINGS: LUNG BASES: Unremarkable. No mass. No consolidation. ABDOMEN: LIVER: Unremarkable. GALLBLADDER AND BILE DUCTS: Prior cholecystectomy. No ductal dilation. PANCREAS: Unremarkable. No ductal dilation SPLEEN: Multiple splenic calcifications, likely granulomas. ADRENALS: No mass. KIDNEYS AND URETERS: Severe bilateral hydronephrosis. STOMACH AND BOWEL: Large bowel containing periumbilical hernia No mucosal thickening. PELVIS: APPENDIX: The appendix is seen and is within normal limits. BLADDER: Unremarkable. No stones. REPRODUCTIVE: Prior hysterectomy. ABDOMEN and PELVIS: INTRAPERITONEAL SPACE: Unremarkable. No free air. No significant fluid collection. BONE/JOINTS: Diffuse osteopenia. Schmorl's node deformity over the superior endplate of T12 with T12-L1 vacuum phenomena. No acute fracture. No dislocation. SOFT TISSUES: See above. VASCULATURE:Atherosclerotic calcification of the abdominal aorta and iliac vasculature. No abdominal aortic aneurysm LYMPH NODES: Unremarkable. No enlarged lymph nodes. OTHER FINDINGS: There is multiple heterogenous calcifications in the region of the UVJs bilaterally m easuring 1.4 cm in length bilaterally (series 201, image 100 on the right and image 105 on the left). IMPRESSION: 1. Marked bilateral hydronephrosis and diffuse hydroureter/tortuosity with heterogenous calcification in the region of the bilateral UVJ. Finding is relatively unchanged when compared to the prior exam. 2. Large bowel containing periumbilical hernia. Findings improved from prior exam. 3. Evidence of prior granulomatous disease. 4. Prior cholecystectomy. 5. Diffuse osteopenia. Electronically signed by Satinder Marie DO 03/24/2018 11:07 PM FLARER Due to temporary technical issues with the PACS/Fluency reporting system, reports are being signed by the in house radiologist as a courtesy to ensure prompt reporting. The interpreting radiologist is shannen ully responsible for the content of the report.
== END 2018-03-25 00:34 | disposition home or self-care (01) ==
LOC: ER 20:32
DX: N39.0 Urinary tract infection, site not specified (principal); N13.30 Unspecified hydronephrosis; I12.9 Hypertensive chronic kidney disease with stage 1 through stage 4 chronic kidney disease, or unspecified chronic kidney disease; E11.22 Type 2 diabetes mellitus with diabetic chronic kidney disease; N18.9 Chronic kidney disease, unspecified; Z88.0 Allergy status to penicillin; Z88.8 Allergy status to other drugs, medicaments and biological substances; Z88.9 Allergy status to unspecified drugs, medicaments and biological substances
CPT/HCPCS: 36415; 74176; 76377; 80048; 80076; 80307; 81003; 81015; 83690; 83735; 85025; 87077; 87086; 87088; 87186; 99284

== ENCOUNTER 2018-04-03 01:16 | Emergency (ER) | payer OTHER ==
--- OUTSIDE RECORDS SUMMARY | 2018-04-03 01:18 | XMS REPORT | Clinical Summary ---
:1940 Author Organization [facility] Address [address] [place] [address] Care Team Providers Name Role Phone Unavailable [...] MD Georges Suárez, Mamta Núñez MD after 04/02/2017 Social History Tobacco Use Types Packs/Day Years Used Date Never Assessed Sex Assigned at Date Recorded Not on file Job Start Date Occupation Industry Not on file Not on file Not on file Travel History Travel Start Travel End No recent travel history available. Last Filed Vital Signs Vital Sign Reading Time Taken Blood Pressure 166/77 04/17/2017 3:35 PM [employer] Pulse 53 04/17/2017 3:35 PM [employer] Temperature 37.1 C (98.8 F) 04/17/2017 3:35 PM [employer] Respiratory Rate 19 04/17/2017 3:35 PM [employer] Oxygen Saturation 100% 04/17/2017 3:35 PM [employer] Inhaled Oxygen Concentration - - Weight 62.8 kg (138 lb 8 oz) 04/15/2017 1:46 AM [employer] Height 162.6 cm (5' 4") 04/15/2017 1:46 AM [employer] Body Mass Index 23.77 04/15/2017 1:46 AM [employer] Plan of Treatment Not on file Procedures Procedure Name Priority Date/Time Associated Comments Diagnosis RHYTHM STRIP - SCAN 05/04/2017 3:21 PM CDT REPORT OF PROCEDURE - 05/02/2017 1:40 ENDOSCOPY SCAN PM CDT REPORT OF PROCEDURE - 04/19/2017 10:10 ENDOSCOPY SCAN AM [employer] RHYTHM STRIP - SCAN 04/19/2017 10:10 AM [employer] ECHOCARDIOGRAM REPORT - 04/17/2017 5:20 SCAN PM [employer] 2D ECHO W/ DOPPLER LU 04/17/2017 2:23 Results for this (CW/PW/COLOR) PM [employer] procedure are in the results section. POCT-GLUCOSE METER Routine 04/17/2017 12:04 Results for this PM [employer] procedure are in the results section. POCT-GLUCOSE METER Routine 04/17/2017 6:53 Results for this AM [employer] procedure are in the results section. (MANUAL DIFFERENTIAL) Routine 04/17/2017 5:53 AM [employer] CBC W/PLT COUNT & AUTO Routine 04/17/2017 5:53 Results for this DIFFERENTIAL AM [employer] procedure are in the results section. MAGNESIUM Routine 04/17/2017 5:53 Results for this AM [employer] procedure are in the results section. BASIC METABOLIC PANEL Routine 04/17/2017 5:53 Results for this (7) AM [employer] procedure are in the results section. CBC W/PLT COUNT & AUTO Routine 04/17/2017 5:53 Results for this DIFFERENTIAL AM [employer] procedure are in the results section. POCT-GLUCOSE METER Routine 04/16/2017 9:03 Results for this PM [employer] procedure are in the results section. POCT-GLUCOSE METER Routine 04/16/2017 4:43 Results for this PM [employer] procedure are in the results section. POCT-GLUCOSE METER Routine 04/16/2017 12:19 Results for this PM [employer] procedure are in the results section. POCT-GLUCOSE METER Routine 04/16/2017 7:37 Results for this AM [employer] procedure are in the results section. (MANUAL DIFFERENTIAL) Routine 04/16/2017 5:17 Results for this AM [employer] procedure are in the results section. CBC W/PLT COUNT & AUTO Routine 04/16/2017 5:17 Results for this DIFFERENTIAL AM [employer] procedure are in the results section. BILIRUBIN, DIRECT Routine 04/16/2017 5:17 Results for this AM [employer] procedure are in the results section. COMPREHENSIVE METABOLIC Routine 04/16/2017 5:17 Results for this PANEL AM [employer] procedure are in the results section. GAMMA GLUTAMYL Routine 04/16/2017 5:17 Results for this TRANSFERASE (GGT) AM [employer] procedure are in the results section. CBC W/PLT COUNT & AUTO Routine 04/16/2017 5:17 Results for this DIFFERENTIAL AM [employer] procedure are in the results section. CREATINE KINASE (CK), Routine 04/16/2017 5:17 Results for this TOTAL AND MB AM [employer] procedure are in the results section. TROPONIN I Routine 04/16/2017 5:17 Results for this AM [employer] procedure are in the results section. MR ABDOMEN WITH/WITHOUT Routine 04/15/2017 11:10 Results for this IV CONTRAST PM [employer] procedure are in the results section. POCT-GLUCOSE METER Routine 04/15/2017 8:15 Results for this PM [employer] procedure are in the results section. POCT-GLUCOSE METER Routine 04/15/2017 5:26 Results for this PM [employer] procedure are in the results section. D-DIMER STAT 04/15/2017 4:29 Results for this PM [employer] procedure are in the results section. CREATINE KINASE (CK), Routine 04/15/2017 4:29 Results for this TOTAL AND MB PM [employer] procedure are in the results section. TROPONIN I Routine 04/15/2017 4:29 Results for this PM [employer] procedure are in the results section. POCT-GLUCOSE METER Routine 04/15/2017 2:28 Results for this PM [employer] procedure are in the results section. GAMMA GLUTAMYL STAT 04/15/2017 11:38 Results for this TRANSFERASE (GGT) AM [employer] procedure are in the results section. B-TYPE NATRIURETIC Routine 04/15/2017 11:38 Results for this FACTOR (BNP) AM [employer] procedure are in the results section. POCT-GLUCOSE METER Routine 04/15/2017 11:24 Results for this AM [employer] procedure are in the results section. CARBOHYDRATE ANTIGEN Routine 04/15/2017 10:07 Results for this 19-9 (CA 19-9) AM [employer] procedure are in the results section. CARCINOEMBRYONIC ANTIGEN Routine 04/15/2017 10:07 Results for this (CEA) AM [employer] procedure are in the results section. CREATINE KINASE (CK), Routine 04/15/2017 10:07 Results for this TOTAL AND MB AM [employer] procedure are in the results section. TROPONIN I Routine 04/15/2017 10:07 Results for this AM [employer] procedure are in the results section. POCT-GLUCOSE METER Routine 04/15/2017 9:58 Results for this AM [employer] procedure are in the results section. ECG 12-LEAD Routine 04/15/2017 9:24 Results for this AM [employer] procedure are in the results section. US ABDOMEN LIMITED Routine 04/15/2017 9:03 Results for this AM [employer] procedure are in the results section. CBC W/PLT COUNT & AUTO Routine 04/15/2017 5:31 Results for this DIFFERENTIAL AM [employer] procedure are in the results section. CREATINE KINASE (CK), Routine 04/15/2017 5:31 Results for this TOTAL AND MB AM [employer] procedure are in the results section. TROPONIN I Routine 04/15/2017 5:31 Results for this AM [employer] procedure are in the results section. LIPID PANEL Routine 04/15/2017 5:31 Results for this AM [employer] procedure are in the results section. HEMOGLOBIN A1C Routine 04/15/2017 5:31 Results for this AM [employer] procedure are in the results section. PHOSPHORUS Routine 04/15/2017 5:31 Results for this AM [employer] procedure are in the results section. MAGNESIUM Routine 04/15/2017 5:31 Results for this AM [employer] procedure are in the results section. LIPASE Routine 04/15/2017 5:31 Results for this AM [employer] procedure are in the results section. CBC W/PLT COUNT & AUTO Routine 04/15/2017 5:31 Results for this DIFFERENTIAL AM [employer] procedure are in the results section. COMPREHENSIVE METABOLIC Routine 04/15/2017 5:31 Results for this PANEL AM [employer] procedure are in the results section. POCT-GLUCOSE METER Routine 04/15/2017 5:03 Results for this AM [employer] procedure are in the results section. after 04/02/2017 Results RHYTHM STRIP - SCAN (05/04/2017 3:21 PM CDT)Only the most recent of2 resultswithin the time period is included. Narrative Performed At EKG-SCANNED (05/02/2017 1:40 PM CDT)Only the most recent of2 resultswithin the time period is included. Narrative Performed At ECHOCARDIOGRAM REPORT - SCAN (04/17/2017 5:20 PM [employer]) Narrative Performed At 2D Echo W/Doppler(CW/PW/Color) (04/17/2017 2:23 PM [employer]) Ejection Fraction [facility] Narrative Performed At Transthoracic Echocardiography Report (TTE) [facility] [employer] Demographics Patient NameBACKMAN,Date of Study 04/17/2017 SHEREEN Female Visit [id number] Black Room Number 902 Number Date of 2Referring Mamta Kline MD Physician Age 77 year(s)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 SHAUN Fernandez, RDCS,RVT,RDMS Autism Tutor Elizabeth Sanders MD RDCSPhysician Procedure Type of [...] External Ris In - 04/17/2017 4:48 PM [employer] Transthoracic Echocardiography Report (TTE) Demographics Patient Name GRETCHEN, Date of Study 04/17/2017 SHEREEN Gender Female Visit Number [id number] Race Black Room Number 902 Number Date of 1940 Referring Mamta Kline MD Physician Age 77 year(s) 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 POC-Glucose Meter 253 (H)Comment: TESTED AT 70 - 110 mg/dL [facility] [address] [facility] [address] Specimen Blood Performing Organization Address City/[facility]/Zipcode Phone Number [address] [address] CENTER Manual Differential (04/17/2017 5:53 AM [employer]ER)Only the most recent of2 resultswithin the time period is included. Specimen Blood Performing Organization Address City/State/Zipcode Phone Number [facility] [address] [place] [address] CENTER CBC with platelet count + automated diff (04/17/2017 5:53 AM [employer]ER)Only the most recent of3 resultswithin the time period is included. WBC 7.3 3.5 - 10.5 K/L [facility] RBC 3.94 3.93 - 5.22 M/L [facility] Hemoglobin 11.3 11.2 - 15.7 GM/DL [facility] Hematocrit 35.8 34.1 - 44.9 % [facility] MCV 90.9 79.4 - 94.8 fL [facility] MCH 28.7 25.6 - 32.2 pg [facility] MCHC 31.6 (L) 32.2 - 35.5 GM/DL [facility] RDW 13.4 11.7 - 14.4 % [facility] Platelets 268 150 - 450 K/CU MM [facility] MPV 10.0 9.4 - 12.3 fL [facility] nRBC 0 0 - 0 /100 WBC [facility] % Neutros 41 % [facility] % Lymphs 46 % [facility] % Monos 8 % [facility] % Eos 3 % [facility] % Baso 2 % [facility] # Neutros 2.99 1.56 - 6.13 K/L [facility] # Lymphs 3.34 1.18 - 3.74 K/L [facility] # Monos 0.57 (H) 0.24 - 0.36 K/L [facility] # Eos 0.22 0.04 - 0.36 K/L [facility] # Baso 0.11 (H) 0.01 - 0.08 K/L [facility] Immature Granulocytes-Relative 0 0 - 1 % [facility] Specimen Blood - Arm, Left Performing Organization Address City/[facility] Phone Number [address] [address] CENTER Magnesium (04/17/2017 5:53 AM [employer])Only the most recent of2 resultswithin the time period is included. Magnesium 1.6 1.6 - 2.6 mg/dL [facility] Specimen Blood - Arm, Left Performing Organization Address [facility] Phone Number [address] [address] [place] Basic Metabolic Panel (04/17/2017 5:53 AM [employer]) Sodium 140 136 - 145 meq/L [facility] Potassium 3.7 3.5 - 5.1 meq/L [facility] Chloride 109 (H) 98 - 107 meq/L [facility] CO2 23 22 - 29 meq/L [facility] BUN 12 7 - 21 mg/dL [facility] Creatinine 0.82 0.57 - 1.25 mg/dL [facility] Glucose 96 70 - 105 mg/dL [facility] Calcium 9.5 8.4 - 10.2 mg/dL [facility] EGFR 82Comment: ESTIMATED GFR IS mL/min/1.73 sq m [facility] NOT ACCURATE [facility] CLEARANCE IN PREDICTING GLOMERULAR FILTRATION RATE. ESTIMATED GFR IS NOT APPLICABLE FOR DIALYSIS PATIENTS. Specimen Blood - Arm, Left Performing Organization Address [facility] Phone Number [facility] [address] [address] CENTER Troponin I (04/16/2017 5:17 AM [employer])Only the most recent of4 resultswithin the time period is included. Troponin I 0.02 0.00 - 0.03 ng/mL [facility] Specimen Blood Narrative Performed At [facility] Troponin I (TnI) levels must [...] disease, and persistent tachyarrhythmia. Performing Organization Address [facility] Phone Number [address] [address] [place] Gamma Glutamyl Transferase (GGT) (04/16/2017 5:17 AM [employer]ER)Only the most recent of2 resultswithin the time period is included. GGT 305 (H) 9 - 64 U/L [facility] Specimen Blood Performing Organization Address [facility] Phone Number [address] [address] [place] Creatine Kinase (CK), Total and MB (04/16/2017 5:17 AM [employer])Only the most recent of4 resultswithin the time period is included. Total CK 143 29 - 200 U/L [facility] CK-MB 4.1 0.0 - 6.6 ng/mL [facility] MB Relative Index 2.9 % [facility] Specimen Blood Narrative Performed At CK-MB Reference Range: [facility] <6.7Normal 6.7-10.0Borderline >10.0 Abnormal Performing Organization Address [facility] Phone Number [facility] [address] [address] [place] Bilirubin, direct (04/16/2017 5:17 AM [employer]ER) Bilirubin, Direct 0.2 0.1 - 0.5 mg/dL [facility] Specimen Blood Performing Organization Address City/State/Zipcode Phone Number [address] [address] [phone] [place] Comprehensive metabolic panel (04/16/2017 5:17 AM [employer] OFFICER)Only the most recent of2 resultswithin the time period is included. Protein, Total 7.1 6.0 - 8.3 gm/dL [facility] Albumin 3.3 (L) 3.5 - 5.0 g/dL [facility] Alkaline Phosphatase 186 (H) 40 - 150 U/L [facility] Total Bilirubin <0.3 0.2 - 1.2 mg/dL [facility] Sodium 141 136 - 145 meq/L [facility] Potassium 3.6 3.5 - 5.1 meq/L [facility] Chloride 110 (H) 98 - 107 meq/L [facility] CO2 24 22 - 29 meq/L [facility] BUN 13 7 - 21 mg/dL [facility] Creatinine 0.82 0.57 - 1.25 mg/dL [facility] Glucose 83 70 - 105 mg/dL [facility] Calcium 9.3 8.4 - 10.2 mg/dL [facility] AST 30 5 - 34 U/L [facility] ALT 88 (H) 6 - 55 U/L [facility] EGFR 82Comment: ESTIMATED GFR mL/min/1.73 sq m [facility] IS NOT ACCURATE [facility] CREATININE CLEARANCE IN PREDICTING GLOMERULAR FILTRATION RATE. ESTIMATED GFR IS NOT APPLICABLE FOR DIALYSIS PATIENTS. Specimen Blood Performing Organization Address City/State/Zipcode Phone Number [facility] [address] [place] [address] CENTER MR abdomen without & with IV contrast (04/15/2017 11:10 PM [employer] OFF[employer]ER) Narrative Performed At FINAL REPORT [facility] MRI OF THE ABDOMEN with MRCP CLINICAL [...] MD Report Verified Date/Time:04/17/2017 12:17:51 Reading Location: [facility] B1 C013Y CT Body Reading Room Procedure Note Interface, External Ris In - 04/17/2017 12:20 PM [employer]ER FINAL REPORT MRI OF THE ABDOMEN with [...] Report Verified Date/Time: 04/17/2017 12:17:51 Reading Location: [facility] B1 C013Y CT Body Reading Room Performing Organization Address City/State/Zipcode Phone Number [facility] D-dimer (04/15/2017 4:29 PM [employer]S OFFICER) D-Dimer, Quant 0.60 (H) <0.50 MG/L FEU [facility] Specimen Blood - Arm, Left Narrative Performed At [facility] Intended Use: The D-Dimer Assay [...] is within 95-100% range. Performing Organization Address [facility] Phone Number [address] [address] [phone] [place] B-type Natriuretic Factor (BNP) (04/15/2017 11:38 AM [employer]S [employer]ER) BNP 200 (H) 0 - 100 pg/mL [facility] Specimen Blood Performing Organization Address [facility] Phone Number [address] [address] [place] Carbohydrate antigen 19-9 (CA 19-9) (04/15/2017 10:07 AM [employer]S OFFICER) CA 19-9 25 <34 U/mL [facility] Comment: This test was performed using the Siemens ([employer]) Chemiluminescent method. Values obtained from different assay methods cannot be used interchangeably. CA19-9 levels, regardless of value, should not be interpreted as absolute evidence of the presence or absence of disease. Specimen Blood Narrative Performed At Performing Lab [facility] [address] [address] Naomi Soto MD, PhD Performing Organization Address [facility] Number [place] [address] [facility] [place] [address] Carcinoembryonic Antigen (CEA) (04/15/2017 10:07 AM SH[employer]S OFFICER) CEA, SERUM 2.5 0.0 - 5.0 ng/mL [facility] Specimen Blood Performing Organization Address [facility] Phone Number [address] [id number] [phone] CENTER ECG 12 lead (04/15/2017 9:24 AM SH[employer]'S OFFICER) Narrative Performed At Ventricular Rate 56 BPM GE MUSE Atrial Rate 56 BPM P-R Interval 158 ms QRS Duration 90 ms Q-T Interval 466 ms QTC Calculation(Bazett) 449 ms P [place] 67 degrees R [place] 36 degrees T [place] 42 degrees Sinus bradycardia Nonspecific ST and T wave abnormality Abnormal ECG No previous ECGs available Confirmed by Dayna SONI BASANT ([id number]) on 04/16/2017 8:23:52 AM Procedure Note Interface, External Ris In - 04/16/2017 8:24 AM [employer]S OFFICER Ventricular Rate 56 BPM Atrial Rate 56 BPM P-R Interval 158 ms QRS Duration 90 ms Q-T Interval 466 ms QTC Calculation(Bazett) 449 ms P [place] 67 degrees R [place] 36 degrees T [place] 42 degrees Sinus bradycardia Nonspecific ST and T wave abnormality Abnormal ECG No previous ECGs available Confirmed by Dayna SONI BASANT ([id number]) on 04/16/2017 8:23:52 AM Performing Organization Address City/State/Zipcode Phone Number [employer] abdomen limited (04/15/2017 9:03 AM SHIP'S OFFICER) Narrative Performed At FINAL REPORT [facility] ULTRASOUND RIGHT UPPER QUADRANT OF THE ABDOMEN [...] MD Report Verified Date/Time:04/15/2017 10:11:28 Reading Location: [facility] C013X [facility] Consult Reading Room Procedure Note Interface, External Ris In - 04/15/2017 10:13 AM [employer]'S OFFICER FINAL REPORT ULTRASOUND RIGHT UPPER QUADRANT OF [...] IMPRESSION: 1. Mild right hydronephrosis. Signed: Jenn Crcoker MD Report Verified Date/Time: 04/15/2017 10:11:28 Reading Location: [address] Ortho Consult Reading Room Performing Organization Address [facility] Phone Number [facility] Phosphorus (04/15/2017 5:31 AM SHIP'S OFFICER) Phosphorus 3.9 2.3 - 4.7 mg/dL [facility] Specimen Blood Performing Organization Address [facility] Phone Number [address] [address] [phone] [place] Lipase (04/15/2017 5:31 AM SHIP'S OFFICER) Lipase 29 8 - 78 U/L [facility] Specimen Blood Performing Organization Address [facility] Phone Number [address] [address] CENTER Hemoglobin A1c (04/15/2017 5:31 AM SHIP'S OFFICER) Hemoglobin A1C 6.8 (H) 4.3 - 6.1 % [facility] Specimen Blood Performing Organization Address [facility] Phone Number [address] [address] CENTER Lipid panel (04/15/2017 5:31 AM SHIP'S OFFICER) Triglycerides 128 mg/dL [facility] Cholesterol 162 mg/dL [facility] HDL 47 mg/dL [facility] LDL Calculated 89 mg/dL [facility] Specimen Blood Narrative Performed At [facility] Triglyceride Reference Range: Low Risk <150 [id number] High Risk 200-499 Very High Risk>=500 Cholesterol Reference Range: Low Risk <200 [id number] High Risk>240 HDL Cholesterol Reference Range: Low Risk >=60 High Risk <40 LDL Cholesterol Reference Range: Optimal<100 Near [id number] Very High >=190 Performing Organization Address City/State/Zipcode Phone Number [facility] [address] [place], [place] [id number] CENTER after 04/02/2017 Insurance Payer Benefit Plan / Group Subscriber ID Type Phone Address MEDICARE MEDICARE A B xxxxxxxxxx Medicare MEDICAID [place] xxxxxxxxx Medicaid Advance Directives For more information, please contact:[address] [phone] Code Status Date Activated Date Inactivated Comments Full Code 04/15/2017 2:43 AM 04/17/2017 10:06 PM This code status was determined by: Patient
--- OUTSIDE RECORDS SUMMARY | 2018-04-03 01:19 | XMS REPORT ---
:1940 [facility] [address] [place] [address] Care Team Providers Name Role Phone KERRY [...] ID: WITH 12:17:00 MRCP for evaluation of [id number] MRI OF THE ABDOMEN biliary system; concern [...] MDReport Verified Date/Time: 04/17/2017 12:17:51 Reading Location: [place] [id number] CT Body Reading Room -GLUCOSE METER 2017-04-17 12:08:00 Test Item Value Reference Range Comments POC-GLUCOSE METER (BEAKER) (test 253 mg/dL 70-110 TESTED AT [facility] [address] [facility] [address] xnck=6149) [facility] [address] CBC W/PLT COUNT & AUTO [id number] 12:08:00 Test Item Value Reference Range Comments WHITE BLOOD CELL COUNT (BEAKER) (test jomy=074) 7.3 K/ L 3.5-10.5 RED BLOOD CELL COUNT (BEAKER) (test plrf=555) 3.94 M/ L 3.93-5.22 HEMOGLOBIN (BEAKER) (test ivjw=996) 11.3 GM/DL 11.2-15.7 HEMATOCRIT (BEAKER) (test elds=958) 35.8 % 34.1-44.9 MEAN CORPUSCULAR VOLUME (BEAKER) (test zhoo=345) 90.9 fL 79.4-94.8 MEAN CORPUSCULAR HEMOGLOBIN (BEAKER) (test 28.7 pg 25.6-32.2 lwfz=995) MEAN CORPUSCULAR HEMOGLOBIN CONC (BEAKER) (test 31.6 GM/DL 32.2-35.5 lxbw=433) RED CELL DISTRIBUTION WIDTH (BEAKER) (test 13.4 % 11.7-14.4 mixe=988) PLATELET COUNT (BEAKER) (test mpuo=097) 268 K/CU MM 150-450 MEAN PLATELET VOLUME (BEAKER) (test smza=804) 10.0 fL 9.4-12.3 NUCLEATED RED BLOOD CELLS (BEAKER) (test 0 /100 WBC 0-0 jsje=988) NEUTROPHILS RELATIVE PERCENT (BEAKER) (test 41 % wxmq=319) LYMPHOCYTES RELATIVE PERCENT (BEAKER) (test 46 % ixod=362) MONOCYTES RELATIVE PERCENT (BEAKER) (test 8 % qatl=213) EOSINOPHILS RELATIVE PERCENT (BEAKER) (test 3 % sozx=056) BASOPHILS RELATIVE PERCENT (BEAKER) (test 2 % wjux=153) NEUTROPHILS ABSOLUTE COUNT (BEAKER) (test 2.99 K/ L 1.56-6.13 lxis=149) LYMPHOCYTES ABSOLUTE COUNT (BEAKER) (test 3.34 K/ L 1.18-3.74 iimz=361) MONOCYTES ABSOLUTE COUNT (BEAKER) (test 0.57 K/ L 0.24-0.36 geec=061) EOSINOPHILS ABSOLUTE COUNT (BEAKER) (test 0.22 K/ L 0.04-0.36 rbrw=118) BASOPHILS ABSOLUTE COUNT (BEAKER) (test 0.11 K/ L 0.01-0.08 ceol=897) IMMATURE GRANULOCYTES-RELATIVE PERCENT (BEAKER) 0 % 0-1 (test kaog=8588) POCT-GLUCOSE [id number] 08:04:00 Test Item Value Reference Range Comments POC-GLUCOSE METER (BEAKER) 99 mg/dL 70-110 TESTED AT [facility] [address] [facility] [address] [facility] (test pjly=3402) [facility] [address] [id number] 06:55:00 Test Item Value Reference Range Comments MAGNESIUM (BEAKER) (test jbdt=631) 1.6 mg/dL 1.6-2.6 BASIC METABOLIC [id number] 06:55:00 Test Item Value Reference Range Comments SODIUM (BEAKER) (test 140 meq/L 136-145 qdeh=131) POTASSIUM (BEAKER) (test 3.7 meq/L 3.5-5.1 nivl=078) CHLORIDE (BEAKER) (test 109 meq/L 98-107 feso=422) CO2 (BEAKER) (test 23 meq/L 22-29 elty=469) BLOOD UREA NITROGEN 12 mg/dL 7-21 (BEAKER) (test sifl=220) CREATININE (BEAKER) (test 0.82 mg/dL 0.57-1.25 jilr=817) GLUCOSE RANDOM (BEAKER) 96 mg/dL 70-105 (test kbpq=527) CALCIUM (BEAKER) (test 9.5 mg/dL 8.4-10.2 eovx=901) EGFR (BEAKER) (test 82 mL/min/1.73 sq m ESTIMATED GFR IS NOT ijgp=7502) ACCURATE CREATININE CLEARANCE IN PREDICTING GLOMERULAR FILTRATION RATE. ESTIMATED GFR IS NOT APPLICABLE FOR DIALYSIS PATIENTS. POCT-GLUCOSE [id number] 21:05:00 Test Item Value Reference Range Comments POC-GLUCOSE METER (BEAKER) 98 mg/dL 70-110 TESTED AT [address] (test tomo=3222) [place] [id number] POCT-GLUCOSE [id number] 17:04:00 Test Item Value Reference Range Comments POC-GLUCOSE METER (BEAKER) 89 mg/dL 70-110 TESTED AT [address] (test zvji=5894) [place] [id number] POCT-GLUCOSE [id number] 12:37:00 Test Item Value Reference Range Comments POC-GLUCOSE METER (BEAKER) 202 mg/dL 70-110 TESTED AT [address] (test jyty=9196) [place] [id number] CBC W/PLT COUNT & AUTO [id number] 09:44:00 Test Item Value Reference Range Comments WHITE BLOOD CELL COUNT (BEAKER) (test pyrs=350) 7.1 K/ L 3.5-10.5 RED BLOOD CELL COUNT (BEAKER) (test radh=068) 3.76 M/ L 3.93-5.22 HEMOGLOBIN (BEAKER) (test emqf=928) 11.0 GM/DL 11.2-15.7 HEMATOCRIT (BEAKER) (test mtgp=575) 34.6 % 34.1-44.9 MEAN CORPUSCULAR VOLUME (BEAKER) (test evrl=108) 92.0 fL 79.4-94.8 MEAN CORPUSCULAR HEMOGLOBIN (BEAKER) (test 29.3 pg 25.6-32.2 xtvt=908) MEAN CORPUSCULAR HEMOGLOBIN CONC (BEAKER) (test 31.8 GM/DL 32.2-35.5 fsgg=768) RED CELL DISTRIBUTION WIDTH (BEAKER) (test 13.6 % 11.7-14.4 gjwn=199) PLATELET COUNT (BEAKER) (test jbgm=615) 252 K/CU MM 150-450 MEAN PLATELET VOLUME (BEAKER) (test xwnb=803) 9.9 fL 9.4-12.3 NUCLEATED RED BLOOD CELLS (BEAKER) (test 0 /100 WBC 0-0 nvga=717) IMMATURE GRANULOCYTES-RELATIVE PERCENT (BEAKER) 0 % 0-1 (test ogzs=8884) (MANUAL DIFFERENTIAL)2017-04-16 09:44:00 Test Item Value Reference Range Comments NEUTROPHILS - REL (DIFF) (BEAKER) (test vylv=5273) 37 % LYMPHOCYTES - REL (DIFF) (BEAKER) (test lmez=3604) 51 % MONOCYTES - REL (DIFF) (BEAKER) (test phgv=5137) 9 % EOSINOPHILS - REL (DIFF) (BEAKER) (test oymb=3202) 3 % BASOPHILS - REL (DIFF) (BEAKER) (test jwvl=0837) 0 % NEUTROPHILS - ABS (DIFF) (BEAKER) (test bbwk=9064) 2.63 K/ L 1.80-8.00 LYMPHOCYTES - ABS (DIFF) (BEAKER) (test aorr=2944) 3.62 K/ L 1.48-4.50 MONOCYTES - ABS (DIFF) (BEAKER) (test zdkj=9963) 0.64 K/ L 0.00-1.30 EOSINOPHILS - ABS (DIFF) (BEAKER) (test vnut=7903) 0.21 K/ L 0.00-0.50 BASOPHILS - ABS (DIFF) (BEAKER) (test mora=4876) 0.00 K/ L 0.00-0.20 TOTAL COUNTED (BEAKER) (test llsz=0630) 100 WBC MORPHOLOGY (BEAKER) (test tzjb=961) Normal PLT MORPHOLOGY (BEAKER) (test rpyi=397) Normal RBC MORPHOLOGY (BEAKER) (test hbxh=722) Normal CREATINE KINASE (CK), TOTAL AND [id number] 07:51:00 Test Item Value Reference Range Comments CREATINE KINASE TOTAL (BEAKER) (test duqy=166) 143 U/L 29-200 CREATINE KINASE-MB (BEAKER) (test vntl=919) 4.1 ng/mL 0.0-6.6 CREATINE KINASE-MB INDEX (BEAKER) (test lbsi=649) 2.9 % CK-MB Reference Range:<6.7 Normal6.7-10.0 Borderline>10.0 AbnormalTROPONIN [id number] 07:51:00 Test Item Value Reference Range Comments TROPONIN I (BEAKER) (test hxgy=032) 0.02 ng/mL 0.00-0.03 Troponin I (TnI) levels [...] acidosis, acute neurological disease, and persistent tachyarrhythmia.POCT-GLUCOSE [id number] 07:41:00 Test Item Value Reference Range Comments POC-GLUCOSE METER (BEAKER) 85 mg/dL 70-110 TESTED AT [facility] [address] [facility] [address] [facility] (test zrsg=0718) [facility] [address] GAMMA GLUTAMYL TRANSFERASE (GGT)2017-04-16 07:41:00 Test Item Value Reference Range Comments GAMMA GLUTAMYL TRANSFERASE (BEAKER) (test ozdu=640) 305 U/L 9-64 BILIRUBIN, [id number] 07:41:00 Test Item Value Reference Range Comments BILIRUBIN DIRECT (BEAKER) (test hmnh=227) 0.2 mg/dL 0.1-0.5 COMPREHENSIVE METABOLIC [id number] 07:41:00 Test Item Value Reference Range Comments TOTAL PROTEIN (BEAKER) 7.1 gm/dL 6.0-8.3 (test vyss=340) ALBUMIN (BEAKER) (test 3.3 g/dL 3.5-5.0 mzbb=8468) ALKALINE PHOSPHATASE 186 U/L 40-150 (BEAKER) (test bayv=577) BILIRUBIN TOTAL (BEAKER) < mg/dL 0.2-1.2 (test beyh=524) SODIUM (BEAKER) (test 141 meq/L 136-145 ndzo=851) POTASSIUM (BEAKER) (test 3.6 meq/L 3.5-5.1 zlgp=462) CHLORIDE (BEAKER) (test 110 meq/L 98-107 rtzf=146) CO2 (BEAKER) (test 24 meq/L 22-29 wwbw=507) BLOOD UREA NITROGEN 13 mg/dL 7-21 (BEAKER) (test ujkm=108) CREATININE (BEAKER) (test 0.82 mg/dL 0.57-1.25 nfny=276) GLUCOSE RANDOM (BEAKER) 83 mg/dL 70-105 (test fmtl=544) CALCIUM (BEAKER) (test 9.3 mg/dL 8.4-10.2 gihb=585) AST (SGOT) (BEAKER) (test 30 U/L 5-34 mgew=780) ALT (SGPT) (BEAKER) (test 88 U/L 6-55 sxgl=867) EGFR (BEAKER) (test 82 mL/min/1.73 sq m ESTIMATED GFR IS NOT tzgv=3414) ACCURATE CREATININE CLEARANCE IN PREDICTING GLOMERULAR FILTRATION RATE. ESTIMATED GFR IS NOT APPLICABLE FOR DIALYSIS PATIENTS. POCT-GLUCOSE [id number] 20:46:00 Test Item Value Reference Range Comments POC-GLUCOSE METER (BEAKER) 99 mg/dL 70-110 TESTED AT [address] (test otqz=5775) [place] [address] POCT-GLUCOSE [id number] 17:37:00 Test Item Value Reference Range Comments POC-GLUCOSE METER (BEAKER) 143 mg/dL 70-110 TESTED AT [address] (test anun=5218) [place] [address] CREATINE KINASE (CK), TOTAL AND [id number] 17:27:00 Test Item Value Reference Range Comments CREATINE KINASE TOTAL (BEAKER) (test jinj=944) 196 U/L 29-200 CREATINE KINASE-MB (BEAKER) (test kakw=871) 5.1 ng/mL 0.0-6.6 CREATINE KINASE-MB INDEX (BEAKER) (test rjbf=668) 2.6 % CK-MB Reference Range:<6.7 Normal6.7-10.0 Borderline>10.0 AbnormalTROPONIN [id number] 17:27:00 Test Item Value Reference Range Comments TROPONIN I (BEAKER) (test tovr=909) 0.02 ng/mL 0.00-0.03 Troponin I (TnI) levels [...] failure, acidosis, acute neurological disease, and persistent tachyarrhythmia.[id number] 16:54:00 Test Item Value Reference Range Comments D-DIMER QUANTITATIVE (BEAKER) (test gcjs=399) 0.60 MG/L FEU <0.50 Intended Use: The [...] of thrombosis is within 95-100% range.POCT- GLUCOSE [id number] 14:54:00 Test Item Value Reference Range Comments POC-GLUCOSE METER (BEAKER) 113 mg/dL 70-110 TESTED AT [facility] [address] [facility] [address] [facility] (test sptj=8432) [facility] [address] CBC W/PLT COUNT & AUTO [id number] 13:06:00 Test Item Value Reference Range Comments WHITE BLOOD CELL COUNT (BEAKER) (test sevq=270) 7.2 K/ L 3.5-10.5 RED BLOOD CELL COUNT (BEAKER) (test qlma=931) 3.92 M/ L 3.93-5.22 HEMOGLOBIN (BEAKER) (test snyt=532) 11.3 GM/DL 11.2-15.7 HEMATOCRIT (BEAKER) (test qysw=540) 35.6 % 34.1-44.9 MEAN CORPUSCULAR VOLUME (BEAKER) (test sagu=881) 90.8 fL 79.4-94.8 MEAN CORPUSCULAR HEMOGLOBIN (BEAKER) (test 28.8 pg 25.6-32.2 ovaz=047) MEAN CORPUSCULAR HEMOGLOBIN CONC (BEAKER) (test 31.7 GM/DL 32.2-35.5 igkp=031) RED CELL DISTRIBUTION WIDTH (BEAKER) (test 13.8 % 11.7-14.4 dtyt=143) PLATELET COUNT (BEAKER) (test opja=687) 254 K/CU MM 150-450 MEAN PLATELET VOLUME (BEAKER) (test obcz=097) 10.2 fL 9.4-12.3 NUCLEATED RED BLOOD CELLS (BEAKER) (test 0 /100 WBC 0-0 hrow=638) NEUTROPHILS RELATIVE PERCENT (BEAKER) (test 37 % grty=967) LYMPHOCYTES RELATIVE PERCENT (BEAKER) (test 50 % ymjg=794) MONOCYTES RELATIVE PERCENT (BEAKER) (test 8 % pxps=402) EOSINOPHILS RELATIVE PERCENT (BEAKER) (test 4 % ckip=951) BASOPHILS RELATIVE PERCENT (BEAKER) (test 1 % yukd=943) NEUTROPHILS ABSOLUTE COUNT (BEAKER) (test 2.66 K/ L 1.56-6.13 ppfa=793) LYMPHOCYTES ABSOLUTE COUNT (BEAKER) (test 3.57 K/ L 1.18-3.74 hxjj=340) MONOCYTES ABSOLUTE COUNT (BEAKER) (test 0.55 K/ L 0.24-0.36 dbir=075) EOSINOPHILS ABSOLUTE COUNT (BEAKER) (test 0.26 K/ L 0.04-0.36 fwjx=853) BASOPHILS ABSOLUTE COUNT (BEAKER) (test 0.08 K/ L 0.01-0.08 yfik=358) IMMATURE GRANULOCYTES-RELATIVE PERCENT (BEAKER) 0 % 0-1 (test lrvc=3765) B-TYPE NATRIURETIC FACTOR (BNP)2017-04-15 12:21:00 Test Item Value Reference Range Comments B-TYPE NATRIURETIC PEPTIDE (BEAKER) (test 200 pg/mL 0-100 xaps=240) GAMMA GLUTAMYL TRANSFERASE (GGT)2017-04-15 12:16:00 Test Item Value Reference Range Comments GAMMA GLUTAMYL TRANSFERASE (BEAKER) (test bumv=317) 327 U/L 9-64 CARCINOEMBRYONIC ANTIGEN (CEA)2017-04-15 11:33:00 Test Item Value Reference Range Comments CARCINOEMBRYONIC ANTIGEN (BEAKER) (test sure=458) 2.5 ng/mL 0.0-5.0 POCT-GLUCOSE [id number] 11:26:00 Test Item Value Reference Range Comments POC-GLUCOSE METER (BEAKER) 114 mg/dL 70-110 TESTED AT [facility] [address] [facility] [address] [facility] (test eurr=6646) [facility] [address] CREATINE KINASE (CK), TOTAL AND [id number] 11:19:00 Test Item Value Reference Range Comments CREATINE KINASE TOTAL (BEAKER) (test ilne=649) 204 U/L 29-200 CREATINE KINASE-MB (BEAKER) (test togp=511) 5.7 ng/mL 0.0-6.6 CREATINE KINASE-MB INDEX (JAKE) (test ypqx=073) 2.8 % CK-MB Reference Range:<6.7 Normal6.7-10.0 Borderline>10.0 AbnormalTROPONIN [id number] 11:19:00 Test Item Value Reference Range Comments TROPONIN I (JAKE) (test vuuo=479) 0.02 ng/mL 0.00-0.03 Troponin I (TnI) levels [...] acute neurological disease, and persistent tachyarrhythmia.U/S, ABDOMINAL, [id number] 10:11: 00Abdomen limited area? Add comment if [...] MDReport Verified Date/Time: 04/15/2017 10:11:28 Reading Location: [address] Reading Room Electronically signed by: JENN CROCKER MD on 2017 10:11 AMPOCT-GLUCOSE [id number] 10:00:00 Test Item Value Reference Range Comments POC-GLUCOSE METER (BEAKER) 107 mg/dL 70-110 TESTED AT [facility] [address] (test qqox=9196) [facility] [address] HEMOGLOBIN [id number] 08:15:00 Test Item Value Reference Range Comments HEMOGLOBIN A1C (BEAKER) (test koxz=035) 6.8 % 4.3-6.1 [id number] 07:35:00 Test Item Value Reference Range Comments PHOSPHORUS (BEAKER) (test bknu=601) 3.9 mg/dL 2.3-4.7 [id number] 07:35:00 Test Item Value Reference Range Comments MAGNESIUM (BEAKER) (test tnao=889) 1.8 mg/dL 1.6-2.6 COMPREHENSIVE METABOLIC [id number] 07:35:00 Test Item Value Reference Range Comments TOTAL PROTEIN (BEAKER) 7.5 gm/dL 6.0-8.3 (test fmjf=136) ALBUMIN (BEAKER) (test 3.5 g/dL 3.5-5.0 cxcx=8045) ALKALINE PHOSPHATASE 211 U/L 40-150 (BEAKER) (test lefd=828) BILIRUBIN TOTAL (BEAKER) < mg/dL 0.2-1.2 (test nzjm=730) SODIUM (BEAKER) (test 142 meq/L 136-145 gvne=255) POTASSIUM (BEAKER) (test 3.6 meq/L 3.5-5.1 yssr=436) CHLORIDE (BEAKER) (test 110 meq/L 98-107 zfnm=413) CO2 (BEAKER) (test 22 meq/L 22-29 pgkj=208) BLOOD UREA NITROGEN 12 mg/dL 7-21 (BEAKER) (test lggr=324) CREATININE (BEAKER) (test 0.84 mg/dL 0.57-1.25 ssek=933) GLUCOSE RANDOM (BEAKER) 107 mg/dL 70-105 (test wdxg=868) CALCIUM (BEAKER) (test 9.4 mg/dL 8.4-10.2 swsn=185) AST (SGOT) (BEAKER) (test 37 U/L 5-34 cvop=407) ALT (SGPT) (BEAKER) (test 119 U/L 6-55 nqpd=169) EGFR (BEAKER) (test 80 mL/min/1.73 sq m ESTIMATED GFR IS NOT yuti=9485) ACCURATE CREATININE CLEARANCE IN PREDICTING GLOMERULAR FILTRATION RATE. ESTIMATED GFR IS NOT APPLICABLE FOR DIALYSIS PATIENTS. LIPID [id number] 07:35:00 Test Item Value Reference Range Comments TRIGLYCERIDES (BEAKER) (test vzci=883) 128 mg/dL CHOLESTEROL (BEAKER) (test rusw=313) 162 mg/dL HDL CHOLESTEROL (BEAKER) (test lkiq=673) 47 mg/dL LDL CHOLESTEROL CALCULATED (BEAKER) (test 89 mg/dL rcrw=497) Triglyceride Reference Range: Low Risk <150 Borderline 150- 199 High Risk 200-499 Very High Risk >=500Cholesterol Reference Range: Low Risk <200 Borderline 200-239 High Risk > 240HDL Cholesterol Reference Range: Low Risk >=60 High Risk <40LDL Cholesterol Reference Range: Optimal <100 Near Optimal 100-129 Borderline 130-159 High 160-189 Very High >=190CREATINE KINASE (CK), TOTAL AND [id number] 07:35:00 Test Item Value Reference Range Comments CREATINE KINASE TOTAL (BEAKER) (test znsx=859) 216 U/L 29-200 CREATINE KINASE-MB (BEAKER) (test efiy=352) 6.0 ng/mL 0.0-6.6 CREATINE KINASE-MB INDEX (BEAKER) (test fiob=472) 2.8 % CK-MB Reference Range:<6.7 Normal6.7-10.0 Borderline>10.0 [id number] 07:35:00 Test Item Value Reference Range Comments LIPASE (BEAKER) (test jdzy=431) 29 U/L 8-78 TROPONIN [id number] 07:32:00 Test Item Value Reference Range Comments TROPONIN I (BEAKER) (test xldu=780) 0.01 ng/mL 0.00-0.03 Troponin I (TnI) levels [...] acidosis, acute neurological disease, and persistent tachyarrhythmia.POCT-GLUCOSE [id number] 05:07:00 Test Item Value Reference Range Comments POC-GLUCOSE METER (JAKE) 113 mg/dL 70-110 TESTED AT [facility] [address] [facility] [address] [facility] (test xnjp=7306) [facility] [address]
[2018-04-03 02:18] LABS: Absolute Lymphocytes (CBC) 2.4 K/uL (0.7-4.9); Absolute Monocytes 0.5 K/uL (0.1-1.3); Absolute Neutrophil 2.9 K/uL (1.8-8.0); Basophils % 0.9 % (0-1.3); Eosinophils % 3.5 % (0-4.4); Hematocrit 30.6 % (36.0-45.0); Lymphocytes % 38.8 % (15.3-44.8); MPV 10.1 fL (7.6-11.3); RBC Red Blood Cell Count 3.62 M/uL (3.86-4.86)
[2018-04-03 02:49] LABS: Protime INR 1.03
[2018-04-03] MEDS ORDERED: MORPHINE 4 MG/ML SYR ONE (03:01)
[2018-04-03] MEDS ORDERED: ONDANSETRON 4 MG/2 ML VIAL ONE (03:01)
[2018-04-03] MEDS ORDERED: MAGNE/ALUM HYDROXD 30 ML UCUP ONE (03:01)
[2018-04-03] MEDS ORDERED: LIDOCAINE VISCOUS 2% SOLN 15 ML UDC ONE (03:02)
[2018-04-03] MEDS ORDERED: FAMOTIDINE 20 MG/2 ML VIAL IV ONE (03:02)
[2018-04-03] MEDS ORDERED: NA CHLORIDE 0.9% 1,000 ML ONE (03:02)
[2018-04-03 03:06] LABS: ALT/SGPT 17 U/L (12-78); AST/SGOT 22 U/L (15-37); Albumin 3.6 g/dL (3.4-5.0); Alkaline Phosphatase 104 U/L (45-117); BUN Blood Urea Nitrogen 32 mg/dL (7-18); Bicarbonate 22 mmol/L (21-32); Bilirubin Direct < 0.1 mg/dL (0-0.2); Bilirubin Total 0.2 mg/dL (0.2-1.0); Glucose Level 89 mg/dL (74-106); Magnesium 1.7 mg/dL (1.8-2.4); NT PRO-BNP 636 pg/mL (<450); Potassium 4.6 mmol/L (3.5-5.1); Protein, Total 7.8 g/dL (6.4-8.2); Sodium Level 137 mmol/L (136-145); Troponin (Emerg Dept Use Only) 0.03 ng/mL (0.0-0.045)
--- NOTE | 2018-04-03 06:00 | EDPHYS ---
Physician Documentation [facility] Name: Shereen Flores Age: 78 yrs Sex: Female : 1940 Arrival Date: 04/03/2018 Time: 01:17 Bed 6 Private MD: Sharath Pate E ED Physician Debi Rios HPI: 04/03 02:05 This 78 yrs old Black Female presents to ER via Ambulatory with complaints of High ma2 Blood Sugar, High Blood Pressure. 02:05 Onset: The symptoms/episode began/occurred gradually, 1 day(s) ago. Associated signs ma2 and symptoms: Pertinent negatives: anorexia, diaphoresis, hair loss. Current symptoms: In the emergency department the patient's symptoms are unchanged from the initial presentation. The patient has experienced similar episodes in the past. Historical: - Allergies: 01:44 SHARON INHIBITORS; ed1 01:44 HYDRALAZINE; ed1 01:44 Iodine; ed1 01:44 iron; ed1 01:44 Lisinopril; ed1 01:44 PENICILLINS; ed1 - Home Meds: 01:44 metformin 1,000 mg Oral tr24 2 tabs once daily [Active]; Ambien 10 mg Oral tab 1 tab ed1 once daily [Active]; isosorbide mononitrate 60 mg Oral Tb24 1 tab once daily [Active]; amlodipine 10 mg tab 1 tab once daily [Active]; - PMHx: 01:44 Diabetes - NIDDM; GERD; Glaucoma; Hypertension; ed1 - PSHx: 01:44 abdominal surgery; ed1 - Immunization history:: Adult Immunizations up to date, Flu vaccine is up to date. - Social history:: Smoking status: Patient/guardian denies using tobacco, Patient/guardian denies using alcohol, street drugs, The patient lives with family. - Ebola Screening: : Patient negative for fever greater than or equal to 101.5 degrees Fahrenheit, and additional compatible Ebola Virus Disease symptoms Patient denies exposure to infectious person Patient denies travel to an Ebola-affected area in the 21 days before illness onset No symptoms or risks identified at this time. - Family history:: not pertinent. ROS: 02:05 Constitutional: Negative for fever, chills, and weight loss, Eyes: Negative for injury, ma2 pain, redness, and discharge. 02:05 Neck: Negative for injury, pain, and swelling, Cardiovascular: Negative for chest pain, palpitations, and edema, Respiratory: Negative for shortness of breath, cough, wheezing, and pleuritic chest pain. 02:05 Cardiovascular: Positive for 02:05 Cardiovascular: 02:05 Respiratory: Positive for 02:05 All other systems are negative. Exam: 02:05 Constitutional: This is a well developed, well nourished patient who is awake, alert, ma2 and in no acute distress. Neck: Trachea midline, no thyromegaly or masses palpated, and no cervical lymphadenopathy. Supple, full range of motion without nuchal rigidity, or vertebral point tenderness. No Meningismus. Chest/axilla: Normal chest wall appearance and motion. Nontender with no deformity. No lesions are appreciated. Cardiovascular: Regular rate and rhythm with a normal S1 and S2. No gallops, murmurs, or rubs. Normal PMI, no JVD. No pulse deficits. Respiratory: Lungs have equal breath sounds bilaterally, clear to auscultation and percussion. No rales, rhonchi or wheezes noted. No increased work of breathing, no retractions or nasal flaring. Abdomen/GI: Soft, non-tender, with normal bowel sounds. No distension or tympany. No guarding or rebound. No evidence of tenderness throughout. Neuro: Awake and alert, GCS 15, oriented to person, place, time, and situation. Cranial nerves II-XII grossly intact. Motor strength 5/5 in all extremities. Sensory grossly intact. Cerebellar exam normal. Normal gait. Vital Signs: 01:44 BP 171 / 78; Pulse 74; Resp 17; Temp 98.3; Pulse Ox 99% on R/A; Weight 63.05 kg; Height ed1 5 ft. 4 in. (162.56 cm); Pain 8/10; 02:01 BP 144 / 67; Pulse 66; Resp 22; Pulse Ox 98% on R/A; Pain 8/10; ed1 03:06 BP 138 / 84; Pulse 58; Resp 14; Pulse Ox 99% on R/A; Pain 8/10; ed1 04:00 BP 132 / 79; Pulse 53; Resp 14; Pulse Ox 98% on R/A; Pain 5/10; ed1 06:15 BP 135 / 72; Pulse 65; Resp 19; Pulse Ox 100% on R/A; Pain 0/10; ed1 01:44 Body Mass Index 23.86 (63.05 kg, 162.56 cm) ed1 MDM: 01:23 Patient medically screened. ma2 02:05 Differential diagnosis: DKA, hyperglycemia, new onset diabetes. ma2 05:58 Data reviewed: vital signs, nurses notes. Counseling: I had a detailed discussion with [facility] the patient and/or guardian regarding: the historical points, exam findings, and any diagnostic results supporting the discharge/admit diagnosis, the presence of at least one elevated blood pressure reading (>120/80) during this emergency department visit, the need for outpatient follow up. Response to treatment: the patient's symptoms have resolved after treatment. 04/03 01:23 Order name: Basic Metabolic Panel; Complete Time: 04:11 [facility] 04/03 01:23 Order name: CBC with Diff; Complete Time: 02:27 [facility] 04/03 01:23 Order name: LFT's; Complete Time: 04:11 [facility] 04/03 01:23 Order name: Magnesium; Complete Time: 04:11 [facility] 04/03 01:23 Order name: NT PRO-BNP; Complete Time: 04:11 dc04/03 01:23 Order name: PT-INR [facility] 04/03 01:23 Order name: Troponin (emerg Dept Use Only); Complete Time: 04:11 [facility] 04/03 01:23 Order name: XRAY Chest (1 view) [facility] 04/03 03:24 Order name: Abdomen [facility] 04/03 01:23 Order name: EKG; Complete Time: 01:24 [facility] 04/03 01:23 Order name: Cardiac monitoring; Complete Time: 02:00 [facility] 04/03 01:23 Order name: EKG - Nurse/Tech; Complete Time: 02:09 [facility] 04/03 01:23 Order name: IV Saline Lock; Complete Time: 02:00 [facility] 04/03 01:23 Order name: Labs collected and sent; Complete Time: 02:00 [facility] 04/03 01:23 Order name: O2 Per Protocol; Complete Time: 02:00 [facility] 04/03 01:23 Order name: O2 Sat Monitoring; Complete Time: 02:00 dc2 Administered Medications: 02:04 CANCELLED (na): Norvasc 5 mg PO once ma2 02:04 CANCELLED (Patient Eloped): Benadryl 50 mg IVP once ma2 03:00 Drug: NS 0.9% 1000 ml Route: IV; Rate: 1 bolus; Site: right forearm; ed1 04:30 Follow up: IV Status: Completed infusion; IV Intake: 1000ml ed1 03:00 Drug: Pepcid 20 mg Route: IVP; Site: right forearm; ed1 03:30 Follow up: Response: No adverse reaction ed1 03:01 Drug: GI Cocktail without - (Maalox Suspension 30 ml, Lidocaine Liquid 2 % 15 ed1 ml) Route: PO; 03:30 Follow up: Response: No adverse reaction ed1 03:01 Drug: morphine 4 mg Route: IVP; Site: right forearm; ed1 03:30 Follow up: Response: No adverse reaction; Pain is decreased ed1 03:01 Drug: Zofran 4 mg Route: IVP; Site: right forearm; ed1 03:30 Follow up: Response: No adverse reaction; Nausea is decreased ed1 Point of Care Testing: Blood Glucose: 01:55 Blood Glucose: 79 mg/dL; lp1 Ranges: Critical Glucose Levels:Adult <50 mg/dl or >400 mg/dl <40 mg/dl or >180 mg/dl Disposition: 04/03/18 05:59 Discharged to Home. Impression: Gastritis, unspecified. - Condition is Stable. - Discharge Instructions: Gastritis, Adult. - Prescriptions for Pepcid 20 mg Oral Tablet - take 1 tablet by ORAL route every 12 hours for 10 days; 20 tablet. Tylenol- Codeine #3 300-30 mg Oral Tablet - take 2 tablet by ORAL route every 6 hours As needed; 30 tablet. promethazine 25 mg Oral Tablet - take 1 tablet by ORAL route every 6 hours As needed; 20 tablet. - Medication Reconciliation Form, Thank You Letter, Antibiotic Education, Prescription Opioid Use form. - Follow up: Private Physician; When: Tomorrow; Reason: Continuance of care. Signatures: Dispatcher [employer] Gela Kumar RN RN ed1 Debi Rios MD MD ma2 Corrections: (The following items were deleted from the chart) 02:04 01:53 Norvasc 5 mg PO once ordered. ma2 ma2 02:04 01:53 Benadryl 50 mg IVP once ordered. ma2 ma2 03:19 02:36 Abdomen Pelvis W Con+CT.RAD.BRZ ordered. EDMS EDMS 03:24 03:19 CT ANGIO ABD/PELVIS W CONTRAST ordered. EDMS EDMS 06:15 05:59 04/03/2018 05:59 Discharged to Home. Impression: Gastritis, unspecified. ed1 Condition is Stable. Forms are Medication Reconciliation Form, Thank You Letter, Antibiotic Education, Prescription Opioid Use. Follow up: Private Physician; When: Tomorrow; Reason: Continuance of care. ma2
--- NOTE | 2018-04-03 06:00 | ER ---
Nurse's Notes [facility] Name: Shereen Flores Age: 78 yrs Sex: Female : 1940 Arrival Date: 04/03/2018 Time: 01:17 Bed 6 Private MD: Sharath Pate E Diagnosis: Gastritis, unspecified Presentation: 04/03 01:36 Presenting complaint: Patient states: My blood sugar started going up this evening and ed1 then my blood pressure was going up. I took one of my blood pressure pills before I came here. My blood sugar said it was over 500 something. Transition of care: patient was not received from another setting of care. Onset of symptoms was April 02, 2018. Risk Assessment: Do you want to hurt yourself or someone else? Patient reports no desire to harm self or others. Initial Sepsis Screen: Does the patient meet any 2 criteria? No. Patient's initial sepsis screen is negative. Does the patient have a suspected source of infection? No. Patient's initial sepsis screen is negative. Care prior to arrival: None. 01:36 Method Of Arrival: Ambulatory ed1 01:36 Acuity: AVERY 3 ed1 Triage Assessment: 01:44 General: Appears in no apparent distress. Behavior is calm, cooperative. Pain: ed1 Complains of pain in chest Pain currently is 8 out of 10 on a pain scale. Quality of pain is described as pressure, Pain began 2 hours ago. Is continuous. EENT: No signs and/or symptoms were reported regarding the EENT system. Neuro: Level of Consciousness is awake, alert, obeys commands, Oriented to person, place, time, situation. Cardiovascular: Reports chest pain, Heart tones S1 S2 present. Respiratory: Airway is patent Respiratory effort is even, unlabored, Respiratory pattern is regular, symmetrical, Breath sounds are clear bilaterally. GI: Patient currently denies diarrhea, nausea, vomiting. : No signs and/or symptoms were reported regarding the genitourinary system. Derm: Skin is intact, is healthy with good turgor, Skin is dry, Skin is normal, Skin temperature is warm. Musculoskeletal: Circulation, motion, and sensation intact. Range of motion: intact in all extremities. Historical: - Allergies: 01:44 SHARON INHIBITORS; ed1 01:44 HYDRALAZINE; ed1 01:44 Iodine; ed1 01:44 iron; ed1 01:44 Lisinopril; ed1 01:44 PENICILLINS; ed1 - Home Meds: 01:44 metformin 1,000 mg Oral tr24 2 tabs once daily [Active]; Ambien 10 mg Oral tab 1 tab ed1 once daily [Active]; isosorbide mononitrate 60 mg Oral Tb24 1 tab once daily [Active]; amlodipine 10 mg tab 1 tab once daily [Active]; - PMHx: 01:44 Diabetes - NIDDM; GERD; Glaucoma; Hypertension; ed1 - PSHx: 01:44 abdominal surgery; ed1 - Immunization history:: Adult Immunizations up to date, Flu vaccine is up to date. - Social history:: Smoking status: Patient/guardian denies using tobacco, Patient/guardian denies using alcohol, street drugs, The patient lives with family. - Ebola Screening: : Patient negative for fever greater than or equal to 101.5 degrees Fahrenheit, and additional compatible Ebola Virus Disease symptoms Patient denies exposure to infectious person Patient denies travel to an Ebola-affected area in the 21 days before illness onset No symptoms or risks identified at this time. - Family history:: not pertinent. Screenin:44 Abuse screen: Denies threats or abuse. Denies injuries from another. Nutritional ed1 screening: No deficits noted. Tuberculosis screening: No symptoms or risk factors identified. Fall Risk None identified. Assessment: 01:44 General: See triage assessment. ed1 03:06 Reassessment: Patient appears in no apparent distress at this time. No changes from ed1 previously documented assessment. Patient and/or family updated on plan of care and expected duration. Pain level reassessed. Patient is alert, oriented x 3, equal unlabored respirations, skin warm/dry/pink. Patient states symptoms have not improved. 04:00 Reassessment: Patient appears in no apparent distress at this time. Patient and/or ed1 family updated on plan of care and expected duration. Pain level reassessed. Patient is alert, oriented x 3, equal unlabored respirations, skin warm/dry/pink. Patient states feeling better. Patient states symptoms have improved. 06:13 Reassessment: Patient appears in no apparent distress at this time. Patient and/or ed1 family updated on plan of care and expected duration. Pain level reassessed. Patient is alert, oriented x 3, equal unlabored respirations, skin warm/dry/pink. Patient denies pain at this time. Patient states feeling better. Patient states symptoms have improved. Vital Signs: 01:44 BP 171 / 78; Pulse 74; Resp 17; Temp 98.3; Pulse Ox 99% on R/A; Weight 63.05 kg; Height ed1 5 ft. 4 in. (162.56 cm); Pain 8/10; 02:01 BP 144 / 67; Pulse 66; Resp 22; Pulse Ox 98% on R/A; Pain 8/10; ed1 03:06 BP 138 / 84; Pulse 58; Resp 14; Pulse Ox 99% on R/A; Pain 8/10; ed1 04:00 BP 132 / 79; Pulse 53; Resp 14; Pulse Ox 98% on R/A; Pain 5/10; ed1 06:15 BP 135 / 72; Pulse 65; Resp 19; Pulse Ox 100% on R/A; Pain 0/10; ed1 01:44 Body Mass Index 23.86 (63.05 kg, 162.56 cm) ed1 ED Course: 01:17 Patient arrived in ED. es 01:20 Sharath Pate MD is Private Physician. es 01:22 Debi Rios MD is Attending Physician. ma2 01:36 Gela Álvarez, SARA is Primary Nurse. ed1 01:40 Triage completed. ed1 01:44 Arm band placed on. ed1 01:44 Patient has correct armband on for positive identification. Placed in gown. Bed in low ed1 position. Call light in reach. Side rails up X 1. case monitor on. Pulse ox on. NIBP on. 01:59 Inserted saline lock: 22 gauge in right forearm, using aseptic technique. Blood lp1 collected. 02:05 X-ray completed. Portable x-ray completed in exam room. Patient tolerated procedure kw well. 02:06 XRAY Chest (1 view) In Process Unspecified. EDMS 03:[address] via wheelchair. kw1 03:33 CT completed. Patient tolerated procedure well. Patient moved back from CT. kw1 03:43 Abdomen In Process Unspecified. EDMS 06:13 No provider procedures requiring assistance completed. IV discontinued, intact, ed1 bleeding controlled, No redness/swelling at site. Pressure dressing applied. Administered Medications: 02:04 CANCELLED (na): Norvasc 5 mg PO once ma2 02:04 CANCELLED (Patient Eloped): Benadryl 50 mg IVP once ma2 03:00 Drug: NS 0.9% 1000 ml Route: IV; Rate: 1 bolus; Site: right forearm; ed1 04:30 Follow up: IV Status: Completed infusion; IV Intake: 1000ml ed1 03:00 Drug: Pepcid 20 mg Route: IVP; Site: right forearm; ed1 03:30 Follow up: Response: No adverse reaction ed1 03:01 Drug: GI Cocktail without - (Maalox Suspension 30 ml, Lidocaine Liquid 2 % 15 ed1 ml) Route: PO; 03:30 Follow up: Response: No adverse reaction ed1 03:01 Drug: morphine 4 mg Route: IVP; Site: right forearm; ed1 03:30 Follow up: Response: No adverse reaction; Pain is decreased ed1 03:01 Drug: Zofran 4 mg Route: IVP; Site: right forearm; ed1 03:30 Follow up: Response: No adverse reaction; Nausea is decreased ed1 Point of Care Testing: Blood Glucose: 01:55 Blood Glucose: 79 mg/dL; lp1 Ranges: Intake: 04:30 IV: 1000ml; Total: 1000ml. ed1 Outcome: 05:59 Discharge ordered by . ma2 06:13 Discharged to home ambulatory. ed1 06:13 Condition: good 06:13 Discharge instructions given to patient, Instructed on discharge instructions, follow up and referral plans. medication usage, Demonstrated understanding of instructions, follow-up care, medications, Prescriptions given X 3. 06:15 Patient left the ED. ed1 Signatures: Dispatcher [employer] Elizabeth Gupta Erika, RN RN ed1 Arlyn Lane Laura, RN RN lp1 Gisell Galaviz kw1 Debi Rios MD MD ma2
[2018-04-03 06:20] VITALS: TEMP 98.3
[2018-04-03 06:26] VITALS: BP 135/72; O2SAT 100
--- NOTE | 2018-04-03 08:22 | RAD REPORT ---
EXAM DESCRIPTION: RAD - Chest Single View - 04/03/2018 2:08 am CLINICAL HISTORY: COUGH Chest pain. COMPARISON: Chest Single View dated 07/16/2017; Chest Single View dated 07/10/2017; Chest Single View d ated 06/03/2017; Chest Single View dated 04/18/2017 FINDINGS: Portable technique limits examination quality. The lungs are grossly clear. The heart is normal in size. No displaced fractures.Aortic atheroscleros is with tortuosity. IMPRESSION: No acute intrathoracic process suspected.
--- NOTE | 2018-04-03 08:47 | EKG ---
Test Date: 2018-04-03 Test Time: 02:03:19 Sand Technologist: AYESHA MEASUREMENT RESULTS: Intervals: Rate: 64 MA: 144 QRSD: 96 QT: 442 QTc: 455 [place]: P: 71 MA: 144 QRS: 34 T: 55 INTERPRETIVE STATEMENTS: Normal sinus rhythm Normal ECG Compared to ECG 07/16/2017 23:50:19 Sinus bradycardia no longer present Electronically Signed On 04-03-18 08:45:52 PAYROLL ACCOUNTANT by Beto Solis
--- NOTE | 2018-04-04 11:26 | RAD REPORT ---
EXAM DESCRIPTION: CT Abdomen and Pelvis With Intravenous Contrast CLINICAL HISTORY: The patient is 78 years old and is Female; ABD PAIN. COMPARISON: CT of abdomen and pelvis without contrast dated March 24, 2018. TECHNIQUE: Axial computed tomography images of the abdomen and pelvis without intravenous contrast. Sagittal and coronal reformatted images were created and reviewed. This CT exam was performed using one or more o f the following dose reduction techniques: Automated exposure control, adjustment of the mA and/or kV according to patient size, and/or use of iterative reconstruction technique. FINDINGS: LUNG BASES: Unremarkable. No mass. No consolidation. ABDOMEN: LIVER: Unremarkable. GALLBLADDER AND BILE DUCTS: Prior cholecystectomy. No ductal dilation. PANCREAS: Unremarkable. No ductal dilation. SPLEEN: Subcapsular splenic calcifications, unchanged. ADRENALS: No mass. KIDNEYS AND URETERS: Unchanged marked bilateral hydronephrosis, and diffuse hydroureter. Previously d escribed calcified foci The UVJs are not well seen. STOMACH AND BOWEL: Enteric contrast in the stomach and proximal small bowel. Large bowel containing p eriumbilical hernia relatively unchanged. Mild colonic diverticulosis without CT evidence of acute diverticulitis. PELVIS: APPENDIX: The appendix is seen and is within normal limits. BLADDER: Unremarkable. NO stones. REPRODUCTIVE: Unremarkable as visualized. ABDOMEN and PELVIS: INTRAPERITONEAL SPACE: Unremarkable. No free air. No significant fluid collection. BONE/JOINTS: Unchanged Schmorl's node deformity involving the superior endplate of T12 and diffuse os teopenia. No acute fracture. No dislocation. SOFT TISSUES: See above. VASCULATURE: Atherosclerotic vascular disease. No abdominal aortic aneurysm. LYMPH NODES: Unremarkable. No enlarged lymph nodes. IMPRESSION: 1. Unchanged marked bilateral hydronephrosis and diffuse hydroureter. Previously described calcified foci at the UV J's are not well seen. 2. Large bowel containing periumbilical hernia, relatively unchanged. No obstruction. 3. Mild colonic diverticulosis without CT evidence of acute diverticulitis. 4. Unchanged splenic calcifications. Electronically signed by Satinder Marie DO 04/03/2018 3:53 AM CELL TUBER MACHINE Due to temporary technical issues with the PACS/Fluency reporting system, reports are being signed by the in house radiologist as a courtesy to ensure prompt reporting. The interpreting radiologist is f joely responsible for the content of the report.
== END 2018-04-03 06:15 | disposition home or self-care (01) ==
LOC: ER 01:16
DX: K29.70 Gastritis, unspecified, without bleeding (principal); I10 Essential (primary) hypertension; E11.9 Type 2 diabetes mellitus without complications; Z88.0 Allergy status to penicillin; Z88.8 Allergy status to other drugs, medicaments and biological substances; Z91.048 Other nonmedicinal substance allergy status
CPT/HCPCS: 36415; 71045; 74176; 80048; 80076; 82962; 83735; 83880; 84484; 85025; 85610; 93005; J2405; J7030

== ENCOUNTER 2019-03-13 01:13 | Observation (INO) | payer OTHER ==
--- OUTSIDE RECORDS SUMMARY | 2019-03-13 01:17 | XMS REPORT ---
:1940 [facility] Address [address] [place] [address] Care Team Providers Name Role Phone OSMAN KERRY QURESHI Unavailable Unavailable Problems This patient has no known problems. Allergies, Adverse Reactions, Alerts This patient has no known allergies or adverse reactions. Medications This patient has no known medications. Results Test Description Test Time Test Comments Text Results Atomic Results Result Comments MR, ABDOMEN, 2017-04-17 MRI with contrast AND FINAL REPORT PATIENT ID: WITH 12:17:00 MRCP for evaluation of [id number] MRI OF THE ABDOMEN biliary system; concern [...] a contrast-enhanced CT is recommended. Signed: Kaveh Steveeport Verified Date/Time: 04/17/2017 12:17:51 Reading Location: [facility] C013Y CT Body Reading Room -GLUCOSE METER 2017-04-17 12:08:00 Test Item Value Reference Range Comments POC-GLUCOSE METER (BEAKER) (test 253 mg/dL 70-110 TESTED AT [facility] [address] [facility] miwg=4307) [facility] [address] CBC W/PLT COUNT & AUTO [id number] 12:08:00 Test Item Value Reference Range Comments WHITE BLOOD CELL COUNT (BEAKER) (test fxuv=800) 7.3 K/ L 3.5-10.5 RED BLOOD CELL COUNT (BEAKER) (test rcsa=658) 3.94 M/ L 3.93-5.22 HEMOGLOBIN (BEAKER) (test qcjr=747) 11.3 GM/DL 11.2-15.7 HEMATOCRIT (BEAKER) (test xsyb=853) 35.8 % 34.1-44.9 MEAN CORPUSCULAR VOLUME (BEAKER) (test jkug=629) 90.9 fL 79.4-94.8 MEAN CORPUSCULAR HEMOGLOBIN (BEAKER) (test 28.7 pg 25.6-32.2 kpoh=835) MEAN CORPUSCULAR HEMOGLOBIN CONC (BEAKER) (test 31.6 GM/DL 32.2-35.5 muai=206) RED CELL DISTRIBUTION WIDTH (BEAKER) (test 13.4 % 11.7-14.4 wrnw=103) PLATELET COUNT (BEAKER) (test xpkn=088) 268 K/CU MM 150-450 MEAN PLATELET VOLUME (BEAKER) (test ybqe=223) 10.0 fL 9.4-12.3 NUCLEATED RED BLOOD CELLS (BEAKER) (test 0 /100 WBC 0-0 eaal=626) NEUTROPHILS RELATIVE PERCENT (BEAKER) (test 41 % upkp=499) LYMPHOCYTES RELATIVE PERCENT (BEAKER) (test 46 % lkux=942) MONOCYTES RELATIVE PERCENT (BEAKER) (test 8 % gbyt=927) EOSINOPHILS RELATIVE PERCENT (BEAKER) (test 3 % xrqi=268) BASOPHILS RELATIVE PERCENT (BEAKER) (test 2 % bbtw=781) NEUTROPHILS ABSOLUTE COUNT (BEAKER) (test 2.99 K/ L 1.56-6.13 qfjf=242) LYMPHOCYTES ABSOLUTE COUNT (BEAKER) (test 3.34 K/ L 1.18-3.74 tyyh=946) MONOCYTES ABSOLUTE COUNT (BEAKER) (test 0.57 K/ L 0.24-0.36 xixd=823) EOSINOPHILS ABSOLUTE COUNT (BEAKER) (test 0.22 K/ L 0.04-0.36 bbpq=167) BASOPHILS ABSOLUTE COUNT (BEAKER) (test 0.11 K/ L 0.01-0.08 qgzb=274) IMMATURE GRANULOCYTES-RELATIVE PERCENT (BEAKER) 0 % 0-1 (test mnpy=5530) POCT-GLUCOSE [id number] 08:04:00 Test Item Value Reference Range Comments POC-GLUCOSE METER (BEAKER) 99 mg/dL 70-110 TESTED AT [facility] [address] [facility] (test fani=3196) [facility] [address] [id number] 06:55:00 Test Item Value Reference Range Comments MAGNESIUM (BEAKER) (test jnfo=147) 1.6 mg/dL 1.6-2.6 BASIC METABOLIC [id number] 06:55:00 Test Item Value Reference Range Comments SODIUM (BEAKER) (test 140 meq/L 136-145 kscg=883) POTASSIUM (BEAKER) (test 3.7 meq/L 3.5-5.1 flae=604) CHLORIDE (BEAKER) (test 109 meq/L 98-107 ungm=426) CO2 (BEAKER) (test 23 meq/L 22-29 vvcw=173) BLOOD UREA NITROGEN 12 mg/dL 7-21 (BEAKER) (test qaub=854) CREATININE (BEAKER) (test 0.82 mg/dL 0.57-1.25 qfxj=774) GLUCOSE RANDOM (BEAKER) 96 mg/dL 70-105 (test nups=003) CALCIUM (BEAKER) (test 9.5 mg/dL 8.4-10.2 fylv=803) EGFR (BEAKER) (test 82 mL/min/1.73 sq m ESTIMATED GFR IS NOT rsbe=4763) ACCURATE CREATININE CLEARANCE IN PREDICTING GLOMERULAR FILTRATION RATE. ESTIMATED GFR IS NOT APPLICABLE FOR DIALYSIS PATIENTS. POCT-GLUCOSE [id number] 21:05:00 Test Item Value Reference Range Comments POC-GLUCOSE METER (BEAKER) 98 mg/dL 70-110 TESTED AT [address] (test fxte=3471) [place] [id number] POCT-GLUCOSE [id number] 17:04:00 Test Item Value Reference Range Comments POC-GLUCOSE METER (BEAKER) 89 mg/dL 70-110 TESTED AT [address] (test buqb=2645) [place] [id number] POCT-GLUCOSE [id number] 12:37:00 Test Item Value Reference Range Comments POC-GLUCOSE METER (BEAKER) 202 mg/dL 70-110 TESTED AT [address] (test zmlz=3340) [facility] [address] CBC W/PLT COUNT & AUTO [id number] 09:44:00 Test Item Value Reference Range Comments WHITE BLOOD CELL COUNT (BEAKER) (test vphs=688) 7.1 K/ L 3.5-10.5 RED BLOOD CELL COUNT (BEAKER) (test iqni=753) 3.76 M/ L 3.93-5.22 HEMOGLOBIN (BEAKER) (test tsyq=584) 11.0 GM/DL 11.2-15.7 HEMATOCRIT (BEAKER) (test myse=286) 34.6 % 34.1-44.9 MEAN CORPUSCULAR VOLUME (BEAKER) (test igkn=725) 92.0 fL 79.4-94.8 MEAN CORPUSCULAR HEMOGLOBIN (BEAKER) (test 29.3 pg 25.6-32.2 bspa=658) MEAN CORPUSCULAR HEMOGLOBIN CONC (BEAKER) (test 31.8 GM/DL 32.2-35.5 vfmc=276) RED CELL DISTRIBUTION WIDTH (BEAKER) (test 13.6 % 11.7-14.4 tbqn=770) PLATELET COUNT (BEAKER) (test wyug=228) 252 K/CU MM 150-450 MEAN PLATELET VOLUME (BEAKER) (test cyrv=704) 9.9 fL 9.4-12.3 NUCLEATED RED BLOOD CELLS (BEAKER) (test 0 /100 WBC 0-0 ubpm=142) IMMATURE GRANULOCYTES-RELATIVE PERCENT (BEAKER) 0 % 0-1 (test fbrd=3653) (MANUAL DIFFERENTIAL)2017-04-16 09:44:00 Test Item Value Reference Range Comments NEUTROPHILS - REL (DIFF) (BEAKER) (test czdh=0824) 37 % LYMPHOCYTES - REL (DIFF) (BEAKER) (test viiq=5715) 51 % MONOCYTES - REL (DIFF) (BEAKER) (test phjy=7864) 9 % EOSINOPHILS - REL (DIFF) (BEAKER) (test zumn=0271) 3 % BASOPHILS - REL (DIFF) (BEAKER) (test yone=3566) 0 % NEUTROPHILS - ABS (DIFF) (BEAKER) (test dpzg=3252) 2.63 K/ L 1.80-8.00 LYMPHOCYTES - ABS (DIFF) (BEAKER) (test zyfh=5486) 3.62 K/ L 1.48-4.50 MONOCYTES - ABS (DIFF) (BEAKER) (test zyws=1691) 0.64 K/ L 0.00-1.30 EOSINOPHILS - ABS (DIFF) (BEAKER) (test adtc=6856) 0.21 K/ L 0.00-0.50 BASOPHILS - ABS (DIFF) (BEAKER) (test bcir=7421) 0.00 K/ L 0.00-0.20 TOTAL COUNTED (BEAKER) (test qduh=5935) 100 WBC MORPHOLOGY (BEAKER) (test ahvl=984) Normal PLT MORPHOLOGY (BEAKER) (test jdzr=323) Normal RBC MORPHOLOGY (BEAKER) (test kigj=987) Normal CREATINE KINASE (CK), TOTAL AND [id number] 07:51:00 Test Item Value Reference Range Comments CREATINE KINASE TOTAL (BEAKER) (test qmmh=689) 143 U/L 29-200 CREATINE KINASE-MB (BEAKER) (test xutx=117) 4.1 ng/mL 0.0-6.6 CREATINE KINASE-MB INDEX (BEAKER) (test qbax=619) 2.9 % CK-MB Reference Range:<6.7 Normal6.7-10.0 Borderline>10.0 AbnormalTROPONIN [id number] 07:51:00 Test Item Value Reference Range Comments TROPONIN I (BEAKER) (test hzdc=463) 0.02 ng/mL 0.00-0.03 Troponin I (TnI) levels [...] acidosis, acute neurological disease, and persistent tachyarrhythmia.POCT-GLUCOSE [id number] 07:41:00 Test Item Value Reference Range Comments POC-GLUCOSE METER (BEAKER) 85 mg/dL 70-110 TESTED AT [facility] [address] [facility] (test syrc=7375) [facility] [address] GAMMA GLUTAMYL TRANSFERASE (GGT)2017-04-16 07:41:00 Test Item Value Reference Range Comments GAMMA GLUTAMYL TRANSFERASE (BEAKER) (test gfwh=276) 305 U/L 9-64 BILIRUBIN, [id number] 07:41:00 Test Item Value Reference Range Comments BILIRUBIN DIRECT (BEAKER) (test yoqt=565) 0.2 mg/dL 0.1-0.5 COMPREHENSIVE METABOLIC [id number] 07:41:00 Test Item Value Reference Range Comments TOTAL PROTEIN (BEAKER) 7.1 gm/dL 6.0-8.3 (test actr=834) ALBUMIN (BEAKER) (test 3.3 g/dL 3.5-5.0 cltt=7848) ALKALINE PHOSPHATASE 186 U/L 40-150 (BEAKER) (test quzf=832) BILIRUBIN TOTAL (BEAKER) < mg/dL 0.2-1.2 (test xomu=777) SODIUM (BEAKER) (test 141 meq/L 136-145 yqbj=423) POTASSIUM (BEAKER) (test 3.6 meq/L 3.5-5.1 jlqx=457) CHLORIDE (BEAKER) (test 110 meq/L 98-107 swhu=181) CO2 (BEAKER) (test 24 meq/L 22-29 fdjq=124) BLOOD UREA NITROGEN 13 mg/dL 7-21 (BEAKER) (test ihns=838) CREATININE (BEAKER) (test 0.82 mg/dL 0.57-1.25 mpsc=474) GLUCOSE RANDOM (BEAKER) 83 mg/dL 70-105 (test hvwc=031) CALCIUM (BEAKER) (test 9.3 mg/dL 8.4-10.2 wbhb=196) AST (SGOT) (BEAKER) (test 30 U/L 5-34 ycyd=674) ALT (SGPT) (BEAKER) (test 88 U/L 6-55 nvxn=043) EGFR (BEAKER) (test 82 mL/min/1.73 sq m ESTIMATED GFR IS NOT umnt=5118) ACCURATE CREATININE CLEARANCE IN PREDICTING GLOMERULAR FILTRATION RATE. ESTIMATED GFR IS NOT APPLICABLE FOR DIALYSIS PATIENTS. POCT-GLUCOSE [id number] 20:46:00 Test Item Value Reference Range Comments POC-GLUCOSE METER (BEAKER) 99 mg/dL 70-110 TESTED AT [address] (test ohfa=9985) [place] [address] POCT-GLUCOSE [id number] 17:37:00 Test Item Value Reference Range Comments POC-GLUCOSE METER (BEAKER) 143 mg/dL 70-110 TESTED AT [address] (test ltvb=0122) [place] [address] CREATINE KINASE (CK), TOTAL AND [id number] 17:27:00 Test Item Value Reference Range Comments CREATINE KINASE TOTAL (BEAKER) (test jbzj=474) 196 U/L 29-200 CREATINE KINASE-MB (BEAKER) (test shwl=079) 5.1 ng/mL 0.0-6.6 CREATINE KINASE-MB INDEX (BEAKER) (test oswp=253) 2.6 % CK-MB Reference Range:<6.7 Normal6.7-10.0 Borderline>10.0 AbnormalTROPONIN [id number] 17:27:00 Test Item Value Reference Range Comments TROPONIN I (BEAKER) (test trhq=841) 0.02 ng/mL 0.00-0.03 Troponin I (TnI) levels [...] failure, acidosis, acute neurological disease, and persistent tachyarrhythmia.[id number] 16:54:00 Test Item Value Reference Range Comments D-DIMER QUANTITATIVE (BEAKER) (test zvcm=879) 0.60 MG/L FEU <0.50 Intended Use: The [...] of thrombosis is within 95-100% range.POCT- GLUCOSE [id number] 14:54:00 Test Item Value Reference Range Comments POC-GLUCOSE METER (BEAKER) 113 mg/dL 70-110 TESTED AT [facility] [address] [facility] (test wtfu=4171) [facility] [address] CBC W/PLT COUNT & AUTO [id number] 13:06:00 Test Item Value Reference Range Comments WHITE BLOOD CELL COUNT (BEAKER) (test hvwq=470) 7.2 K/ L 3.5-10.5 RED BLOOD CELL COUNT (BEAKER) (test aznh=458) 3.92 M/ L 3.93-5.22 HEMOGLOBIN (BEAKER) (test bans=573) 11.3 GM/DL 11.2-15.7 HEMATOCRIT (BEAKER) (test hkwo=312) 35.6 % 34.1-44.9 MEAN CORPUSCULAR VOLUME (BEAKER) (test sjgu=256) 90.8 fL 79.4-94.8 MEAN CORPUSCULAR HEMOGLOBIN (BEAKER) (test 28.8 pg 25.6-32.2 sbkh=289) MEAN CORPUSCULAR HEMOGLOBIN CONC (BEAKER) (test 31.7 GM/DL 32.2-35.5 ysxj=913) RED CELL DISTRIBUTION WIDTH (BEAKER) (test 13.8 % 11.7-14.4 cjud=411) PLATELET COUNT (BEAKER) (test dden=805) 254 K/CU MM 150-450 MEAN PLATELET VOLUME (BEAKER) (test bejj=639) 10.2 fL 9.4-12.3 NUCLEATED RED BLOOD CELLS (BEAKER) (test 0 /100 WBC 0-0 qzhd=801) NEUTROPHILS RELATIVE PERCENT (BEAKER) (test 37 % sqyk=961) LYMPHOCYTES RELATIVE PERCENT (BEAKER) (test 50 % xecd=201) MONOCYTES RELATIVE PERCENT (BEAKER) (test 8 % nfcm=374) EOSINOPHILS RELATIVE PERCENT (BEAKER) (test 4 % tdfs=241) BASOPHILS RELATIVE PERCENT (BEAKER) (test 1 % edqv=998) NEUTROPHILS ABSOLUTE COUNT (BEAKER) (test 2.66 K/ L 1.56-6.13 vcus=889) LYMPHOCYTES ABSOLUTE COUNT (BEAKER) (test 3.57 K/ L 1.18-3.74 rfff=967) MONOCYTES ABSOLUTE COUNT (BEAKER) (test 0.55 K/ L 0.24-0.36 txdx=388) EOSINOPHILS ABSOLUTE COUNT (BEAKER) (test 0.26 K/ L 0.04-0.36 jkbb=703) BASOPHILS ABSOLUTE COUNT (BEAKER) (test 0.08 K/ L 0.01-0.08 dbvd=498) IMMATURE GRANULOCYTES-RELATIVE PERCENT (BEAKER) 0 % 0-1 (test llvd=8232) B-TYPE NATRIURETIC FACTOR (BNP)2017-04-15 12:21:00 Test Item Value Reference Range Comments B-TYPE NATRIURETIC PEPTIDE (BEAKER) (test 200 pg/mL 0-100 spok=107) GAMMA GLUTAMYL TRANSFERASE (GGT)2017-04-15 12:16:00 Test Item Value Reference Range Comments GAMMA GLUTAMYL TRANSFERASE (BEAKER) (test rioj=361) 327 U/L 9-64 CARCINOEMBRYONIC ANTIGEN (CEA)2017-04-15 11:33:00 Test Item Value Reference Range Comments CARCINOEMBRYONIC ANTIGEN (BEAKER) (test iyun=677) 2.5 ng/mL 0.0-5.0 POCT-GLUCOSE [id number] 11:26:00 Test Item Value Reference Range Comments POC-GLUCOSE METER (BEAKER) 114 mg/dL 70-110 TESTED AT [facility] [address] [facility] (test mivi=1295) [facility] [address] CREATINE KINASE (CK), TOTAL AND [id number] 11:19:00 Test Item Value Reference Range Comments CREATINE KINASE TOTAL (BEAKER) (test bleo=505) 204 U/L 29-200 CREATINE KINASE-MB (BEAKER) (test dzml=663) 5.7 ng/mL 0.0-6.6 CREATINE KINASE-MB INDEX (JAKE) (test ivya=363) 2.8 % CK-MB Reference Range:<6.7 Normal6.7-10.0 Borderline>10.0 AbnormalTROPONIN [id number] 11:19:00 Test Item Value Reference Range Comments TROPONIN I (JAKE) (test wafz=608) 0.02 ng/mL 0.00-0.03 Troponin I (TnI) levels [...] acute neurological disease, and persistent tachyarrhythmia.U/S, ABDOMINAL, [id number] 10:11: 00Abdomen limited area? Add comment if [...] MDReport Verified Date/Time: 04/15/2017 10:11:28 Reading Location: [place] [address]XOrtho Consult Reading Room Electronically signed by: JENN CROCKER MD on 2017 10:11 AMPOCT-GLUCOSE [id number] 10:00:00 Test Item Value Reference Range Comments POC-GLUCOSE METER (BEAKER) 107 mg/dL 70-110 TESTED AT [facility] [address] (test dghh=9157) [facility] [address] HEMOGLOBIN [id number] 08:15:00 Test Item Value Reference Range Comments HEMOGLOBIN A1C (BEAKER) (test kqkc=626) 6.8 % 4.3-6.1 [id number] 07:35:00 Test Item Value Reference Range Comments PHOSPHORUS (BEAKER) (test kzir=405) 3.9 mg/dL 2.3-4.7 [id number] 07:35:00 Test Item Value Reference Range Comments MAGNESIUM (BEAKER) (test hxyz=547) 1.8 mg/dL 1.6-2.6 COMPREHENSIVE METABOLIC [id number] 07:35:00 Test Item Value Reference Range Comments TOTAL PROTEIN (BEAKER) 7.5 gm/dL 6.0-8.3 (test eyov=392) ALBUMIN (BEAKER) (test 3.5 g/dL 3.5-5.0 ephg=0409) ALKALINE PHOSPHATASE 211 U/L 40-150 (BEAKER) (test bclg=806) BILIRUBIN TOTAL (BEAKER) < mg/dL 0.2-1.2 (test aggv=879) SODIUM (BEAKER) (test 142 meq/L 136-145 inlz=663) POTASSIUM (BEAKER) (test 3.6 meq/L 3.5-5.1 ubbo=941) CHLORIDE (BEAKER) (test 110 meq/L 98-107 vjcu=822) CO2 (BEAKER) (test 22 meq/L 22-29 srkf=008) BLOOD UREA NITROGEN 12 mg/dL 7-21 (BEAKER) (test rrib=585) CREATININE (BEAKER) (test 0.84 mg/dL 0.57-1.25 dphk=095) GLUCOSE RANDOM (BEAKER) 107 mg/dL 70-105 (test twhy=518) CALCIUM (BEAKER) (test 9.4 mg/dL 8.4-10.2 kzkq=595) AST (SGOT) (BEAKER) (test 37 U/L 5-34 ljlt=948) ALT (SGPT) (BEAKER) (test 119 U/L 6-55 eerd=927) EGFR (BEAKER) (test 80 mL/min/1.73 sq m ESTIMATED GFR IS NOT iomm=8871) ACCURATE CREATININE CLEARANCE IN PREDICTING GLOMERULAR FILTRATION RATE. ESTIMATED GFR IS NOT APPLICABLE FOR DIALYSIS PATIENTS. LIPID [id number] 07:35:00 Test Item Value Reference Range Comments TRIGLYCERIDES (BEAKER) (test ojyf=950) 128 mg/dL CHOLESTEROL (BEAKER) (test fmfb=997) 162 mg/dL HDL CHOLESTEROL (BEAKER) (test futb=475) 47 mg/dL LDL CHOLESTEROL CALCULATED (BEAKER) (test 89 mg/dL ieus=625) Triglyceride Reference Range: Low Risk <150 Borderline 150- 199 High Risk 200-499 Very High Risk >=500Cholesterol Reference Range: Low Risk <200 Borderline 200-239 High Risk > 240HDL Cholesterol Reference Range: Low Risk >=60 High Risk <40LDL Cholesterol Reference Range: Optimal <100 Near Optimal 100-129 Borderline 130-159 High 160-189 Very High >=190CREATINE KINASE (CK), TOTAL AND [id number] 07:35:00 Test Item Value Reference Range Comments CREATINE KINASE TOTAL (BEAKER) (test xgzd=663) 216 U/L 29-200 CREATINE KINASE-MB (BEAKER) (test bthc=909) 6.0 ng/mL 0.0-6.6 CREATINE KINASE-MB INDEX (BEAKER) (test hkgt=891) 2.8 % CK-MB Reference Range:<6.7 Normal6.7-10.0 Borderline>10.0 [id number] 07:35:00 Test Item Value Reference Range Comments LIPASE (BEAKER) (test chqg=775) 29 U/L 8-78 TROPONIN [id number] 07:32:00 Test Item Value Reference Range Comments TROPONIN I (BEAKER) (test wegv=958) 0.01 ng/mL 0.00-0.03 Troponin I (TnI) levels [...] acidosis, acute neurological disease, and persistent tachyarrhythmia.POCT-GLUCOSE [id number] 05:07:00 Test Item Value Reference Range Comments POC-GLUCOSE METER (JAKE) 113 mg/dL 70-110 TESTED AT [facility] [address] [facility] (test osjo=6688) [facility] [address]
[2019-03-13] MEDS ORDERED: cloNIDine HCL 0.1 MG TAB ONE (01:44)
[2019-03-13 02:48] LABS: Absolute Lymphocytes (CBC) 2.1 K/uL (0.7-4.9); Basophils % 1.4 % (0-1.3); Hematocrit 35.2 % (36.0-45.0); Lymphocytes % 28.8 % (15.3-44.8); MPV 7.9 fL (7.6-11.3); RBC Red Blood Cell Count 4.09 M/uL (3.86-4.86)
[2019-03-13 03:00] LABS: Bilirubin Direct 0.1 mg/dL (0-0.2); Bilirubin Total 0.3 mg/dL (0.2-1.0); Protein, Total 8.5 g/dL (6.4-8.2)
--- NOTE | 2019-03-13 03:57 | ER ---
Nurse's Notes [facility] Name: Shereen Flores Age: 79 yrs Sex: Female : 1940 Arrival Date: 03/13/2019 Time: 01:14 Bed 6 Private MD: Diagnosis: Hypo-osmolality and hyponatremia;Weakness Presentation: 03/13 01:30 Presenting complaint: Patient states: I WAS HURTING ALL DAY WITH MY BELLY BECAUSE OF rv HERNIA. I CHECKED MY BLOOD PRESSURE AND IT IS 211(SYSTOLIC). Transition of care: patient was not received from another setting of care. Onset of symptoms was March 12, 2019 at 21:00. Risk Assessment: Do you want to hurt yourself or someone else? Patient reports no desire to harm self or others. Initial Sepsis Screen: Does the patient meet any 2 criteria? No. Patient's initial sepsis screen is negative. Does the patient have a suspected source of infection? No. Patient's initial sepsis screen is negative. Care prior to arrival: None. 01:30 Method Of Arrival: Ambulatory rv 01:30 Acuity: AVERY 3 rv Triage Assessment: 02:05 General: Behavior is calm, cooperative. rv Historical: - Allergies: 01:38 SHARON INHIBITORS; rv 01:38 HYDRALAZINE; rv 01:38 Iodine; rv 01:38 iron; rv 01:38 Lisinopril; rv 01:38 PENICILLINS; rv - Home Meds: 01:38 metformin 1,000 mg Oral tr24 1 tab twice a day [Active]; Ambien 10 mg Oral tab 1 tab rv once daily [Active]; amlodipine 10 mg tab 1 tab once daily [Active]; pantoprazole 40 mg oral TbEC 1 tab once daily [Active]; hydrochlorothiazide 12.5 mg Oral tab 1 tab once daily [Active]; alprazolam 0.5 mg Oral tab 0.5 mg twice a day [Active]; carvedilol 12.5 mg oral tab 1 tab 2 times per day [Active]; hydrocodone-acetaminophen 10-325 mg Oral tab 1 tab every 4 hours [Active]; - PMHx: 01:38 Diabetes - NIDDM; GERD; Glaucoma; Hypertension; rv - PSHx: 01:38 Cholecystectomy; rv - Immunization history:: Adult Immunizations up to date. - Coronavirus screen:: The patient has NOT traveled to [place], [place], or [place] in the past 14 days. Proceed with normal triage process as indicated. The patient has NOT had contact with known/suspected case of Coronavirus? Proceed with normal triage procedures. - Social history:: Smoking status: Patient denies any tobacco usage or history of. - Ebola Screening: : No symptoms or risks identified at this time. Screenin:45 Abuse screen: Denies threats or abuse. Denies injuries from another. Nutritional rv screening: No deficits noted. Tuberculosis screening: No symptoms or risk factors identified. Fall Risk None identified. Assessment: 01:45 General: Appears in no apparent distress. Pain: Complains of pain in abdomen. Neuro: rv Level of Consciousness is awake, alert, obeys commands, Oriented to person, place, time, situation. Cardiovascular: Denies chest pain, Patient's skin is warm and dry. Respiratory: Airway is patent. Derm: Skin is intact. 03:08 Reassessment: Patient appears in no apparent distress at this time. Patient and/or rv family updated on plan of care and expected duration. Pain level reassessed. Patient is alert, oriented x 3, equal unlabored respirations, skin warm/dry/pink. AWAITING RESULTS OF CT SCAN. 04:12 Reassessment: PATIENT UPDATED ON THE PLAN OF CARE. WAITING FOR ADMISSION ORDERS. rv Vital Signs: 01:29 BP 211 / 81; Pulse 74; Resp 17; Temp 98.5; Pulse Ox 97% ; Weight 61.23 kg; Height 5 ft. rv 4 in. (162.56 cm); Pain 10/10; 01:45 BP 180 / 71; Pulse 59; Resp 17; Pulse Ox 97% on R/A; rv 02:00 BP 161 / 69; Pulse 54; Resp 15; Pulse Ox 98% on R/A; rv 02:15 BP 123 / 60; Pulse 53; Resp 16; Pulse Ox 98% ; rv 02:30 BP 135 / 66; Pulse 56; Resp 17; Pulse Ox 99% on R/A; rv 02:45 BP 110 / 55; Pulse 48; Resp 16; Pulse Ox 99% on R/A; rv 03:00 BP 129 / 54; Pulse 50; Resp 15; Pulse Ox 98% on R/A; rv 03:30 BP 120 / 57; Pulse 47; Resp 15; Pulse Ox 98% on R/A; rv 04:13 BP 127 / 56; Pulse 54; Resp 15; Pulse Ox 97% on R/A; rv 04:44 BP 144 / 58; Pulse 48; Resp 16; Pulse Ox 100% on R/A; ea 06:15 BP 102 / 64; Pulse 55; Resp 15; Pulse Ox 97% on R/A; rv 01:29 Body Mass Index 23.17 (61.23 kg, 162.56 cm) rv ED Course: 01:14 Patient arrived in ED. ds1 01:16 Jasson Drake, SARA is Primary Nurse. rv 01:20 Yusuf Wagner MD is Attending Physician. tw4 01:31 Triage completed. rv 01:39 Arm band placed on Patient placed in the treatment room, on a stretcher, Patient rv notified of wait time. 01:45 Patient has correct armband on for positive identification. Bed in low position. Call rv light in reach. Side rails up X 1. Pulse ox on. NIBP on. 02:35 Inserted saline lock: 22 gauge in right forearm, using aseptic technique. Blood rv collected. 02:37 Initial lab(s) drawn, by me, sent to lab. rv 03:12 CT completed. Patient tolerated procedure well. Patient moved to CT via stretcher. Patient moved back from CT. 03:22 CT Abd/Pelvis - Without Contrast In Process Unspecified. EDMS 04:06 Debi Finney MD is Hospitalizing Provider. tw4 06:00 Patient admitted, IV remains in place. ea 06:16 No provider procedures requiring assistance completed. ea Administered Medications: 01:43 Drug: cloNIDine 0.2 mg Route: PO; rv 04:14 Follow up: Response: No adverse reaction; Blood pressure is lowered rv 04:17 Drug: NS 0.9% 500 ml Route: IV; Rate: bolus; Site: right forearm; rv 06:16 Follow up: IV Status: Completed infusion; IV Intake: 500ml rv 04:17 Drug: NS 0.9% 1000 ml Route: IV; Rate: 125 ml/hr; Site: right forearm; rv 06:16 Follow up: IV Status: Completed infusion rv 05:03 Not Given (Patient Refused): traMADol 50 mg PO once; RASS on ADMIN: Combtv4, Very ea Agttd3, Agttd2, Rstlss1, AlertClm0, wsy-1, Lt Sdtn-2, Mod Sdtn-3, Dp Sdtn-4, UnArsble-5 Intake: 06:16 IV: 500ml; Total: 500ml. rv Outcome: 03:57 Discharge ordered by . tw4 04:07 Decision to Hospitalize by Provider. 06:15 Patient left the ED. remi Signatures: Dispatcher [employer] EDMS German Grigsby Demi ds1 Chloe Davis, RN RN Yusuf Christine MD MD tw4 Jasson Drake, RN RN rv
--- NOTE | 2019-03-13 03:57 | EDPHYS ---
Physician Documentation [facility] Name: Shereen Flores Age: 79 yrs Sex: Female : 1940 Arrival Date: 03/13/2019 Time: 01:14 Bed 6 Private MD: ED Physician Yusuf Wagner HPI: 03/13 01:48 This 79 yrs old Black Female presents to ER via Ambulatory with complaints of High tw4 Blood Pressure. 01:48 The patient has elevated blood pressure and discovered this at home. Onset: The tw4 symptoms/episode began/occurred today. Modifying factors:. Associated signs and symptoms: The patient has no apparent associated signs or symptoms. The patient has not experienced similar symptoms in the past. Historical: - Allergies: 01:38 SHARON INHIBITORS; rv 01:38 HYDRALAZINE; rv 01:38 Iodine; rv 01:38 iron; rv 01:38 Lisinopril; rv 01:38 PENICILLINS; rv - Home Meds: 01:38 metformin 1,000 mg Oral tr24 1 tab twice a day [Active]; Ambien 10 mg Oral tab 1 tab rv once daily [Active]; amlodipine 10 mg tab 1 tab once daily [Active]; pantoprazole 40 mg oral TbEC 1 tab once daily [Active]; hydrochlorothiazide 12.5 mg Oral tab 1 tab once daily [Active]; alprazolam 0.5 mg Oral tab 0.5 mg twice a day [Active]; carvedilol 12.5 mg oral tab 1 tab 2 times per day [Active]; hydrocodone-acetaminophen 10-325 mg Oral tab 1 tab every 4 hours [Active]; - PMHx: 01:38 Diabetes - NIDDM; GERD; Glaucoma; Hypertension; rv - PSHx: 01:38 Cholecystectomy; rv - Immunization history:: Adult Immunizations up to date. - Coronavirus screen:: The patient has NOT traveled to [place], [place], or [place] in the past 14 days. Proceed with normal triage process as indicated. The patient has NOT had contact with known/suspected case of Coronavirus? Proceed with normal triage procedures. - Social history:: Smoking status: Patient denies any tobacco usage or history of. - Ebola Screening: : No symptoms or risks identified at this time. ROS: 01:48 Constitutional: Negative for fever, chills, and weight loss, Eyes: Negative for injury, tw4 pain, redness, and discharge, ENT: Negative for injury, pain, and discharge, Respiratory: Negative for shortness of breath, cough, wheezing, and pleuritic chest pain, Back: Negative for injury and pain, MS/Extremity: Negative for injury and deformity, Skin: Negative for injury, rash, and discoloration. 01:48 Abdomen/GI: Positive for abdominal pain, nausea and vomiting. 01:48 Neuro: Positive for headache, Negative for altered mental status, dizziness, gait disturbance, hearing loss, loss of consciousness, numbness, seizure activity, speech changes, syncope, near syncope, tingling, tinnitus, tremor. Exam: 01:48 Constitutional: This is a well developed, well nourished patient who is awake, alert, tw4 and in no acute distress. Head/Face: Normocephalic, atraumatic. Chest/axilla: Normal chest wall appearance and motion. Nontender with no deformity. No lesions are appreciated. Cardiovascular: Regular rate and rhythm with a normal S1 and S2. No gallops, murmurs, or rubs. Normal PMI, no JVD. No pulse deficits. Respiratory: Lungs have equal breath sounds bilaterally, clear to auscultation and percussion. No rales, rhonchi or wheezes noted. No increased work of breathing, no retractions or nasal flaring. Abdomen/GI: Soft, non-tender, with normal bowel sounds. No distension or tympany. No guarding or rebound. No evidence of tenderness throughout. Back: No spinal tenderness. No costovertebral tenderness. Full range of motion. MS/ Extremity: Pulses equal, no cyanosis. Neurovascular intact. Full, normal range of motion. Neuro: Awake and alert, GCS 15, oriented to person, place, time, and situation. Cranial nerves II-XII grossly intact. Motor strength 5/5 in all extremities. Sensory grossly intact. Cerebellar exam normal. Normal gait. Vital Signs: 01:29 BP 211 / 81; Pulse 74; Resp 17; Temp 98.5; Pulse Ox 97% ; Weight 61.23 kg; Height 5 ft. rv 4 in. (162.56 cm); Pain 10/10; 01:45 BP 180 / 71; Pulse 59; Resp 17; Pulse Ox 97% on R/A; rv 02:00 BP 161 / 69; Pulse 54; Resp 15; Pulse Ox 98% on R/A; rv 02:15 BP 123 / 60; Pulse 53; Resp 16; Pulse Ox 98% ; rv 02:30 BP 135 / 66; Pulse 56; Resp 17; Pulse Ox 99% on R/A; rv 02:45 BP 110 / 55; Pulse 48; Resp 16; Pulse Ox 99% on R/A; rv 03:00 BP 129 / 54; Pulse 50; Resp 15; Pulse Ox 98% on R/A; rv 03:30 BP 120 / 57; Pulse 47; Resp 15; Pulse Ox 98% on R/A; rv 04:13 BP 127 / 56; Pulse 54; Resp 15; Pulse Ox 97% on R/A; rv 04:44 BP 144 / 58; Pulse 48; Resp 16; Pulse Ox 100% on R/A; ea 06:15 BP 102 / 64; Pulse 55; Resp 15; Pulse Ox 97% on R/A; rv 01:29 Body Mass Index 23.17 (61.23 kg, 162.56 cm) rv MDM: 01:25 Patient medically screened. 03/14 05:33 Differential diagnosis: hypertensive crisis, Malignant HTN. Data reviewed: vital signs, tw4 nurses notes. Data interpreted: Pulse oximetry: Interpretation: normal. Test interpretation: by ED physician or midlevel provider: ECG, plain radiologic studies. Counseling: I had a detailed discussion with the patient and/or guardian regarding: the historical points, exam findings, and any diagnostic results supporting the discharge/admit diagnosis, the presence of at least one elevated blood pressure reading (>120/80) during this emergency department visit, lab results, radiology results. Physician consultation: Debi Finney MD regarding admission, patient's condition, and will see patient in inpatient room. 03/13 02:24 Order name: Basic Metabolic Panel; Complete Time: 04:04 03/13 04:04 Interpretation: Normal except: NA 125; CL 92; GLUC 128; CRE 1.31; GFR 48. 03/13 02:24 Order name: CBC with Diff; Complete Time: 04:04 03/13 04:04 Interpretation: Normal except: HGB 11.7; HCT 35.2. 03/13 02:24 Order name: Creatinine for Radiology; Complete Time: 04:04 03/13 04:04 Interpretation: Normal except: GFR 50. 03/13 02:24 Order name: Hepatic Function; Complete Time: 04:04 4 03/13 04:05 Interpretation: Normal except: GLOB 4.5; A/G 0.9; TP 8.5. 03/13 02:24 Order name: Lipase; Complete Time: 04:04 03/13 04:05 Interpretation: Within normal limits: LIP 187. 4 03/13 04:02 Order name: Glucose, Ancillary Testing; Complete Time: 04:04 [facility] 03/13 05:13 Order name: CBC with Automated Diff [facility] 03/13 05:13 Order name: CBC with Automated Diff [facility] 03/13 05:13 Order name: Comprehensive Metabolic Panel [facility] 03/13 05:14 Order name: Comprehensive Metabolic Panel [facility] 03/13 05:14 Order name: Protime (+INR) [facility] 03/13 05:14 Order name: Protime (+INR) [facility] 03/13 05:14 Order name: PTT, Activated Partial Thromb [facility] 03/13 05:14 Order name: PTT, Activated Partial Thromb [facility] 03/13 02:24 Order name: CT Abd/Pelvis - Without Contrast 4 03/13 02:24 Order name: IV Saline Lock; Complete Time: 02:36 03/13 02:24 Order name: Labs collected and sent; Complete Time: 02:36 03/13 05:13 Order name: CONS Pharmacy Consult [facility] 03/13 05:13 Order name: Heart Healthy [facility] 03/13 05:14 Order name: Troponin I [facility] 03/13 05:14 Order name: Troponin I [facility] 03/13 05:14 Order name: Basic Metabolic Panel [facility] 03/13 05:14 Order name: Cortisol [facility] 03/13 05:14 Order name: T4 Free [facility] 03/13 05:14 Order name: Thyroid Stimulating Hormone [facility] Administered Medications: 03/13 01:43 Drug: cloNIDine 0.2 mg Route: PO; rv 04:14 Follow up: Response: No adverse reaction; Blood pressure is lowered rv 04:17 Drug: NS 0.9% 500 ml Route: IV; Rate: bolus; Site: right forearm; rv 06:16 Follow up: IV Status: Completed infusion; IV Intake: 500ml rv 04:17 Drug: NS 0.9% 1000 ml Route: IV; Rate: 125 ml/hr; Site: right forearm; rv 06:16 Follow up: IV Status: Completed infusion rv 05:03 Not Given (Patient Refused): traMADol 50 mg PO once; RASS on ADMIN: Combtv4, Very ea Agttd3, Agttd2, Rstlss1, AlertClm0, Drwsy-1, Lt Sdtn-2, Mod Sdtn-3, Dp Sdtn-4, UnArsble-5 Disposition: 03/13/19 04:07 Hospitalization ordered by Debi Finney for Inpatient Admission. Preliminary diagnosis are Hypo-osmolality and hyponatremia, Weakness. - Bed requested for Telemetry/MedSurg (Inpatient). - Status is Inpatient Admission. ea - Condition is Stable. - Problem is new. - Symptoms are unchanged. UTI on Admission? No Signatures: Dispatcher [employer] Kirsty Sharp RN RN cg Antunez, Elena, RN RN ea Wadley, Terrence, MD MD tw4 Jasson Drake RN RN rv Corrections: (The following items were deleted from the chart) 04:06 03:57 03/13/2019 03:57 Discharged to Home. Impression: HYPERTENSIVE URGENCY; Ventral tw4 hernia. Condition is Stable. Forms are Medication Reconciliation Form, Thank You Letter, Antibiotic Education, Prescription Opioid Use. Follow up: Private Physician; When: Upon discharge from the Emergency Department; Reason: Recheck today's complaints, Continuance of care. Problem is an ongoing problem. Symptoms have improved. tw4 05:15 04:07 Hospitalization Ordered by Debi Finney MD for Inpatient Admission. Preliminary cg diagnosis is Hypo-osmolality and hyponatremia; Weakness. Bed requested for Telemetry/MedSurg (Inpatient). Status is Inpatient Admission. Condition is Stable. Problem is new. Symptoms are unchanged. UTI on Admission? No. tw4 06:15 05:15 03/13/2019 04:07 Hospitalization Ordered by Debi Finney MD for Inpatient ea Admission. Preliminary diagnosis is Hypo-osmolality and hyponatremia; Weakness. Bed requested for Telemetry/MedSurg (Inpatient). Status is Inpatient Admission. Condition is Stable. Problem is new. Symptoms are unchanged. UTI on Admission? No. cg
[2019-03-13] MEDS ORDERED: NA CHLORIDE 0.9% 1,000 ML ONE (04:12)
[2019-03-13] MEDS ORDERED: TRAMADOL HCL 50 MG TAB ONE (05:03)
[2019-03-13] MEDS ORDERED: ONDANSETRON 4 MG/2 ML VIAL IV PRN (05:10)
[2019-03-13] MEDS ORDERED: ACETAMINOPHEN 500 MG TAB PO PRN (05:10)
[2019-03-13] MEDS ORDERED: MORPHINE 2 MG/ML SYR IV PRN (05:10)
[2019-03-13] MEDS: NA CHLORIDE 0.9% 1,000 ML IV SCH ×2 (06:00→14:12)
[2019-03-13 06:35] VITALS: BMI 22.4
[2019-03-13] MEDS ORDERED: ALPRAZOLAM 0.5 MG TABLET PO PRN (06:54)
[2019-03-13] MEDS ORDERED: HYDROCODONE/APAP 10/325 TAB PO PRN (06:54)
[2019-03-13 07:13] LABS: Thyroid Stimulating Hormone 1.82 uIU/mL (0.360-3.740); Troponin I 0.06 ng/mL (0.0-0.045)
[2019-03-13] MEDS: PANTOPRAZOLE 40MG TABLET PO SCH (09:38)
[2019-03-13] MEDS: AMLODIPINE 10 MG TAB PO SCH (09:38)
[2019-03-13] MEDS: METFORMIN HCL 500 MG TAB PO SCH ×4 (09:38→20:47)
[2019-03-13 10:53] VITALS: O2SAT 100
--- NOTE | 2019-03-13 10:57 | RAD REPORT ---
EXAM DESCRIPTION: CT - Abdomen Pelvis Wo Contrast - 03/13/2019 4:56 am CLINICAL HISTORY: The patient is 79 years old and is Female; ABD PAIN TECHNIQUE: Axial computed tomography images of the abdomen and pelvis without intravenous contrast. Sagittal and coronal reformatted images were created and reviewed. This CT exam was performed usi ng one or more of the following dose reduction techniques: automated exposure control, adjustment o f the mA and/or kV according to patient size, and/or use of iterative reconstruction technique. COMPARISON: CT of the abdomen and pelvis March 25, 2018 FINDINGS: LUNG BASES: There is mild subsegmental atelectasis and/or scarring in bilateral lung bas es. ABDOMEN: LIVER: Homogeneous without focal mass. GALLBLADDER AND BILE DUCTS: Surgical clips are present in the right upper quadrant, consistent w ith previous cholecystectomy. PANCREAS: Pancreas is atrophic. No ductal dilation. SPLEEN: Unremarkable. ADRENALS: Unremarkable. No mass. KIDNEYS AND URETERS: Moderate bilateral hydroureteronephrosis is noted without obstructing calcu vini. The appearance is similar to prior exam. STOMACH AND BOWEL: The stomach is decompressed. The small bowel is relatively normal in caliber. A narrow mouth ventral wall hernia containing a knuckle of colon is present. There is no evidence of strangulation. A moderate amount of stool is present throughout the colon. There is no bowel obstruc tion. PELVIS: APPENDIX: The appendix is normal in caliber without surrounding inflammation. BLADDER: The bladder is well distended. No stones. REPRODUCTIVE: The patient is status post hysterectomy. ABDOMEN and PELVIS: INTRAPERITONEAL SPACE: Unremarkable. No free air. No significant fluid collection. BONES/JOINTS: No acute fracture. Minimal degenerative change of the spine is present. SOFT TISSUES: See above. VASCULATURE: Extensive atherosclerosis of the vasculature is noted. No abdominal aortic aneury sm. LYMPH NODES: Unremarkable. No enlarged lymph nodes. IMPRESSION: 1. Moderate bilateral hydroureteronephrosis, grossly unchanged from prior exam. No obs tructing calculus is seen. 2. Narrow mouthed ventral wall hernia containing a knuckle of colon without evidence of strangulati on or obstruction. This is also stable from prior exam. Electronically signed by: Loli Sagastume MD 03/13/2019 3:31 AM CERAMIC DESIGNER Due to temporary technical issues with the PACS/Fluency reporting system, reports are being signed by the in house radiologist as a courtesy to ensure prompt reporting. The interpreting radiologist is f ully responsible for the content of the report.
[2019-03-13] MEDS ORDERED: HYDRALAZINE HCL 20 MG/ML VIAL IV PRN (13:08)
[2019-03-13] MEDS ORDERED: IPRATROPIUM BROM 0.5MG/2.5ML NEB PRN (13:08)
[2019-03-13] MEDS ORDERED: ALBUTEROL 2.5 MG/3 ML NEB SOL NEB PRN (13:08)
[2019-03-13] MEDS ORDERED: cloNIDine HCL 0.1 MG TAB PO PRN (13:27)
[2019-03-13 13:58] LABS: Potassium 4.1 mmol/L (3.5-5.1)
[2019-03-13] MEDS: ASPIRIN EC 81 MG TAB PO SCH (14:11)
--- NOTE | 2019-03-13 14:11 | P.HP ---
Certification for Inpatient Patient admitted to: Inpatient Patient will require the following post-hospital care: None Practitioner: I am a practitioner with admitting privileges, knowledge of patient current condition, hospital course, and medical plan of care. Services: Services provided to patient in accordance with Admission requirements found in Title 42 Section 412.3 of the Code of Federal Regulations Patient History Date of Service: 03/13/19 Reason for admission: severe abdominal pain/severe hyponatremia/generalized weakness/bradycardia History of Present Illness: Patient is a 79-year-old female who came to the hospital with generalized weakness and abdominal pain. Her abdominal pain was very severe and it was in the bilateral upper quadrants and epigastric region. She had a CT of the abdomen and pelvis performed in the emergency room which revealed the ventral hernias. Patient also had bilateral hydronephroureters. Patient's blood pressure was also significantly elevated and patient was bradycardic and hyponatremic. Because of the numerous medical issues going on with the patient decision was made to admit the patient to an inpatient setting and worker up thoroughly to figure out exactly what is causing all her diffuse medical issues. patient has severe pain and uncontrolled hypertension which will need further evaluation and also the bradyarrhythmia will need to be studied for possible thyroid issues as well. Her urologic concerns may also need to be addressed but these were seen on a prior imaging studies. Not exactly sure what is causing these but this could also be looked at as an outpatient because this is a chronic issue. Allergies lisinopril Allergy (Severe, Verified 04/18/17 23:41) Anaphylaxis iron Allergy (Intermediate, Verified 04/18/17 23:41) Anaphylaxis Penicillins Allergy (Intermediate, Verified 04/18/17 23:41) Anaphylaxis SHARON Inhibitors Allergy (Verified 06/03/17 04:13) Unknown iodine Allergy (Verified 06/03/17 04:13) Unknown hydralazine [From Apresoline] Adverse Reaction (Verified 06/03/17 10:10) Shortness of breath Home Medications: ALPRAZolam [Xanax*] 0.5 mg PO BID PRN 07/11/17 Amlodipine Besylate 10 mg PO DAILY 07/11/17 Metformin HCl 1,000 mg PO BID 07/11/17 Pantoprazole Sodium 40 mg PO DAILY 07/11/17 carvediloL [Carvedilol] 12.5 mg PO BID 07/11/17 Aspirin [Aspirin EC 81 MG] 81 mg PO DAILY 03/13/19 Hydrocodone/Acetaminophen [Hydrocodone-Acetamin 10-325 mg] 1 tab PO BIDP PRN Isosorbide Mononitrate [Isosorbide Mononitrate ER] 60 mg PO DAILY 03/13/19 Latanoprost Ophth [Xalatan 0.005%*] 1 drop EACH EYE BEDTIME 03/13/19 Timolol Maleate 1 drop EACH EYE DAILY 03/13/19 Zolpidem Tartrate 10 mg PO BEDTIME 03/13/19 - Past Medical/Surgical History Has patient received pneumonia vaccine in the past: Yes Diabetic: Yes -: Diabetes mellitus type 2 -: Hypertension -: History DVT -: Glaucoma/cataract -: GERD -: Paroxysmally atrial fibrillation -: PVD -: History of stent to the kidney -: Depression with anxiety -: syncope -: Renal stent -: Ureter Surgery to remove scar tissue -: Hysterectomy -: merlin Psychosocial/ Personal History: The patient lives by herself. She is a . She has 8 children. - Family History Father Medical History: Hypertension, Lung disease, Diabetes, Kidney disease Notes: smoker Mother Medical History: Heart disease, Hypertension, GI disease, Diabetes, Stroke Brother Medical History: Hypertension - Social History Smoking Status: Former smoker Alcohol use: No CD- Drugs: No Caffeine use: Yes Place of Residence: Home Review of Systems 10-point ROS is otherwise unremarkable Physical Examination - Vital Signs Temperature: 97.8 F Blood Pressure: 179/75 Pulse: 53 Respirations: 19 Pulse Ox (%): 93 - Physical Exam General: Alert, In no apparent distress, Oriented x3 HEENT: Atraumatic, PERRLA, Mucous membr. moist/pink, EOMI, Sclerae nonicteric Neck: Supple, 2+ carotid pulse no bruit, No LAD, Without JVD or thyroid abnormality Respiratory: Clear to auscultation bilaterally, Normal air movement Cardiovascular: Regular rate/rhythm, Normal S1 S2, No murmurs Gastrointestinal: Soft and benign, No rebound, No guarding, Distended, Tenderness Musculoskeletal: No clubbing, No swelling, No tenderness Integumentary: No rashes Neurological: Normal gait, Normal speech, Normal strength at 5/5 x4 extr, Normal tone, Sensation intact, Cranial nerves 3-12 intact, Normal affect Lymphatics: No axilla or inguinal lymphadenopathy - Studies Laboratory Data (last 24 hrs) 03/13/19 02:35: Creatinine 1.26 03/13/19 02:35: WBC 7.4, Hgb 11.7 L, Hct 35.2 L, Plt Count 290 03/13/19 02:35: Sodium 125 L, Potassium 4.0, BUN 18, Creatinine 1.31 H, Glucose 128 H, Total Bilirubin 0.3, AST 22, ALT 18, Alkaline Phosphatase 93, Lipase 187 Assessment & Plan - Problems (Diagnosis) (1) Hyponatremia Onset Date: 04/10/17 Current Visit: No Status: Acute (2) Hypertensive urgency Current Visit: Yes Status: Acute (3) Bradycardia Onset Date: 01/02/14 Current Visit: No Status: Acute (4) Syncope Onset Date: 01/02/14 Current Visit: No Status: Acute (5) Diabetes mellitus Onset Date: 04/10/17 Current Visit: No Status: Chronic Qualifiers: Diabetes mellitus type: type 2 (6) History of atrial fibrillation Current Visit: No Status: Chronic (7) Hydronephrosis Current Visit: No Status: Chronic Qualifiers: - Plan Plan: 1. gentle hydration and monitor sodium level 2. Check renal function 3. Strict blood pressure control 4. Monitor hemodynamics as heart rate is low 5. recess abdominal symptoms. This could be related to her hernias or could be related to the bilateral hydronephroureters. This was seen on a prior imaging study so this appears to be chronic will reassess and may refer to General surgery and Urology as an outpatient unless her symptoms worsen. If it does worsen than this she will need urology hand surgery consultation while in hospital 6. GI and DVT prophylaxis Discharge Plan: Home Plan to discharge in: Greater than 2 days - Advance Directives Does patient have a Living Will: No Does patient have a Durable POA for Healthcare: No - Code Status/Comfort Care Code Status Assessed: Yes Code Status: Full Code Critical Care: No Time Spent Managing PTS Care (In Minutes): 45
[2019-03-13] MEDS ORDERED: ENOXAPARIN 40 MG/0.4 ML SQ SCH (17:00)
[2019-03-13] MEDS ORDERED: ZOLPIDEM TARTRATE 10 MG TABLET PO SCH (21:00)
[2019-03-14] MEDS: NA CHLORIDE 0.9% 1,000 ML IV SCH (00:42)
[2019-03-14 05:29] LABS: Protime INR 1.04
[2019-03-14 05:30] LABS: Basophils % 1.3 % (0-1.3); Hematocrit 32.3 % (36.0-45.0); Lymphocytes % 38.6 % (15.3-44.8); MPV 7.6 fL (7.6-11.3); RBC Red Blood Cell Count 3.75 M/uL (3.86-4.86)
[2019-03-14 05:51] LABS: Albumin 3.2 g/dL (3.4-5.0); Bilirubin Total 0.2 mg/dL (0.2-1.0); Protein, Total 6.9 g/dL (6.4-8.2)
[2019-03-14] MEDS: AMLODIPINE 10 MG TAB PO SCH (08:21)
[2019-03-14] MEDS: METFORMIN HCL 500 MG TAB PO SCH (08:21)
[2019-03-14] MEDS: PANTOPRAZOLE 40MG TABLET PO SCH (08:21)
[2019-03-14] MEDS: ASPIRIN EC 81 MG TAB PO SCH (08:22)
[2019-03-14 10:37] VITALS: TEMP 98
--- NOTE | 2019-03-14 11:27 | P.DS ---
Admission Date: 03/13/19 Discharge Date: 03/14/19 Disposition: ROUTINE DISCHARGE Discharge Condition: GOOD Reason for Admission: severe abdominal pain/severe hyponatremia/generalized weakness/bradycardia - Problems (1) Hypertensive urgency Current Visit: Yes Status: Acute (2) Bradycardia Onset Date: 01/02/14 Current Visit: No Status: Acute (3) Dehydration Onset Date: 01/02/14 Current Visit: No Status: Acute (4) Hyponatremia Onset Date: 04/10/17 Current Visit: No Status: Acute Hospital Course: Ms Flores is 79-year-old female who came to the hospital with generalized weakness and abdominal pain. Her abdominal pain was very severe, located in the bilateral upper quadrants and epigastric region. She had a CT of the abdomen and pelvis performed in the emergency room which revealed the ventral hernias and bilateral hydronephroureters, which were stable from prior CT. Patient's blood pressure was also significantly elevated and patient was bradycardic and hyponatremic. She was recently started on HCTZ 1 week ago due to uncontrolled BP. HCTZ was likely contributing to hyponatremia as well as hypovolemia, and has been discontinued. Na improved appropriately with IV hydration with isotonic fluid. Her BP was however very difficult to control as patient had many allergies to multiple classes of antihypertensive. Clonidine was utilized however with limitation due to bradycardia. Coreg has been reduced , could not discontinue completely due to hypertension. Bradycardia was asymptomatic and HR improved to 50's-80's. Patient was reluctant to medication change or introduction and will prefer to follow up outpatient with pcp whom she has known for years. Patient's abdominal pain was resolved. Hernia remained reducible. She is scheduled for elective procedure outpatient next month. She will follow up with pcp & urologist outpatient for further care. Vital Signs/Physical Exam: Temp Pulse Resp BP Pulse Ox 98 F 53 18 119/62 100 03/14/19 08:00 03/14/19 08:21 03/14/19 08:00 03/14/19 08:21 03/14/19 08:00 General: Alert, In no apparent distress HEENT: Atraumatic, PERRLA, EOMI Neck: Supple, JVD not distended Respiratory: Clear to auscultation bilaterally, Normal air movement Cardiovascular: Regular rate/rhythm, Normal S1 S2 Gastrointestinal: Normal bowel sounds, No tenderness Musculoskeletal: No tenderness Integumentary: No rashes Neurological: Normal speech, Normal tone, Normal affect Lymphatics: No axilla or inguinal lymphadenopathy Laboratory Data at Discharge: WBC 5.1 K/uL (4.3-10.9) D 03/14/19 05:00 Hgb 11.0 g/dL (12.0-15.0) L 03/14/19 05:00 Hct 32.3 % (36.0-45.0) L 03/14/19 05:00 Plt Count 224 K/uL (152-406) D 03/14/19 05:00 PT 12.3 SECONDS (9.5-12.5) 03/14/19 05:00 INR 1.04 03/14/19 05:00 APTT 31.4 SECONDS (24.3-36.9) 03/14/19 05:00 Sodium 134 mmol/L (136-145) L 03/14/19 05:00 Potassium 4.0 mmol/L (3.5-5.1) 03/14/19 05:00 BUN 14 mg/dL (7-18) 03/14/19 05:00 Creatinine 1.11 mg/dL (0.55-1.3) 03/14/19 05:00 Glucose 86 mg/dL (74-106) 03/14/19 05:00 Total Bilirubin 0.2 mg/dL (0.2-1.0) 03/14/19 05:00 AST 18 U/L (15-37) 03/14/19 05:00 ALT 16 U/L (12-78) 03/14/19 05:00 Alkaline Phosphatase 68 U/L (45-117) 03/14/19 05:00 Troponin I 0.06 ng/mL (0.0-0.045) H 03/13/19 06:38 Lipase 187 U/L (73-393) 03/13/19 02:35 Home Medications: ALPRAZolam [Xanax*] 0.5 mg PO BID PRN 07/11/17 Amlodipine Besylate 10 mg PO DAILY 07/11/17 Metformin HCl 1,000 mg PO BID 07/11/17 Pantoprazole Sodium 40 mg PO DAILY 07/11/17 carvediloL [Carvedilol] 12.5 mg PO BID 07/11/17 Aspirin [Aspirin EC 81 MG] 81 mg PO DAILY 03/13/19 Hydrocodone/Acetaminophen [Hydrocodone-Acetamin 10-325 mg] 1 tab PO BIDP PRN Isosorbide Mononitrate [Isosorbide Mononitrate ER] 60 mg PO DAILY 03/13/19 Latanoprost Ophth [Xalatan 0.005%*] 1 drop EACH EYE BEDTIME 03/13/19 Timolol Maleate 1 drop EACH EYE DAILY 03/13/19 Zolpidem Tartrate 10 mg PO BEDTIME 03/13/19 Diet: ADA Activity: Fall precautions Followup: Sharath Pate MD [Primary Care Provider] - 2-3 Days
[2019-03-14 14:42] VITALS: BP 121/59
== END 2019-03-14 13:05 | disposition home or self-care (01) ==
LOC: ER 01:13 → 2ND 05:25 → INTOOBSV 05:25
PROVIDERS: ADMIT Hospitalist; ATTEND Hospitalist
DX: I16.0 Hypertensive urgency (principal); R00.1 Bradycardia, unspecified; E87.1 Hypo-osmolality and hyponatremia; E86.0 Dehydration; R10.9 Unspecified abdominal pain; R53.1 Weakness; K43.9 Ventral hernia without obstruction or gangrene; N13.30 Unspecified hydronephrosis; E11.9 Type 2 diabetes mellitus without complications; I48.0 Paroxysmal atrial fibrillation; Z86.718 Personal history of other venous thrombosis and embolism; Z87.891 Personal history of nicotine dependence; Z88.0 Allergy status to penicillin
CPT/HCPCS: 96361; 85025 ×2; 80048 ×3; 36415 ×2; 85610; 82947 ×6; 80076; 85730; 84443; 84484; 84439; 83690; 80053; 82533; 74176; 96360; 99284; J1650; J7030 ×3; J2405; G0378 ×3

== ENCOUNTER 2020-02-17 17:28 | Inpatient (IN) | payer OTHER ==
--- OUTSIDE RECORDS SUMMARY | 2020-02-17 17:31 | XMS REPORT | Clinical Summary ---
:1940 Author Organization [facility] Address [address] [place] [address] Care Team Providers Name Role Phone Unavailable [...] mouth. pantoprazole Take 40 mg by 0 Act vivi (PROTONIX) 40 MG mouth daily. tablet zolpidem [...] quadrant abdominal pain 04/16/2017 Abdominal pain 04/15/2017 Social History Tobacco Use Types Packs/Day Years Used Date Never Assessed Sex Assigned at Date Recorded Not on file Last Filed Vital Signs Not on file Plan of Treatment Health Maintenance Due Date Last Done Comments PNEUMOCOCCAL 65+ YRS (1 of 1 - [id number]) 2007 MEDICARE ANNUAL WELLNESS (YEAR 2 or FIRST YEAR if no 01/15/2008 IPPE) INFLUENZA VACCINE (#1) 2019 Results Not on fileafter 02/16/2019 Advance Directives For more information, please contact: [phone] Code Status Date Activated Date Inactivated Comments Full Code 04/15/2017 2:43 AM 04/17/2017 10:06 PM This code status was determined by: Patient
--- OUTSIDE RECORDS SUMMARY | 2020-02-17 17:31 | XMS REPORT | Clinical Summary ---
:1940 Author Organization [facility] Address [address] [place] [address] Care Team Providers Name Role Phone Rio Oshea MD Primary Care Provider Allergies Active Allergy Reactions Severity Noted Date Comments Iodine And Iodide Containing Products Rash Low 03/2019 Lisinopril Unknown Reaction 04/15/2019 Penicillins Swelling 04/15/2019 Medications Medication Sig Dispensed Refills Start Date End Date Status metFORMIN Take 1,000 mg 0 Active (GLUCOPHAGE) by mouth 2 1,000 mg tablet (two) times a day with meals. pantoprazole Take 40 mg by 0 Act vivi (PROTONIX) 40 MG mouth daily. EC tablet acetaminophen-cod Take 1 tablet 0 Active eine (TYLENOL by mouth every WITH CODEINE #3) 4 (four) hours 300-30 mg per as needed for tabletIndications moderate pain : acute pain .acute pain. isosorbide Take 60 mg by 0 Activ e mononitrate mouth every (IMDUR) 60 MG 24 morning. hr tablet HYDROcodone-aceta Take 1 tablet 0 Active minophen (NORCO) by mouth 2 10-325 mg per (two) times a tabletIndications day as needed : acute pain for moderate pain .acute pain. carvediloL Take 12.5 mg by 0 Act vivi (COREG) 12.5 MG mouth 2 (two) tablet times a day. amLODIPine Take 10 mg by 0 Activ e (NORVASC) 10 mg mouth every tablet morning. aspirin 81 mg Chew 81 mg 0 Activ e chewable tablet daily. latanoprost Administer 1 0 Activ e (XALATAN) 0.005 % drop to both ophthalmic eyes nightly. solution ALPRAZolam Take 0.5 mg by 0 Acti ve (XANAX) 0.5 MG mouth 2 (two) tablet times a day as needed for anxiety. timolol Administer 1 0 Active (TIMOPTIC) 0.5 % drop to both ophthalmic eyes every solution morning. zolpidem (AMBIEN) Take 10 mg by 0 04/19/19 2 Discontinued 10 mg tablet mouth nightly. 0 (R eorder) zolpidem (AMBIEN) Take 0.5 15 tablet 0 04/19/2019 E xpired 10 mg tablet tablets (5 mg 0 total) by mouth nightly as needed for sleep for up to 30 days. atorvastatin Take 1 tablet 30 tablet 0 04/19/2019 Di scontinued (LIPITOR) 40 MG (40 mg total) 0 tablet by mouth nightly for 30 days. clopidogreL Take 1 tablet 30 tablet 0 04/20/2019 Dis continued (PLAVIX) 75 mg (75 mg total) 0 tablet by mouth daily for 30 days. atorvastatin Take 1 tablet 30 tablet 0 04/19/2019 Ex pired (LIPITOR) 40 MG (40 mg total) 0 tablet by mouth nightly for 30 days. clopidogreL Take 1 tablet 30 tablet 0 04/20/2019 Exp ired (PLAVIX) 75 mg (75 mg total) 0 tablet by mouth daily for 30 days. Active Problems Problem Noted Date Chest pain 04/16/2019 Encounters Date Type Specialty Care Team Description 04/22/2019 Patient Outreach Quality Nevin Gaytan, SARA 04/19/2019 Telephone Urology Tacos Maxwell MD 04/18/2019 Surgery Procedural Isreal Dang Left heart c ath w lv Cardiology MD becker cors [[id number] (CPT)] 04/15/2019 - Hospital Encounter General Internal [place], Chest pain, 04/19/2019 Medicine Kevin Camarena, unspecified type DO (Primary Dx) Leroy Lora MD after 02/16/2019 Surgical History Surgery Date Site/Laterality Comments HERNIA REPAIR HYSTERECTOMY CARDIAC CATHETERIZATION 04/18/2019 N/A Procedur e: Left heart cath w raul spence; Surgeon: Isreal Dang MD; Location: [facility] Lab Invasive Location; Servi ce: Cardiology; Laterality: N/A; Medical History Medical History Date Comments Hypertension Diabetes mellitus (HCC) Anxiety Family History Medical History Relation Name Comments Hypertension Father Relation Name Status Comments Father Mother Social History Tobacco Use Types Packs/Day Years Used Date Never Smoker Smokeless Tobacco: Never Used Alcohol Use Drinks/Week oz/Week Comments Never Alcohol Habits Answer Date Recorded How often do you have a drink containing alcohol? Never 04/15/2019 How many drinks containing alcohol do you have on a typical Not asked day when you are drinking? How often do you have six or more drinks on one occasion? No t asked Sex Assigned at Date Recorded Not on file Last Filed Vital Signs Vital Sign Reading Time Taken Comments Blood Pressure 122/59 04/19/2019 3:02 PM [employer] Pulse 50 04/19/2019 3:02 PM [employer] HEAD Temperature 36 C (96.8 F) 04/19/2019 3:02 PM [employer] ASSIST[employer] DEPARTMENT HEAD Respiratory Rate 16 04/19/2019 3:02 PM GROUP [employer] ASSISTANT DEPARTMENT HEAD Oxygen Saturation 100% 04/19/2019 3:02 PM GROUP FITNESS ASSISTANT DEPARTMENT HEAD Inhaled Oxygen Concentration - - Weight 59.9 kg (132 lb) 04/16/2019 1:44 AM GROUP [employer] ASSISTANT DEPARTMENT HEAD Height 162.6 cm (5' 4") 04/16/2019 1:44 AM GROUP FITNESS ASSISTANT DEPARTMENT HEAD Body Mass Index 22.66 04/16/2019 1:44 AM GROUP FITNESS ASSISTANT DEPARTMENT HEAD Plan of Treatment Health Maintenance Due Date Last Done Comments DIABETES: RETINAL EYE EXAM 01/31/1950 DIABETIC FOOT EXAM 01/31/1950 URINE MICROALBUMIN 01/31/1952 COVID-19 VACCINE (#1) 1958 SHINGLES VACCINES (#1) 01/31/1992 65+ PNEUMOCOCCAL VACCINE (1 of 1 - 2007 02/28/2007 PPSV23) INFLUENZA VACCINE 09/14/2019 04/09/2017, 11/22/2013, 12/25/2008, Additional history exists Procedures Procedure Name Priority Date/Time Associated Comments Diagnosis POC GLUCOSE Routine 04/19/2019 4:32 Results for this PM [employer] ASSIST[employer] DEPARTMENT HEAD procedure are i n the results section. POC GLUCOSE Routine 04/19/2019 11:37 Results for this AM GROUP FITNESS ASSISTANT DEPARTMENT HEAD procedure are i n the results section. POC GLUCOSE Routine 04/19/2019 7:25 Results for this AM GROUP FITNESS ASSISTANT DEPARTMENT HEAD procedure are i n the results section. ESTIMATED GFR Routine 04/19/2019 4:15 Results fo r this AM GROUP FITNESS ASSISTANT DEPARTMENT HEAD procedure are i n the results section. LIPID PANEL Routine 04/19/2019 4:15 Results for this AM GROUP FITNESS ASSISTANT DEPARTMENT HEAD procedure are i n the results section. BASIC METABOLIC PANEL Routine 04/19/2019 4:15 Re sults for this AM GROUP FITNESS ASSISTANT DEPARTMENT HEAD procedure are i n the results section. HC COMPLETE BLD COUNT Routine 04/19/2019 4:15 Re sults for this W/AUTO DIFF AM [employer] ASSISTANT DEPARTMENT HEAD procedure are i n the results section. POC GLUCOSE Routine 04/18/2019 10:41 Results for this PM [employer] ASSISTANT DEPARTMENT HEAD procedure are i n the results section. POC GLUCOSE Routine 04/18/2019 8:22 Results for this PM [employer] ASSISTANT DEPARTMENT HEAD procedure are i n the results section. POC GLUCOSE Routine 04/18/2019 4:11 Results for this PM [employer] FITNESS ASSISTANT DEPARTMENT HEAD procedure are i n the results section. NM LUNG VENTILATION Routine 04/18/2019 4:04 Resu lts for this PERFUSION PM [employer] FITNESS ASSISTANT DEPARTMENT HEAD procedure are i n the results section. POC GLUCOSE Routine 04/18/2019 9:56 Results for this AM GROUP FITNESS ASSISTANT DEPARTMENT HEAD procedure are i n the results section. CV LEFT HEART CATH LV Routine 04/18/2019 9:41 Re sults for this GRAM WITH CORS AM [employer] FITNESS ASSISTANT DEPARTMENT HEAD procedure are in the results section. POC GLUCOSE Routine 04/18/2019 7:54 Results for this AM [employer] FITNESS ASSISTANT DEPARTMENT HEAD procedure are i n the results section. PROTHROMBIN TIME WITH Routine 04/18/2019 3:50 Re sults for this INR AM GROUP FITNESS ASSISTANT DEPARTMENT HEAD procedure are i n the results section. ESTIMATED GFR Routine 04/18/2019 3:50 Results fo r this AM GROUP FITNESS ASSISTANT DEPARTMENT HEAD procedure are i n the results section. BASIC METABOLIC PANEL Routine 04/18/2019 3:50 Re sults for this AM GROUP FITNESS ASSISTANT DEPARTMENT HEAD procedure are i n the results section. HC COMPLETE BLD COUNT Routine 04/18/2019 3:50 Re sults for this W/AUTO DIFF AM GROUP FITNESS ASSISTANT DEPARTMENT HEAD procedure are i n the results section. POC GLUCOSE Routine 04/17/2019 8:50 Results for this PM [employer] FITNESS ASSISTANT DEPARTMENT HEAD procedure are i n the results section. POC GLUCOSE Routine 04/17/2019 4:41 Results for this PM [employer] ASSISTANT DEPARTMENT HEAD procedure are i n the results section. POC GLUCOSE Routine 04/17/2019 12:08 Results for this PM [employer] ASSISTANT DEPARTMENT HEAD procedure are i n the results section. ESTIMATED GFR Routine 04/17/2019 12:06 Results fo r this PM [employer] ASSISTANT DEPARTMENT HEAD procedure are i n the results section. BASIC METABOLIC PANEL Routine 04/17/2019 12:06 Re sults for this PM [employer] ASSISTANT DEPARTMENT HEAD procedure are i n the results section. HC COMPLETE BLD COUNT Routine 04/17/2019 12:06 Re sults for this W/AUTO DIFF PM [employer] ASSISTANT DEPARTMENT HEAD procedure are i n the results section. FERRITIN LEVEL Routine 04/17/2019 12:05 Results f or this PM [employer] ASSISTANT DEPARTMENT HEAD procedure are i n the results section. TOTAL IRON BINDING Routine 04/17/2019 12:05 Resul ts for this CAPACITY PM [employer] FITNESS ASSISTANT DEPARTMENT HEAD procedure are i n the results section. URINALYSIS, AUTOMATED Routine 04/17/2019 11:45 Re sults for this WITH MICROSCOPY AM GROUP FITNESS ASSISTANT DEPARTMENT HEAD procedure ar e in the results section. TTE COMPLETE, WO Routine 04/17/2019 11:22 Results for this CONTRAST, W DOPPLER AM GROUP FITNESS ASSISTANT DEPARTMENT HEAD procedur e are in ([id number]) the results section. US DUPLEX VENOUS LOWER Routine 04/17/2019 10:01 R esults for this EXTREMITY BILATERAL AM [employer] FITNESS ASSISTANT DEPARTMENT HEAD procedur e are in the results section. US RENAL Routine 04/17/2019 10:00 Results for this AM [employer] ASSISTANT DEPARTMENT HEAD procedure are i n the results section. POC GLUCOSE Routine 04/17/2019 7:46 Results for this AM [employer] FITNESS ASSISTANT DEPARTMENT HEAD procedure are i n the results section. POC GLUCOSE Routine 04/16/2019 11:04 Results for this PM [employer] ASSISTANT DEPARTMENT HEAD procedure are i n the results section. CT ABDOMEN PELVIS WO Routine 04/16/2019 10:11 Res ults for this CONTRAST PM [employer] ASSISTANT DEPARTMENT HEAD procedure are i n the results section. POC GLUCOSE Routine 04/16/2019 5:01 Results for this PM [employer] ASSISTANT DEPARTMENT HEAD procedure are i n the results section. NM MYOCARDIAL PERFUSION Routine 04/16/2019 4:38 Results for this REST STRESS 1 DAY PM [employer] ASSIST[employer] DEPARTMENT HEAD procedure are in the results section. CV STRESS TEST NUCLEAR Routine 04/16/2019 4:38 R esults for this CARDIO PM [employer] ASSISTANT DEPARTMENT HEAD procedure are i n the results section. POC GLUCOSE Routine 04/16/2019 11:10 Results for this AM [employer] ASSISTANT DEPARTMENT HEAD procedure are i n the results section. TROPONIN Timed 04/16/2019 10:57 Results for this AM [employer] ASSISTANT DEPARTMENT HEAD procedure are i n the results section. D-DIMER Routine 04/16/2019 10:50 Results for this AM [employer] ASSISTANT DEPARTMENT HEAD procedure are i n the results section. TROPONIN Timed 04/16/2019 5:40 Results for this AM [employer] FITNESS ASSISTANT DEPARTMENT HEAD procedure are i n the results section. URINALYSIS SCREEN AND STAT 04/16/2019 4:49 Re sults for this MICROSCOPY, WITH REFLEX AM GROUP FITNESS ASSISTANT DEPARTMENT HEAD proc edure are in TO CULTURE the results section. URINE CULTURE STAT 04/16/2019 4:49 Results fo r this AM GROUP FITNESS ASSISTANT DEPARTMENT HEAD procedure are i n the results section. TROPONIN Timed 04/16/2019 3:21 Results for this AM GROUP FITNESS ASSISTANT DEPARTMENT HEAD procedure are i n the results section. B NATRIURETIC PEPTIDE STAT 04/16/2019 12:25 Re sults for this AM GROUP FITNESS ASSISTANT DEPARTMENT HEAD procedure are i n the results section. PARTIAL THROMBOPLASTIN STAT 04/16/2019 12:25 R esults for this TIME (PTT) AM GROUP FITNESS ASSISTANT DEPARTMENT HEAD procedure are i n the results section. PROTHROMBIN TIME WITH STAT 04/16/2019 12:25 Re sults for this INR AM GROUP FITNESS ASSISTANT DEPARTMENT HEAD procedure are i n the results section. ESTIMATED GFR STAT 04/16/2019 12:25 Results fo r this AM GROUP FITNESS ASSISTANT DEPARTMENT HEAD procedure are i n the results section. LIPASE LEVEL STAT 04/16/2019 12:25 Results for this AM GROUP FITNESS ASSISTANT DEPARTMENT HEAD procedure are i n the results section. COMPREHENSIVE METABOLIC STAT 04/16/2019 12:25 Results for this PANEL AM GROUP FITNESS ASSISTANT DEPARTMENT HEAD procedure are i n the results section. TROPONIN Timed 04/16/2019 12:25 Results for this AM GROUP FITNESS ASSISTANT DEPARTMENT HEAD procedure are i n the results section. XR ABDOMEN ACUTE INC STAT 04/16/2019 12:14 Res ults for this CHEST 1V AM GROUP FITNESS ASSISTANT DEPARTMENT HEAD procedure are i n the results section. HC COMPLETE BLD COUNT STAT 04/15/2019 11:50 Re sults for this W/AUTO DIFF PM [employer] ASSISTANT DEPARTMENT HEAD procedure are i n the results section. ECG 12-LEAD STAT 04/15/2019 11:28 Results for this PM [employer] FITNESS ASSISTANT DEPARTMENT HEAD procedure are i n the results section. ECG ED PRELIMINARY Routine 04/15/2019 11:25 Resul ts for this INTERPRETATION PM [employer] FITNESS ASSISTANT DEPARTMENT HEAD procedure are in the results section. after 02/16/2019 Results POC glucose (04/19/2019 4:32 PM GROUP FITNESS ASSISTANT DEPARTMENT HEAD)Only the most recent of15 resultswithin the time period is included. Pathologist Sig nature POC glucose 101 (H) 65 - 99 mg/dL [facility] [place] Comment: [facility] Desizing Machine Offbearer Name: Russ Davis Device ID: [id number] Chartable: RN Notified Specimen Performing Organization Address City/State/ZIP Code Phon e Number [facility] DEPARTMENT OF PATHOLOGY [address] [facility], [place] [address] AND GENOMIC MEDICINE [facility] [address] [facility] X [address] HOSPITAL Estimated GFR (04/19/2019 4:15 AM GROUP FITNESS ASSISTANT DEPARTMENT HEAD)Only the most recent of4 resultswithin the time period is included. Pathologist [facility] Estimated GFR 54 (A) mL/min/1.73 [facility] Comment: m2 IRVINE Catergory Units Interpretation HOS PITAL G1 >=90 Normal or high G2 60-89 Mildly decreased G3a 45-59 Mildly to moderately decreas ed G3b 30-44 Moderately to severely decre ased G4 15-29 Severely decreased G5 <15 Kidney failure The eGFR was calculated using the Chronic Kidney Disea se Epidemiology Collaboration (CKD-EPI) equation. Interpretation is based on recommendations of the National Kidney Foundation-Kidney Disease Outcomes Javon lity Initiative (NKF-KDOQI) published in 2014. Specimen Plasma specimen Performing Organization Address City/State/ZIP Code Phon e Number [facility] DEPARTMENT OF PATHOLOGY [address] [facility] [place] [address] AND GENOMIC MEDICINE [facility] [address] [facility] X [address] HOSPITAL CBC with platelet and differential (04/19/2019 4:15 AM GROUP FITNESS ASSISTANT DEPARTMENT HEAD)Only the most recent of4 resultswithin the time period is included. WBC 8.3 4.5 - 11.0 k/uL [facility] RBC 3.14 (L) 4.20 - 5.50 [facility] m/uL [facility] HGB 8.8 (L) 12.0 - 16.0 [facility] g/dL [facility] HCT 28.1 (L) 37.0 - 47.0 % [facility] MCV 89.5 82.0 - 100.0 fL [facility] MCH 28.0 27.0 - 34.0 pg [facility] MCHC 31.3 31.0 - 37.0 [facility] g/dL [facility] RDW - SD 43.7 37.0 - 55.0 fL [facility] MPV 9.2 6.9 - 11.0 fL [facility] Platelet count 295 150 - 400 K/uL [facility] Nucleated RBC 0.00 /100 WBC [facility] Neutrophils 69.4 (H) 39.0 - 69.0 % [facility] Lymphocytes 22.8 (L) 25.0 - 45.0 % [facility] Monocytes 7.0 0.0 - 10.0 % [facility] Eosinophils 0.2 0.0 - 5.0 % [facility] Basophils 0.4 0.0 - 1.0 % [facility] Immature granulocytes 0.2 0.0 - 1.0 % [facility] Specimen Blood Performing Organization Address [facility] Phon e Number [facility] DEPARTMENT OF PATHOLOGY [id number] [place] [id number] AND GENOMIC MEDICINE [address] Lipid panel (04/19/2019 4:15 AM GROUP FITNESS ASSISTANT DEPARTMENT HEAD) Cholesterol 151 0 - 199 [place] mg/dL [facility] Triglycerides 58 0 - 149 [place] mg/dL [facility] HDL cholesterol 59 40 - 99,999 [place] mg/dL [facility] LDL cholesterol 84 0 - 99 mg/dL [facility] Lipid panel See below [place] interpretation Comment: [facility] Total Cholesterol (mg/dL) [facility] <200 Desirable 200-239 Borderline-high >=240 High Triglycerides (mg/dL) <150 Normal 150-199 Borderline-high 200-499 High >=500 Very high HDL Cholesterol (mg/dL) <40 Low (male) <50 Low (female) LDL Cholesterol (mg/dL) <100 Optimal 100-129 Near or above optimal 130-159 Borderline-high 160-189 High >=190 Very high Risk Catergories that modify LDL goals. Risk Catergories LDL goal (mg/d L) CHD and CHD risk equivalent <100 (10-year risk >20%) Multiple (2+) risk factors <130 (10-year risk =<20%) 0-1 risk factors <160 (<10-year risk) Defining levels of lipids in metabolic syndrome Triglycerides >=150 mg/dL HDL Cholesterol Men <40 mg /dL Women <50 mg/ dL Non-HDL cholesterol is a second target for therapy in persons with high triglycerides (>=200 mg/dL) Specimen Plasma specimen Performing Organization Address [facility] Phon e Number [facility] DEPARTMENT OF PATHOLOGY [address] [facility] [place] [address] AND [facility] MEDICINE [id number] [place] [address] Basic metabolic panel (04/19/2019 4:15 AM GROUP FITNESS ASSISTANT DEPARTMENT HEAD)Only the most recent of3 results within the time period is included. Pathologist Sig nature Sodium 139 135 - 148 mEq/L [facility] Potassium 4.1 3.5 - 5.0 mEq/L [facility] Chloride 105 98 - 112 mEq/L [facility] CO2 24 24 - 31 mEq/L [facility] Anion gap 10@ANIO 7 - 15 mEq/L [facility] BUN 9 8 - 23 mg/dL [facility] Creatinine 1.14 (H) 0.50 - 0.90 mg/dL [facility] Glucose 116 (H) 65 - 99 mg/dL [facility] Calcium 9.3 8.8 - 10.2 mg/dL [facility] Specimen Plasma specimen Performing Organization Address City/State/ZIP Code Phon e Number [facility] DEPARTMENT OF PATHOLOGY [address] [facility], [place] [address] AND GENOMIC MEDICINE [facility] [address] [place] [address] [facility] Lung Ventilation Perfusion (04/18/2019 4:04 PM GROUP FITNESS ASSISTANT DEPARTMENT HEAD) Specimen Narrative Performed At This result has an attachment that is no t available. CLINICAL HISTORY: PE suspected intermediate prob positive D-dimer, chest pain RADIANT TECHNIQUE: The patient breathed 15-20 mCi of xenon- 133 gas through a closed ventilation system while dynamic imaging of the lungs was performed in the posterior and anterior projections. The patient was then injec nav with 5 mCi of [id number] intravenously, followed by imaging of the lungs in ante rior, posterior, and oblique projections. FINDINGS: Mildly heterogeneous ventilation and perfusion bilater ally. IMPRESSION: Very Low Probability of pulmonary embolism. [facility]-[id number] Procedure Note Hm Interface, Radiology Results Incoming - 04/18/2019 5:03 PM GROUP FITNESS ASSISTANT DEPARTMENT HEAD CLINICAL HISTORY: PE suspected intermediate prob positive D-dimer, chest pain TECHNIQUE: The patient breathed 15-20 mCi of xenon- 133 gas through a closed ventilation system while dynamic imaging of the lungs was performed in the posterior and anterior projections. The patient was then injected with 5 mCi of [id number] intravenously, followed by imaging of the lungs in ante rior, posterior, and oblique projections. FINDINGS: Mildly heterogeneous ventilation and per fusion bilaterally. IMPRESSION: Very Low Probability of pulmonary emboli [facility]-[id number] Performing Organization Address [facility] Code Phon e Number [facility] [address] [place] [address] labor service representative procedure (04/18/2019 9:41 AM GROUP FITNESS ASSISTANT DEPARTMENT HEAD) Specimen Narrative Performed At This result has an attachment that is no t available. Procedure(s): SYNGO Left heart cath w lv gram cors Tolerated procedure well Condition: stable Complications: None; patient tolerated the procedure well. Findings: RCA is large vessel giving rise to PDA and MILA. Mild d iffuse disease seen. Distal RCA gives collaterals to LCX LM is short giving rise to LAD and lCX. LAD is large vessel giving rise to diagonal 1 . Mild d iffuse disease seen LCX is large vessel giving rise to OM 1 and OM 2. 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 Asa/plavix/statins/BB Performing Organization Address [facility] Phon e Number SY[facility] [address] [place] [address], Prothrombin time with INR (04/18/2019 3:50 AM GROUP FITNESS ASSISTANT DEPARTMENT HEAD)Only the most recent of2 resultswithin the time period is included. Pathologist [facility] Prothrombin time 14.3 11.5 - 14.5 [place] sec [facility] INR 1.1 [place] Comment: [facility] International Normalized Ratio (INR) is a therapeu [facility] monitoring tool for patients who are stable on oral anticoagulant therapy. An INR of 2.0-3.0 is suggested for deep vein thrombosis/pulmonary embolism. Specimen Blood Performing Organization Address [facility] Phon e Number [facility] DEPARTMENT OF PATHOLOGY [address] [facility] X [address] AND GENOMIC MEDICINE [facility] [address] [facility] X [address] [facility] Total iron binding capacity (04/17/2019 12:05 PM GROUP FITNESS ASSISTANT DEPARTMENT HEAD) Pathologist Sig nature Iron level 60 37 - 145 ug/dL [facility] Iron binding capacity 206 (L) 260 - 460 ug/dL [facility] % Saturation 29.1 15.0 - 38.0 % [facility] Specimen Plasma specimen Performing Organization Address City/[facility]/ZIP [facility] Phon e Number [facility] DEPARTMENT OF PATHOLOGY [address] [facility] [place] [address] AND GENOMIC [facility] [id number] [place], [place] [id number] [address] [id number] [facility]OSPITAL Ferritin level (04/17/2019 12:05 PM GROUP FITNESS ASSISTANT DEPARTMENT HEAD) Pathologist Sig nature Ferritin level 236 (H) 13 - 150 ng/mL [facility] Specimen Plasma specimen Performing Organization Address [facility] Phon e Number [facility] DEPARTMENT OF PATHOLOGY AND [address] [place], [place] [address] [address] Urinalysis, automated with microscopy (04/17/2019 11:45 AM GROUP FITNESS ASSISTANT DEPARTMENT HEAD) Pathologist Sig nature Color, UA Colorless [facility] Appearance, UA Clear [facility] Specific gravity, UA 1.004 1.001 - 1.030 [facility] pH, UA 9.0 5.0 - 9.0 [facility] Protein, UA Negative Negative [facility] Glucose, UA Negative Negative [facility] Ketones, UA Negative Negative [facility] Bilirubin, UA Negative Negative [facility] Blood, UA Negative Negative [facility] Nitrite, UA Negative Negative [facility] Urobilinogen, UA <2.0 <2.0 E.U./dL [facility] Leukocyte esterase, Negative Negative [facility] Epithelial cells, UA <1 /HPF [facility] WBC, UA <1 0 - 4 /HPF [facility] RBC, UA <1 0 - 5 /HPF [facility] Bacteria, UA None seen None seen [facility] Yeast, UA None seen [facility] Yeast with None seen [facility] pseudohyphae, UA [facility] Specimen Urine Performing Organization Address [facility]/ZIP [facility] Phon e Number [facility] DEPARTMENT OF PATHOLOGY [address] [facility] [address] AND GENOMIC MEDICINE [facility] [address] [facility] [address], [place] [address] [facility] Transthoracic Echocardiogram Complete, (w Contrast, Strain and 3D if needed) (04/17/2019 11:22 AM GROUP FITNESS ASSISTANT DEPARTMENT HEAD) Pathologist Sig nature Velocity Ratio (V1/V2) 1.11 m/s [facility] IVS,d 0.96 cm [facility] EF -11.11 % [facility] LVPWD,d 1.01 cm [facility] AoV Mean PG 3.00 mmHg [facility] AV LVOT peak gradient 6.97 mmHg [facility] MV valve area p 1/2 method 2.83 cm2 [facility] E/A ratio 1.11 [facility] E wave decelartion time 268.00 msec [facility] LVOT Diam,S 1.60 cm [facility] LVOT area 2.01 cm2 [facility] LVOT Vmax 1.32 m/s [facility] LVOT VTI 0.29 m [facility] AoV Peak PG 5.66 mmHg [facility] MV Peak E Willem 1.09 m/s [facility] MV stenosis pressure 1/2 time 77.72 ms [facility] MV Peak A Iwllem 0.98 m/s [facility] AoV Area, Vmax 2.23 cm2 [facility] AoV Area, VTI 2.03 cm2 [facility] AoV Vmax 1.19 m/s [facility] IVS/LVPW,2D 0.95 [facility] LV,d 1.42 cm [facility] LV,s 2.43 cm [facility] TR Vpeak 2.58 mm/s [facility] MV E A ratio 1.11 [facility] TR pk grad 24.40 mmHg [facility] LV SYS VOL 20.80 ml [facility] LV FOWLER VOL 18.72 ml [facility] LV SV Teich 2D -2.08 ml [facility] LV Vol s Teich PSAX 20.80 ml [facility] AoV Vmn 0.90 [facility] LV FS Cube 2D -4.29 [facility] LV FS Teich 2D -4.29 [facility] AoV VTI 0.29 m [facility] LV EF,2D -13.44 % [facility] MV AE ratio 0.90 [facility] LVOT Vmn 0.89 [facility] Aov area Vmn 1.99 cm2 [facility] LVOT mean grad 4.00 mmHg [facility] MAX Pred HR 142.79 [facility] 85 of MPHR 121.37 [facility] Calc MPHR 142.79 bpm [facility] LV SV Cube 2D -1.70 ml [facility] LV vol d cube 2D 12.65 ml [facility] LV vol s cube 2D 14.35 ml [facility] MV Decel slope 4.08 m/s2 [facility] Pred Exer Dur R1 6.04 [facility] Pred METS R1 4.66 [facility] Specimen Narrative Performed At This result has an attachment that is no t available. Left ventricular systolic function is normal. [facility] Left Ventricular ejection fraction is 60 - 65%. Right Ventricle: Normal right ventricular size, wal l thickness and global function. Regional wall motion abnormality not seen but can n ot be completely excluded. No evidence of pulmonary hypertension present. Trace pulmonary valve regurgitation. Diastology: Spectral Doppler shows normal pattern o f LV diastolic filling. Normal LV filling pressure. Pericardium: No pericardial effusion seen. Performing Organization Address City/State/ZIP Code Phon e Number [facility] [address] [place] [address], [place] Us duplex venous lower extremity (04/17/2019 10:01 AM GROUP FITNESS ASSISTANT DEPARTMENT HEAD) Specimen Narrative Performed At EXAMINATION: US DUPLEX VENOUS LOWER EX TREMITY BILATERAL [facility] CLINICAL HISTORY: leg swelling eval fo r dvt COMPARISON: None. TECHNIQUE: Grayscale, color Doppler, and spectral wa veform analysis of the bilateral lower extremity deep venous systems was performed. The bilateral common femoral, superficial femoral, proxima l deep femoral, greater saphenous, and popliteal veins w ere evaluated. The calf vessels were also e valuated. FINDINGS: The bilateral common femoral, superficial femoral, and popliteal veins are compressible. They demonstrate normal venous wavef orms and response to augmentation. There is flow in the vi sualized calf veins. There is no evidence of a popliteal or B taylor's cyst. IMPRESSION: No evidence of deep venous thrombosis in the lower extremities. [facility]-[id number] Procedure Note Interface, Radiology Results Incoming - 04/17/2019 10:32 AM GROUP FITNESS ASSISTANT DEPARTMENT HEAD EXAMINATION: US DUPLEX VENOUS LOWER EXTREMITY BILATERAL CLINICAL HISTORY: leg swelling eval for dvt COMPARISON: None. TECHNIQUE: Grayscale, color Doppler, an d spectral waveform analysis of the bilateral lower extremity deep venous systems was performed. The bilateral common femoral, superficial femoral, proximal deep femoral, greater saphenous, and popliteal veins w ere evaluated. The calf vessels were also e valuated. FINDINGS: The bilateral common femoral, superficia l femoral, and popliteal veins are compressible. They demonstrate normal venous waveforms and response to augmentation. There is flow in the visualized calf veins. There is no evidence of a popliteal or B taylor's cyst. IMPRESSION: No evidence of deep venous thrombosis in the lower extremities. [facility]-[id number] Performing Organization Address [facility] Phon e Number [facility] [address] [place] [address] US Renal (04/17/2019 10:00 AM GROUP FITNESS ASSISTANT DEPARTMENT HEAD) Specimen Narrative Performed At EXAMINATION: US RENAL [facility] CLINICAL HISTORY: Renal failure acut e (kidney injury) COMPARISON: CT abdomen and pelvis 2019 FINDINGS: The right kidney measures 9 x 4.4 x 5.3 cm, parenchy mal thickness 1.3 cm The left kidney measures 8.6 x 4.2 x 3.9 cm, parench ymal thickness 1.3 cm The kidneys are normal in size and echogenicity. There is moderate bilateral hydronephrosis slightly more pronounced on t he left. No renal mass or calculus is seen. The urinary bladder is unremarkable. There is moderate ly distended but not overly distended. IMPRESSION: Ongoing moderate bilateral hydronephrosi s. [facility]-[id number] Procedure Note Interface, Radiology Results Incoming - 04/17/2019 10:13 AM GROUP FITNESS ASSISTANT DEPARTMENT HEAD EXAMINATION: US RENAL CLINICAL HISTORY: Renal failure acute (kidney injury) COMPARISON: CT abdomen and pelvis 020 FINDINGS: The right kidney measures 9 x 4.4 x 5.3 cm, parenchymal thickness 1.3 cm The left kidney measures 8.6 x 4.2 x 3. 9 cm, parenchymal thickness 1.3 cm The kidneys are normal in size and echog enicity. There is moderate bilateral hydronephrosis slightly more pronounced on the left. No renal mass or calculus is seen. The urinary bladder is unremarkable. The re is moderately distended but not overly distended. IMPRESSION: Ongoing moderate bilateral hydronephrosi s. [facility]-[id number] Performing Organization Address [facility] Code Phon e Number [facility] [address] [place] [address] CT Abdomen Pelvis Wo Contrast (04/16/2019 10:11 PM GROUP FITNESS ASSISTANT DEPARTMENT HEAD) Specimen Narrative Performed At Examination: CT ABDOMEN PELVIS WO CONT RAST [facility] Clinical History: Abd pain unspecified, abd pain wit h recent abd hernia repair Comparison: None. Findings: CT scans are performed using radiation dose reduction techniques. Technical factors are evaluated and adjusted to ensu re appropriate moderation of exposure. Automated dose management te chnology is applied to adjust radiation exposure whi le achieving a diagnostic quality image. CT imaging was performed wit h iterative reconstruction techniques and/or automated exposure co ntrol to reduce radiation dose. CT scan of the abdomen and pelvis was performed withou t intravenous contrast. Splenic calcified granulomas are noted. The liver, cornejo creas, and adrenal glands are unremarkable. Gallbladder is not visualized and is surgically removed. Bilateral moderate hydronephrosis and hydroureter is n oted. No urinary calculus is seen. The appendix is unremarkable. No bowel thickening or f at stranding is seen. No bowel dilatation is seen. Anterior abdominal wall hernia repair is noted at midl ine. There is a cystic structure noted deep to the repair mesh within the abdomen measuring 9.1 x 4.0 cm in cross-section and approximat shan 11.4 cm in the craniocaudal direction. This likely represents a seroma. There is a small umbilical subcut aneous cystic structure which may also represent a sma ll seroma. No free air is seen. Urinary bladder is unremarkable. The visualized lung bases are clear. IMPRESSION: 1. Anterior abdominal wall hernia repair with a large cystic collection noted just deep to the repair mesh. This most likely r epresents a seroma. 2. Small cystic structure is also noted within the sub cutaneous soft tissues at the umbilicus may also repres ent a small seroma. 3. Bilateral moderate hydronephrosis and hydroureter o f unknown etiology. [facility]-[id number] Procedure Note Hm Interface, Radiology Results Incoming - 04/16/2019 11:43 PM GROUP FITNESS ASSISTANT DEPARTMENT HEAD Examination: CT ABDOMEN PELVIS WO CONTRAST Clinical History: Abd pain unspecified, abd pain with recent abd hernia repair Comparison: None. Findings: CT scans are performed using radiation d ose reduction techniques. Technical factors are evaluated and adjusted to ensure appropriate moderation of exposure. Automated dose management technology is applied to adjust radiation exposure while achie ving a diagnostic quality image. CT imaging was performed with iterative reconstruction techniques and/or automated exposure control to reduce radiation dose. CT scan of the abdomen and pelvis was pe rformed without intravenous contrast. Splenic calcified granulomas are noted. The liver, pancreas, and adrenal glands are unremarkable. Gallbladder is not visualized and is surgically removed. Bilateral moderate hydronephrosis and hy droureter is noted. No urinary calculus is seen. The appendix is unremarkable. No bowel t hickening or fat stranding is seen. No bowel dilatation is seen. Anterior abdominal wall hernia repair is noted at midline. There is a cystic structure noted deep to the repair mesh within the abdomen measuring 9.1 x 4.0 cm in cross-section and approximately 11.4 cm in the craniocaudal direction. This likely represents a seroma. There is a small um bilical subcutaneous cystic structure which may also represent a small seroma. No free air is seen. Urinary bladder is unremarkable. The visualized lung bases are clear. IMPRESSION: 1. Anterior abdominal wall hernia repair with a large cystic collection noted just deep to the repair mesh. This most likely represents a seroma. 2. Small cystic structure is also noted within the subcutaneous soft tissues at the umbilicus may also represent a small seroma. 3. Bilateral moderate hydronephrosis and hydroureter of unknown etiology. [facility]-[id number] Performing Organization Address City/State/ZIP Code Phon e Number [facility] [address] [place] [address] Cv stress test (04/16/2019 4:38 PM GROUP FITNESS ASSISTANT DEPARTMENT HEAD) Resting HR 60 [facility] Resting BP 159 [facility] Peak MET Achieved 1.0 [facility] Protocol Name Regadenoson [facility] MUSE Time in Exercise 00:01:00 [facility] Phase Max Systolic BP 159 [facility] Max Diastolic BP 73 [facility] Max Heart Rate 75 [facility] Max Predicted Heart 143 [facility] M[facility] Rate Target HR Formula (220 - Age)*85% [facility] Test Indication ANGINA [facility] MUSE Stress Test No change in [facility] MUSE Impression baseline--Waveform interpreted in report associated with image study. 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 Performing Organization Address City/State/ZIP Code Phon e Number [facility] MUSE [address] [place] [address] Nm myocardial perfusion (04/16/2019 4:38 PM GROUP FITNESS ASSISTANT DEPARTMENT HEAD) Pathologist Sig nature Target HR 143.00 bpm [facility] Resting HR 60 BPM [facility] Resting BP 159/73 mmHg [facility] Post Peak HR 75 bpm [facility] Percent HR 52.45 % HM [facility] Post Peak BP 159/73 mmHg HM [facility] Exercise duration (min) 1 min [facility] Specimen Narrative Performed At This result has an attachment that is no t available. Medium sized, moderate reversible defect in the basal inferior wall. [facility] This is consistent with ischemia in the RCA vs LCx. EF 62% This study result indicates an intermediate risk of cardiac , or nonfatal infarction, over the ensuing year. Performing Organization Address [facility] Phon e Number [facility] [address] [place] [id number], Troponin (04/16/2019 10:57 AM GROUP FITNESS ASSISTANT DEPARTMENT HEAD)Only the most recent of4 resultswithin the time period is included. Troponin <0.006 0.000 - 0.040 [facility] Comment: ng/mL [facility] In patients suspected of having a myocardial infarctio n, along with all other appropriate clinical measures and actions includ ing ECG and other diagnostics as appropriate, measure Ultra TnI at 0 hrs and at 3 hrs. Myocardial infarction VERY LIKELY The 0 hr TnI level is > 0.10 ng/mL Myocardial infarction LIKELY The 0 hr TnI level is > 0.04 ng/mL and 3 hr level is i ncreased or decreased by at least 0.020 ng/mL Myocardial infarction VERY UNLIKELY Both the 0 hr and 3 hr TnI levels <= 0.04 ng/mL(within normal limits) OR 0 hr is > 0.04 ng/mL and 3 hr is increased OR decreased by less than 0.020 ng/mL Specimen Plasma specimen Performing Organization Address [facility] Phon e Number [facility] DEPARTMENT OF PATHOLOGY [id number] [place] [address] AND [facility] [id number] [place] [address] D-dimer (04/16/2019 10:50 AM GROUP FITNESS ASSISTANT DEPARTMENT HEAD) D-dimer 1.55 (H) 0.00 - 0.40 [facility] Comment: ug/mL IRVINE Units are ug/ml Fibrinogen Equivalent Unit. HOSPITAL When combined with low clinical probability, D-dimer r esults of less than 0.5 ug/ml FEU have a good negative pred ictive value in excluding PE or DVT. For D-dimer results greater than 0.5 ug/ml FEU furth er testing is indicated if PE or DVT is suspected clini guille. Elevated D-dimer results have been reported in DVT, PE , and DIC cases and may indicate the presence of a clot. D-dimer results may be elevated due to old age, pregna ncy, inflammatory diseases, trauma, post-operative states, sepsis, and malignancies. Specimen Blood Performing Organization Address [facility] Phon e Number [facility] DEPARTMENT OF PATHOLOGY [id number] [place] [address] AND [facility] [id number] [place] [address] Urinalysis screen and microscopy, with reflex to culture (04/16/2019 4:49 AM GROUP FITNESS ASSISTANT DEPARTMENT HEAD) Specimen site Catheterized [facility] Color, UA Colorless [facility] Appearance, UA Clear [facility] Specific gravity, UA 1.004 1.001 - 1.030 [facility] pH, UA 8.0 5.0 - 9.0 [facility] Protein, UA Negative Negative [facility] Glucose, UA Negative Negative [facility] Ketones, UA Negative Negative [facility] Bilirubin, UA Negative Negative [facility] Blood, UA Negative Negative [facility] Nitrite, UA Negative Negative [facility] Urobilinogen, UA <2.0 <2.0 E.U./dL [facility] Leukocyte esterase, Negative Negative [facility] Epithelial cells, UA <1 /HPF [facility] WBC, UA <1 0 - 4 /HPF [facility] RBC, UA 1 0 - 5 /HPF [facility] Bacteria, UA Few None seen [facility] Yeast, UA None seen [facility] Yeast with None seen [facility] pseudohyphae, UA [facility] Specimen Urine Performing Organization Address City/[facility] Phon e Number [facility] DEPARTMENT OF PATHOLOGY [address] [place] [address] Urine culture (04/16/2019 4:49 AM GROUP FITNESS ASSISTANT DEPARTMENT HEAD) Pathologist Sig nature Urine culture SEE COMMENTComment: [facility] Bacteriuria screen [facility] negative. Specimen Performing Organization Address [facility] Phon e Number [facility] DEPARTMENT OF PATHOLOGY [address] [place] [address] Partial thromboplastin time, activated (04/16/2019 12:25 AM GROUP FITNESS ASSISTANT DEPARTMENT HEAD) PTT 31.4 23.0 - 36.0 [facility] Comment: sec IRVINE PTT therapeutic range for unfractionated heparin is HOSPITAL 61.0-112.0 seconds which corresponds to Anti-Xa 0.3-0.7 U/ml. Specimen Blood Performing Organization Address City/[facility]/ZIP Code Phon e Number [facility] DEPARTMENT OF PATHOLOGY [address] [place] [address] B natriuretic peptide (04/16/2019 12:25 AM GROUP FITNESS ASSISTANT DEPARTMENT HEAD) Pathologist Sig nature BNP 217 (H) 0 - 100 pg/mL [facility] Specimen Performing Organization Address City/[facility] Phon e Number [facility] DEPARTMENT OF PATHOLOGY [id number] [place] [address] [address] [facility] Lipase level (04/16/2019 12:25 AM GROUP FITNESS ASSISTANT DEPARTMENT HEAD) Pathologist Sig [facility] Lipase 60 13 - 60 U/L [facility] Specimen Plasma specimen Performing Organization Address [facility] Phon e Number [facility] DEPARTMENT OF PATHOLOGY [id number] [place] [address] Comprehensive metabolic panel (04/16/2019 12:25 AM GROUP FITNESS ASSISTANT DEPARTMENT HEAD) Pathologist Sig [facility] Sodium 133 (L) 135 - 148 mEq/L [facility] Potassium 4.7 3.5 - 5.0 mEq/L [facility] Chloride 95 (L) 98 - 112 mEq/L [facility] CO2 28 24 - 31 mEq/L [facility] Anion gap 10@ANIO 7 - 15 mEq/L [facility] BUN 20 8 - 23 mg/dL [facility] Creatinine 1.80 (H) 0.50 - 0.90 [facility] mg/dL [facility] Glucose 94 65 - 99 mg/dL [facility] Calcium 10.6 (H) 8.8 - 10.2 [facility] mg/dL [facility] Protein 8.4 (H) 6.3 - 8.3 g/dL [facility] Albumin 4.5 3.5 - 5.0 g/dL [facility] A/G ratio 1.2 0.7 - 3.8 [facility] Alkaline phosphatase 110 (H) 35 - 104 U/L [facility] AST 27 10 - 35 U/L [facility] ALT 17 5 - 50 U/L [facility] Total bilirubin <0.2 0.2 - 1.2 mg/dL [facility] Specimen Plasma specimen Performing Organization Address [facility]/State/ZIP Code Phon e Number [facility] DEPARTMENT OF PATHOLOGY [address] [facility] [address] [place] [address] AND GENOMIC MEDICINE [facility] [place] [address] [facility] [address] [place] [address] HOSPITAL XR Abdomen Acute Inc Chest (04/16/2019 12:14 AM GROUP FITNESS ASSISTANT DEPARTMENT HEAD) Specimen Narrative Performed At EXAMINATION: XR ABDOMEN ACUTE INC CHES T 1V [facility] CLINICAL HISTORY: chest pain constip ation COMPARISON: None IMPRESSION: There are postoperative changes seen with surgical cli ps and markers for abdominal mesh. Intestinal gas pattern is nonspecific. There is no free intraperitoneal air. There are no suspic ious calcifications. Upright view the chest demonstrates atherosclerotic ao rta. Heart size is normal. Lungs are clear. [facility]-[id number] Procedure Note Hm Interface, Radiology Results Incoming - 04/16/2019 12:23 AM GROUP FITNESS ASSISTANT DEPARTMENT HEAD EXAMINATION: XR ABDOMEN ACUTE INC CHEST 1V CLINICAL HISTORY: chest pain constipat ion COMPARISON: None IMPRESSION: There are postoperative changes seen wit h surgical clips and markers for abdominal mesh. Intestinal gas pattern is nonspecific. There is no free intraperitoneal air. There are no suspicious calcifications. Upright view the chest demonstrates athe rosclerotic aorta. Heart size is normal. Lungs are clear. [facility]-[id number] Performing Organization Address City/State/ZIP Code Phon e Number [facility] [address] [place] [address] ECG 12 lead (04/15/2019 11:28 PM GROUP FITNESS ASSISTANT DEPARTMENT HEAD) Pathologist Sig nature Ventricular rate 61 [facility] Atrial rate 61 [facility] OR interval 154 [facility] QRSD interval 96 [facility] QT interval 418 [facility] QTC interval 420 [facility] P axis 1 86 [facility] QRS axis 1 56 [facility] T wave axis 77 [facility] EKG impression Sinus rhythm with [facility] premature atrial complexes-Otherwise normal ECG-No previous ECGs available-Electronicall y Signed By Beulah ELIZONDO, Tiffani ([id number]) on 04/16/2019 7:01:23 AM Specimen Narrative Performed At This result has an attachment that is no t available. 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 take out: yes Interpretation: Interpretation: abnormal Rate: ECG rate: 61 ECG rate assessment: normal Rhythm: Rhythm: sinus rhythm QRS: QRS axis: Normal Comments: Sinus rhythm with premature atrial complexes but n o STEMI after 02/16/2019 Insurance Payer Benefit Plan / Subscriber ID Effective Dates Phone Addre ss Type Group MEDICARE MEDICARE PART A [id number] 2007-Present [place], [place] [phone] Advance Directives For more information, please contact: [phone] Type Date Recorded Patient Field Logistics Coordinator Explanati on Advance Directives, Living Will 04/15/2019 11:54 PM and Medical Power of Prizer Hand
--- OUTSIDE RECORDS SUMMARY | 2020-02-17 17:32 | XMS REPORT | Continuity of Care Document ---
:1940 Author Organization [facility] t Address [address] [place] [address] Care Team Providers Name Role Phone Rio Oshea MD Primary Care Physician Doctor Unassigned, Name Attending Clinician Unavailable Jose ELIZONDO Attending Clinician [place]ton Last DPM Attending Clinician Henrry HACKETT Attending Clinician Unavailable Lukas RUIZ Attending Clinician Unavailable [place]igue Emmaunel DO Attending Clinician Guido ELIZONDO Attending Clinician Hans ELIZONDO Attending Clinician Alton ELIZONDO Attending Clinician TITUS BREWER Attending Clinician Unavailable GUIDO Admitting Clinician Unavailable TITUS BREWER Admitting Clinician Unavailable Payers Payer Name Policy Type Policy Effective Date Expiration Date Sour ce Number MEDICAREMEDICARE PART [id number] 2007 Ming Núñez AND 00:00:00 [facility] [id number] 2006 [place], [place] Condition Condition Condition Status Onset Resolution Last Treating Co mments Source Name Details Category Date Date Treatment Clinician Date Chest pain Chest pain Disease Active 2019- H michael 04-15 [place] 00:00: st 00 Right Right Disease Active [address] [facility] quadrant quadrant 00:00: Medica l abdominal abdominal 00 Cent er pain pain Abdominal Abdominal Disease Active [facility] Medical 00 Center Allergies, Adverse Reactions, Alerts Allergy Allergy Status Severity Reaction(s) Onset Inactive Treating Comm ents Source Name Type Date Date Clinician Iodine Propensi Active Rash [place] And ty to 04-14 [facility] Iodide adverse 00:00: st Containi reaction 00 ng s to Products drug Lisinopr Propensi Active Unknown [place] ty to Reaction 04-14 [facility] adverse 00:00: st reaction 00 s to drug Penicill Propensi Active Sw[place] ty to 3 [facility] adverse 00:00: st reaction 00 s to drug Lisinopr Propensi Active [facility] - adverse 00:00: Medical reaction 00 [place] s Penicill Propensi Active [facility] to [facility] - adverse 00:[facility]: Medical reaction 00 Center s Family History Family Member Diagnosis Comments Start Date Stop Date Source Natural father Hypertension [facility] Social History Social Habit Start Date Stop Date Quantity Comments Source History [facility] Meth odist Alcohol Std Drinks History [facility] Meth odist Alcohol Binge Sex Assigned At [facility] ethodist Tobacco use and 2019-05-07 2019-05-07 Never used [facility] ethodist exposure 00:00:00 00:00:00 Alcohol intake 2019-05-07 2019-05-[address] [facility] thodist 00:00:00 00:00:00 non-drinker (finding) History [facility] 2019-04-15 2019-04-15 1 [place] Meth odist Alcohol Frequency 00:00:00 00:00:00 Smoking Status Start Date Stop Date Source Never smoker [facility] t Medications Ordered Filled Start Stop Current Ordering Indication Dosage Frequency Signature Comments Components Source Medication Medication Date Date Medication? Clinician (SIG) Name Name clopidogreL 2020- No 75mg QD Take 1 Nohemy ston (PLAVIX) 75 3- 04-06 tablet (75 M ethodi mg tablet 00:00: 23:59 mg total) st 00 :00 by mouth daily for 30 days. clopidogreL 2020- No 75mg QD Take 1 Nohemy ston (PLAVIX) 75 3-07 03-06 tablet (75 M ethodi mg tablet 00:00: 00:00 mg total) st 00 :00 by mouth daily for 30 days. metFORMIN 2020-0 Yes 1000mg Q.5D Take 1,000 [facility] (GLUCOPHAGE 3-06 mg by Methodi ) 1,000 mg 17:25: mouth 2 st tablet 08 (two) times a day with meals. pantoprazol 2020-0 Yes 40mg QD Take 40 mg [facility] e 3-06 by mouth Methodi (PROTONIX) 17:25: daily. st 40 MG EC 08 tablet acetaminoph 2020-0 Yes acute pain 1{tbl} Q4H Take 1 [facility] en-codeine 3-06 tablet by Meth sofía (TYLENOL 17:25: mouth st WITH 08 every 4 CODEINE #3) (four) 300-30 mg hours as per tablet needed for moderate pain .acute pain. isosorbide 2020-0 Yes 60mg QD Take 60 mg [place] mononitrate 3-06 by mouth Meth sofía (IMDUR) 60 17:25: every st MG 24 hr 08 morning. tablet HYDROcodone 2020-0 Yes acute pain 1{tbl} Q.5D Take 1 [facility] -acetaminop 3-06 tablet by Met horacio gonsalves (NORCO) 17:25: mouth 2 st 10-325 mg 08 (two) per tablet times a day as needed for moderate pain .acute pain. carvediloL 2020-0 Yes 12.5mg Q.5D Take 12.5 [facility] (COREG) 3-06 mg by Methodi 12.5 MG 17:25: mouth 2 st tablet 08 (two) times a day. amLODIPine 2020-0 Yes 10mg QD Take 10 mg [place] (NORVASC) 3-06 by mouth Method i 10 mg 17:25: every st tablet 08 morning. aspirin 81 2020-0 Yes 81mg QD Chew 81 mg [place] mg chewable 3-06 daily. Method i tablet 17:25: st 08 latanoprost 2020-0 Yes 1[drp] QD Administer [facility] (XALATAN) 3-06 1 drop to Metho di 0.005 % 17:25: both eyes st ophthalmic 08 nightly. solution ALPRAZolam 2020-0 Yes .5mg Q.5D Take 0.5 Nohemy ston (XANAX) 0.5 3-06 mg by Methodi MG tablet 17:25: mouth 2 st 08 (two) times a day as needed for anxiety. timolol Yes 1[drp] QD Administer [place] (TIMOPTIC) 04-18 1 drop to Meth sofía 0.5 % 17:25: both eyes st ophthalmic 08 every solution morning. zolpidem 2020- No 10mg QD Take 10 mg [place] (AMBIEN) 10 04-18- by mouth Met hodi mg tablet 12:09: 00:[address] 28 :00 zolpidem 2019- 2020- No 5mg QD Take 0.5 [place] (AMBIEN) 10 04-18-05 tablets (5 M ethodi mg tablet 00:00: 23:59 mg total) st 00 :00 by mouth nightly as needed for sleep for up to 30 days. atorvastati 2020- No 40mg QD Take 1 Nohemy ston n (LIPITOR) 04-18-05 tablet (40 M ethodi 40 MG 00:00: 23:59 mg total) st tablet 00 :00 by mouth nightly for 30 days. atorvastati 2020- No 40mg QD Take 1 Nohemy ston n (LIPITOR) 04-18-06 tablet (40 M ethodi 40 MG 00:00: 00:00 mg total) st tablet 00 :00 by mouth nightly for 30 days. metFORMIN 2018-0 Yes 1000mg Take 1,[address] [facility] [address] (GLUCOPHAGE 3-05 mg by [facility] - ) 1000 MG 20:06: mouth 2 Medic al tablet 24 (two) Center times daily with breakfast and dinner. ALPRAZolam 2018 Yes .5mg Take 0.[address] [facility] [facility] (XANAX) 0.5 3-05 mg by [facility] - MG tablet 20:06: mouth Medical 24 every Center night as needed for Anxiety. amLODIPine Yes 10mg QD Take [address] (NORVASC) 3-05 by mouth [facility] - 10 MG 20:06: daily. Medical tablet 24 Center metoprolol Yes 25mg Take [address] (LOPRESSOR) 3-05 by mouth. Sim es - 25 MG 20:06: Medical tablet 24 Center pantoprazol Yes 40mg QD Take [address] [facility] e 3-05 by mouth [facility] - (PROTONIX) 20:06: daily. Medic al 40 MG 24 Center tablet zolpidem Yes 10mg Take [address] (AMBIEN) 10 3-05 by mouth Luke s - mg tablet 20:06: every Medical 24 night as Center needed for Insomnia. losartan Yes 100mg QD Take [address] (COZAAR) 3-05 mg by [facility] - 100 MG 20:06: mouth Medical tablet 24 daily. Center latanoprost 2017- Yes 1[drp] QD Place [address] (XALATAN) 3-05 drop into [facility] - 0.005 % 20:06: both eyes Medic al ophthalmic 24 nightly. Cente r solution prednisoLON Yes 1[drp] Q.[id number] Place [address] E acetate 3-05 [id number] drop into [facility] - (PRED 20:06: 3D the right Medical FORTE) 1 % 24 eye 3 Center ophthalmic (three) suspension times daily. Vital Signs Vital Name Observation Time Observation Value Comments Source Systolic blood 2019-04-19 15:02:56 122 mm[Hg] Davidto n [facility] pressure Diastolic blood 2019-04-19 15:02:56 59 mm[Hg] [place] on [facility] pressure Heart rate 2019-04-19 15:02:56 50 /min Sam Cherry Body temperature 2019-04-19 15:02:56 36 Mildred [place] [facility] Respiratory rate 2019-04-19 15:02:56 16 /min David Cherry Oxygen saturation in 2019-04-19 15:02:56 100 /min Sam Cherry Arterial blood by Pulse oximetry Body height 2019-04-16 01:44:00 162.6 cm Sam Cherry Body weight 2019-04-16 01:44:00 59.875 kg Sam Cherry BMI 2019-04-16 01:44:00 22.66 kg/m2 Sam Cherry Procedures Procedure Date / Time Performing Clinician Source Performed POC GLUCOSE 2019-04-19 16:32:00 Nati Lora [facility] POC GLUCOSE 2019-04-19 11:37:00 Nati Lora [facility] [place] POC GLUCOSE 2019-04-19 07:25:00 Nati Lora [place] Met hodist HC COMPLETE BLD COUNT 2019-04-19 04:15:00 Carlos Zambrano [facility] W/AUTO DIFF BASIC METABOLIC PANEL 2019-04-19 04:15:00 Lashawn Otto [facility] LIPID PANEL 2019-04-19 04:15:00 Gretchen Beckwith Sam [facility] ESTIMATED GFR 2019-04-19 04:15:00 Carlos Zambrano Ca thodist POC GLUCOSE 2019-04-18 22:41:00 Nati Lora [place] [facility] POC GLUCOSE 2019-04-18 20:22[facility] 2019-04-18 16:11:00 [facility] NM LUNG VENTILATION 2019-04-18 16:04:17 Carlos Zambrano [facility] PERFUSION POC GLUCOSE 2019-04-18 09:56:00 [facility] CV LEFT HEART CATH LV 2019-04-18 09:41:31 Isreal Dang [facility] GRAM WITH CORS POC GLUCOSE 2019-04-18 07:54:00 [facility] HC COMPLETE BLD COUNT 2019-04-18 03:50:00 Carlos Zambrano [facility] W/AUTO DIFF BASIC METABOLIC PANEL 2019-04-18 03:50:00 Lashawn Otto [facility] ESTIMATED GFR 2019-04-18 03:50:00 Lashawn Otto Meth odist PROTHROMBIN TIME WITH INR 2019-04-18 03:50:00 Isreal Dang [facility] POC GLUCOSE 2019-04-17 20:50:00 [facility] POC GLUCOSE 2019-04-17 16:41:00 [facility] POC GLUCOSE 2019-04-17 12:08:00 Nati Lora [place] Met hodist HC COMPLETE BLD COUNT 2019-04-17 12:06:00 Carlos Zambrano [facility] W/AUTO DIFF BASIC METABOLIC PANEL 2019-04-17 12:06:00 Gandhir, Lashawn [place] [facility] ESTIMATED GFR 2019-04-17 12:06:00 Lashawn Otto [facility]ist TOTAL IRON BINDING 2019-04-17 12:05:00 MellisajoseLashawn zeng [facility] M ethodist CAPACITY FERRITIN LEVEL 2019-04-17 12:05:00 MellisajoseLashawn zeng Meth odist URINALYSIS, AUTOMATED 2019-04-17 11:45:00 MellisaLashawn evans n [facility] WITH MICROSCOPY TTE COMPLETE, WO 2019-04-17 11:22:22 Isreal Dang Met hodist CONTRAST, W DOPPLER ([id number]) US DUPLEX VENOUS LOWER 2019-04-17 10:01:00 Carlos Zambrano ston [facility] EXTREMITY BILATERAL US RENAL 2019-04-17 10:00:00 Fam Lashawngrayson [facility] Meth odist POC GLUCOSE 2019-04-17 07:46:00 Nati Lora Met hodist POC GLUCOSE 2019-04-16 23:04:00 Nati Lora Met hodist CT ABDOMEN PELVIS WO 2019-04-16 22:11:07 Carlos Zambrano on [facility] CONTRAST POC GLUCOSE 2019-04-16 17:01:00 Nati Lora Met hodist CV STRESS TEST NUCLEAR 2019-04-16 16:38:11 Isreal Dang on [facility] CARDIO NM MYOCARDIAL PERFUSION 2019-04-16 16:38:11 Isreal Dang [facility] REST STRESS 1 DAY POC GLUCOSE 2019-04-16 11:10:00 Nati Lora Met hodist TROPONIN 2019-04-16 10:57:00 Kevin Emmanuel Me thodist [place] D-DIMER 2019-04-16 10:50:00 Carlos Zambrano Me thodist TROPONIN 2019-04-16 05:40:00 Kevin Emmanuel Me [facility]ist [place] URINE CULTURE 2019-04-16 04:49:00 Kevin Emmanuel Ca thodist [place] URINALYSIS SCREEN AND 2019-04-16 04:49:00 Kevin Emmanuel [facility] MICROSCOPY, WITH REFLEX [place] TO CULTURE TROPONIN 2019-04-16 03:21:00 Kevin Emmanuel Me [facility]ist [place] TROPONIN 2019-04-16 00:25:00 Kevin Emmanuel Me thodist [place] COMPREHENSIVE METABOLIC 2019-04-16 00:25:00 Kevin Emmanuel [facility] PANEL [place] LIPASE LEVEL 2019-04-16 00:25:00 Kevin Emmanuel Me thodist [place] ESTIMATED GFR 2019-04-16 00:25:00 Kevin Emmanuel Me thodist [place] PROTHROMBIN TIME WITH INR 2019-04-16 00:25:00 Kevin Emmanuel [facility] [place] PARTIAL THROMBOPLASTIN 2019-04-16 00:25:00 Kevin Emmanuel stoingrid [facility] TIME (PTT) [place] B NATRIURETIC PEPTIDE 2019-04-16 00:25:00 Kevin Emmanuel [facility] [place] XR ABDOMEN ACUTE INC 2019-04-16 00:14:03 Kevin Emmanuel on [facility] CHEST 1V [place] HC COMPLETE BLD COUNT 2019-04-15 23:50:00 Kevin Emmanuel [facility] W/AUTO DIFF [place] ECG 12-LEAD 2019-04-15 23:28:00 Kevin Emmanuel Me thodist [place] ECG ED PRELIMINARY 2019-04-15 23:25:17 Kevin Emmanuel INTERPRETATION [place] Plan of Care Planned Activity Planned Date Details Comments Source Future Scheduled 2019-10-15 INFLUENZA VACCINE (#1) [facility] 00:[facility]:00 [code = INFLUENZA Medical Ce nter VACCINE (#1)] Future Scheduled 2019-09-14 INFLUENZA VACCINE [place] [facility] Test 00:00:00 [code = INFLUENZA VACCINE] Future Scheduled 2008-01-[address] [facility] - Test 00:00:00 WELLNESS (YEAR 2 or Medical Center FIRST YEAR if no IPPE) [code = MEDICARE ANNUAL WELLNESS (YEAR 2 or FIRST YEAR if no IPPE)] Future Scheduled 2007 PNEUMOCOCCAL 65+ [facility] - Test 00:00:00 (1 of 1 - Medical Center [id number] PCV13) [code = PNEUMOCOCCAL 65+ YRS (1 of 1 - [id number] PCV13)] Future Scheduled 2007 65+ PNEUMOCOCCAL [facility] Test 00:00:00 VACCINE (1 of 1 - PPSV23) [code = 65+ PNEUMOCOCCAL VACCINE (1 of 1 - PPSV23)] Future Scheduled 1992-01-31 SHINGLES VACCINES (#1) [facility] [place] [facility] Test 00:00:00 [code = SHINGLES VACCINES (#1)] Future Scheduled 1958 COVID-19 VACCINE (#1) [place] [facility] Test 00:00:00 [code = COVID-19 VACCINE (#1)] Future Scheduled 1952-01-31 DIABETES: RETINAL EYE [place] [facility] Test 00:00:00 EXAM [code = DIABETES: RETINAL EYE EXAM] Future Scheduled 1950-01-31 DIABETIC FOOT EXAM [place] [facility] Test 00:00:00 [code = DIABETIC FOOT EXAM] Future Scheduled 1950-01-31 URINE MICROALBUMIN [place] [facility] Test 00:00:00 [code = URINE MICROALBUMIN] Encounters Start End Encounter Admission Attending Care Care Encounter Source Date/Time Date/Time Type Type Clinicians Facility Department ID 2019-12-12 2019-12-12 Orders Doctor HERRERA [id number] 00:00:00 00:00:00 Only Unassigned, DAVINA [id number] [place] [facility] [id number] [id number] 2019-12-12 2019-12-12 Telephone FANTA Garcia [id number] 00:00:00 00:00:00 Feliciano Y [id number] [facility] 4.2.7.2.686 BANK [id number] BLDG. [id number] 2019-10-15 2019-10-15 Telephone PETER Last [id number] 00:00:00 00:00:00 Antonia PRIMARY [id number] A CARE 4.2.7.2.686 PAVILLION [id number] 2019-10-15 2019-10-15 Orders Doctor HERRERA [id number] 00:00:00 00:00:00 Only Unassigned, DAVINA [id number] [facility] 4.2.7.2.686 [id number] 2019-09-26 2019-09-26 Office [place] [id number] 14:59:25 15:14:25 Visit Antonia SPECIALTY [id number] [facility] 42.7.2.686 CENTER AT [id number] ANGELITO [place] [facility] 2019-09-26 2019-09-26 Orders Doctor JAVIER [id number] 00:00:00 00:00:00 Only Unassigned, DAVINA [id number] [place] [id number] 2019-08-20 2019-08-20 Outpatient [facility] [id number] Access 00:00:00 00:00:00 [facility] 2019-04-15 2019-04-19 [id number] [place] 00:00:00 00:00:00 NATI [address] Results Test Description Test Time Test Comments Results Result [facility]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 Mild diffuse disease seen. Distal RCA gives collaterals to LCX LM is short giving rise to LAD and lCX. LAD is large vessel giving rise to diagonal 1 . Mild diffuse disease seen LCX is large vessel giving rise to OM 1 and OM 2. 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 Asa/plavix/statin s/BB POC glucose 2019-04-19 16:34:03 Test Item Value Reference Range Interpretation Comme nts POC glucose (test code = 101 mg/dL 65-99 H Ope rator Name: Russ CazaresLyudmilakeri 17007-2) ID: [id number] clint: RN Notified Lab Interpretation (test code = Abnormal 40028-3) [facility] [id number] 04:55:31 Test Item Value Reference Range Interpretation Comments Sodium (test code = 2951-2) 139 135- 148 mEq/L Potassium (test code = 2823-3) 4.1 3.5- 5.0 mEq/L Chloride (test code = 5-0) 105 98- 112 mEq/L CO2 (test code = 2027-9) 24 24- 31 mEq/L Anion gap (test code = 29357-6) 10@ANIO 7- 15 mEq/L BUN (test code = 3094-0) 9 mg/dL 8-23 Creatinine (test code = 2160-0) 1.14 mg/dL 0.5-0.9 H Glucose (test code = 2345-7) 116 mg/dL 65-99 H Calcium (test code = 14297-1) 9.3 mg/dL 8.8-10.2 Lab Interpretation (test code = Abnormal 52089-6) [place] MethodistLipid [id number] 04:55:31 Test Item Value Reference Interpretation Comments Range Cholesterol (test 151 mg/dL 0-199 code = 2093-3) Triglycerides (test 58 mg/dL 0-149 code = 2571-8) HDL cholesterol 59 mg/dL 40-52493 (test code = 5-9) LDL cholesterol 84 mg/dL 0-99 (test code = 9-1) Lipid panel See below Total Cholester ol (mg/dL) interpretation (test < 200 code = 12741-6) Desirable 200-239 Borderline -high >=240 Hi gh Triglyceri lydia (mg/dL) <150 No rmal 150-199 Borderline-high 200-499 High >=500 Very high HDL Choles terol (mg/dL) <40 Low (male) < 50 Low (female) L DL Cholesterol (mg /dL) <100 Optimal 1 00-129 Near or above o ptimal 130-159 Borderline-high 160-189 High >=190 Very high Risk Cat ergories that modify LDL goals.Risk Catergories LDL goal (mg/dL )CHD and CHD risk equiva lent <100 (10-year risk >20%)Multiple ( 2+) risk factors < 130 (10-year risk = <20%)0-1 risk factors <160 (<10-ye ar risk) Defining levels of lipids in metabolic syndromeTriglyc erides > =150 mg/dLHDL Choles terol Men <40 mg/dL Women <50 mg/dL Non-HDL cholest geovani is a second target f or therapy in personswith high triglycerides ( >=200 mg/dL) [facility] MethodistEstimated [id number] 04:55:31 Test Item Value Reference Range Interpretation Comments Estimated GFR (test 54 mL/min/1.73 m2 [place] Kaela matute Units code = 5488) InterpretationG 1 >=90 [place] or highG2 60-89 Mildly decrease dG3a 45-59 Mil dly to moderately decr hnvrrD6i 30-44 Moderately to s everely decreasedG4 15-29 Severe ly decreasedG5 <15 Kidney moshe lureThe eGFR was calcul ated using the Chron Kidney Disease Epidemiology Collaboration ( CKD-EPI) equation. Interpretation is based on recommendati ons of the National Ki dney Foundation-Kidn ey Disease Outcome s Quality Initiat vivi (NKF-KDOQI) pub lished in 2013. Lab Interpretation Abnormal (test code = 45477-7) [facility] MethodistCBC with platelet and [id number] 04:38:02 Test Item Value Reference Range Interpretation Comments WBC (test code = 91514-7) 8.3 4.5- 11.0 k/uL RBC (test code = 33198-2) 3.14 m/uL 4.2-5.5 L HGB (test code = 718-7) 8.8 g/dL 12-16 L HCT (test code = 4544-3) 28.1 % 37-47 L MCV (test code = 787-2) 89.5 fL 82-100 MCH (test code = 785-6) 28.0 pg 27-34 MCHC (test code = 786-4) 31.3 g/dL 31-37 RDW - SD (test code = 78334-6) 43.7 fL 37-55 MPV (test code = 69087-7) 9.2 fL 6.9-11 Platelet count (test code = 295 K/uL 150-400 46617-4) Nucleated RBC (test code = 53441-2) 0.00 /100 WBC Neutrophils (test code = 75389-5) 69.4 % 39-69 H Lymphocytes (test code = 85955-5) 22.8 % 25-45 L Monocytes (test code = 39081-2) 7.0 % 0-10 Eosinophils (test code = 45259-8) 0.2 % 0-5 Basophils (test code = 05491-0) 0.4 % 0-1 Immature granulocytes (test code = 0.2 % 0-1 68731-0) Lab Interpretation (test code = Abnormal 73606-4) [facility] [id number] 17:00:33Hm Interface, Radiology Results 04/18/2019 5:03 PM CSTCLINICAL HISTORY: PE suspected intermediate prob positive D-dimer, chest painTECHNIQUE:The patient breathed 15-20 mCi of xenon-133 gas through a closed ventilation system while dynamic imaging of the lungs was performed in the posterior and anterior projections. The patient was then injected with 5 mCi of [id number] intravenously, followed by imaging of the lungs in anterior, posterior, and oblique projections. FINDINGS: Mildly heterogeneous ventilation and perfusion bilaterally.IMPRESSION: Very Low Probability of pulmonaryembolism.[id number] [facility] CenterProthrombin time with [id number] 04:09:22 Test Item Value Reference Range Interpretation Comments Prothrombin time (test 14.3 11.5- 14.5 sec code = 5902-2) INR (test code = 1.1 [facility] Normalized Rati o (INR) is a therapeutic m onitoring tool for patien ts who are stable on oral anticoagulant t herapy. An INR of 2.0-3.0 is suggested for d eep vein thrombosis/pulm onary embolism. [facility] CenterTransthoracic Echocardiogram Complete, (w Contrast, Strain and 3D if needed)2019-04-17 22:51:23 Test Item Value Reference Range Interpretation Comments Velocity Ratio (V1/V2) 1.11 m/s (test code = 4689) IVS,d (test code = 0.96 cm 8521955836) EF (test code = -11.11 % 4771405131) LVPWD,d (test code = 1.01 cm 6932961043) AoV Mean PG (test code 3.00 mmHg = 8220921735) AV LVOT peak gradient 6.97 mmHg (test code = 1875569910) MV valve area p 1/2 2.83 cm2 method (test code = 7793023427) E/A ratio (test code = 1.11 8853074301) E wave decelartion 268.00 msec time (test code = 0973139371) LVOT Diam,S (test code 1.60 cm = 2449660396) LVOT area (test code = 2.01 cm2 7837716601) LVOT Vmax (test code = 1.32 m/s 6083701087) LVOT VTI (test code = 0.29 m 8389381960) AoV Peak PG (test code 5.66 mmHg = 3344274654) MV Peak E Willem (test 1.09 m/s code = 6135712206) MV stenosis pressure 77.72 ms 1/2 time (test code = 3726334004) MV Peak A Willem (test 0.98 m/s code = 9911288649) AoV Area, Vmax (test 2.23 cm2 code = 1864952730) AoV Area, VTI (test 2.03 cm2 code = 0470567921) AoV Vmax (test code = 1.19 m/s 4371463373) IVS/LVPW,2D (test code 0.95 = 4530078018) LV,d (test code = 1.42 cm 5439934032) LV,s (test code = 2.43 cm 7580450147) TR Vpeak (test code = 2.58 mm/s 9426403646) MV E A ratio (test 1.11 code = 4963634488) TR pk grad (test code 24.40 mmHg = 2551915786) LV SYS VOL (test code 20.80 ml = 9617137408) LV FOWLER VOL (test code 18.72 ml = 4033993764) LV SV Teich 2D (test -2.08 ml code = 5917422034) LV Vol s Teich PSAX 20.80 ml (test code = 0133894904) AoV Vmn (test code = 0.90 8271182613) LV FS Cube 2D (test -4.29 code = 9552265971) LV FS Teich 2D (test -4.29 code = 4953349454) AoV VTI (test code = 0.29 m 8394298931) LV EF,2D (test code = -13.44 % 8423462071) MV AE ratio (test code 0.90 = 2704848721) LVOT Vmn (test code = 0.89 8843815521) Aov area Vmn (test 1.99 cm2 code = 5957389895) LVOT mean grad (test 4.00 mmHg code = 1197752268) MAX Pred HR (test code 142.79 = 2018801293) 85 of MPHR (test code 121.37 = 2969495660) Calc MPHR (test code = 142.79 bpm 2022514249) LV SV Cube 2D (test -1.70 ml code = 7929234258) LV vol d cube 2D (test 12.65 ml code = 8962612717) LV vol s cube 2D (test 14.35 ml code = 0139445352) MV Decel slope (test 4.08 m/s2 code = 9778813637) Pred Exer Dur R1 (test 6.04 code = 6943732150) Pred METS R1 (test 4.66 code = 3288036601) ZARA (test code = ZARA) Left ventricular systolic function is normal. Left Ventricular ejection fraction is 60 - 65%. Right Ventricle: Normal right ventricular size, wall thickness and global function. Regional wall motion abnormality not seen but can not be completely excluded. No evidence of pulmonary hypertension present. Trace pulmonary valve regurgitation. Diastology: Spectral Doppler shows normal pattern of LV diastolic filling. Normal LV filling pressure. Pericardium: No pericardial effusion seen. [place] MethodistFerritin [id number] 18:55:09 Test Item Value Reference Range Interpretation Comments Ferritin level (test code = 2276-4) 236 ng/mL 13-150 H Lab Interpretation (test code = Abnormal 53311-3) [place] MethodistTotal iron binding [id number] 14:27:59 Test Item Value Reference Range Interpretation Comments Iron level (test code = 2498-4) 60 ug/dL 37-145 Iron binding capacity (test code = 206 ug/dL 260-460 L 2500-7) % Saturation (test code = 2502-3) 29.1 % 15-38 Lab Interpretation (test code = Abnormal 80397-0) [facility] MethodistUrinalysis, automated with [id number] 12:35:49 Test Item Value Reference Range Interpretation Comments Color, UA (test code = 5778-6) Colorless Appearance, UA (test code = 5767-9) Clear Specific gravity, UA (test code = 1.004 1.001-1.030 5811-5) pH, UA (test code = 5803-2) 9.0 5.0-9.0 Protein, UA (test code = 84206-2) Negative Negative Glucose, UA (test code = 61263-9) Negative Negative Ketones, UA (test code = 2514-8) Negative Negative Bilirubin, UA (test code = 5770-3) Negative Negative Blood, UA (test code = 5794-3) Negative Negative Nitrite, UA (test code = 5802-4) Negative Negative Urobilinogen, UA (test code = <2.0 <2.0 E.U./dL 53798-2) Leukocyte esterase, UA (test code = Negative Negative 5799-2) Epithelial cells, UA (test code = <1 /HPF 5787-7) WBC, UA (test code = 5821-4) <1 0- 4 /HPF RBC, UA (test code = 19917-4) <1 0- 5 /HPF Bacteria, UA (test code = 42967-2) None seen None seen Yeast, UA (test code = 43238-6) None seen Yeast with pseudohyphae, UA (test None seen code = 06193-8) [place] [facility] duplex venous lower iztlttvvz1294-01-58 10:29:37Hm Interface, Radiology Results - 04/17/2019 10:32 AM CSTEXAMINATION: US DUPLEX VENOUS LOWER EXTREMITY BILATERALCLINICAL HISTORY: leg swelling eval for dvtCOMPARISON: None.TECHNIQUE: Grayscale, color Doppler, and spectral waveform analysis of the bilateral lower extremity deep venous systems was performed. The bilateral common femoral, superficial femoral, proximal deep femoral, greater s aphenous, and popliteal veins were evaluated. The calf vessels were also evaluated.FINDINGS:The bilateral common femoral, superficial femoral, and popliteal veins are compressible. They demonstrate normal venous waveforms and response to augmentation. There is flow in the visualized calf veins.There is no evidence of a popliteal or Pena's cyst.IMPRESSION:No evidence of deep venous thrombosis in the lower extremities.[facility]-[id number] MethodistUS Renal 2019-04-17 10:10:45Hm Interface, Radiology Results 04/17/2019 10:13 AM CSTEXAMINATION: US RENALCLINICAL HISTORY: Renal failure acute (kidney injury)COMPARISON: CT abdomen and pelvis 04/16/2019FINDINGS: The right kidney measures 9 x 4.4 x 5.3 cm, parenchymal thickness 1.3 cm The left kidney measures 8.6 x4.2 x 3.9 cm, parenchymal thickness 1.3 cm The kidneys are normal in size and echogenicity. There is moderate bilateral hydronephrosis slightly more pronounced on the left. No renal mass or calculus is seen.The urinary bladder is unremarkable. There is moderately distended but not overly distended.IMPRESSION:Ongoing moderate bilateral hydronephrosis.[facility]-[id number] [place] [facility] Abdomen Pelvis Wo [id number] 23:39:58Hm Interface, Radiology Results - 04/16/2019 11:43 PM CSTExamination: CT ABDOMEN PELVIS WOCONTRASTClinical History: Abd pain unspecified, abd pain with recent abd hernia repairComparison: None.Findings:CT scans are performed using radiation dose reduction techniques. Technical factors areevaluated and adjusted to ensure appropriate moderation of exposure. Automated dose management technology is applied to adjust radiation exposure while achieving a diagnostic quality image. CT imagingwas performed with iterative reconstruction techniques and/or automated exposure control to reduce radiation dose.CT scan of the abdomen and pelvis was performed without intravenous contrast.Splenic dilan cified granulomas are noted. The liver, pancreas, and adrenal glands are unremarkable. Gallbladder is not visualized and is surgically removed.Bilateral moderate hydronephrosis and hydroureter is noted. No urinary calculus is seen.The appendix is unremarkable. No bowel thickening or fat stranding is seen. No bowel dilatation is seen.Anterior abdominal wall hernia repair is noted at midline. There is a cystic structure noted deep to the repair mesh within the abdomen measuring 9.1 x 4.0 cm in cross-section and approximately 11.4 cm in the craniocaudal direction. This likely represents a seroma. There is a small umbilical subcutaneous cystic structure which may also represent a small seroma.No free air is seen. Urinary bladder is unremarkable.The visualized lung bases are clear.IMPRESSION:1. Anterior abdominal wall hernia repair with a large cystic collection noted just deep to the repair mesh. This most likely represents a seroma.2. Small cystic structure is also noted within the subcutaneous soft tissues at the umbilicus may also represent a small seroma.3. Bilateral moderate hydronephrosis and hydroureter of unknown etiology.[facility]-[id number] [facility] myocardial [id number] 17:17:49 Test Item Value Reference Range Interpretation Comments Target HR (test code 143.00 bpm = 2361012765) Resting HR (test code 60 BPM = 4762164815) Resting BP (test code 159/73 mmHg = 9020074309) Post Peak HR (test 75 bpm code = 6355511507) Percent HR (test code 52.45 % = 0914026571) Post Peak BP (test 159/73 mmHg code = 9469294105) Exercise duration 1 min (min) (test code = 0506479161) ZARA (test code = ZARA) Medium sized, moderate reversible defect in the basal inferior wall. This is consistent with ischemia in the RCA vs LCx. EF 62% This study result indicates an intermediate risk of cardiac , or nonfatal infarction, over the ensuing year. [facility] stress [id number] 15:30:34 Test Item Value Reference Range Interpretation Comments Resting HR (test code 60 = 1125425072) Resting BP (test code 159 = 2484099700) Peak MET Achieved 1.0 (test code = 2955236873) Protocol Name (test Regadenoson code = 5026781744) Time in Exercise 00:01:00 Phase (test code = 6641377758) Max Systolic BP (test 159 code = 7882024240) Max Diastolic BP 73 (test code = 7774084887) Max Heart Rate (test 75 code = 4766040041) Max Predicted Heart 143 Rate (test code = 3389465131) Target HR Formula (220 - Age)*85% (test code = 2520019988) Test Indication (test ANGINA code = 3310296254) Stress Test No change in Impression (test code baseline--Waveform = 7101038867) interpreted in report associated with image study. No interpretation is provided as part of this Stress ECG report.- Target HR (test code 143.00 bpm = 4661656439) Sam CherryKfobemfssExvmfgnr5040-20-45 11:54:08 Test Item Value Reference Range Interpretation Comments Troponin (test code = <0.006 0-0.04 [place] [address]-9) having a myocar dial infarction, tristian ng with all other appro priate clinical measur es and actions includi ng ECG and other diagnosti cs as appropriate, me asure Ultra TnI at 0 hrs and at 3 hrs.Myocardia l infarction VERY LIKELYThe 0 hr TnI level is > 0.10 ng/mL --Myocardial in farction LIKELYThe 0 hr TnI level is > 0.04 ng/mL and 3 hr level is increa sed or decreased by at least 0.020 ng/mL -------Sixto cardial infarct ion VERY UNLIKELYBoth th e 0 hr and 3 hr TnI levels <= 0.04 ng/mL(within no rmal limits) OR 0 hr is > 0.04 ng/mL and 3 hr is increased OR de creased by less than 0.020 ng/mL Sam CherryQkraykhzaL-vyajk9898-32-03 11:39:22 Test Item Value Reference Range Interpretation Comments D-dimer (test code = 1.55 ug/mL 0-0.4 H Units a re ug/ml 47256-6) Fibrinogen Equivalent Unit .When combined with l ow clinical probability, D- dimer results of less than 0.5 ug/ml FEU h ave a good negative predictive valu e in excluding PE or DVT. For D-dimer re sults greater than 0. 5 ug/ml FEU furth er testing is rosario cated if PE or DVT is suspected clinically.Elev ated D-dimer results have been reported i n DVT, PE, and DI C cases and may indicate the presence of a c lot. D-dimer results may be elevated due to old age, pregna ncy, inflammatory diseases, traum a, post-operative states, sepsis, and malignancies. Lab Interpretation Abnormal (test code = 15054-4) Sam SharifG 12 [id number] 07:01:34 Test Item Value Reference Range Interpretation Comments Ventricular rate (test 61 code = 253) Atrial rate (test code = 61 255) SC interval (test code = 154 266) QRSD interval (test code 96 = 260) QT interval (test code = 418 264) QTC interval (test code 420 = 265) P axis 1 (test code = 86 267) QRS axis 1 (test code = 56 268) T wave axis (test code = 77 270) EKG impression (test Sinus rhythm with code = 273) premature atrial complexes-Otherwise normal ECG-No previous ECGs available-Electronica lly Signed By Beulah ELIZONDO, Quocdadeclan ([id number]) on 04/16/2019 7:01:23 AM Sam Villalba nycjaww5800-53-26 05:19:35 Test Item Value Reference Range Interpretation Comments Urine culture (test SEE COMMENT Bacteriu kylah screen code = 3132347) negative. Sam MethodistUrinalysis screen and microscopy, with reflex to culture 2019-04-16 05:19:34 Test Item Value Reference Range Interpretation Comments Specimen site (test code = Catheterized 6796772) Color, UA (test code = 5778-6) Colorless Appearance, UA (test code = Clear 5767-9) Specific gravity, UA (test code 1.004 1.001-1.030 = 5811-5) pH, UA (test code = 5803-2) 8.0 5.0-9.0 Protein, UA (test code = Negative Negative 54885-3) Glucose, UA (test code = Negative Negative 20202-2) Ketones, UA (test code = 2514-8) Negative Negative Bilirubin, UA (test code = Negative Negative 5770-3) Blood, UA (test code = 5794-3) Negative Negative Nitrite, UA (test code = 5802-4) Negative Negative Urobilinogen, UA (test code = <2.0 <2.0 E.U./dL 58720-5) Leukocyte esterase, UA (test Negative Negative code = 5799-2) Epithelial cells, UA (test code <1 /HPF = 5787-7) WBC, UA (test code = 5821-4) <1 0- 4 /HPF RBC, UA (test code = 35406-2) 1 0- 5 /HPF Bacteria, UA (test code = Few None seen 86883-2) Yeast, UA (test code = 16216-3) None seen Yeast with pseudohyphae, UA None seen (test code = 51814-7) Sam CherryB natriuretic qynzqbx9920-93-15 01:27:12 Test Item Value Reference Range Interpretation Comments BNP (test code = 55816-1) 217 pg/mL 0-100 H Lab Interpretation (test code = Abnormal 24786-8) Sam CherryComprehensive metabolic [id number] 00:57:18 Test Item Value Reference Range Interpretation Comments Sodium (test code = 2951-2) 133 135- 148 mEq/L L Potassium (test code = 2823-3) 4.7 3.5- 5.0 mEq/L Chloride (test code = 2075-0) 95 98- 112 mEq/L L CO2 (test code = 8-9) 28 24- 31 mEq/L Anion gap (test code = 96614-9) 10@ANIO 7- 15 mEq/L BUN (test code = 3094-0) 20 mg/dL 8-23 Creatinine (test code = 2160-0) 1.80 mg/dL 0.5-0.9 H Glucose (test code = 2345-7) 94 mg/dL 65-99 Calcium (test code = 61784-1) 10.6 mg/dL 8.8-10.2 H Protein (test code = 2885-2) 8.4 g/dL 6.3-8.3 H Albumin (test code = 1751-7) 4.5 g/dL 3.5-5 A/G ratio (test code = 1759-0) 1.2 0.7-3.8 Alkaline phosphatase (test code = 110 U/L 35-104 H 6768-6) AST (test code = 1920-8) 27 U/L 10-35 ALT (test code = 1742-6) 17 U/L 5-50 Total bilirubin (test code = <0.2 0.2-1.2 1975-2) Lab Interpretation (test code = Abnormal 22221-2) [place] MethodistLipase dsish7273-26-07 00:57:17 Test Item Value Reference Range Interpretation Comments Lipase (test code = 3040-3) 60 U/L 13-60 [place] MethodistPartial thromboplastin time, lbrdwcgej0009-56-41 00:48:41 Test Item Value Reference Range Interpretation Comments PTT (test code = 31.4 23.0- 36.0 sec PTT thera peutic range for 3173-2) unfractionated heparin is61.0-112.0 se conds which corresponds to Anti-Xa0.3-0.7 U/ml. [place] MethodistXR Abdomen Acute Inc Adzom7213-35-24 00:20:33 Interface, Radiology Results Incoming - 04/16/2019 12:23 AM CSTEXAMINATION: XR ABDOMEN ACUTE INCCHEST 1VCLINICAL HISTORY: chest pain constipationCOMPARISON: NoneIMPRESSION:There are postoperative changes seen with surgical clips and markers for abdominal mesh. Intestinal gas pattern is nonspecific. There is no free intraperitoneal air. There are no suspicious calcifications.Upright view the chest demonstrates atherosclerotic aorta. Heart size is normal. Lungs are clear.[facility]-TS28VRRSMqqefyu [facility]ALL[facility] Preliminary Interpretation - Not an [id number] 23:25:17 Test Item Value Reference Range Interpretation Comments ZARA (test code = ZARA) Kevin Emmanuel DO 04/16/2019 8:35 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 No discrete filling defects are identified within [...] cysts. No racheal hydronephrosis. Bilateral subcentimeter T2 hyperintensecysts are incompletely characterized. No definite solid renal [...] There is a small amount of metallic susceptibilityartifact at the donovan hepatis and adjacent to the pancreatic head, likely from prior cholecystectomy, limiting evaluation. If there remains high clinical suspicion for pancreatic head lesion, a contrast-enhanced CT is recommended. Signed: Kaveh Martin MDRepmichael Verified Date/Time: 04/17/2017 12:17:51 Reading Location: [facility] [id number] CT Body Reading Room POCT-GLUCOSE METER 2017-04-17 12:08:00 Test Item Value Reference Range Interpretation Comments POC-GLUCOSE METER 253 mg/dL 70-[address] [facility] [address] (BEAKER) (test code = [place] 1538) [address] CBC W/PLT COUNT & AUTO [id number] 12:08:00 Test Item Value Reference Range Interpretation Comments WHITE BLOOD CELL COUNT (BEAKER) 7.3 K/ L 3.5-10.5 (test code = 775) RED BLOOD CELL COUNT (BEAKER) 3.94 M/ L 3.93-5.22 (test code = 761) HEMOGLOBIN (BEAKER) (test code = 11.3 GM/DL 11.2-15.7 410) HEMATOCRIT (BEAKER) (test code = 35.8 % 34.1-44.9 411) MEAN CORPUSCULAR VOLUME (BEAKER) 90.9 fL 79.4-94.8 (test code = 753) MEAN CORPUSCULAR HEMOGLOBIN 28.7 pg 25.6-32.2 (BEAKER) (test code = 751) MEAN CORPUSCULAR HEMOGLOBIN CONC 31.6 GM/DL 32.2-35.5 L (BEAKER) (test code = 752) RED CELL DISTRIBUTION WIDTH 13.4 % 11.7-14.4 (BEAKER) (test code = 412) PLATELET COUNT (BEAKER) (test 268 K/CU MM 150-450 code = 756) MEAN PLATELET VOLUME (BEAKER) 10.0 fL 9.4-12.3 (test code = 754) NUCLEATED RED BLOOD CELLS 0 /100 WBC 0-0 (BEAKER) (test code = 413) NEUTROPHILS RELATIVE PERCENT 41 % (BEAKER) (test code = 429) LYMPHOCYTES RELATIVE PERCENT 46 % (BEAKER) (test code = 430) MONOCYTES RELATIVE PERCENT 8 % (BEAKER) (test code = 431) EOSINOPHILS RELATIVE PERCENT 3 % (BEAKER) (test code = 432) BASOPHILS RELATIVE PERCENT 2 % (BEAKER) (test code = 437) NEUTROPHILS ABSOLUTE COUNT 2.99 K/ L 1.56-6.13 (BEAKER) (test code = 670) LYMPHOCYTES ABSOLUTE COUNT 3.34 K/ L 1.18-3.74 (BEAKER) (test code = 414) MONOCYTES ABSOLUTE COUNT (BEAKER) 0.57 K/ L 0.24-0.36 H (test code = 415) EOSINOPHILS ABSOLUTE COUNT 0.22 K/ L 0.04-0.36 (BEAKER) (test code = 416) BASOPHILS ABSOLUTE COUNT (BEAKER) 0.11 K/ L 0.01-0.08 H (test code = 417) IMMATURE GRANULOCYTES-RELATIVE 0 % 0-1 PERCENT (BEAKER) (test code = 2801) POCT-GLUCOSE [id number] 08:04:00 Test Item Value Reference Range Interpretation Comments POC-GLUCOSE METER 99 mg/dL 70-[address] [facility] [address] (BEAKER) (test code = [facility] [address] 1538) [id number] 06:55:00 Test Item Value Reference Range Interpretation Comments MAGNESIUM (BEAKER) (test code = 1.6 mg/dL 1.6-2.6 627) BASIC METABOLIC [id number] 06:55:00 Test Item Value Reference Range Interpretation Comments SODIUM (BEAKER) 140 meq/L 136-145 (test code = 381) POTASSIUM (BEAKER) 3.7 meq/L 3.5-5.1 (test code = 379) CHLORIDE (BEAKER) 109 meq/L 98-107 H (test code = 382) CO2 (BEAKER) (test 23 meq/L 22-29 code = 355) BLOOD UREA NITROGEN 12 mg/dL 7-21 (BEAKER) (test code = 354) CREATININE (BEAKER) 0.82 mg/dL 0.57-1.25 (test code = 358) GLUCOSE RANDOM 96 mg/dL 70-105 (BEAKER) (test code = 652) CALCIUM (BEAKER) 9.5 mg/dL 8.4-10.2 (test code = 697) EGFR (BEAKER) (test 82 mL/min/1.73 ESTIMA ASHTYN GFR IS code = 1092) sq m NOT ACCURATE CREATININE CLEARANCE IN PREDICTING GLOMERULAR FILTRATION RATE . ESTIMATED GFR I S NOT APPLICABLE FOR DIALYSIS PATIEN TS. POCT-GLUCOSE [id number] 21:05:00 Test Item Value Reference Range Interpretation Comments POC-GLUCOSE METER 98 mg/dL 70-[address] [facility] [address] (BEAKER) (test code = [facility] [address]38) POCT-GLUCOSE [id number] 17:04:00 Test Item Value Reference Range Interpretation Comments POC-GLUCOSE METER 89 mg/dL 70-110 TESTED AT [place] [address] (BEAKER) (test code = [place] [facility] [address]38) POCT-GLUCOSE [id number] 12:37:00 Test Item Value Reference Range Interpretation Comments POC-GLUCOSE METER 202 mg/dL 70-[address] [facility] [address] (BEAKER) (test code = [place] [facility] 1538) [address] CBC W/PLT COUNT & AUTO [id number] 09:44:00 Test Item Value Reference Range Interpretation Comments WHITE BLOOD CELL COUNT (BEAKER) 7.1 K/ L 3.5-10.5 (test code = 775) RED BLOOD CELL COUNT (BEAKER) 3.76 M/ L 3.93-5.22 L (test code = 761) HEMOGLOBIN (BEAKER) (test code = 11.0 GM/DL 11.2-15.7 L 410) HEMATOCRIT (BEAKER) (test code = 34.6 % 34.1-44.9 411) MEAN CORPUSCULAR VOLUME (BEAKER) 92.0 fL 79.4-94.8 (test code = 753) MEAN CORPUSCULAR HEMOGLOBIN 29.3 pg 25.6-32.2 (BEAKER) (test code = 751) MEAN CORPUSCULAR HEMOGLOBIN CONC 31.8 GM/DL 32.2-35.5 L (BEAKER) (test code = 752) RED CELL DISTRIBUTION WIDTH 13.6 % 11.7-14.4 (BEAKER) (test code = 412) PLATELET COUNT (BEAKER) (test 252 K/CU MM 150-450 code = 756) MEAN PLATELET VOLUME (BEAKER) 9.9 fL 9.4-12.3 (test code = 754) NUCLEATED RED BLOOD CELLS 0 /100 WBC 0-0 (BEAKER) (test code = 413) IMMATURE GRANULOCYTES-RELATIVE 0 % 0-1 PERCENT (BEAKER) (test code = 2801) (MANUAL DIFFERENTIAL)2017-04-16 09:44:00 Test Item Value Reference Range Interpretation Comments NEUTROPHILS - REL (DIFF) (BEAKER) 37 % (test code = 1359) LYMPHOCYTES - REL (DIFF) (BEAKER) 51 % (test code = 1360) MONOCYTES - REL (DIFF) (BEAKER) 9 % (test code = 1361) EOSINOPHILS - REL (DIFF) (BEAKER) 3 % (test code = 1362) BASOPHILS - REL (DIFF) (BEAKER) 0 % (test code = 1363) NEUTROPHILS - ABS (DIFF) (BEAKER) 2.63 K/ L 1.80-8.00 (test code = 1365) LYMPHOCYTES - ABS (DIFF) (BEAKER) 3.62 K/ L 1.48-4.50 (test code = 1366) MONOCYTES - ABS (DIFF) (BEAKER) 0.64 K/ L 0.00-1.30 (test code = 1367) EOSINOPHILS - ABS (DIFF) (BEAKER) 0.21 K/ L 0.00-0.50 (test code = 1368) BASOPHILS - ABS (DIFF) (BEAKER) 0.00 K/ L 0.00-0.20 (test code = 1369) TOTAL COUNTED (BEAKER) (test code = 100 1351) WBC MORPHOLOGY (BEAKER) (test code Normal = 487) PLT MORPHOLOGY (BEAKER) (test code Normal = 486) RBC MORPHOLOGY (BEAKER) (test code Normal = 762) CREATINE KINASE (CK), TOTAL AND [id number] 07:51:00 Test Item Value Reference Range Interpretation Comments CREATINE KINASE TOTAL (BEAKER) 143 U/L 29-200 (test code = 380) CREATINE KINASE-MB (BEAKER) (test 4.1 ng/mL 0.0-6.6 code = 750) CREATINE KINASE-MB INDEX (BEAKER) 2.9 % (test code = 395) CK-MB Reference Range:<6.7 Normal6.7-10.0 Borderline>10.0 AbnormalTROPONIN [id number] 07:51:00 Test Item Value Reference Range Interpretation Comments TROPONIN I (BEAKER) (test code = 0.02 ng/mL 0.00-0.03 397) Troponin I (TnI) levels must be interpreted [...] acidosis, acute neurological disease, and persistent tachyarrhythmia.POCT-GLUCOSE [id number] 07:41:00 Test Item Value Reference Range Interpretation Comments POC-GLUCOSE METER 85 mg/dL 70-[address] [facility] [address] (BEAKER) (test code = [place] [address] 15[address]) GAMMA GLUTAMYL TRANSFERASE (GGT)2017-04-16 07:41:00 Test Item Value Reference Range Interpretation Comments GAMMA GLUTAMYL TRANSFERASE (BEAKER) 305 U/L 9-64 H (test code = 364) BILIRUBIN, [id number] 07:41:00 Test Item Value Reference Range Interpretation Comments BILIRUBIN DIRECT (BEAKER) (test 0.2 mg/dL 0.1-0.5 code = 706) COMPREHENSIVE METABOLIC [id number] 07:41:00 Test Item Value Reference Range Interpretation Comments TOTAL PROTEIN 7.1 gm/dL 6.0-8.3 (BEAKER) (test code = 770) ALBUMIN (BEAKER) 3.3 g/dL 3.5-5.0 L (test code = 1145) ALKALINE PHOSPHATASE 186 U/L 40-150 H (BEAKER) (test code = 346) BILIRUBIN TOTAL < mg/dL 0.2-1.2 (BEAKER) (test code = 377) SODIUM (BEAKER) (test 141 meq/L 136-145 code = 381) POTASSIUM (BEAKER) 3.6 meq/L 3.5-5.1 (test code = 379) CHLORIDE (BEAKER) 110 meq/L 98-107 H (test code = 382) CO2 (BEAKER) (test 24 meq/L 22-29 code = 355) BLOOD UREA NITROGEN 13 mg/dL 7-21 (BEAKER) (test code = 354) CREATININE (BEAKER) 0.82 mg/dL 0.57-1.25 (test code = 358) GLUCOSE RANDOM 83 mg/dL 70-105 (BEAKER) (test code = 652) CALCIUM (BEAKER) 9.3 mg/dL 8.4-10.2 (test code = 697) AST (SGOT) (BEAKER) 30 U/L 5-34 (test code = 353) ALT (SGPT) (BEAKER) 88 U/L 6-55 H (test code = 347) EGFR (BEAKER) (test 82 mL/min/1.73 ESTIMA ASHTYN GFR IS code = 1092) sq m NOT ACCURATE CREATININE CLEARANCE IN PREDICTING GLOMERULAR FILTRATION RATE . ESTIMATED GFR I S NOT APPLICABLE FOR DIALYSIS PATIEN TS. POCT-GLUCOSE [id number] 20:46:00 Test Item Value Reference Range Interpretation Comments POC-GLUCOSE METER 99 mg/dL 70-[address] [facility] [address] (BEAKER) (test code = [place] [address] 15[address]) POCT-GLUCOSE [id number] 17:37:00 Test Item Value Reference Range Interpretation Comments POC-GLUCOSE METER 143 mg/dL 70-[address] [facility] [address] (BEAKER) (test code = [facility] [place] 1538) [address] CREATINE KINASE (CK), TOTAL AND [id number] 17:27:00 Test Item Value Reference Range Interpretation Comments CREATINE KINASE TOTAL (AKER) 196 U/L 29-200 (test code = 380) CREATINE KINASE-MB ([facility]) (test 5.1 ng/mL 0.0-6.6 code = 750) CREATINE KINASE-MB INDEX ([facility]) 2.6 % (test code = 395) CK-MB Reference Range:<6.7 Normal6.7-10.0 Borderline>10.0 AbnormalTROPONIN [id number] 17:27:00 Test Item Value Reference Range Interpretation Comments TROPONIN I (BEAKER) (test code = 0.02 ng/mL 0.00-0.03 397) Troponin I (TnI) levels must be interpreted [...] failure, acidosis, acute neurological disease, and persistent tachyarrhythmia.[id number] 16:54:00 Test Item Value Reference Range Interpretation Comments D-DIMER QUANTITATIVE (BEAKER) 0.60 MG/L FEU <0.50 H (test code = 671) Intended Use: The D-Dimer Assay can be used to aid in the diagnosis of Deep Vein Thrombosis (DVT) and Pulmonary Embolism Disease (PED).In patients with low pre- test probability, various studies concerning STA Liatest D-dimer test have reported that with a cutoff value of 0.50 MG/L FEU, the Negative Predictive Value (NPV) regarding the exclusion of thrombosis is within 95-100% range.POCT- GLUCOSE [id number] 14:54:00 Test Item Value Reference Range Interpretation Comments POC-GLUCOSE METER 113 mg/dL 70-[address] [facility] [address] (BEAKER) (test code = [place] 1538) [address] CBC W/PLT COUNT & AUTO [id number] 13:06:00 Test Item Value Reference Range Interpretation Comments WHITE BLOOD CELL COUNT (BEAKER) 7.2 K/ L 3.5-10.5 (test code = 775) RED BLOOD CELL COUNT (BEAKER) 3.92 M/ L 3.93-5.22 L (test code = 761) HEMOGLOBIN (BEAKER) (test code = 11.3 GM/DL 11.2-15.7 410) HEMATOCRIT (BEAKER) (test code = 35.6 % 34.1-44.9 411) MEAN CORPUSCULAR VOLUME (BEAKER) 90.8 fL 79.4-94.8 (test code = 753) MEAN CORPUSCULAR HEMOGLOBIN 28.8 pg 25.6-32.2 (BEAKER) (test code = 751) MEAN CORPUSCULAR HEMOGLOBIN CONC 31.7 GM/DL 32.2-35.5 L (BEAKER) (test code = 752) RED CELL DISTRIBUTION WIDTH 13.8 % 11.7-14.4 (BEAKER) (test code = 412) PLATELET COUNT (BEAKER) (test 254 K/CU MM 150-450 code = 756) MEAN PLATELET VOLUME (BEAKER) 10.2 fL 9.4-12.3 (test code = 754) NUCLEATED RED BLOOD CELLS 0 /100 WBC 0-0 (BEAKER) (test code = 413) NEUTROPHILS RELATIVE PERCENT 37 % (BEAKER) (test code = 429) LYMPHOCYTES RELATIVE PERCENT 50 % (BEAKER) (test code = 430) MONOCYTES RELATIVE PERCENT 8 % (BEAKER) (test code = 431) EOSINOPHILS RELATIVE PERCENT 4 % (BEAKER) (test code = 432) BASOPHILS RELATIVE PERCENT 1 % (BEAKER) (test code = 437) NEUTROPHILS ABSOLUTE COUNT 2.66 K/ L 1.56-6.13 (BEAKER) (test code = 670) LYMPHOCYTES ABSOLUTE COUNT 3.57 K/ L 1.18-3.74 (BEAKER) (test code = 414) MONOCYTES ABSOLUTE COUNT (BEAKER) 0.55 K/ L 0.24-0.36 H (test code = 415) EOSINOPHILS ABSOLUTE COUNT 0.26 K/ L 0.04-0.36 (BEAKER) (test code = 416) BASOPHILS ABSOLUTE COUNT (BEAKER) 0.08 K/ L 0.01-0.08 (test code = 417) IMMATURE GRANULOCYTES-RELATIVE 0 % 0-1 PERCENT (BEAKER) (test code = 2801) B-TYPE NATRIURETIC FACTOR (BNP)2017-04-15 12:21:00 Test Item Value Reference Range Interpretation Comments B-TYPE NATRIURETIC PEPTIDE (BEAKER) 200 pg/mL 0-100 H (test code = 700) GAMMA GLUTAMYL TRANSFERASE (GGT)2017-04-15 12:16:00 Test Item Value Reference Range Interpretation Comments GAMMA GLUTAMYL TRANSFERASE (BEAKER) 327 U/L 9-64 H (test code = 364) CARCINOEMBRYONIC ANTIGEN (CEA)2017-04-15 11:33:00 Test Item Value Reference Range Interpretation Comments CARCINOEMBRYONIC ANTIGEN (BEAKER) 2.5 ng/mL 0.0-5.0 (test code = 685) POCT-GLUCOSE [id number] 11:26:00 Test Item Value Reference Range Interpretation Comments POC-GLUCOSE METER 114 mg/dL 70-[address] [facility] [address] (BEAKER) (test code = [place] 1538) [id number] CREATINE KINASE (CK), TOTAL AND [id number] 11:19:00 Test Item Value Reference Range Interpretation Comments CREATINE KINASE TOTAL (BEAKER) 204 U/L 29-200 H (test code = 380) CREATINE KINASE-MB (BEAKER) (test 5.7 ng/mL 0.0-6.6 code = 750) CREATINE KINASE-MB INDEX (BEAKER) 2.8 % (test code = 395) CK-MB Reference Range:<6.7 Normal6.7-10.0 Borderline>10.0 AbnormalTROPONIN [id number] 11:19:00 Test Item Value Reference Range Interpretation Comments TROPONIN I (BEAKER) (test code = 0.02 ng/mL 0.00-0.03 397) Troponin I (TnI) levels must be interpreted [...] acute neurological disease, and persistent tachyarrhythmia.U/S, ABDOMINAL, [id number] 10:11:00Abdomen limited area? Add comment if clarification is [...] measures 8.7 cm in length. Mild right hyd ronephrosis. No right renal mass. No shadowing calculi are visualized. No abnormalities are seen in the abdominal aorta, inferior vena cava, or hepatic veins. IMPRESSION: 1. Mild right hydronephrosis. Signed: Jenn Crocker MDReport Verified Date/Time: 04/15/2017 10:11:28 Reading Location: [place] [id number] Consult Reading Room POCT-GLUCOSE [id number] 10:00:00 Test Item Value Reference Range Interpretation Comments POC-GLUCOSE METER 107 mg/dL 70-[address] [facility] [address] (JAKE) (test code = [place] 15[address]) [id number] HEMOGLOBIN [id number] 08:15:00 Test Item Value Reference Range Interpretation Comments HEMOGLOBIN A1C (BEAKER) (test code = 6.8 % 4.3-6.1 H 368) [id number] 07:35:00 Test Item Value Reference Range Interpretation Comments PHOSPHORUS (BEAKER) (test code = 3.9 mg/dL 2.3-4.7 604) [id number] 07:35:00 Test Item Value Reference Range Interpretation Comments MAGNESIUM (BEAKER) (test code = 1.8 mg/dL 1.6-2.6 627) COMPREHENSIVE METABOLIC [id number] 07:35:00 Test Item Value Reference Range Interpretation Comments TOTAL PROTEIN 7.5 gm/dL 6.0-8.3 (BEAKER) (test code = 770) ALBUMIN (BEAKER) 3.5 g/dL 3.5-5.0 (test code = 1145) ALKALINE PHOSPHATASE 211 U/L 40-150 H (BEAKER) (test code = 346) BILIRUBIN TOTAL < mg/dL 0.2-1.2 (BEAKER) (test code = 377) SODIUM (BEAKER) (test 142 meq/L 136-145 code = 381) POTASSIUM (BEAKER) 3.6 meq/L 3.5-5.1 (test code = 379) CHLORIDE (BEAKER) 110 meq/L 98-107 H (test code = 382) CO2 (BEAKER) (test 22 meq/L 22-29 code = 355) BLOOD UREA NITROGEN 12 mg/dL 7-21 (BEAKER) (test code = 354) CREATININE (BEAKER) 0.84 mg/dL 0.57-1.25 (test code = 358) GLUCOSE RANDOM 107 mg/dL 70-105 H (BEAKER) (test code = 652) CALCIUM (BEAKER) 9.4 mg/dL 8.4-10.2 (test code = 697) AST (SGOT) (BEAKER) 37 U/L 5-34 H (test code = 353) ALT (SGPT) (BEAKER) 119 U/L 6-55 H (test code = 347) EGFR (BEAKER) (test 80 mL/min/1.73 ESTIMA ASHTYN GFR IS code = 1092) sq m NOT ACCURATE CREATININE CLEARANCE IN PREDICTING GLOMERULAR FILTRATION RATE . ESTIMATED GFR I S NOT APPLICABLE FOR DIALYSIS PATIEN TS. LIPID [id number] 07:35:00 Test Item Value Reference Range Interpretation Comments TRIGLYCERIDES (BEAKER) (test code = 128 mg/dL 540) CHOLESTEROL (BEAKER) (test code = 162 mg/dL 631) HDL CHOLESTEROL (BEAKER) (test code 47 mg/dL = 976) LDL CHOLESTEROL CALCULATED (BEAKER) 89 mg/dL (test code = 633) Triglyceride Reference Range: Low Risk <150 Borderline 150-199 High Risk 200-499 Very High Risk >=500Cholesterol Reference Range: Low Risk <200 Borderline 200-239 High Risk >240HDL Cholesterol Reference Range: Low Risk >=60 High Risk <40LDL Cholesterol Reference Range: Optimal <100 Near Optimal 100-129 Borderline 130-159 High 160-189 Very High >=190CREATINE KINASE (CK), TOTAL AND [id number] 07:35:00 Test Item Value Reference Range Interpretation Comments CREATINE KINASE TOTAL (BEAKER) 216 U/L 29-200 H (test code = 380) CREATINE KINASE-MB (BEAKER) (test 6.0 ng/mL 0.0-6.6 code = 750) CREATINE KINASE-MB INDEX (BEAKER) 2.8 % (test code = 395) CK-MB Reference Range:<6.7 Normal6.7-10.0 Borderline>10.0 [id number] 07:35:00 Test Item Value Reference Range Interpretation Comments LIPASE (BEAKER) (test code = 749) 29 U/L 8-78 TROPONIN [id number] 07:32:00 Test Item Value Reference Range Interpretation Comments TROPONIN I (BEAKER) (test code = 0.01 ng/mL 0.00-0.03 397) Troponin I (TnI) levels must be interpreted [...] acidosis, acute neurological disease, and persistent tachyarrhythmia.POCT-GLUCOSE [id number] 05:07:00 Test Item Value Reference Range Interpretation Comments POC-GLUCOSE METER 113 mg/dL 70-[address] [facility] [address] (JAKE) (test code = [place] 1535) [id number]
[2020-02-17 19:38] LABS: Absolute Lymphocytes (CBC) 2.3 K/uL (0.7-4.9); Basophils % 0.7 % (0-1.3); Hematocrit 31.8 % (36.0-45.0); Lymphocytes % 34.7 % (15.3-44.8); MPV 9.2 fL (7.6-11.3); RBC Red Blood Cell Count 3.63 M/uL (3.86-4.86)
[2020-02-17 19:39] LABS: Protime INR 0.97
[2020-02-17 19:51] LABS: ALT/SGPT 17 U/L (12-78); AST/SGOT 25 U/L (15-37); Albumin 3.4 g/dL (3.4-5.0); Alkaline Phosphatase 62 U/L (45-117); BUN Blood Urea Nitrogen 81 mg/dL (7-18); Bicarbonate 22 mmol/L (21-32); Bilirubin Direct < 0.1 mg/dL (0-0.2); Bilirubin Total 0.3 mg/dL (0.2-1.0); Glucose Level 97 mg/dL (74-106); Magnesium 2.1 mg/dL (1.8-2.4); NT PRO-BNP 597 pg/mL (<450); Potassium 3.8 mmol/L (3.5-5.1); Protein, Total 8.4 g/dL (6.4-8.2); Sodium Level 137 mmol/L (136-145); Troponin (Emerg Dept Use Only) 0.11 ng/mL (0.0-0.045)
--- NOTE | 2020-02-17 20:04 | EDPHYS ---
Physician Documentation [facility] Name: Shereen Flores Age: 80 yrs Sex: Female : 1940 Arrival Date: 02/17/2020 Time: 17:31 Bed 6 Private MD: ALISON Physician Emmanuel Chang HPI: 02/16 18:44 This 80 yrs old Black Female presents to ER via Wheelchair with complaints of Abnormal joseline Lab Results. Historical: - Allergies: 17:50 SHARON INHIBITORS; sv 17:50 HYDRALAZINE; sv 17:50 Iodine; sv 17:50 iron; sv 17:50 Lisinopril; sv 17:50 PENICILLINS; sv - PMHx: 17:50 Diabetes - NIDDM; Glaucoma; GERD; Hypertension; sv - PSHx: 17:50 Cholecystectomy; sv - Immunization history:: Adult Immunizations up to date. - Social history:: Smoking status: Patient denies any tobacco usage or history of. ROS: 18:44 Constitutional: Negative for fever, chills, and weight loss, Eyes: Negative for injury, joseline pain, redness, and discharge, ENT: Negative for injury, pain, and discharge, Neck: Negative for injury, pain, and swelling, Cardiovascular: Negative for chest pain, palpitations, and edema, Respiratory: Negative for shortness of breath, cough, wheezing, and pleuritic chest pain, Abdomen/GI: Negative for abdominal pain, nausea, vomiting, diarrhea, and constipation, Back: Negative for injury and pain, : Negative for injury, bleeding, discharge, and swelling, MS/Extremity: Negative for injury and deformity, Skin: Negative for injury, rash, and discoloration, Psych: Negative for depression, anxiety, suicide ideation, homicidal ideation, and hallucinations, Allergy/Immunology: Negative for hives, rash, and allergies, Endocrine: Negative for neck swelling, polydipsia, polyuria, polyphagia, and marked weight changes, Hematologic/Lymphatic: Negative for swollen nodes, abnormal bleeding, and unusual bruising. 18:44 Neuro: Positive for weakness. Exam: 18:44 Constitutional: This is a well developed, well nourished patient who is awake, alert, joseline and in no acute distress. Head/Face: Normocephalic, atraumatic. Eyes: Pupils equal round and reactive to light, extra-ocular motions intact. Lids and lashes normal. Conjunctiva and sclera are non-icteric and not injected. Cornea within normal limits. Periorbital areas with no swelling, redness, or edema. ENT: Nares patent. No nasal discharge, no septal abnormalities noted. Tympanic membranes are normal and external auditory canals are clear. Oropharynx with no redness, swelling, or masses, exudates, or evidence of obstruction, uvula midline. Mucous membranes moist. Neck: Trachea midline, no thyromegaly or masses palpated, and no cervical lymphadenopathy. Supple, full range of motion without nuchal rigidity, or vertebral point tenderness. No Meningismus. Chest/axilla: Normal chest wall appearance and motion. Nontender with no deformity. No lesions are appreciated. Cardiovascular: Regular rate and rhythm with a normal S1 and S2. No gallops, murmurs, or rubs. Normal PMI, no JVD. No pulse deficits. Respiratory: Lungs have equal breath sounds bilaterally, clear to auscultation and percussion. No rales, rhonchi or wheezes noted. No increased work of breathing, no retractions or nasal flaring. Abdomen/GI: Soft, non-tender, with normal bowel sounds. No distension or tympany. No guarding or rebound. No evidence of tenderness throughout. Back: No spinal tenderness. No costovertebral tenderness. Full range of motion. Female : Normal external genitalia. Skin: Warm, dry with normal turgor. Normal color with no rashes, no lesions, and no evidence of cellulitis. MS/ Extremity: Pulses equal, no cyanosis. Neurovascular intact. Full, normal range of motion. Neuro: Awake and alert, GCS 15, oriented to person, place, time, and situation. Cranial nerves II-XII grossly intact. Motor strength 5/5 in all extremities. Sensory grossly intact. Cerebellar exam normal. Normal gait. Psych: Awake, alert, with orientation to person, place and time. Behavior, mood, and affect are within normal limits. 20:04 ECG was reviewed by the Attending Physician. [facility] Vital Signs: 17:51 BP 88 / 52; Pulse 52; Resp 16; Temp 98.7; Pulse Ox 99% ; sv 18:08 BP 93 / 52; Pulse 51; Resp 17; Pulse Ox 99% ; jl7 MDM: 18:20 Patient medically screened. [facility] 18:45 Differential diagnosis: arthritis, Osteoporosis Peptic Ulcer Pyelonephritis joseline Ureterolithiasis. Data reviewed: vital signs, nurses notes, lab test result(s), EKG, radiologic studies, CT scan, plain films. 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 02/16 18:44 Order name: Basic Metabolic Panel [facility] 02/16 18:44 Order name: CBC with Diff; Complete Time: 19:47 [facility] 02/16 18:44 Order name: LFT's; Complete Time: 19:54 [facility] 02/16 18:44 Order name: Magnesium; Complete Time: 19:54 [facility] 02/16 18:44 Order name: NT PRO-BNP; Complete Time: 19:54 [facility] 02/16 18:44 Order name: PT-INR; Complete Time: 19:47 [facility] 02/16 18:44 Order name: Troponin (emerg Dept Use Only); Complete Time: 19:54 [facility] 02/16 18:44 Order name: Urine Culture [facility] 02/16 18:45 Order name: Basic Metabolic Panel; Complete Time: 19:54 EDWA 02/16 21:21 Order name: SARS-COV-2 RT PCR; Complete Time: 01:51 EDMS 02/16 22:46 Order name: Glucose, Ancillary Testing; Complete Time: 01:51 EDMS 02/16 23:33 Order name: Troponin I; Complete Time: 01:51 EDMS 02/17 04:42 Order name: CBC with Automated Diff EDWA 02/16 18:44 Order name: XRAY Chest (1 view); Complete Time: 01:51 [facility] 02/16 18:44 Order name: CT Stone Protocol; Complete Time: 01:51 [facility] 02/17 05:05 Order name: Basic Metabolic Panel EDMS 02/17 05:05 Order name: Uric Acid EDMS 02/17 05:05 Order name: Creatine Phosphokinase EDMS 02/17 05:05 Order name: Troponin I EDMS 02/17 05:05 Order name: Lipid Profile EDMS 02/17 05:05 Order name: C-Reactive Protein EDMS 02/17 05:05 Order name: Magnesium EDMS 02/17 05:05 Order name: Thyroid Stimulating Hormone EDMS 02/17 05:10 Order name: Hemoglobin A1c EDMS 02/17 06:15 Order name: Urinalysis [facility] 02/17 06:17 Order name: Urine Microscopic Only EDWA 02/17 07:38 Order name: Glucose, Ancillary Testing [facility] 02/17 12:07 Order name: Glucose, Ancillary Testing [facility] 02/16 18:44 Order name: EKG; Complete Time: 18:45 [facility] 02/16 18:44 Order name: Cardiac monitoring; Complete Time: 19:28 [facility] 02/16 18:44 Order name: IV Saline Lock; Complete Time: 19:29 [facility] 02/16 18:44 Order name: Labs collected and sent; Complete Time: 19:29 [facility] 02/16 18:44 Order name: O2 Per Protocol; Complete Time: 19:29 [facility] 02/16 18:44 Order name: O2 Sat Monitoring; Complete Time: :29 [facility] EC:04 Rate is 52 beats/min. Rhythm is regular. QRS Maynard is Normal. LA interval is normal. QRS joseline interval is normal. QT interval is normal. No Q waves. T waves are Normal. No ST changes noted. Clinical impression: Sinus bradycardia. Interpreted by me. Reviewed by me. Administered Medications: 20:07 Drug: NS 0.9% 500 ml Route: IV; Rate: bolus; Site: right forearm; jb4 20:45 Follow up: IV Status: Completed infusion; IV Intake: 500ml rv 20:45 Drug: NS 0.9% 1000 ml Route: IV; Rate: 125 ml/hr; Site: right forearm; rv 22:17 Follow up: IV Status: Infusion continued upon admission rv Disposition: 02/17/20 20:04 Hospitalization ordered by Gerard Lobato for Inpatient Admission. Preliminary diagnosis are Acute kidney failure - on chronic, mild bilateral hydronephrosis, improved, Weakness. - Bed requested for Telemetry/MedSurg (Inpatient). - Status is Inpatient Admission. jd3 - Condition is Fair. - Problem is new. - Symptoms have improved. Signatures: Dispatcher [employer] [facility] Darling Swartz Stephanie, RN Aminata Persaud RN Emmanuel Harper MD MD cha Nieto, Roman, MD MD rn Attema, Lee, GRANT WRITER-C GRANT WRITER-Cla1 Arnol Jones RN RN jb4 Andreas Bui RN RN jd3 Vidal, Jasson, RN RN rv Corrections: (The following items were deleted from the chart) 20:22 20:08 CORONAVIRUS+MR.LAB.BRZ ordered. EDMS EDMS 21:47 20:04 Hospitalization Ordered by Gerard Lobato DO for Inpatient Admission. Preliminary mw diagnosis is Acute kidney failure - on chronic, mild bilateral hydronephrosis, improved; Weakness. Bed requested for Telemetry/MedSurg (Inpatient). Status is Inpatient Admission. Condition is Fair. Problem is new. Symptoms have improved. joseline 02/17 13:11 01 21:47 02/17/2020 20:04 Hospitalization Ordered by Gerard Lobato DO for Inpatient bd Admission. Preliminary diagnosis is Acute kidney failure - on chronic, mild bilateral hydronephrosis, improved; Weakness. Bed [facility] ER HOLD. Status is Inpatient Admission. Condition is Fair. Problem is new. Symptoms have improved. mw 02/17 15:02 13:11 02/17/2020 20:04 Hospitalization Ordered by Gerard Lobato DO for Inpatient jd3 Admission. Preliminary diagnosis is Acute kidney failure - on chronic, mild bilateral hydronephrosis, improved; Weakness. Bed requested for Telemetry/MedSurg (Inpatient). Status is Inpatient Admission. Condition is Fair. Problem is new. Symptoms have improved. bd
--- NOTE | 2020-02-17 20:04 | ER ---
Nurse's Notes [facility] Name: Shereen Flores Age: 80 yrs Sex: Female : 1940 Arrival Date: 02/17/2020 Time: 17:31 Bed 6 Private MD: Diagnosis: Acute kidney failure-on chronic, mild bilateral hydronephrosis, improved;Weakness Presentation: 02/16 17:48 Chief complaint: Patient states: sent by PCP for abnormal kidney function, had routine sv blood work drawn today. Daughter reports that she fell a couple of days ago and her SBP was in the 50s at that time. Pt has been taking her BP meds as prescribed. Coronavirus screen: Client denies travel out of the [place] in the last 14 days. At this time, the client does not indicate any symptoms associated with coronavirus-19. Ebola Screen: No symptoms or risks identified at this time. Risk Assessment: Do you want to hurt yourself or someone else? Patient reports no desire to harm self or others. Onset of symptoms was February 17, 2020. 17:48 Method Of Arrival: Wheelchair sv 17:48 Acuity: AVERY 2 sv 17:51 Initial Sepsis Screen: Does the patient meet any 2 criteria? No. Patient's initial sv sepsis screen is negative. Does the patient have a suspected source of infection? No. Patient's initial sepsis screen is negative. Triage Assessment: 17:53 General: Appears in no apparent distress. comfortable, Behavior is calm, cooperative, sv appropriate for age. Neuro: Level of Consciousness is awake, alert, obeys commands, Oriented to person, place, time, situation. Respiratory: Respiratory effort is even, unlabored. Historical: - Allergies: 17:50 SHARON INHIBITORS; sv 17:50 HYDRALAZINE; sv 17:50 Iodine; sv 17:50 iron; sv 17:50 Lisinopril; sv 17:50 PENICILLINS; sv - PMHx: 17:50 Diabetes - NIDDM; Glaucoma; GERD; Hypertension; sv - PSHx: 17:50 Cholecystectomy; sv - Immunization history:: Adult Immunizations up to date. - Social history:: Smoking status: Patient denies any tobacco usage or history of. Screenin:00 Abuse screen: Denies threats or abuse. Denies injuries from another. Nutritional bp screening: No deficits noted. Tuberculosis screening: No symptoms or risk factors identified. Fall Risk None identified. Assessment: 18:00 General: PT MOVED FROM , SEE TRIAGE NOTE. bp Vital Signs: 17:51 BP 88 / 52; Pulse 52; Resp 16; Temp 98.7; Pulse Ox 99% ; sv 18:08 BP 93 / 52; Pulse 51; Resp 17; Pulse Ox 99% ; jl7 ED Course: 17:31 Patient arrived in ED. rg4 17:48 Arm band placed on. sv 17:50 Triage completed. sv 17:57 Johan Johnson, RN is Primary Nurse. bp 18:00 Patient has correct armband on for positive identification. Bed in low position. Call bp light in reach. Side rails up X2. 18:02 Primary Nurse role handed off by Johan Johnson RN jl7 18:02 Angella Sierra RN is Primary Nurse. jl7 18:20 Emmanuel Chang MD is Attending Physician. joseline 19:05 Report given to SARA Long. jl7 19:20 Inserted saline lock: 24 gauge in right forearm, using aseptic technique. Blood ds4 collected. 19:27 XRAY Chest (1 view) In Process Unspecified. EDMS 19:42 CT Stone Protocol In Process Unspecified. EDMS 20:01 Gerard Lobato DO is Hospitalizing Provider. joseline 22:00 No provider procedures requiring assistance completed. rv 22:00 Patient admitted, IV remains in place. rv 02/17 03:28 Primary Nurse role handed off by Angella Sierra RN tt3 07:09 Angella Sierra RN is Primary Nurse. jl7 Administered Medications: 02/16 20:07 Drug: NS 0.9% 500 ml Route: IV; Rate: bolus; Site: right forearm; jb4 20:45 Follow up: IV Status: Completed infusion; IV Intake: 500ml rv 20:45 Drug: NS 0.9% 1000 ml Route: IV; Rate: 125 ml/hr; Site: right forearm; rv 22:17 Follow up: IV Status: Infusion continued upon admission rv Intake: 20:45 IV: 500ml; Total: 500ml. rv Outcome: 20:04 Decision to Hospitalize by Provider. joseline 22:00 Admitted to ER Hold. Please see [facility] for further documentation. rv 22:00 Condition: good 22:00 Instructed on the need for admit. 02/17 15:02 Patient left the ED. jd3 Signatures: Dispatcher [employer] EDYoana Rivero, RN RN Emmanuel Patiño MD MD cha Swanson, Donovan ds4 Gayle Francois rg4 Arnol Jones, RN RN jb4 Angella Sierra, RN RN jl7 Andreas Bui, RN RN jd3 Johan Johnson RN RN Jasson Barker RN RN rv Ethan Pickett tt3 Corrections: (The following items were deleted from the chart) 02/16 17:54 17:48 Acuity: AVERY 3 sv sv 17:54 17:51 Pulse 52bpm; Resp 16bpm; Pulse Ox 99%; Temp 98.7F; sv sv 17:56 17:48 Chief complaint: Patient states: sent by PCP for abnormal kidney function, had sv routine blood work drawn today. sv
--- NOTE | 2020-02-17 20:10 | RAD REPORT ---
EXAM DESCRIPTION: CT - Stone Protocol - 02/17/2020 7:41 pm CLINICAL HISTORY: Abdominal pain. Flank pain COMPARISON: February 2019 TECHNIQUE: Computed axial tomography of the abdomen pelvis was obtained without oral or IV contrast. Lack of IV and oral contrast limits evaluation of solid organs, bowel, and vessels. Coronal reformat nav images were obtained and reviewed. All CT scans are performed using dose optimization technique as appropriate and may include automated exposure control or mA/KV adjustment according to patient size. FINDINGS: A renal calculus is not seen. An ureteral calculus is not noted. A bladder calculus is not present. Mild to moderate bilateral hydronephrosis is present. The degree of hydronephrosis has impr kerrie since the prior exam. The bladder is not distended. No mass is visualized along the course of th e ureters. The liver, pancreas and adrenals appear grossly normal. Splenic granulomata There is no evidence of diverticulitis. Ventral hernia repair IMPRESSION: Negative for a genitourinary calculus Mild to moderate bilateral hydronephrosis has decreased in caliber when compared to the prior exam
[2020-02-17] MEDS ORDERED: NA CHLORIDE 0.9% 1,000 ML ONE ×2 (20:18→22:51)
--- NOTE | 2020-02-17 20:19 | RAD REPORT ---
EXAM DESCRIPTION: Natalie Single View02/17/2020 7:27 pm CLINICAL HISTORY: Cough COMPARISON: March 2019 FINDINGS: The lungs appear clear of acute infiltrate. The heart is normal size IMPRESSION: No acute abnormalities displayed
--- NOTE | 2020-02-17 21:11 | P.HP ---
Certification for Inpatient Patient admitted to: Inpatient With expected LOS: >2 Midnights Patient will require the following post-hospital care: None Practitioner: I am a practitioner with admitting privileges, knowledge of patient current condition, hospital course, and medical plan of care. Services: Services provided to patient in accordance with Admission requirements found in Title 42 Section 412.3 of the Code of Federal Regulations <Power Sharma - Last Filed: 02/17/20 21:03> Patient History Date of Service: 02/17/20 Primary Care Provider: Dr. Pate Reason for admission: ARF History of Present Illness: 72-year-old Afro-Micron[place] female with history of diabetes mellitus type 2, hypertension presents the emergency department for critical outpatient lab, dehydration, falls. Daughter at bedside reports that she has been staying with her son recently and has had decreased p.o. intake, increase weakness and falls over the course of the last week. Also noted decreased urine output. Patient denies use of NSAIDs, recent antibiotic use. Labs reveal creatinine 3.73 GFR 14 last creatinine was 1.58 on 07/23/19 and GFR was 30 at that time. Troponin also mildly elevated at 0.11, patient denies any chest pain, shortness of breath at this time. Patient had CT of the abdomen without contrast which revealed mild to moderate bilateral hydronephrosis that has decreased in caliber when compared to prior exams. Patient has been worked up on an outpatient basis for bilateral hydronephrosis, unable to ascertain the exact etiology but reportedly there are some scar tissue surrounding her ureters at some point in time. Bladder noted to not be distended on CT or physical exam, patient without much urine output recently. ED provider wishes to admit patient for further evaluation and management. When I saw the patient in the ER she is awake, alert, oriented x3. Patient noted to be mildly hypotensive with blood pressures around 95/60, patient does not appear septic at this time. Will admit for further evaluation and management. - Past Medical/Surgical History Diabetic: Yes -: Diabetes mellitus type 2 -: Hypertension -: History DVT -: Glaucoma/cataract -: GERD -: Paroxysmally atrial fibrillation -: PVD -: History of stent to the kidney -: Depression with anxiety -: syncope -: Renal stent -: Ureter Surgery to remove scar tissue -: Hysterectomy -: [place]lin Psychosocial/ Personal History: The patient lives by herself. She is a . She has 8 children. - Family History Father -: Hypertension, Lung disease, Diabetes, Kidney disease Notes: smoker Mother -: Heart disease, Hypertension, GI disease, Diabetes, Stroke Brother -: Hypertension - Social History Alcohol use: No CD- Drugs: No Caffeine use: Yes Place of Residence: Home <Power Sharma - Last Filed: 02/17/20 21:03> Date of Service: 02/18/20 Home medications list reviewed: Yes - Social History Smoking Status: Unknown if ever smoked <Gerard Lobato - Last Filed: 02/18/20 13:49> Allergies lisinopril Allergy (Severe, Verified 03/25/19 07:52) Anaphylaxis iron Allergy (Intermediate, Verified 03/25/19 07:52) Anaphylaxis Penicillins Allergy (Intermediate, Verified 03/25/19 07:52) Anaphylaxis SHARON Inhibitors Allergy (Verified 03/25/19 07:52) Unknown iodine Allergy (Verified 03/25/19 07:52) Unknown hydralazine [From Apresoline] Adverse Reaction (Verified 03/25/19 07:52) Shortness of breath Home Medications: ALPRAZolam [Xanax*] 0.25 mg PO BID PRN 07/11/17 Metformin HCl 1,000 mg PO BID 07/11/17 Pantoprazole Sodium 40 mg PO DAILY 07/11/17 Aspirin [Aspirin EC 81 MG] 81 mg PO DAILY 03/13/19 Hydrocodone/Acetaminophen [Hydrocodone-Acetamin 10-325 mg] 1 tab PO BIDP PRN 03/13/19 Isosorbide Mononitrate [Isosorbide Mononitrate ER] 60 mg PO DAILY 03/13/19 Latanoprost Ophth [Xalatan 0.005%*] 1 drop EACH EYE BEDTIME 03/13/19 Zolpidem Tartrate 10 mg PO BEDTIME 03/13/19 timoloL maleate [Timolol Maleate] 1 drop EACH EYE DAILY 03/13/19 Furosemide [Lasix] 20 mg PO DAILY 03/25/19 Hydrocodone Bit/Acetaminophen [Hydrocodon-Acetaminophn 10-325] 1 each PO Q6HP PRN 03/25/19 Lactulose 10 gm PO DAILY 03/25/19 Metoprolol Tartrate [Lopressor] 50 mg PO [id number] 03/25/19 Sertraline [Zoloft] 25 mg PO DAILY 03/25/19 Review of Systems General: Weakness, Malaise Genitourinary: Other (Decreased urine output), As per HPI <Power Sharma - Last Filed: 02/17/20 21:03> Physical Examination - Physical Exam General: Alert, In no apparent distress, Oriented x3, Cachectic HEENT: Atraumatic, Normocephalic, PERRLA, Other (Mucous membranes dry) Neck: Supple Respiratory: Clear to auscultation bilaterally, Normal air movement Cardiovascular: No edema, Regular rate/rhythm, Normal S1 S2 Capillary refill: <2 Seconds Gastrointestinal: Normal bowel sounds, Soft and benign, No tenderness, No masses, No rebound Musculoskeletal: No swelling, No contractures, No erythema Integumentary: No breakdown, No significant lesion, No tenderness/swelling Neurological: Normal speech, Normal tone, Sensation intact - Studies Laboratory Data (last 24 hrs) 02/17/20 19:21: PT 11.5, INR 0.97 02/17/20 19:21: WBC 6.6, Hgb 10.3 L, Hct 31.8 L, Plt Count 213 D 02/17/20 19:21: Sodium 137, Potassium 3.8, BUN 81 H, Creatinine 3.73 H, Glucose 97, Magnesium 2.1, Total Bilirubin 0.3, AST 25, ALT 17, Alkaline Phosphatase 62 <Power Sharma - Last Filed: 02/17/20 21:03> - Studies Laboratory Data (last 24 hrs) 02/17/20 19:21: PT 11.5, INR 0.97 02/17/20 19:21: WBC 6.6, Hgb 10.3 L, Hct 31.8 L, Plt Count 213 D 02/17/20 19:21: Sodium 137, Potassium 3.8, BUN 81 H, Creatinine 3.73 H, Glucose 97, Magnesium 2.1, Total Bilirubin 0.3, AST 25, ALT 17, Alkaline Phosphatase 62 <Gerard Lobato - Last Filed: 02/18/20 13:49> Assessment and Plan - Plan Assessment DIANA superimposed on chronic kidney disease with chronic bilateral hydronephrosis Diabetes mellitus type 2 Elevated troponin Hypertension Paroxysmal atrial fibrillation-not on anticoagulation therapy Chronic pain Plan DIANA superimposed on chronic kidney disease with chronic bilateral hydronephrosis: Patient appears very dry, decreased urine output, bladder not distended. Continue with IV fluids overnight, obtain uric acid, CPK level, r enal ultrasound in the morning. Nephrology consult in place. Continue with DVT prophylaxis heparin 5000 units subcutaneous twice daily. Appreciate further input from nephrology. Diabetes mellitus type 2: A.c. HS Accu-Cheks, sliding scale insulin therapy. A1c with morning labs. Elevated troponin: Initial troponin 0.11 patient without chest pain or shortness of breath. Likely related to renal failure, trend troponins. Consult cardiology as necessary. Hypertension: Blood pressure on the low side, hold medications for now. Paroxysmal atrial fibrillation-not on anticoagulation therapy: Patient was taken off of Coumadin sometime ago. Patient in sinus rhythm at time of exam. Continue to monitor. Chronic pain: Continue [place]. Discharge Plan: Home Plan to discharge in: 48 Hours - Advance Directives Does patient have a Living Will: No Does patient have a Durable POA for Healthcare: No - Code Status/Comfort Care Code Status Assessed: Yes (Full code) Critical Care: No Time Spent Managing Pts Care (In Minutes): 55 <Power Sharma - Last Filed: 02/17/20 21:03> - Plan Case discussed in detail with nurse practitioner. Agree with plan of care. Case discussed with nephrology. Nephrology feels patient is pre renal. Continue IV fluids. Troponin slightly elevated likely related to acute renal failure. Will consult cardiology. Will obtain echocardiogram. <Gerard Lobato - Last Filed: 02/18/20 13:49>
[2020-02-17] MEDS: INSULIN -REGULAR HUMAN 50 UNIT/0.5 ML ML SQ SCH (22:19)
[2020-02-17] MEDS ORDERED: ONDANSETRON 4 MG/2 ML VIAL IV PRN (22:19)
[2020-02-17] MEDS: HEPARIN 5000 UNIT/ML 1 ML VIAL SQ SCH (22:19)
[2020-02-17] MEDS: NA CHLORIDE 0.9% 1,000 ML IV SCH (22:19)
[2020-02-17] MEDS ORDERED: ALPRAZOLAM 0.25 MG TABLET PO PRN (22:19)
[2020-02-17] MEDS ORDERED: HEPARIN 5000 UNIT/ML 1 ML VIAL ONE (22:51)
[2020-02-17 23:15] VITALS: BMI 23.1
[2020-02-18 04:39] LABS: Absolute Lymphocytes (CBC) 2.3 K/uL (0.7-4.9); Basophils % 1.1 % (0-1.3); Hematocrit 32.3 % (36.0-45.0); Lymphocytes % 35.9 % (15.3-44.8); MPV 9.1 fL (7.6-11.3); RBC Red Blood Cell Count 3.71 M/uL (3.86-4.86)
[2020-02-18 05:04] LABS: C-Reactive Protein 13.2 mg/L (<3.00); Magnesium 1.8 mg/dL (1.8-2.4); Potassium 3.7 mmol/L (3.5-5.1); Thyroid Stimulating Hormone 0.471 uIU/mL (0.360-3.740); Troponin I 0.12 ng/mL (0.0-0.045); Uric Acid 10.3 mg/dL (2.6-6.0)
[2020-02-18] MEDS ORDERED: MAGNESIUM SULFATE 1 gm IVPB 1 GM/100 ML BAG IV ONE (05:53)
[2020-02-18 06:06] LABS: Urine Appearance CLEAR; Urine Bilirubin NEGATIVE (NEG); Urine Blood NEGATIVE (NEG); Urine Color YELLOW; Urine Glucose NEGATIVE (NEG); Urine Protein TRACE (NEG); Urine Urobilinogen 0.2 mg/dL (0.2-1.0); Urine pH 5.5 (5.0-7.0)
[2020-02-18] MEDS ORDERED: NA CHLORIDE 0.9% 1,000 ML ONE (06:13)
[2020-02-18 06:15] LABS: Urine Microscopic Reflex ORDER UMIC
[2020-02-18 06:16] LABS: Urine Bacteria <20 /HPF (<20); Urine RBC NONE SEEN /HPF (NONE SEEN)
[2020-02-18] MEDS: INSULIN -REGULAR HUMAN 50 UNIT/0.5 ML ML SQ SCH ×4 (07:30→21:00)
[2020-02-18] MEDS: NA CHLORIDE 0.9% 1,000 ML IV SCH ×2 (08:19→16:23)
[2020-02-18] MEDS ORDERED: POTASSIUM CL SA 10 MEQ TAB PO ONE ×2 (09:00→09:23)
[2020-02-18] MEDS: HEPARIN 5000 UNIT/ML 1 ML VIAL SQ SCH ×2 (09:17→21:59)
[2020-02-18] MEDS ORDERED: HEPARIN 5000 UNIT/ML 1 ML VIAL ONE (09:23)
--- NOTE | 2020-02-18 13:52 | P.PN ---
Subjective Date of Service: 02/18/20 Primary Care Provider: Dr. Pate Chief Complaint: ARF Subjective: Improving, Doing well Physical Examination - Vital Signs Temperature: 97.7 F Blood Pressure: 148/57 Pulse: 51 Respirations: 18 Pulse Ox (%): 99 - Physical Exam General: Alert, Cooperative HEENT: Atraumatic, Other (Patient appears better hydrated) Neck: Supple Respiratory: Clear to auscultation bilaterally, Normal air movement Cardiovascular: Normal pulses, Regular rate/rhythm Gastrointestinal: Normal bowel sounds, No masses, No rebound, No guarding Neurological: Normal speech, Normal strength at 5/5 x4 extr, Normal tone, Normal affect - Studies Laboratory Data (last 24 hrs) 02/17/20 19:21: PT 11.5, INR 0.97 02/17/20 19:21: WBC 6.6, Hgb 10.3 L, Hct 31.8 L, Plt Count 213 D 02/17/20 19:21: Sodium 137, Potassium 3.8, BUN 81 H, Creatinine 3.73 H, Glucose 97, Magnesium 2.1, Total Bilirubin 0.3, AST 25, ALT 17, Alkaline Phosphatase 62 Medications List Reviewed: Yes Assessment & Plan Discharge Plan: Home Plan to discharge in: 72 Hours Physician Review Additional Text: Assessment DIANA superimposed on chronic kidney disease with chronic bilateral hydronephrosis Diabetes mellitus type 2 Elevated troponin Hypertension Paroxysmal atrial fibrillation-not on anticoagulation therapy Chronic pain Plan DIANA superimposed on chronic kidney disease with chronic bilateral hydronephrosis: Continue IV fluids. Case discussed with nephrology. Patient appears to be pre renal. Will continue monitor closely. Await further recommendations from nephrology. Troponin slightly elevated likely related to acute renal injury. Will obtain echocardiogram. Will consult cardiology for further recommendation. Anticipate improvement over the next 72 hr. Diabetes mellitus type 2: A.c. HS Accu-Cheks, sliding scale insulin therapy. A1c 6.4.. Elevated troponin: Initial troponin 0.11 patient without chest pain or shortness of breath. Likely related to renal failure, trend troponins. Consult cardiology. obtain echocardiogram. Await recommendations by Cardiology.. Hypertension: Monitor off blood pressure medication. Need to obtain and verify home medication.. Paroxysmal atrial fibrillation-not on anticoagulation therapy: Patient was taken off of Coumadin sometime ago. Patient in sinus rhythm at time of exam. Continue to monitor. No need for chronic anti coalition at this time. Chronic pain: Continue [place]. Time Spent Managing Pts Care (In Minutes): 55
[2020-02-18] MEDS ORDERED: NA CHLORIDE 0.9% 500 ML IV ONE (15:00)
--- NOTE | 2020-02-18 15:44 | CON ---
Date of Consultation: 02/18/2020 Reason For Consultation: Elevated BUN and creatinine, fluid management. History Of Present Illness: This is a pleasant 80-year-old female with significant past medical history of diabetes complicated with neuropathy, no retinopathy; hypertension; hyperlipidemia; DVT; paroxysmal AFIb; PAD, obstructive uropathy, status post kidney stent before. The patient came to the hospital complaining from poor intake, nausea without any vomiting for the last almost a week. Upon arrival to the hospital, creatinine was 3.7 with GFR of 14. For that reason, we have been consulted. The patient denied taking any nonsteroidal. No documentation for any contrast exposure recently. CT was done show bilateral hydronephrosis even though that hydronephrosis slightly better than before, but the patient again seem to be with poor intake with decreased urine output lately. The patient also documented low blood pressure upon Arrival to the hospital. As reviewing her medication, the patient apparently on metformin as outpatient and Lasix. Over the night, the patient was started on IV fluid. The kidney function started to improve. Yesterday creatinine 3.5, today is 2.2. Again, CT was positive for obstruction. Past Medical History: Include: 1. Hypertension. 2. Diabetes complicated with neuropathy. 3. Chronic kidney disease secondary to chronic obstructive uropathy. Baseline creatinine back in July 2019, 1.5 with GFR of 38. 4. DVT. 5. Chronic obstructive uropathy, status post stenting. 6. GERD. 7. Paroxysmal atrial fibrillation. 8. Peripheral vascular disease. Past Surgical History: Include: 1. Renal stent. 2. Hysterectomy. 3. Cholecystectomy. Family History: Positive for hypertension and diabetes, kidney disease. Social History: Deny smoking. Denies drinking. Denies drug abuse. Allergies: TO PENICILLIN, SHARON INHIBITOR, IODINE, AND HYDRALAZINE. Home Medications: Include alprazolam, metformin, pantoprazole, aspirin, hydrocodone, isosorbide, Ambien, Lasix, lactulose, Zoloft. Review of Systems: Head and Neck: No red eye. No ear pain. GI: Poor intake, nausea without any vomiting. : No polyuria. No dysuria. No hematuria. DIRECTOR VISUAL: No vaginal discharge. Respiratory: No shortness of breath. Cardiovascular: No chest pain. Endocrine: No polydipsia. Skin: No rash. Neuro: Slightly weak. No focal. No loss of conscious. Musculoskeletal: Generalized fatigue. Physical Examination: Vital Signs: When I saw the patient, blood pressure of 148/57, pulse of 51, afebrile. Chest: Clear to auscultation. Heart: S1, S2 regular. Abdomen: Soft. Nontender. Extremities: No edema. Neurologic: Alert. No focality. Laboratory Data: Yesterday, upon arrival to the hospital, sodium 137, potassium 3.8, bicarb 22, BUN 81, creatinine 3.7, GFR of 18, calcium 8.8. Back in July 2019, potassium 5.2, creatinine 1.5, GFR of 38. H and H 10.8/33.6. Yesterday, WBC 6.6, H and H 10.3/31.8, platelets 231. Today's lab data; WBC 6.3, H and H 10.4/32.3, platelets 182. Sodium 141, potassium 3.7, bicarb 20, BUN 64, creatinine 2.2, calcium 8.4, magnesium 1.8, uric acid 10.3, TSH 0.4. Urinalysis; wbc's of 10. CT abdomen and pelvis, hydronephrosis, bilateral. Assessment And Plan: 1. Acute kidney injury on chronic kidney disease. Chronic kidney disease is secondary to diabetes, nephropathy and chronic obstructive uropathy. Acute component is secondary to prerenal with poor perfusion, acute tubular necrosis supported with low blood pressure, superimposed with Lasix and metformin use on the recovery phase. Looks to me still on the dry side. I am going to continue hydration for the patient. I will give the patient normal saline bolus for the time being and we will follow up the patient. I am going to go ahead and send for protein, creatinine and PTH to evaluate for chronicity of the disease with the presence of anemia. I am going to send for anemia workup, serum protein electrophoresis. 2. Obstructive uropathy, as above. We will add Flomax and we will monitor the patient. 3. Hypertension with acute kidney injury. Hold Lasix. Currently, blood pressure on the lower side. Hold the rest of the blood pressure medication. 4. Atrial fibrillation, as by primary. 5. Urinary tract infection. We will follow up culture. Thank you Dr. Lobato for allowing us to participate in the care of your patient. time spend exam the patient face to face , place order , discussed the case with other wallpaper remover steam hospitalist and other strategic consultant 75 min. EMILIA Voice ID: [id number] Report ID: [id number]
[2020-02-18] MEDS: HYDROCODONE/APAP 5/325 MG TAB PO PRN (20:07)
[2020-02-19] MEDS: NA CHLORIDE 0.9% 1,000 ML IV SCH ×3 (02:40→15:08)
[2020-02-19 03:53] LABS: Hematocrit 33.8 % (36.0-45.0); Lymphocytes % 37.5 % (15.3-44.8); MPV 9.4 fL (7.6-11.3); RBC Red Blood Cell Count 3.94 M/uL (3.86-4.86)
[2020-02-19 04:48] LABS: BUN Blood Urea Nitrogen 31 mg/dL (7-18); Bicarbonate 24 mmol/L (21-32); Ferritin 144.3 ng/mL (8-388); Folic Acid, (Folate) > 20.0 ng/mL (3.1-17.5); Glucose Level 79 mg/dL (74-106); Magnesium 1.8 mg/dL (1.8-2.4); Phosphorus 1.9 mg/dL (2.5-4.9); Potassium 3.8 mmol/L (3.5-5.1); Sodium Level 142 mmol/L (136-145); Thyroid Stimulating Hormone 0.476 uIU/mL (0.360-3.740); Transferrin 194 mg/dL (200-360); Uric Acid 8.2 mg/dL (2.6-6.0)
--- NOTE | 2020-02-19 06:35 | EKG ---
Test Date: 2020-02-17 Test Time: 19:50:18 Fabricator Special Items: JENA MEASUREMENT RESULTS: Intervals: Rate: 52 DC: 156 QRSD: 94 QT: 458 QTc: 425 [place]: P: 84 DC: 156 QRS: 41 T: 63 INTERPRETIVE STATEMENTS: Sinus bradycardia Otherwise normal ECG Compared to ECG 03/25/2019 07:58:32 No significant changes Electronically Signed On 02-19-20 06:32:03 MEAT COUNTER CLERK by Beto Solis
[2020-02-19] MEDS: INSULIN -REGULAR HUMAN 50 UNIT/0.5 ML ML SQ SCH ×4 (07:30→21:00)
[2020-02-19] MEDS ORDERED: MAGNESIUM SULFATE 1 gm IVPB 1 GM/100 ML BAG IV ONE (09:00)
[2020-02-19] MEDS ORDERED: POTASSIUM CL SA 10 MEQ TAB PO ONE (09:00)
[2020-02-19] MEDS: HEPARIN 5000 UNIT/ML 1 ML VIAL SQ SCH ×2 (09:10→19:57)
[2020-02-19] MEDS: ISOSORBIDE MONO SR 60 MG TAB PO SCH (09:10)
[2020-02-19] MEDS: AMLODIPINE 10 MG TAB PO SCH (09:11)
[2020-02-19] MEDS: ACETAMINOPHEN 500 MG TAB PO PRN ×2 (11:13→19:58)
--- NOTE | 2020-02-19 13:01 | P.PN ---
Subjective Date of Service: 02/19/20 Primary Care Provider: Dr. Pate Chief Complaint: ARF Subjective: Improving, Doing well Physical Examination - Vital Signs Temperature: 97.4 F Blood Pressure: 118/56 Pulse: 55 Respirations: 16 Pulse Ox (%): 97 - Physical Exam General: Alert, In no apparent distress, Oriented x3, Cooperative HEENT: Atraumatic Neck: Supple Respiratory: Clear to auscultation bilaterally, Normal air movement Cardiovascular: Normal pulses, Regular rate/rhythm Gastrointestinal: Normal bowel sounds, No masses, No rebound, No guarding Neurological: Normal speech, Normal strength at 5/5 x4 extr, Normal tone, Normal affect - Studies Medications List Reviewed: Yes Assessment & Plan Discharge Plan: Home Plan to discharge in: 24 Hours Physician Review Additional Text: Assessment DIANA superimposed on chronic kidney disease with chronic bilateral hydronephrosis Diabetes mellitus type 2 Elevated troponin Hypertension Paroxysmal atrial fibrillation-not on anticoagulation therapy Chronic pain Plan DIANA superimposed on chronic kidney disease with chronic bilateral hydronephrosis: Continue IV fluids. Case discussed with nephrology. Nephrology wants to continue with IV fluids 1 more day. If improved by tomorrow will consider discharge. Await echocardiogram. Will also discuss with ca rdiology. Likely no need for intervention. Will continue monitor closely. Anticipate discharge within 24 hr. Diabetes mellitus type 2: A.c. HS Accu-Cheks, sliding scale insulin therapy. A1c 6.4. Metformin has been discontinued.. Elevated troponin: Initial troponin 0.11 patient without chest pain or shortness of breath. Likely related to renal failure, trend troponins. Await echocardiogram. Cardiology recommends no intervention at this time. Hypertension: Monitor off blood pressure medication. Need to obtain and verify home medication.. Blood measure medication has been adjusted Paroxysmal atrial fibrillation-not on anticoagulation therapy: Patient was taken off of Coumadin sometime ago. Patient in sinus rhythm at time of exam. Continue to monitor. No need for chronic anti coagulation at this time. Chronic pain: Continue [place]. Time Spent Managing Pts Care (In Minutes): 55
[2020-02-19 13:57] LABS: Urine Protein/Creatinine Ratio 1.79 ratio (<0.15)
[2020-02-19] MEDS: HYDROCODONE/APAP 5/325 MG TAB PO PRN (15:08)
[2020-02-19] MEDS ORDERED: carvediloL 25 MG TAB PO SCH ×2 (18:00)
[2020-02-19] MEDS: POTASS/SODIUM PHOSPHATE 1 PKT POWD.PACK PO SCH (19:58)
[2020-02-19] MEDS ORDERED: LATANOPROST 0.005% 2.5ML OPTH OPTH SCH (21:00)
--- NOTE | 2020-02-20 00:02 | PN ---
Date of Progress Note: 02/19/2020 Subjective: The patient was admitted with acute kidney injury, multifactorial, secondary to use, obstructive uropathy, prerenal, superimposed, with metformin and diuresis. The patient after hydration kidney function has been improved significantly. Objective: Vital Signs: Blood pressure 145/67, pulse of 49. The patient had good urine output of 3 voidings. Chest: Clear to auscultation. Heart: S1, S2. Regular. Abdomen: Soft, nontender. Extremities: No edema. Neurologic: Alert and oriented. No focality. Laboratory Data: H and H 11.2/33.8. Sodium 142, potassium 3.8, bicarb 24, BUN 31, creatinine 1.1, calcium 8.2, phosphorus 1.9. Iron saturation 11, ferritin 144. Current Medications: The patient on include; heparin, isosorbide, amlodipine, gabapentin, Zofran, pantoprazole, insulin, IV fluid at 100 normal saline. Assessment And Plan: 1. Acute kidney injury, secondary to prerenal superimposed with nonsteroidal use. Diuresis recovered. I going to continue hydration. Decrease IV fluid to 50 per hour. Plan to discontinue. Keep holding ARB for the time being. 2. Hypertension, controlled optimal. Continue hydration. Keep holding losartan and Lasix for the time being. 3. Iron-deficiency anemia. Start the patient on IV fluid. 4. Secondary hyperparathyroid. No need for binder or vitamin D for the time being. 5. Hypomagnesemia. We will supplement. 6. Hypophosphatemia. continue supplement giving the acute kidney injury. 7. Anemia of chronic kidney disease. Serum protein electrophoresis is still pending. MA/MODLTime spent discussing with the patient, [id number], using the translation, discussing with the staff and placing an order, discussing with over subspecialty and hospitalist 45 minutes. Voice ID: [id number] Report ID: [id number]
[2020-02-20 04:17] LABS: Albumin 2.9 g/dL (3.4-5.0); Phosphorus 1.7 mg/dL (2.5-4.9); Potassium 3.9 mmol/L (3.5-5.1)
[2020-02-20] MEDS ORDERED: POTASSIUM CL SA 10 MEQ TAB PO ONE (04:20)
[2020-02-20] MEDS: INSULIN -REGULAR HUMAN 50 UNIT/0.5 ML ML SQ SCH ×2 (07:30→11:30)
--- NOTE | 2020-02-20 08:37 | ECHO ---
HEIGHT: 5 ft 4 in WEIGHT: 131 lb 3.2 oz DATE OF STUDY: 02/19/[address]: Gerard Lobato DO 2-DIMENSIONAL: YES M.MODE: YES DOPPLER: YES COLOR FLOW: YES TDS: PORTABLE: DEFINITY: BUBBLE STUDY: DIAGNOSIS: ELEVATED TROPONIN, ACUTE RENAL FAILURE CARDIAC HISTORY: CATHERIZATION: NO SURGERY: NO PROSTHETIC VALVE: NO PACEMAKER: NO MEASUREMENTS (cm) DIASTOLIC (NORMALS) SYSTOLIC (NORMALS) IVSd 0.9 (0.6-1.2) LA Diam 3.0 (1.9-4.0) LVEF 55% LVIDd 2.7 (3.5-5.7) LVIDs 2.0 (2.0-3.5) %FS 27% LVPWd 1.1 (0.6-1.2) Ao Diam 2.5 (2.0-3.7) 2 DIMENSIONAL ASSESSMENT: RIGHT ATRIUM: NORMAL LEFT ATRIUM: NORMAL RIGHT VENTRICLE: NORMAL LEFT VENTRICLE: NORMAL TRICUSPID VALVE: NORMAL MITRAL VALVE: MITRAL ANNULAR CALCIFICATION PULMONIC VALVE: NORMAL AORTIC VALVE: NORMAL PERICARDIAL EFFUSION: NONE AORTIC ROOT: NORMAL LEFT VENTRICULAR WALL MOTION: NORMAL DOPPLER/COLOR FLOW: MILD TRICUSPID REGURGITATION. COMMENTS: NORMAL LEFT VENTRICULAR SIZE AND FUNCTION. NO WALL MOTION ABNORMALITY. NO EFFUSION. MITRAL ANNULAR CALCIFICATION. TECHNOLOGIST: MARTIN CLARKE
[2020-02-20] MEDS ORDERED: PANTOPRAZOLE 40MG TABLET PO SCH (09:00)
[2020-02-20] MEDS ORDERED: GABAPENTIN 300 MG CAP PO SCH (09:00)
[2020-02-20] MEDS: AMLODIPINE 10 MG TAB PO SCH (09:34)
[2020-02-20] MEDS: POTASS/SODIUM PHOSPHATE 1 PKT POWD.PACK PO SCH (09:34)
[2020-02-20] MEDS: ISOSORBIDE MONO SR 60 MG TAB PO SCH (09:34)
[2020-02-20] MEDS: HEPARIN 5000 UNIT/ML 1 ML VIAL SQ SCH (09:35)
[2020-02-20] MEDS: HYDROCODONE/APAP 5/325 MG TAB PO PRN (09:36)
--- NOTE | 2020-02-20 10:49 | P.DS ---
Admission Date: 02/17/20 Discharge Date: 02/20/20 Primary Care Provider: Dr. Pate Disposition: ROUTINE DISCHARGE Discharge Condition: GOOD Reason for Admission: ARF Consultations: Cardiology-Dr. Solis Nephrology-Dr. Retana Procedures: COVID: Positive CT Scan: FINDINGS: A renal calculus is not seen. An ureteral calculus is not noted. A bladder calculus is not present. Mild to moderate bilateral hydronephrosis is present. The degree of hydronephrosis has improved since the prior exam. The bladder is not distended. No mass is visualized along the course of the ureters. The liver, pancreas and adrenals appear grossly normal. Splenic granulomata There is no evidence of diverticulitis. Ventral hernia repair IMPRESSION: Negative for a genitourinary calculus Mild to moderate bilateral hydronephrosis has decreased in caliber when compared to the prior exam CXR: COMPARISON: March 2019 FINDINGS: The lungs appear clear of acute infiltrate. The heart is normal size IMPRESSION: No acute abnormalities displayed ECHO: EF 55% LEFT VENTRICULAR WALL MOTION: NORMAL DOPPLER/COLOR FLOW: MILD TRICUSPID REGURGITATION. COMMENTS: NORMAL LEFT VENTRICULAR SIZE AND FUNCTION. NO WALL MOTION ABNORMALITY. NO EFFUSION. MITRAL ANNULAR CALCIFICATION. Medical problem list: DIANA superimposed on chronic kidney disease with chronic bilateral hydronephrosis implicated with UTI, urine culture positive for E coli Diabetes mellitus type 2 Elevated troponin likely related to above Hypertension Paroxysmal atrial fibrillation-not on anticoagulation therapy Chronic pain GERD Brief History of Present Illness: 80-year-old female presented to the emergency room with fatigue. Patient found to have acute renal injury and COVID 19 positive. The patient was admitted for further evaluation and treatment. CT scan revealed chronic hydronephrosis. Hospital Course: Patient presented with fatigue secondary to acute renal injuries superimposed on chronic renal disease related to diabetes. Patient also has chronic bilateral hydronephrosis. Patient was admitted for further evaluation. Patient seen by nephrology. Patient received IV fluids with improvement of renal function. Renal function back to baseline. Elevated troponin noted likely related to acute on chronic renal disease. Patient also found to have UTI. Urine culture positive for E coli. At discharge renal function back to baseline. Patient appropriate. At discharge she will continue with Bactrim DS 1 pill twice daily for 7 days. UTI prevention will be provided. Recommend to recheck BMP in 1 week to monitor her progress. Recommend follow up with nephrology in 1 week to further address and monitor. Recommend increase intake and monitoring of fluid s. Recommend no further use of nonsteroidal anti-inflammatories. Medications have been adjusted. Patient with diabetes mellitus type 2. Hemoglobin A1c 6.4. Patient previously on metformin. This was discontinued due to her chronic renal disease. Blood sugars well controlled off medication. At discharge she will continue with diabetic diet. No need for medication at this time. Recommend to monitor blood sugars at least twice daily. Recommend to maintain blood sugars less 140 fasting and less than 200 after meals. If blood sugars remain elevated she is to follow up with her PCP for further recommendation. If medication needed the future recommend not using metformin but possible glimepiride. This can be further addressed by her PCP. Patient with hypertension. Medications were adjusted during her stay. Carvedilol was decreased. Hydrochlorothiazide was discontinued. At discharge she will continue with Norvasc 10 mg daily and carvedilol 6.25 mg 1 pill twice daily. Recommend to maintain blood pressure less than 130/80. Further adjustment can be done by her PCP. Patient with history of atrial fibrillation not on chronic anti coagulation therapy. Medications have been adjusted as above. Patient will continue with carvedilol 6.25 mg 1 pill twice daily. No need for anti coagulation therapy at this time. Patient remains in normal sinus rhythm. Patient with GERD. At discharge she will continue with Protonix 40 mg daily. Patient with chronic pain. At discharge she may continue with hydrocodone as directed. Patient will also continue with gabapentin 300 mg 1 pill twice daily. Vital Signs/Physical Exam: Temp Pulse Resp BP Pulse Ox 98.2 F 55 18 149/69 H 95 02/20/20 08:00 02/20/20 09:34 02/20/20 09:36 02/20/20 09:34 02/20/20 09:36 General: Alert, In no apparent distress, Oriented x3, Cooperative HEENT: Atraumatic Neck: Supple Respiratory: Clear to auscultation bilaterally, Normal air movement Cardiovascular: Normal pulses, Regular rate/rhythm Gastrointestinal: Normal bowel sounds, Soft and benign, Non-distended, No tenderness, No masses, No rebound, No guarding Neurological: Normal speech, Normal strength at 5/5 x4 extr, Normal tone, Normal affect Laboratory Data at Discharge: WBC 5.5 K/uL (4.3-10.9) 02/19/20 03:06 Hgb 11.2 g/dL (12.0-15.0) L 02/19/20 03:06 Hct 33.8 % (36.0-45.0) L 02/19/20 03:06 Plt Count 198 K/uL (152-406) 02/19/20 03:06 PT 11.5 SECONDS (9.5-12.5) 02/17/20 19:21 INR 0.97 02/17/20 19:21 Sodium 143 mmol/L (136-145) 02/20/20 03:25 Potassium 3.9 mmol/L (3.5-5.1) 02/20/20 03:25 BUN 16 mg/dL (7-18) 02/20/20 03:25 Creatinine 0.86 mg/dL (0.55-1.3) 02/20/20 03:25 Glucose 75 mg/dL (74-106) 02/20/20 03:25 Uric Acid 8.2 mg/dL (2.6-6.0) H 02/19/20 03:06 Phosphorus 1.7 mg/dL (2.5-4.9) L 02/20/20 03:25 Magnesium 2.0 mg/dL (1.8-2.4) 02/20/20 03:25 Total Bilirubin 0.3 mg/dL (0.2-1.0) 02/17/20 19:21 AST 25 U/L (15-37) 02/17/20 19:21 ALT 17 U/L (12-78) 02/17/20 19:21 Alkaline Phosphatase 62 U/L (45-117) 02/17/20 19:21 Troponin I 0.12 ng/mL (0.0-0.045) H 02/18/20 04:27 Triglycerides 124 mg/dL (<150) 02/18/20 04:27 Cholesterol 124 mg/dL (<200) 02/18/20 04:27 HDL Cholesterol 38 mg/dL (40-60) L 02/18/20 04:27 Cholesterol/HDL Ratio 3.26 02/18/20 04:27 Home Medications: ALPRAZolam [Xanax*] 0.25 mg PO BID PRN 07/11/17 Pantoprazole Sodium 40 mg PO DAILY 07/11/17 Hydrocodone/Acetaminophen [Hydrocodone-Acetamin 10-325 mg] 1 tab PO BIDP PRN 03/13/19 Isosorbide Mononitrate [Isosorbide Mononitrate ER] 60 mg PO DAILY 03/13/19 Latanoprost Ophth [Xalatan 0.005%*] 1 drop EACH EYE BEDTIME 03/13/19 Amlodipine [Norvasc*] 1 tab PO DAILY 02/18/20 Gabapentin 1 tab PO BID 02/18/20 Smz./Tmp. [Bactrim Ds 800 MG/160 MG*] 1 tab PO BID #14 tab 02/20/20 carvediloL [Coreg*] 6.25 mg PO BID #60 tab 02/20/20 New Medications: Smz./Tmp. [Bactrim Ds 800 MG/160 MG*] 1 tab PO BID #14 tab carvediloL [Coreg*] 6.25 mg PO BID #60 tab Patient Discharge Instructions: Recommend follow up with PCP in 1 week. . Patient presented with fatigue secondary to acute renal injuries superimposed on chronic renal disease related to diabetes. Patient also has chronic bilateral hydronephrosis. Patient was admitted for further evaluation. Patient seen by nephrology. Patient received IV fluids with improvement of renal function. Renal function back to baseline. Elevated troponin noted likely related to acute on chronic renal disease. Patient also found to have UTI. Urine culture positive for E coli. At discharge renal function back to baseline. Patient appropriate. At discharge she will continue with Bactrim DS 1 pill twice daily for 7 days. UTI prevention will be provided. Recommend to recheck BMP in 1 week to monitor her progress. Recommend follow up with nephrology in 1 week to further address and monitor. Recommend increase intake and monitoring of fluids. Recommend no further use of nonsteroidal anti-inflammatories. Medications have been adjusted. Patient with diabetes mellitus type 2. Hemoglobin A1c 6.4. Patient previously on metformin. This was discontinued due to her chronic renal disease. Blood sugars well controlled off medication. At discharge she will continue with diabetic diet. No need for medication at this time. Recommend to monitor blood sugars at least twice daily. Recommend to maintain blood sugars less 140 fasting and less than 200 after meals. If blood sugars remain elevated she is to follow up with her PCP for further recomm endation. If medication needed the future recommend not using metformin but possible glimepiride. This can be further addressed by her PCP. Patient with hypertension. Medications were adjusted during her stay. Carvedilol was decreased. Hydrochlorothiazide was discontinued. At discharge she will continue with Norvasc 10 mg daily and carvedilol 6.25 mg 1 pill twice daily. Recommend to maintain blood pressure less than 130/80. Further adjustment can be done by her PCP. Patient with history of atrial fibrillation not on chronic anti coagulation therapy. Medications have been adjusted as above. Patient will continue with carvedilol 6.25 mg 1 pill twice daily. No need for anti coagulation therapy at this time. Patient remains in normal sinus rhythm. Patient with GERD. At discharge she will continue with Protonix 40 mg daily. Patient with chronic pain. At discharge she may continue with hydrocodone as directed. Patient will also continue with gabapentin 300 mg 1 pill twice daily. Diet: Renal Activity: Ad jose miguel Followup: Sharath Pate MD [Primary Care Provider] - Time spent managing pt's care (in minutes): 55
[2020-02-20 12:23] VITALS: BP 131/60; TEMP 97.9
[2020-02-20 12:43] VITALS: O2SAT 96
--- NOTE | 2020-02-20 13:42 | PN ---
Date of Progress Note: 02/20/2020 Subjective: The patient was admitted with acute kidney injury secondary to nonsteroidal use and SHARON inhibitor superimposed with Lasix and metformin. The patient recovered. The patient feeling better. Physical Examination: Vital Signs: Blood pressure 131/60, pulse of 48, afebrile. The patient had good urine output of 2 L. Chest: Clear to auscultation. Heart: S1, S2. Regular. Abdomen: Soft, nontender. Extremities: No edema. Neurologic: Alert, oriented x3. Nonfocal. Laboratory Data: H and H 11.2/33.8. Sodium 143, potassium 3.9, bicarb 24. BUN 16; creatinine 0.8, upon admission, it was 3.7. Calcium 8.9. Phos 1.7. Magnesium 2. Albumin 2.8. Current Medications: The patient is on include: 1. Bactrim. 2. Amlodipine. 3. Carvedilol 6.25. 4. Isosorbide. 5. Gabapentin 300 b.i.d. 6. Pantoprazole. 7. Insulin. 8. Hydrocodone. Assessment And Plan: 1. Acute kidney injury, multifactorial, secondary to prerenal superimposed with Lasix and SHARON inhibitor and nonsteroidal use with mild acidosis secondary to metformin, resolved. I am going to discontinue IV fluid. 2. Obstructive uropathy. The patient's kidney function completely normalized. This is mostly nonfunctional obstruction. No need for any action right now. 3. Hypomagnesemia. We will supplement. 4. Hypophosphatemia. We will supplement. 5. Hypertension, controlled, optimal. Please keep holding the Lasix and ARB for the time being. 6. Diabetes, as by primary. Please avoid metformin. 7. Urinary tract infection. I agree with sulfa secondary to Escherichia coli. 8. The patient cleared from the renal standpoint for discharge planning. Time spent discussing with the patient, [id number], using the translation, discussing with the staff and placing an order, discussing with over subspecialty and hospitalist 45 minutes. EMILIA Voice ID: [id number] Report ID: [id number]
[2020-02-20] MEDS ORDERED: SMZ./TMP. 800/160 MG TABLET PO SCH (21:00)
[2020-02-20] MEDS ORDERED: carvediloL 6.25 MG TAB PO SCH (21:00)
--- NOTE | 2020-02-21 13:50 | CON ---
Date of Consultation: 02/21/2020 Reason For Consultation: Elevated troponin. History Of Present Illness: The patient was sent to the emergency room because of abnormal labs. No cardiac symptoms. Denied PND, orthopnea, pedal edema, palpitations, or syncope. Denied any chest p ain, nausea, vomiting, diaphoresis. Past Medical History: Includes diabetes, hypertension, glaucoma, gastroesophageal reflux disease as well as cholecystectomy. Review of Systems: Negative. Social History: Negative. Family History: Negative. Medications: Listed by Dr. Lobato. Allergies: SHE IS ALLERGIC TO SHARON INHIBITORS, HYDRALAZINE, IODINE, IRON, LISINOPRIL AND PENICILLIN. Physical Examination: Vital Signs: Stable. She was afebrile. She was in a sinus rhythm. HEENT: Negative. Neck: Supple without any lymphadenopathy, JVD, thyromegaly or bruit. Chest: Clear to auscultation and percussion. Cardiac: Revealed a regular rhythm and rate without any murmurs, gallops, or rubs. Abdomen: Benign. Extremities: Revealed no clubbing, cyanosis, or edema. Diagnostic Data: She had a glucose of 142. Her troponin was slightly abnormal. She had a magnesium 1.9. She has a normal chest x-ray. She had a normal EKG. Impression And Plan: This is a patient with hypertension, diabetes with neuropathy, chronic kidney d isease, deep venous thrombosis, chronic obstructive uropathy, status post stenting, paroxysmal atrial fibrillation, peripheral arterial disease, gastroesophageal reflux disease, hysterectomy and cholecy stectomy. Came in with acute on chronic kidney injury, probably causing the elevated troponin. She has been seen by Nephrology. She is in sinus rhythm right now. No need to change any of her medical therapy at this point. I agree with nephrology consultation regarding her elevated troponin. I think an echocardiogram is indicated to rule out wall motion abnormalities. We will see what that shows before making any further decisions. SHAUN/MISSAEL Voice ID: [id number] Report ID: [id number]
[2020-02-22 14:49] LABS: Vitamin D 1,25-Dihydroxy Total 40 pg/mL (18-72); Vitamin D,1,25-OH2, D2 <8 pg/mL
[2020-02-23 06:20] LABS: Albumin, (SPE) 3.4 g/dL (3.8-4.8); Alpha-1-Globulins 0.4 g/dL (0.2-0.3); Alpha-2-Globulins 0.9 g/dL (0.5-0.9); Gamma Globulins 1.6 g/dL (0.8-1.7); INTERPRETATION REPORT
== END 2020-02-20 15:39 | disposition home or self-care (01) | DRG 682 ==
LOC: ER 17:28 → ERHOLD 21:12 → 4TH 02-18 14:35
PROVIDERS: ADMIT Family Medicine; ATTEND Family Medicine
DX: N17.0 Acute kidney failure with tubular necrosis (principal); U07.1 COVID-19; R64 Cachexia; N39.0 Urinary tract infection, site not specified; K21.9 Gastro-esophageal reflux disease without esophagitis; I48.0 Paroxysmal atrial fibrillation; I12.9 Hypertensive chronic kidney disease with stage 1 through stage 4 chronic kidney disease, or unspecified chronic kidney disease; N18.9 Chronic kidney disease, unspecified; E11.22 Type 2 diabetes mellitus with diabetic chronic kidney disease; E11.40 Type 2 diabetes mellitus with diabetic neuropathy, unspecified; E11.51 Type 2 diabetes mellitus with diabetic peripheral angiopathy without gangrene; D63.1 Anemia in chronic kidney disease; E78.5 Hyperlipidemia, unspecified; N25.81 Secondary hyperparathyroidism of renal origin; E83.39 Other disorders of phosphorus metabolism; E83.42 Hypomagnesemia; D50.9 Iron deficiency anemia, unspecified; N13.6 Pyonephrosis; G89.29 Other chronic pain; B96.20 Unspecified Escherichia coli [E. coli] as the cause of diseases classified elsewhere; R77.8 Other specified abnormalities of plasma proteins; Z88.0 Allergy status to penicillin; Z88.8 Allergy status to other drugs, medicaments and biological substances; Z90.49 Acquired absence of other specified parts of digestive tract; Z86.718 Personal history of other venous thrombosis and embolism; Z90.710 Acquired absence of both cervix and uterus; Z60.2 Problems related to living alone; Z79.4 Long term (current) use of insulin; Z79.82 Long term (current) use of aspirin; Z68.22 Body mass index [BMI] 22.0-22.9, adult; Z79.01 Long term (current) use of anticoagulants
CPT/HCPCS: 36415; 71045; 74176; 76377; 80048; 80053; 80061; 80069; 80076; 81003; 81015; 82550; 82570; 82607; 82652; 82728; 82746; 82947; 83036; 83540; 83735; 83880; 83970; 84156; 84165; 84439; 84443; 84466; 84484; 84550; 85025; 85044; 85610; 86140; 87077; 87086; 87088; 87186; 93005; 93306; 96360; 96361; 97116; 97161; 99285; J1644; J3475; J7030; U0003